=== PATIENT | male | born 1940 | race Caucasian/White ===

== ENCOUNTER 2020-01-05 17:48 | Emergency (ER) | payer MEDICARE, SELFPAY ==
[2020-01-05 17:53] VITALS: BP 146/78; PULSE 78; RESP 18; TEMP 36.5; O2SAT 100
--- NOTE | 2020-01-05 17:59 | ECG_ITS ---
Measurements Intervals [place] Rate: 74 P: 180 NV: 252 QRS: -87 QRSD: 181 T: 104 QT: 465 QTc: 518 Interpretive Statements ELECTRONIC ATRIAL PACEMAKER ELECTRONIC VENTRICULAR PACEMAKER ATRIAL PREMATURE COMPLEX NO FURTHER INTERPRETATION IS POSSIBLE ATYPICAL ECG Electronically Signed On 01-06-2020 7:09:32 CDT by Luiz Hernandez D.O.
--- NOTE | 2020-01-05 18:09 | ED.DIZZY ---
HPI - Dizziness General Chief Complaint: Dizziness Stated Complaint: DIZZINESS Time Seen by Provider: 01/05/20 17:53 History of Present Illness HPI Narrative: Pt c/o lightheadedness and clammy , states the same symptoms when he had a hear attack. Pt states he never had cp or sob from his previous heart attack, my diabetes masked my symptoms like chest pain . Exacerbating factors: nothing Relieving factors: nothing Associated symptoms: diaphoresis Related Data Allergies Allergy/AdvReac Type Severity Reaction Status Date / Time No Known Allergies Allergy Verified 05/01/13 01:44 Review of Systems Review of Systems: All systems reviewed & are unremarkable except as noted in HPI and below Constitutional: Constitutional: Denies body ache(s), Denies chills, Denies excessive sweating, Denies fatigue, Denies fever(s), Denies headache(s), Denies lethargy, Denies malaise, Denies weakness and Denies weight loss Eyes: Eyes: Denies blurry vision, Denies change in vision and Denies loss of vision ENT: Denies dizziness, Denies ear discharge, Denies headache(s), Denies lip swelling, Denies epistaxis, Denies nasal congestion, Denies neck pain, Denies throat swelling and Denies tongue swelling Cardiovascular: Cardiovascular: Denies chest pain, Denies chest pain at rest, Denies chest pain with activity, Denies rapid heart rate, Denies edema, Denies irregular heart rhythm, Denies lightheadedness, Denies palpitations, Denies dyspnea and Denies dyspnea on exertion Respiratory: Respiratory: Denies chest congestion, Denies cough, Denies hemoptysis, Denies dyspnea and Denies dyspnea on exertion Gastrointestinal: Gastrointestinal: Denies abdominal pain, Denies melena, Denies hematochezia, Denies diarrhea, Denies nausea, Denies vomiting and Denies hematemesis Musculoskeletal: Musculoskeletal: Denies abnormal gait, Denies deformity, Denies joint swelling, Denies limited range of motion, Denies neck pain and Denies numbness Neurologic: Denies Abnormal speech present, Denies abnormal gait, Denies confusion, Denies headache(s), Denies focal weakness, Denies loss of vision, Denies numbness, Denies Other visual disturbances, Denies Sensory deficit (Neuro) and Denies weakness Psychiatric: Psychiatric: Denies confusion, Denies depression, Denies auditory hallucinations, Denies homicidal ideation and Denies suicidal ideation Endocrine: Endocrine: Denies cold intolerance, Denies excessive sweating, Denies fatigue, Denies heat intolerance and Denies palpitations Hematologic/Lymphatic: Hematologic/Lymphatic: Denies easy bleeding and Denies easy bruising Allergic/Immunologic: Allergic/Immunologic: Denies lip swelling, Denies throat swelling and Denies tongue swelling [facility] Social History Social History Gender identity (if verbalized by the patient): Male Exam Const: General: cooperative, healthy appearing, comfortable, no acute distress, well developed, alert and awake; No confusion Orientation/consciousness: oriented to person, oriented to place, oriented to time, patient oriented x3 and No confusion Limitations: no limitations HENMT: Head: normal to inspection, normocephalic and atraumatic Ears: hearing grossly normal bilaterally, TM normal on the right and TM normal on the left General nose exam: Normal external nose present, Normal nares present and No nasal discharge present Face and sinus: normal facial exam Mouth: Yes Normal oral and palatal mucosa present, Yes lip normal, Yes tongue normal and Yes oropharynx normal Throat: posterior oropharynx normal, tonsils normal and uvula midline Eyes: General: appearance normal, both eyes and all related structures Pupils: Equal, round and reactive pupils present EOM: EOMs intact bilaterally Neck: Neck: normal visual inspection, full ROM, no lymphadenopathy and no meningeal signs Chest: Chest palpation & inspection: normal inspection of the chest Resp: Effort & Inspection: normal respiratory effort, able
[2020-01-05 18:18] LABS: Basophils Absolute Auto 0.1 K/mm3 (0.0-0.1); Basophils Percent Auto 0.7 % (0.2-1.2); Eosinophils Absolute Auto 0.1 K/mm3 (0-0.3); Eosinophils Percent Auto 1.6 % (0-4.4); Hematocrit 46.9 % (42.0-52.0); Hemoglobin 15.7 g/dL (14.0-18.0); Immature Granulocyte Absolute 0.11 K/mm3 (0.00-0.031); Immature Granulocyte Percent A 1.6 % (0-0.5); Lymphocytes Absolute Auto 1.26 K/mm3 (0.9-3.2); Lymphocytes Percent Auto 18.6 % (18.3-44.2); Mean Corpuscular HGB Conc 33.5 g/dl (32-36); Mean Corpuscular Hemoglobin 29.4 pg (26-34); Mean Corpuscular Volume 87.8 fl (80-100); Mean Platelet Volume 10.5 fl (7.4-10.4); Monocytes Absolute Auto 0.6 K/mm3 (0.1-0.6); Neutrophils Absolute Auto 4.6 K/mm3 (1.3-6.7); Neutrophils Percent Auto 68.5 % (45.5-73.1); Platelet Count Result 142 k/mm3 (150-375); Red Blood Count 5.34 M/mm3 (4.6-6.20); Red Cell Distribution Width 14.7 % (11.5-14.5); White Blood Count 6.8 K/mm3 (4.5-10.0)
[2020-01-05 18:35] LABS: Alanine Aminotransferase 19 U/L (4-50); Albumin Level 4.4 g/dL (3.5-5.1); Alkaline Phosphatase 100 U/L (38-126); Aspartate Amino Transferase 24 U/L (17-59); Bilirubin,Total 0.6 mg/dL (0.2-1.3); Blood Urea Nitrogen 21 mg/dL (9-20); Carbon Dioxide 30 mmol/L (22-30); Chloride 103 mmol/L (98-107); Estimated CRCL calculation 60 ml/min; Estimated Glomerular Filt Rate > 60; Glucose 140 mg/dL (75-110); Potassium 3.5 mmol/L (3.4-5.0); Sodium 141 mmol/L (137-145)
[2020-01-05 18:45] LABS: Troponin I 0.024 ng/mL (0.000-0.034)
[2020-01-05 19:49] VITALS: BP 149/66; PULSE 68; RESP 18; O2SAT 98
[2020-01-05 21:22] LABS: Troponin I 0.026 ng/mL (0.000-0.034)
== END 2020-01-05 21:45 | disposition left against medical advice (07) ==
PROVIDERS: Emergency Provider Emergency Medicine; PCP Internal Medicine
DX: I20.8 Other forms of angina pectoris (principal); I25.2 Old myocardial infarction; E11.9 Type 2 diabetes mellitus without complications; Z95.0 Presence of cardiac pacemaker; I49.1 Atrial premature depolarization
CPT/HCPCS: 36415; 80053; 84484; 85025; 93005; 99284

== ENCOUNTER 2020-10-20 19:20 | Emergency (ER) | payer MEDICARE, SELFPAY ==
[2020-10-20] VITALS (26 sets, daily range): BP systolic 72–121; BP diastolic 48–67; PULSE 50–81; RESP 18–28; TEMP 36.1–36.2; O2SAT 94–100
--- NOTE | ~2020-10-20 | CT_ITS ---
EXAMINATION: CT cervical spine wo con DATE: 10/20/2020 19:45 INDICATION: Fall with head injury TECHNIQUE: Computed tomography (CT) of the cervical spine was performed without intravenous contrast. Automated exposure control and iterative reconstruction technique were employed. The dose-length pro duct was 440.87 mGy-cm. COMPARISON: None FINDINGS: 2 mm retrolisthesis C3 on C4. Solid anterior spinal fusion at C5-C7 with incorporated interbody bone graft and anterior plate and screw fixation. Unfused vertebral body heights are normal. No acute frac ture. Mild disc height loss at C7-T1 and T2-T3 and minimal disc height loss at C4-C5. Hypertrophic ch akash at the fused disc space resulting in mild central canal stenosis at these levels. Multilevel mil d cervical facet osteoarthritis. Severe left-sided facet osteoarthritis at C7-T1. Mild neural foramin al stenosis at multiple levels in the cervical spinal both the left and right. After dirt shoveler calcific a cyst at the bilateral carotid bulbs. Ventricular peritoneal shunt extends along the subcutaneous tis sues in the right side of the neck without evident discontinuity. Visualized apices of the lungs are clear. Short segments of a pair of cardiac pacemaker leads are seen extending along the left subclavi an vein. IMPRESSION: 1. Mild cervical spondylosis with instrumented C5-C7 anterior spinal fusion. No acute osseous abnorma lity. Reviewed, dictated and finalized at location A. EQUIPMENT MECHANIC IMPRESSION: 1. Mild cervical spondylosis with instrumented C5-C7 anterior spinal fusion. No acute osseous abnormality.
--- NOTE | ~2020-10-20 | XR_ITS ---
EXAMINATION: XR chest 1V portable DATE: 10/20/2020 20:17 INDICATION: Fall TECHNIQUE: frontal view of the chest was obtained. COMPARISON: Chest radiograph dated 05/01/2013 FINDINGS: Mildly decreased lung volumes with mild bibasilar atelectasis. No pulmonary edema, pleural effusion o r pneumothorax. The cardiomediastinal silhouette is normal. Median sternotomy wires and mediastinal s urgical clips are seen, likely from prior coronary artery bypass grafting. Dual lead pacemaker seen w ith leads projecting over the expected locations of the right atrium and right ventricle. Ventriculop eritoneal shunt projects over the right neck, chest and upper abdomen. C5-C7 anterior spinal fusion w ith anterior plate and screw fixation. IMPRESSION: 1. Mildly decreased lung volumes with mild bibasilar atelectasis bibasilar atelectasis. Reviewed, dictated and finalized at location A. ING TECHNICIAN IMPRESSION: 1. Mildly decreased lung volumes with mild bibasilar atelectasis bibasilar atel ectasis.
--- NOTE | ~2020-10-20 | CT_ITS ---
EXAMINATION: CT brain wo con DATE: 10/20/2020 19:45 INDICATION: Fall with head injury. Lethargy. TECHNIQUE: Computed tomography (CT) of the head was performed without intravenous contrast. Sagittal and coronal reconstructions were performed. The mA was adjusted according to patient size. Iterative reconstruction technique was employed. The dose-length product was 681.00 mGy-cm. COMPARISON: None FINDINGS: No fracture. Ventriculoperitoneal shunt which extends through a posterior right frontal lucrecia hole int o the anterior horn of the right lateral ventricle with distal tip along and appearing to mildly tent the interventricular septum. There is a tract of low-attenuation gliosis along the shunt. Shunt tubi ng extends caudally from a valve at the scalp through the subcutaneous tissues at the lateral aspect of the right neck. No evident kinks or discontinuities along the visualized course of the catheter. No acute intracranial hemorrhage, acute infarction or abnormal extra axial fluid collection. There is mild scattered white matter hypoattenuation consistent with chronic small vessel ischemic disease. Symmetric and proportional increased prominence of the sulci and ventricles consistent with mild to m oderateage-appropriate diffuse cerebral volume loss. No mass/mass effect. Mild mucosal thickening the bilateral ethmoid and maxillary sinuses. Changes of bilateral intraocular lens replacement. The orbi ts and mastoid air cells are normal. Intracranial calcified cerebral atherosclerosis is noted. IMPRESSION: 1. No fracture or acute intracranial process. 2. Age-related changes including mild to moderate diffuse volume loss and mild scattered white matter hypoattenuation consistent with chronic small vessel ischemic disease. 3. Ventriculoperitoneal shunt with tip along the interventricular septum in the anterior horn of the right lateral ventricle. Reviewed, dictated and finalized at location A. K SUPERVISOR IMPRESSION: 1. No fracture or acute intracranial process. 2. Age-related changes including mild to moderate diffuse volume loss and mild scattered white matter hypoattenuation consistent with chronic small vessel isc hemic disease. 3. Ventriculoperitoneal shunt with tip along the interventricular septum in the anterior horn of the right lateral ventricle.
--- NOTE | 2020-10-20 19:27 | ECG_ITS ---
Measurements Intervals [place] Rate: 49 P: 187 GA: 248 QRS: -80 QRSD: 193 T: 121 QT: 518 QTc: 472 Interpretive Statements ELECTRONIC ATRIAL PACEMAKER ELECTRONIC VENTRICULAR PACEMAKER NO FURTHER INTERPRETATION IS POSSIBLE ATYPICAL ECG Electronically Signed On 10-21-2020 8:09:27 CAR LOADER by Luiz Hernandez D.O.
[2020-10-20 19:40] LABS: Basophils Percent Auto 0.8 % (0.2-1.2); Eosinophils Absolute Auto 0.1 K/mm3 (0-0.3); Eosinophils Percent Auto 2.5 % (0-4.4); Hematocrit 42.5 % (42.0-52.0); Hemoglobin 14.3 g/dL (14.0-18.0); Immature Granulocyte Absolute 0.06 K/mm3 (0.00-0.031); Immature Granulocyte Percent A 1.2 % (0-0.5); Lymphocytes Absolute Auto 1.23 K/mm3 (0.9-3.2); Mean Corpuscular HGB Conc 33.6 g/dl (32-36); Mean Corpuscular Volume 89.3 fl (80-100); Mean Platelet Volume 9.7 fl (7.4-10.4); Monocytes Absolute Auto 0.5 K/mm3 (0.1-0.6); Monocytes Percent Auto 9.4 % (2.6-8.5); Neutrophils Absolute Auto 3.2 K/mm3 (1.3-6.7); Neutrophils Percent Auto 62.1 % (45.5-73.1); Platelet Count Result 192 k/mm3 (150-375); Red Blood Count 4.76 M/mm3 (4.6-6.20); Red Cell Distribution Width 14.3 % (11.5-14.5); White Blood Count 5.1 K/mm3 (4.5-10.0)
[2020-10-20 19:50] LABS: INR 1.1
[2020-10-20] MEDS: SODIUM CHLORIDE 0.9% IV 1,000 ML 999 ML IV CONT (19:55)
[2020-10-20 19:57] LABS: Alanine Aminotransferase 21 U/L (4-50); Alkaline Phosphatase 52 U/L (38-126); Anion Gap 3 mmol/L (8-16); Aspartate Amino Transferase 24 U/L (17-59); Bilirubin,Total 0.6 mg/dL (0.2-1.3); Blood Urea Nitrogen 27 mg/dL (9-20); Calcium 9.7 mg/dL (8.4-10.2); Carbon Dioxide 30 mmol/L (22-30); Chloride 108 mmol/L (98-107); Estimated Glomerular Filt Rate 45; Glucose 155 mg/dL (75-110); Potassium 3.6 mmol/L (3.4-5.0); Sodium 141 mmol/L (137-145)
[2020-10-20] MEDS: LACTATED RINGERS 1,000 ML 999 ML IV CONT (19:57)
[2020-10-20 20:08] LABS: Troponin I 0.034 ng/mL (0.000-0.034)
[2020-10-20 20:08] LABS: Alveolar/Arterial O2 Gradient 32.8 mmHg; Base Excess ABG -0.9 mEq/l (+/-2.0); Fractional Inspired Oxygen 21 %; Oxygen Content ABG 18.3 %vol (16.0-22.0); Oxygen Saturation ABG 93.5 % (95.0-100.0); Oxyhemoglobin 92.5 % THb (90.0-100.0); PCO2 ABG 40.7 mmHg (35.0-45.0); PO2 ABG 68.2 mmHg (80.0-100.0); PO2 FiO2 Ratio Arterial Blood 3.25 %; Total Hemoglobin 14.1 g/dL (12.0-18.0); pH ABG 7.389 (7.350-7.450)
[2020-10-20 20:09] LABS: Device ROOM AIR; Modified Allen's Test Pass; Site Drawn RIGHT RADIAL
[2020-10-20 21:25] LABS: Add Urine Microscopic? YES; Amorphous Sediment Urine Moderate; Appearance Urine Cloudy (Clear); Bacteria Urine 1+ /hpf; Bilirubin Urine Negative (Negative); Blood Urine 1+ (Negative); Color Urine Yellow (Yellow); Glucose Urine UA Negative (Negative); Ketones Urine Negative (Negative); Leukocyte Esterase Ur 2+ LEU/UL (Negative); Mucus Urine Rare /lpf; Nitrate Urine Negative (Negative); Protein Urine 1+ mg/dL (Negative); Specific Grav Ur 1.015 (1.001-1.035); Squamous Epithelial Cell Urine Occasional /hpf (Few); WBC Urine >75 /hpf
--- NOTE | 2020-10-20 21:30 | PC.NURSE ---
EDP notified of assessment findings: Flaccid bilateral upper extremities with numbness and lack of sensation reported and noted during assessment. EDP also notified of weakness bilaterally to his legs as reported by patient and noted with assessment.
[2020-10-20 22:02] LABS: Amphetamine Screen Urine Negative (Negative); Barbiturate Screen Urine Negative (Negative); Benzodiazepines Screen Urine Negative (Negative); Cannabinoid Screen Urine Negative (Negative); Cocaine Screen Urine Negative (Negative); Methadone Screen Urine Negative (Negative); Opiate Screen Urine Negative (Negative); Phencyclidine Screen Urine Negative (Negative)
[2020-10-20 22:14] LABS: Glucose Point of Care 105 (65-105)
--- NOTE | 2020-10-20 22:17 | ED.GENADULT ---
HPI - General Adult General Chief complaint: Altered Mental Status Stated complaint: fall Time Seen by Provider: 10/20/20 19:26 History of Present Illness HPI narrative: Patient is a 79-year-old gentleman who presents the emergency department with chief complaint of head injury. The patient was walking with a glass of water in his hand and was tripped by his dog. The patient fell forward striking his face against the ground patient had positive LOC and presented to the emergency department hypotensive and confused. Patient reports to a small wound to his left hand Related Data Home Medications Medication Instructions Recorded Confirmed allopurinol 10/20/20 apixaban [Eliquis] mg 10/20/20 ezetimibe mg 10/20/20 fenofibrate mg 10/20/20 icosapent ethyl [Vascepa] g PO 10/20/20 indapamide mg 10/20/20 insulin NPH and regular human SUBCUT 10/20/20 [Humulin 70/30 U-100 Insulin] losartan 10/20/20 metoprolol tartrate 10/20/20 Allergies Allergy/AdvReac Type Severity Reaction Status Date / Time No Known Allergies Allergy Verified 05/01/13 01:44 Review of Systems Review of Systems: Narrative: A 10 system review of systems was completed on the patient and is negative except for what is stated in the HPI. Nursing and ancillary documentation was reviewed. [facility] Social History Social History Gender identity (if verbalized by the patient): Male Comments Patient has history of cardiac disease has history of cervical fusion pacemaker RN RESEARCH shunt diverting colostomy patient is on long-term anticoagulant therapy He has had history of atrial fibrillation Social history the patient lives with his denies illicit drug use Exam Narrative: Exam Narrative: GENERAL: Well-appearing, well-nourished, and in no acute distress. HEAD: Normocephalic, atraumatic. EYES: PERRLA and EOMI. ENT: Nares clear, no rhinorrhea there is dried epistaxis. Mucous membranes moist. NECK: Supple. CHEST: Clear to auscultation. No respiratory distress. HEART: Regular rate and rhythm. No murmur heard. Normal peripheral pulses. ABDOMEN: Soft, nontender, nondistended, normal active bowel sounds. EXTREMITIES: No signs of obvious trauma other than the left hand with several small abrasions to the hand. SKIN: Warm, dry, no rash. NEURO: Patient is unable to lift his upper extremities above the stretcher has decreased sensation in his upper extremities is able to move his hands.. Alert and oriented x3. PSYCH: Normal mood and affect. Course Vital Signs Vital signs: Vital Signs Temperature 36.1 C L 10/20/20 19:30 Pulse Rate 59 L 10/20/20 19:30 Respiratory Rate 24 H 10/20/20 19:30 Blood Pressure 72/48 L 10/20/20 19:30 Pulse Oximetry 96 10/20/20 19:30 Temperature 36.2 C L 10/20/20 22:15 Pulse Rate 53 L 10/20/20 22:15 Respiratory Rate 20 10/20/20 22:15 Blood Pressure 121/57 L 10/20/20 22:15 Pulse Oximetry 100 10/20/20 22:00 Transfer Transfered to: [facility] Transfer rationale: Patient accepted at [facility] due to the patient being a trauma patient with spinal cord injury without evidence of radiographic abnormality Accepting physician: Accepted by the ED KEI Medical Decision Making Vital Signs Vital Signs: Vital Signs Temperature 36.1 C L 10/20/20 19:30 Pulse Rate 59 L 10/20/20 19:30 Respiratory Rate 24 H 10/20/20 19:30 Blood Pressure 72/48 L 10/20/20 19:30 Pulse Oximetry 96 10/20/20 19:30 Temperature 36.2 C L 10/20/20 22:15 Pulse Rate 53 L 10/20/20 22:15 Respiratory Rate 20 10/20/20 22:15 Blood Pressure 121/57 L 10/20/20 22:15 Pulse Oximetry 100 10/20/20 22:00 Lab Data Result diagrams: 10/20/20 19:35 10/20/20 19:35 Labs: Lab Results 10/20/20 10/20/20 10/20/20 Range/Units 19:35 19:35 19:35 WBC 5.1 (4.5-10.0) K/mm3 RBC 4.76 (4.6-6.20) M/mm3 Hgb 14.3 (14.0-18
[2020-10-20] MEDS: MORPHINE SULFATE (*CRX) 4 MG/ML INJ 2 MG IV PUSH (22:44)
--- NOTE | 2020-10-20 23:31 | PC.NURSE ---
pt has been accepted at [facility], waiting it professional back for bed
[2020-10-20] MEDS: TETANUS,DIPHTHERIA,AC PERTUSSIS ADULT (0.5 ML) BOOSTRIX IM (23:58)
[2020-10-21] VITALS (12 sets, daily range): BP systolic 92–112; BP diastolic 52–57; PULSE 55–76; RESP 19–23; TEMP 36.4; O2SAT 96–97
[2020-10-21] MEDS: SODIUM CHLORIDE 0.9% IV 1,000 ML 150 ML IV CONT (01:03)
--- NOTE | 2020-10-21 01:16 | PC.NURSE ---
report called to Nikolas at [facility]. pt to go to room 474 bed 14.
--- NOTE | 2020-10-21 01:33 | PC.NURSE ---
transport arranged with [facility]. trip #[id number]. ETA 30mins.
== END 2020-10-21 02:28 | disposition short-term general hospital (02) ==
PROVIDERS: Emergency Medicine; Emergency Provider Emergency Medicine; PCP Internal Medicine
DX: S06.9X9A Unspecified intracranial injury with loss of consciousness of unspecified duration, initial encounter (principal); T14.8XXA Other injury of unspecified body region, initial encounter; I51.9 Heart disease, unspecified; I48.91 Unspecified atrial fibrillation; Z23 Encounter for immunization; Z98.1 Arthrodesis status; Z95.0 Presence of cardiac pacemaker; Z98.2 Presence of cerebrospinal fluid drainage device; Z93.3 Colostomy status; Z79.01 Long term (current) use of anticoagulants; Z79.4 Long term (current) use of insulin; R82.998 Other abnormal findings in urine; W01.0XXA Fall on same level from slipping, tripping and stumbling without subsequent striking against object, initial encounter
CPT/HCPCS: 36415; 36600; 70450; 71045; 72125; 80053; 80307; 81001; 82805; 82948; 84484; 85025; 85610; 85730; 86850; 86900; 86901; 87077; 87086; 87088; 87186; 90471; 90715; 93005; 96361; 96365; 96375; 99285; J0696; J2270; J7030; J7120

== ENCOUNTER 2021-05-16 07:48 | Inpatient (IN) | payer MEDICARE, SELFPAY ==
[2021-05-16] VITALS (38 sets, daily range): BP systolic 105–191; BP diastolic 52–88; PULSE 50–81; RESP 16–30; TEMP 37.2–37.3; O2SAT 93–100
--- NOTE | ~2021-05-16 | XR_ITS ---
EXAMINATION: XR chest 1V portable DATE: 05/20/2021 05:54 INDICATION: Respiratory failure TECHNIQUE: frontal view of the chest was obtained. COMPARISON: Chest radiograph dated 05/19/2021 FINDINGS: Tracheostomy tube remains in expected position at the thoracic inlet with the distal tip 3.8 cm above the madan. Right internal jugular central venous catheter with distal tip at the caudal superior ve na cava. Persistent airspace opacities in the bilateral lower lung zones. No pleural effusion or pneumothorax. The cardiomediastinal silhouette is normal. Median sternotomy wires and mediastinal surgical clips a re seen, likely from prior coronary artery bypass grafting. Dual lead pacemaker seen with leads proje cting over the expected locations of the right atrium and right ventricle. Plain screw fixation for l ower cervical anterior spinal fusion. IMPRESSION: 1. Unchanged opacities in the bilateral lower lung zones which could represent atelectasis or pneumon ia. Reviewed, dictated and finalized at location A. IMPRESSION: 1. Unchanged opacities in the bilateral lower lung zones which could represent atelectasis or pneumonia.
--- NOTE | ~2021-05-16 | XR_ITS ---
EXAMINATION: XR chest 1V portable INDICATION: Shortness of breath TECHNIQUE: Portable AP chest at 0759 hours COMPARISON: 10/20/2020 FINDINGS: There are patchy bilateral airspace opacities. No pleural effusion or pneumothorax is ident ified. A dual-lead cardiac pacemaker of the left chest wall ends with leads in expected locations. Th e cardiac silhouette is normal technique. Median sternotomy wires are consistent with prior cardiac s urgery. A tracheostomy is noted. Ventriculoperitoneal shunt catheter tubing courses over the right he mithorax. IMPRESSION: 1. Patchy bilateral airspace opacities, consistent with atelectasis versus pneumonia. Reviewed, dictated and finalized at location B. IMPRESSION: 1. Patchy bilateral airspace opacities, consistent with atelectasis versus pneu monia.
--- NOTE | ~2021-05-16 | CT_ITS ---
EXAMINATION: CT soft tissue neck chest wo DATE: 05/17/2021 12:59 INDICATION: Pneumonia. Tracheal dilation. TECHNIQUE: Computed tomography (CT) of the neck and chest was performed without intravenous contrast. Automated exposure control and iterative reconstruction technique were employed. The dose-length pro duct was 1065.87 mGy-cm. COMPARISON: Chest single view 05/17/2020 FINDINGS: CT NECK: There are no pathologically enlarged lymph nodes. There is a ventriculoperitoneal shunt in a nterior right chest. A tracheostomy is noted. In the area of the tracheostomy balloon, the trachea me asures 2.9 x 2.2 cm. The trachea is larger than the tracheostomy balloon. There are changes of anteri or fusion procedure from C5 to C7 and posterior fusion procedure from C3 to C5. CT CHEST: There is moderate atelectasis in the lower lobes. There are tree-in-bud opacities and small groundglass opacities in right upper lobe, consistent with pneumonia. There is a trace left pleural effusion. The heart size is normal. There are coronary artery calcifications. There are calcification s of the aortic valve. There are changes of coronary artery bypass grafting. There is a left chest wa ll pacer with leads in the right atrium and right ventricle. Partially visualized is moderate left hy dronephrosis. There are bridging endplate osteophytes at multiple levels in the spine, consistent wit h diffuse idiopathic skeletal hyperostosis (DISH). There is a chronic compression fracture of T12. IMPRESSION: 1. Tracheomegaly. 2. Mild pneumonia in right upper lobe. 3. Partially visualized moderate left hydronephrosis. Reviewed, dictated and finalized at location A.
--- NOTE | ~2021-05-16 | XR_ITS ---
EXAMINATION: XR chest 1V portable EXAM DATE: 05/18/2021 03:22 INDICATION: hypoxia . TECHNIQUE: Portable AP frontal chest x-ray was obtained. Comparison is made to prior examination from 05/17/2021. FINDINGS: Tracheostomy tube. There is a dual lead pacemaker/AICD seen with leads projecting over the expected locations of the right atrial appendage and right ventricle. Sternotomy wires are present w ithout findings to suggest sternal dehiscence. Cervical fusion hardware. Right-sided ventriculoperito ann-marie shunt. No confluent consolidation. There are no sizable pleural effusions. There is no pneumothorax suspe cted. The cardiomediastinal silhouette is prominent but magnified on this AP technique. The bones and soft tissues are unremarkable. IMPRESSION: 1. No acute cardiopulmonary findings. Reviewed, dictated and finalized at location A.
--- NOTE | ~2021-05-16 | XR_ITS ---
EXAMINATION: XR chest 1V portable DATE: 05/17/2021 06:02 INDICATION: Respiratory failure. TECHNIQUE: A single frontal view of the chest was obtained. COMPARISON: Chest single view 05/16/2021, 10/20/2020 FINDINGS: The lung volumes are small. There are mild airspace opacities in right mid and lower lung z ones and all left lung zones. No pleural effusion or pneumothorax. The heart size is normal. Median s ternotomy wires and mediastinal surgical clips are seen, likely from prior coronary artery bypass gra fting. There is a left chest wall pacer with leads in the right atrium and right ventricle. A tracheo stomy tube is noted. There are changes of anterior fusion procedure in cervical spine. A ventriculope ritoneal shunt is noted. IMPRESSION: 1. Small lung volumes with mild diffuse lung disease with improvement on the right, consistent with a telectasis/scarring versus pneumonia. Reviewed, dictated and finalized at location A. IMPRESSION: 1. Small lung volumes with mild diffuse lung disease with improvement on the ri ght, consistent with atelectasis/scarring versus pneumonia.
--- NOTE | ~2021-05-16 | XR_ITS ---
EXAMINATION: XR chest 1V portable DATE: 05/21/2021 06:06 INDICATION: Respiratory failure TECHNIQUE: frontal view of the chest was obtained. COMPARISON: Chest radiograph dated 05/20/2021 FINDINGS: Tracheostomy tube remains in expected position at the thoracic inlet with the distal tip 3.2 cm above the madan. Catheter projecting from the right neck across the right hemithorax to the right upper q uadrant of the abdomen likely representing a ventriculoperitoneal shunt. Persistent airspace opacities in the bilateral lower lung zones. No pneumothorax or definitive pleura l effusion. The cardiomediastinal silhouette is normal. Median sternotomy wires and mediastinal surgi cosmo clips are seen, likely from prior coronary artery bypass grafting. Dual lead pacemaker seen with leads projecting over the expected locations of the right atrium and right ventricle. Plate and screw fixation for lower cervical anterior spinal fusion. Bilateral vertical joel and lateral mass screws f or posterior spinal fusion in the more cephalad cervical spine. IMPRESSION: 1. No significant change in opacities in the bilateral lower lung zones which could represent atelect asis or pneumonia. Reviewed, dictated and finalized at location A. IMPRESSION: 1. No significant change in opacities in the bilateral lower lung zones which c ould represent atelectasis or pneumonia.
--- NOTE | ~2021-05-16 | XR_ITS ---
EXAMINATION: XR chest 1V portable EXAM DATE: 05/19/2021 06:06 INDICATION: Respiratory failure. TECHNIQUE: Portable AP frontal chest x-ray was obtained. Comparison is made to prior examination from 05/18/2021. FINDINGS: Tracheostomy tube. Right-sided IJ venous line. Development of focal right midlung zone subsegmental, left lower lobe segmental atelectasis an/or pne umonia. Development of small pleural effusions. There is no pneumothorax suspected. The cardiomed iastinal silhouette is prominent but magnified on this AP technique. Sternotomy wires are present without findings to suggest sternal dehiscence. There is a dual lead pac emaker/AICD seen with leads projecting over the expected locations of the right atrial appendage and right ventricle. Cervical fusion hardware. Patient has diffuse idiopathic skeletal hyperostosis (DISH ). IMPRESSION: 1. Interval development of bilateral atelectasis an/or pneumonia. 2. Interval development of small pleural effusions. Reviewed, dictated and finalized at location A.
--- NOTE | 2021-05-16 08:46 | PC.NURSE ---
Spoke with Gretel @ [facility] through [place] office. She states she is familiar with pt.& family. Alarm settings continue to go off
[2021-05-16 09:00] LABS: Basophils Absolute Auto 0.1 K/mm3 (0.0-0.1); Basophils Percent Auto 0.6 % (0.2-1.2); Eosinophils Absolute Auto 0.2 K/mm3 (0-0.3); Eosinophils Percent Auto 2.8 % (0-4.4); Hematocrit 33.2 % (42.0-52.0); Hemoglobin 9.9 g/dL (14.0-18.0); Immature Granulocyte Absolute 0.18 K/mm3 (0.00-0.031); Immature Granulocyte Percent A 2.2 % (0-0.5); Lymphocytes Absolute Auto 0.63 K/mm3 (0.9-3.2); Lymphocytes Percent Auto 7.7 % (18.3-44.2); Mean Corpuscular HGB Conc 29.8 g/dl (32-36); Mean Corpuscular Hemoglobin 26.1 pg (26-34); Mean Corpuscular Volume 87.6 fl (80-100); Mean Platelet Volume 11.4 fl (7.4-10.4); Monocytes Absolute Auto 0.6 K/mm3 (0.1-0.6); Monocytes Percent Auto 7.4 % (2.6-8.5); Neutrophils Absolute Auto 6.5 K/mm3 (1.3-6.7); Neutrophils Percent Auto 79.3 % (45.5-73.1); Platelet Count Result 219 k/mm3 (150-375); Red Blood Count 3.79 M/mm3 (4.6-6.20); Red Cell Distribution Width 15.5 % (11.5-14.5); White Blood Count 8.2 K/mm3 (4.5-10.0)
[2021-05-16 09:10] LABS: INR 1.2; Prothrombin Time 14.8 Seconds (11.1-14.7)
[2021-05-16 09:11] LABS: Partial Thromboplastin Time 32.7 SECONDS (22.3-36.8)
[2021-05-16 09:19] LABS: Alanine Aminotransferase 23 U/L (4-50); Albumin Level 3.8 g/dL (3.5-5.1); Alkaline Phosphatase 122 U/L (38-126); Anion Gap 10 mmol/L (8-16); Aspartate Amino Transferase 25 U/L (17-59); Bilirubin,Total 0.4 mg/dL (0.2-1.3); Blood Urea Nitrogen 40 mg/dL (9-20); Calcium 9.9 mg/dL (8.4-10.2); Carbon Dioxide 26 mmol/L (22-30); Chloride 100 mmol/L (98-107); Estimated CRCL calculation 95 ml/min; Estimated Glomerular Filt Rate > 60; Glucose 300 mg/dL (65-110); Potassium 4.2 mmol/L (3.4-5.0); Sodium 136 mmol/L (137-145)
[2021-05-16 09:26] LABS: NT Pro B Type Natriuretic Pept 781 pg/mL (5-100)
--- NOTE | 2021-05-16 09:53 | ED.GENADULT ---
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 Patient recently was released home 3 weeks ago after a prolonged stay in rehabilitation after suffering a cord injury. He is scheduled to follow-up with pulmonology next month however he is having issues with his vent today. His reading that are high pressures. Patient has had some increased secretions around his trach that is atypical for him. No reported fevers. Related Data Home Medications Medication Instructions Recorded Confirmed ezetimibe 10 mg PO DAILY 10/20/20 05/16/21 fenofibrate 48 mg PO DAILY 10/20/20 05/16/21 losartan 100 mg PO DAILY 10/20/20 05/16/21 amlodipine 5 mg PO Q12H 05/16/21 05/16/21 apixaban [Eliquis] 5 mg PO BID 05/16/21 05/16/21 aspirin 81 mg PO DAILY 05/16/21 05/16/21 chlorhexidine gluconate 15 ml BUCCAL BID 05/16/21 05/16/21 diclofenac sodium 4 g TOPICAL Q6H PRN 05/16/21 05/16/21 gabapentin 300 mg PO TID 05/16/21 05/16/21 hydralazine 50 mg PO Q8H 05/16/21 05/16/21 hydrochlorothiazide 25 mg PO DAILY 05/16/21 05/16/21 insulin NPH isoph U-100 human See Rx Instructions .ROUTE .COMPLEX 05/16/21 05/16/21 [Humulin N NPH Insulin KwikPen] insulin lispro [Humalog U-100 See Rx Instructions .ROUTE .COMPLEX 05/16/21 05/16/21 Insulin] ipratropium-albuterol 3 ml INHALATION Q6H PRN 05/16/21 05/16/21 lansoprazole 30 mg PO DAILY 05/16/21 05/16/21 metoprolol tartrate 12.5 mg PO QAM 05/16/21 05/16/21 metoprolol tartrate 25 mg PO QPM 05/16/21 05/16/21 tramadol 100 mg PO Q6H PRN 05/16/21 05/16/21 trazodone 75 mg PO HS 05/16/21 05/16/21 venlafaxine 75 mg PO QPM 05/16/21 05/16/21 venlafaxine 100 mg PO QAM 05/16/21 05/16/21 Allergies Allergy/AdvReac Type Severity Reaction Status Date / Time No Known Allergies Allergy Verified 05/16/21 11:21 Review of Systems Review of Systems: All systems reviewed & are unremarkable except as noted in HPI and below Constitutional: Constitutional: Denies chills and Denies fever(s) ENT: Denies nasal congestion and Denies sore throat Respiratory: Respiratory: Denies cough, Reports excessive phlegm production and Denies dyspnea Gastrointestinal: Gastrointestinal: Denies abdominal pain, Denies nausea and Denies vomiting PMFSH Past Medical History Medical History CAD (coronary artery disease) Chronic GERD Gastrostomy tube dependent Generalized anxiety disorder History of bladder carcinoma History of gout No longer on allopurinol History of pulmonary embolism On Eliquis Hyperlipidemia Hypertension 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 The patient does have a living will and is listed as a full code. The patient has no biological children. The patient has care around the clock at home. The patient is retired from [employer]. The patient is nonsmoker does not use any alcohol marijuana illicit drugs. Smoking status: Never smoker Second hand tobacco smoke exposure: No
[2021-05-16 10:11] LABS: Platelet Estimate Adequate (Adequate)
[2021-05-16 10:12] LABS: Anisocytosis 1+ (NORMAL); Hypochromasia 1+ (NORMAL)
[2021-05-16 10:58] LABS: Alveolar/Arterial O2 Gradient 22.6 mmHg; Base Excess ABG 3.5 mEq/l (+/-2.0); Carboxyhemoglobin 0.6 % THb (0-2.0); Fractional Inspired Oxygen 21 %; HCO3 ABG 26.4 mEq/l (22.0-26.0); Methemoglobin ABG 0.2 %THb (0-1.5); Oxygen Content ABG 15.9 %vol (16.0-22.0); Oxygen Saturation ABG 97.3 % (95.0-100.0); Oxyhemoglobin 95.9 % THb (90.0-100.0); PO2 ABG 86.4 mmHg (80.0-100.0); PO2 FiO2 Ratio Arterial Blood 4.11 %; Reduced Hemoglobin 3.3 %THb (0-5.0); Total Hemoglobin 11.7 g/dL (12.0-18.0)
[2021-05-16 11:01] LABS: pH ABG 7.508 (7.350-7.450)
[2021-05-16 11:02] LABS: Device VENTILATOR; Modified Allen's Test Pass; Site Drawn RIGHT RADIAL
[2021-05-16 11:04] LABS: Arterial Blood Gas PEEP 5 cmH2O; Arterial Blood Gas Tidal Volume 600 ml; Arterial Blood Gas Vent Mode ASSIST CONTROL; Arterial Blood Gas Ventilator rate 16 /MIN
--- NOTE | 2021-05-16 12:47 | PM.IMHP ---
H&P: HPI History of Present Illness Date/Time: 05/16/21 12:47 this is a 80-year-old male patient who has a past medical history of tracheostomy and is vent dependent. He resides with his and has nursing care 30/03. According to the , she stated that his heart rate has been fast and the patient has been coughing. She also stated that the home ventilator has been alarming quite frequently. The tells me that the patient has been fully vaccinated. Patient's respiratory rate was anywhere from 25-27 today. He is afebrile and his heart rate is in the 50s to 60s. Patient's H&H is 9.9 and 33.2. The patient is on Eliquis but does not have any signs and symptoms of bleeding at this time. Patient's white count is normal at 8.2. Patient's ABGs pH 7.508 with CO2 of 34.0. Bicarb 26.4. Pulmonology has been consulted. Systems Administrator has been consulted and pulmonology has been in to the emergency room to see the patient. Chest x-ray was read as patchy bilateral airspace opacities consistent with atelectasis versus pneumonia. The patient was started on azithromycin and Rocephin. I discussed antibiotic therapy with the component assembler supervisor and was decided at vancomycin since the patient is vent dependent. According to the the patient has had 1 of the to COVID vaccine approximately 3 weeks ago and is waiting for his 2nd vaccine. The patient was started on azithromycin and Rocephin in the emergency room and given neb treatments. The patient is being admitted to ICU observation for community-acquired pneumonia on the date of service of 05/28. Chief Complaint: Acute on chronic respiratory failure Review of Systems Review of Systems: The patient is able to speak softly but the is answering questions. The patient is trached and on a ventilator. 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 The patient does have a living will and is listed as a full code. The patient has no biological children. The patient has care around the clock at home. The patient is retired from [employer]. The patient is nonsmoker does not use any alcohol marijuana illicit drugs. Gender identity (if verbalized by the patient): Male Meds Home Medications and Allergies Home Medications Medication Instructions Recorded Confirmed Type ezetimibe 10 mg PO DAILY 10/20/20 05/16/21 History fenofibrate 48 mg PO DAILY 10/20/20 05/16/21 History losartan 100 mg PO DAILY 10/20/20 05/16/21 History amlodipine 5 mg PO Q12H 05/16/21 05/16/21 History apixaban [Eliquis] 5 mg PO BID 05/16/21 05/16/21 History aspirin 81 mg PO DAILY 05/16/21 05/16/21 History chlorhexidine gluconate 15 ml BUCCAL BID 05/16/21 05/16/21 History diclofenac sodium 4 g TOPICAL Q6H PRN 05/16/21 05/16/21 History gabapentin 300 mg PO TID 05/16/21 05/16/21 History hydralazine 50 mg PO Q8H 05/16/21 05/16/21 History hydrochlorothiazide 25 mg PO DAILY 05/16/21
--- NOTE | 2021-05-16 13:55 | WPDCNINT ---
Assessment and Plan Assessment and plan (1) Chronic respiratory failure: Code(s): J96.10 - Chronic respiratory failure, unspecified whether with hypoxia or hypercapnia Status: Acute Assessment and Plan: Patient has chronic respiratory failure and is vent dependent Patient has size 6 tracheostomy tube and is able to speak around the inflated cuff would suggest that his tracheostomy is too narrow. Patient also has high peak pressures on the ventilator.. I have decreased tidal volume to 450 and increased rate He is afebrile and WBCs normal but has increased secretions as per his Chest x-ray shows Patchy bilateral airspace opacities, consistent with atelectasis versus pneumonia. Patient may have pneumonia or tracheitis Check sputum and blood cultures Empiric vancomycin, Rocephin azithromycin Check for COVID-19 Will change trach to size 7 Cautious IV fluids as patient has overall volume overload (2) Tracheostomy status: Code(s): Z93.0 - Tracheostomy status Status: Acute Assessment and Plan: See above (3) Gastrostomy tube dependent: Code(s): Z93.1 - Gastrostomy status Status: Acute (4) On tube feeding diet: Code(s): Z78.9 - Other specified health status Status: Acute Assessment and Plan: Start tube feeds (5) Insulin dependent diabetes mellitus: Status: Acute Assessment and Plan: Sliding scale insulin plus Lantus (6) Chronic GERD: Code(s): K21.9 - Gastro-esophageal reflux disease without esophagitis Status: Acute Assessment and Plan: PPI (7) Community acquired pneumonia: Code(s): J18.9 - Pneumonia, unspecified organism Status: Acute Assessment and Plan: See above (8) Suspected COVID-19 virus infection: Code(s): Z20.822 - Contact with and (suspected) exposure to COVID-19 Status: Acute Assessment and Plan: COVID-19 suspected. SARS-CoV-2 rapid test has been sent and if negative will check PCR Patient is in Airborne, Droplet and Contact Isolation (9) Tracheitis: Code(s): J04.10 - Acute tracheitis without obstruction Status: Acute Assessment and Plan: See above Additional Plan DVT prophylaxis -Eliquis Stress ulcer prophylaxis -lansoprazole Nutrition -resume Tube Feeds Code Status - Full Code Total Critical Care Time - 45 minutes Due to a high probability of clinically significant, life threatening deterioration, the patient required my highest level of preparedness to intervene emergently and I personally spent this critical care time directly and personally managing the patient. This critical care time included obtaining a history; examining the patient; pulse oximetry; ordering and review of studies; arranging urgent treatment with development of a management plan; evaluation of patient's response to treatment; frequent reassessment; and discussions with other providers. It was exclusive of separately billable procedures and treating other patients and teaching time. 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 Patient has size 6 trach. Patient also has history of bladder cancer status post bladder removal and urostomy. He was in [facility] and was discharged home. Currently lives at home with his and has nursing care at home. Patient was brought to ED today by his
[2021-05-16 14:19] LABS: EDCOVIDSCREEN Negative (Negative)
--- NOTE | 2021-05-16 15:09 | PM.EVENT ---
Event Note Event Note Event Note: Patient's tracheostomy tube was changed to size 7 without any major difficulty. Patient had large amount of secretion deposited in his tracheostomy that was removed. Sterile water was injected into the cough. Patient had good volumes and his peak pressures dropped from high 30s to 10s. He seems anxious and was still tachypneic and will give a dose of Ativan. He has good tidal volumes and he is saturating 100% on 21% FiO2
[2021-05-16] MEDS: LORazepam INJ (*CRX) 2 MG/ML VIAL 1 MG IV PUSH (15:14)
[2021-05-16 15:29] LABS: Alveolar/Arterial O2 Gradient 28.4 mmHg; Base Excess ABG 5.6 mEq/l (+/-2.0); Fractional Inspired Oxygen 21 %; HCO3 ABG 28.3 mEq/l (22.0-26.0); Oxygen Content ABG 16.8 %vol (16.0-22.0); Oxygen Saturation ABG 96.9 % (95.0-100.0); Oxyhemoglobin 95.1 % THb (90.0-100.0); PCO2 ABG 34.9 mmHg (35.0-45.0); PO2 ABG 79.5 mmHg (80.0-100.0); PO2 FiO2 Ratio Arterial Blood 3.79 %; Total Hemoglobin 12.5 g/dL (12.0-18.0)
[2021-05-16 15:32] LABS: Modified Allen's Test Pass; Site Drawn LEFT BRACHIAL; pH ABG 7.527 (7.350-7.450)
[2021-05-16 15:33] LABS: Device VENTILATOR
[2021-05-16 15:34] LABS: Arterial Blood Gas PEEP 5 cmH2O; Arterial Blood Gas Tidal Volume 450 ml; Arterial Blood Gas Vent Mode CMV; Arterial Blood Gas Ventilator rate 20 /MIN
--- NOTE | 2021-05-16 16:52 | ADMGEN ---
This patient, Christian Perera, was admitted to Intensive Care Unit-8 on 05-16-21 at 1450 Patient/family oriented to hospital policies and general routines including ID bracelet, bed and alarms, visiting hours, pain management, procedures, bathroom and other care routines, personal items, smoking policy, room service/diet, and visiting hours. Information on how to activate the Rapid Response Team has been discussed. Patient/Family are encouraged to report perceived risks to care and to ask questions if they do not understand what they are told or what they should do.
[2021-05-16] MEDS: SODIUM CHLORIDE 0.9% IV 1,000 ML 125 ML IV CONT (17:44)
[2021-05-16] MEDS: CHLORHEXIDINE GLUCONATE 0.12% ORAL RINSE 473 ML BTL (*BKC) 15 ML SWISH/SPIT (17:45)
[2021-05-16] MEDS: hydrALAZINE HCL 50 MG TABLET FEED TUBE (17:47)
[2021-05-16] MEDS: VENLAFAXINE HCL XR 75 MG CAP.ER.24H PO (17:47)
[2021-05-16] MEDS: GABAPENTIN 300 MG CAPSULE PO ×2 (17:48→22:05)
[2021-05-16] MEDS: INSULIN ASPART (*BKC) 100 UNITS/ML SUB-Q ×2 (17:54→23:31)
[2021-05-16 18:28] LABS: Glucose Point of Care 206 mg/dl (65-105)
--- NOTE | 2021-05-16 20:02 | PM.CNPUL ---
Assessment and Plan Assessment and plan (1) Community acquired pneumonia: Onset Date: ~05/2021 Code(s): J18.9 - Pneumonia, unspecified organism Status: Acute Assessment and Plan: He has new bilateral infiltrates with increased secretions, increased respiratory rate, increased low minute ventilation alarm on his home ventilator, and sound of air leaking at the trach site. He is speaking around his trach as it is too small and it is getting clogged with secretions. Dr Ramirez replaced the 6.0 tracheostomy tube with a 7.0 with lower peak pressures and no air leaking around the site. TV adjusted to 450 ml, rate adjusted. The patient had increased minute ventilation in the ER, > 10 L/min. He is getting empiric treatment for presumed pneumonia with ceftriaxone, azithromycin and vancomycin. His cultures have been sent, and treatment can be adjusted after results obtained. (2) Chronic respiratory failure: Onset Date: ~10/2020 Code(s): J96.10 - Chronic respiratory failure, unspecified whether with hypoxia or hypercapnia Status: Acute Assessment and Plan: He had tracheostomy after a fall with C3-C5 decompression in Oct 2020, had quadriplegia and chronic respiratory failure He is not on supplemental O2, FiO2 0.21. His home ventilator ran out of power after arriving in the ED. He is now on hospital ventilator so we know what he is getting, and ABG shows no CO2 retention. He has no history of tobacco or occupational exposure. (3) Tracheostomy status: Code(s): Z93.0 - Tracheostomy status Status: Acute Assessment and Plan: (4) Ventilator dependent: Code(s): Z99.11 - Dependence on respirator [ventilator] status Status: Chronic Assessment and Plan: History of Present Illness History of Present Illness Consult date: 05/16/21 Reason for consult: pneumonia Chief complaint: pneumonia,vent dependent Narrative: This patient was seen in the ER around 10:[address] Neely called me. This patient has complex problems and has a new patient office appointment on June. NEW: Christian Perera is a 80 year old man with a fall with C3-C5 decompression in Oct 2020, had quadriplegia and chronic respiratory failure with trach and PEG, on the ventilator since then. He went to rehab around [place] and has been at home since Apr 22. He has a home ventilator that was working well until a week ago when the low tidal volume alarm began sounding all night. The home health aides that attend to him were constantly preventing the sound from occurring by pushing the silent button. He also started having increased secretions through the ETT. He had an albuterol aerosol which thinned his secretions and made these easier to remove. He normally does not use albuterol. His says that he had the ETT changed out last night by the respiratory therapist [facility] who came to the house. There was bleeding on the raw edges of his stoma. His blood glucose has been running high, over 200 for more than a week. He has not had fevers, chills, abdominal pains, or diarrhea. He has a G-tube. He has been talking around his tracheostomy with his 6.0 trach. He had his first COVID vaccine 3 weeks ago. PMH: CAD with hx of CABG, brain stimulator, DM, cervical injury secondary to a fall status post C3-C5 decompression in October of 2020 which led to quadriplegia, chronic respiratory failure , status post trach and PEG, ventilator dependent, PE on Eliquis, ppm; bladder cancer status post bladder removal and urostomy. Review of Systems Review of Systems: No recent change in weight. He has not had fevers or chills. PMFSH Past Medical Histor
[2021-05-16] MEDS: amLODIPine BESYLATE 5 MG TABLET PO (20:14)
[2021-05-16] MEDS: traZODone HCL 25 MG TABLET 75 MG PO (20:14)
[2021-05-16] MEDS: APIXABAN 5 MG TABLET PO (20:14)
[2021-05-16] MEDS: METOPROLOL TARTRATE 25 MG TABLET FEED TUBE (20:15)
[2021-05-16] MEDS: MICONAZOLE NITRATE 2% CREAM 30 GM TUBE 1 APPLIC TOPICAL (20:15)
[2021-05-16] MEDS: INSULIN GLARGINE (*BKC) 100 UNITS/ML 40 UNITS SUB-Q (22:06)
[2021-05-16 23:34] LABS: Glucose Point of Care 295 mg/dl (65-105)
[2021-05-17] VITALS (23 sets, daily range): BP systolic 90–175; BP diastolic 43–65; PULSE 59–82; RESP 20–25; TEMP 36.6–37.7; O2SAT 95–99; BMI 32.6
[2021-05-17 05:14] LABS: Base Excess ABG 2.3 mEq/l (+/-2.0); Carboxyhemoglobin 0.3 % THb (0-2.0); Fractional Inspired Oxygen 21 %; HCO3 ABG 25.7 mEq/l (22.0-26.0); Methemoglobin ABG 0.5 %THb (0-1.5); Oxygen Saturation ABG 97.2 % (95.0-100.0); Oxyhemoglobin 95.2 % THb (90.0-100.0); PCO2 ABG 35.4 mmHg (35.0-45.0); PO2 ABG 86.3 mmHg (80.0-100.0); PO2 FiO2 Ratio Arterial Blood 4.11 %; Total Hemoglobin 11.1 g/dL (12.0-18.0); pH ABG 7.479 (7.350-7.450)
[2021-05-17 05:15] LABS: Device VENTILATOR; Modified Allen's Test Pass; Site Drawn RIGHT RADIAL
[2021-05-17 05:17] LABS: Arterial Blood Gas PEEP 5 cmH2O; Arterial Blood Gas Tidal Volume 450 ml; Arterial Blood Gas Vent Mode CMV; Arterial Blood Gas Ventilator rate 20 /MIN
[2021-05-17] MEDS: GABAPENTIN 300 MG CAPSULE PO ×3 (06:05→20:53)
[2021-05-17] MEDS: INSULIN ASPART (*BKC) 100 UNITS/ML SUB-Q ×3 (06:05→17:44)
[2021-05-17] MEDS: LANSOPRAZOLE ORAL SUSP 30 MG/10 ML ORAL.SUSP FEED TUBE (06:09)
[2021-05-17 06:43] LABS: Glucose Point of Care 273 mg/dl (65-105)
[2021-05-17 06:55] LABS: Hematocrit 31.7 % (42.0-52.0); Hemoglobin 9.3 g/dL (14.0-18.0); Mean Corpuscular HGB Conc 29.3 g/dl (32-36); Mean Corpuscular Hemoglobin 26.1 pg (26-34); Mean Platelet Volume 11.3 fl (7.4-10.4); Platelet Count Result 181 k/mm3 (150-375); Red Blood Count 3.56 M/mm3 (4.6-6.20); Red Cell Distribution Width 15.5 % (11.5-14.5); White Blood Count 6.2 K/mm3 (4.5-10.0)
[2021-05-17 07:08] LABS: Alanine Aminotransferase 20 U/L (4-50); Albumin Level 3.5 g/dL (3.5-5.1); Alkaline Phosphatase 107 U/L (38-126); Anion Gap 8 mmol/L (8-16); Aspartate Amino Transferase 25 U/L (17-59); Bilirubin,Total 0.4 mg/dL (0.2-1.3); Blood Urea Nitrogen 32 mg/dL (9-20); Calcium 9.7 mg/dL (8.4-10.2); Carbon Dioxide 26 mmol/L (22-30); Chloride 100 mmol/L (98-107); Estimated CRCL calculation 90 ml/min; Estimated Glomerular Filt Rate > 60; Glucose 273 mg/dL (65-110); Potassium 3.7 mmol/L (3.4-5.0); Sodium 134 mmol/L (137-145)
[2021-05-17 07:16] LABS: Add Urine Microscopic? YES; Appearance Urine Turbid (Clear); Bilirubin Urine Negative (Negative); Blood Urine 1+ (Negative); Budding Yeast Urine Present /hpf; Color Urine Yellow (Yellow); Glucose Urine UA 3+ mg/dL (Negative); Ketones Urine Negative (Negative); Leukocyte Esterase Ur 3+ LEU/UL (Negative); Mucus Urine Rare /lpf; Nitrate Urine Negative (Negative); Protein Urine 2+ mg/dL (Negative); RBC Urine >75 /hpf (0-2); Specific Grav Ur 1.013 (1.001-1.035); Squamous Epithelial Cell Urine Moderate /hpf (Few); Urobilinogen Urine Negative mg/dL (<2.0); WBC Urine >75 /hpf
[2021-05-17] MEDS: amLODIPine BESYLATE 5 MG TABLET PO ×2 (08:10→20:52)
[2021-05-17] MEDS: hydrALAZINE HCL 50 MG TABLET FEED TUBE ×2 (08:10→13:11)
[2021-05-17] MEDS: ASPIRIN 81 MG CHEWABLE TABLET PO (08:11)
[2021-05-17] MEDS: CHLORHEXIDINE GLUCONATE 0.12% ORAL RINSE 473 ML BTL (*BKC) 15 ML SWISH/SPIT ×2 (08:11→17:43)
[2021-05-17] MEDS: APIXABAN 5 MG TABLET PO ×2 (08:11→20:52)
[2021-05-17] MEDS: hydroCHLOROthiazide 25 MG TABLET FEED TUBE (08:12)
[2021-05-17] MEDS: EZETIMIBE 10 MG TABLET FEED TUBE (08:12)
[2021-05-17] MEDS: FENOFIBRATE,MICRONIZED 48 MG TABLET PO (08:12)
[2021-05-17] MEDS: INSULIN GLARGINE (*BKC) 100 UNITS/ML 40 UNITS SUB-Q ×2 (08:13→20:51)
[2021-05-17] MEDS: VENLAFAXINE HCL 25 MG TABLET 100 MG PO (08:14)
[2021-05-17] MEDS: LOSARTAN POTASSIUM 100 MG TABLET FEED TUBE (08:14)
[2021-05-17] MEDS: METOPROLOL TARTRATE 25 MG TABLET FEED TUBE ×2 (08:14→20:52)
[2021-05-17] MEDS: MICONAZOLE NITRATE 2% CREAM 30 GM TUBE 1 APPLIC TOPICAL ×2 (08:14→20:54)
[2021-05-17] MEDS: FUROSEMIDE INJ 40 MG/4 ML VIAL IV PUSH (08:27)
[2021-05-17] MEDS: ALPRAZolam (*CRX) 0.5 MG TABLET 1 MG PO (08:27)
--- NOTE | 2021-05-17 09:19 | WPDINTPN ---
Progress Note: A&P Assessment and Plan (1) Chronic respiratory failure: Onset Date: ~10/2020 Code(s): J96.10 - Chronic respiratory failure, unspecified whether with hypoxia or hypercapnia Status: Acute Assessment and Plan: Patient has chronic respiratory failure and is vent dependent Patient has size 6 tracheostomy tube and is able to speak around the inflated cuff would suggest that his tracheostomy is too narrow. Patient also has high peak pressures on the ventilator. Yesterday I changed his tracheostomy to size 7 [place] but it appears that this is too small to patient since has significant air leak and high pressure. I will consult ENT to assist with management and changing the size of trach I have decreased tidal volume to 450 and increased his rate but he continues to over breathe the ventilator. I will increase PEEP to 8. Tried pressure support but patient has very low tidal volume despite high-pressure. 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 Patient may have pneumonia or tracheitis Pending sputum and blood cultures Continue vancomycin, Rocephin azithromycin COVID-19 rapid test was negative but PCR is pending Lasix IV (2) Tracheostomy status: Code(s): Z93.0 - Tracheostomy status Status: Acute Assessment and Plan: See above (3) Gastrostomy tube dependent: Code(s): Z93.1 - Gastrostomy status Status: Acute Assessment and Plan: Tube feeds have been resumed (4) On tube feeding diet: Code(s): Z78.9 - Other specified health status Status: Acute Assessment and Plan: Continue bolus tube feeds glycerin Will consult dietitian to adjust rate and goal (5) Insulin dependent diabetes mellitus: Status: Acute Assessment and Plan: Patient is on q.12 hours Lantus and sliding scale He takes bolus feeding Will add insulin with each bolus feeding for better control (6) Chronic GERD: Code(s): K21.9 - Gastro-esophageal reflux disease without esophagitis Status: Acute Assessment and Plan: PPI (7) Community acquired pneumonia: Onset Date: ~05/2021 Code(s): J18.9 - Pneumonia, unspecified organism Status: Acute Assessment and Plan: See above (8) Suspected COVID-19 virus infection: Code(s): Z20.822 - Contact with and (suspected) exposure to COVID-19 Status: Acute Assessment and Plan: COVID-19 suspected. SARS-CoV-2 rapid test was negative and PCR is pending Patient is in Airborne, Droplet and Contact Isolation (9) Tracheitis: Code(s): J04.10 - Acute tracheitis without obstruction Status: Acute Assessment and Plan: See above Additional Plan DVT prophylaxis -Eliquis Stress ulcer prophylaxis -lansoprazole Nutrition -r continue Tube Feeds Code Status - Full Code Total Critical Care Time - 30 minutes Due to a high probability of clinically significant, life threatening deterioration, the patient required my highest level of preparedness to intervene emergently and I personally spent this critical care time directly and personally managing the patient. This critical care time included obtaining a history; examining the patient; pulse oximetry; ordering and review of studies; arranging urgent treatment with development of a management plan; evaluation of patient's response to treatment; frequent reassessment; and discussions with other providers. It was exclusive of separately billable procedures and treating other patients and teaching time. Please see Assessment and Plan section and the rest of the note for further information on patient assessment and treatment Subjective Date/time seen: 05/17/21 09:19 Overnight events reviewed. Afebrile Latoya
--- NOTE | 2021-05-17 11:35 | PC.NURSE ---
Updated spouse on plan of care and patient condition.
--- NOTE | 2021-05-17 12:58 | PM.EVENT ---
Event Note Event Note Event Note: Case discussed with ENT. He recommended soft tissue neck CT. Will evaluate patient later today. I have requested distal XLT trach tubes from [facility] as per ENT request.
[2021-05-17] MEDS: INSULIN ASPART (*BKC) 100 UNITS/ML 10 UNITS SUB-Q ×2 (13:13→17:44)
[2021-05-17 13:21] LABS: Glucose Point of Care 254 mg/dl (65-105)
--- NOTE | 2021-05-17 16:22 | WPDCN ---
Assessment and Plan Assessment and plan (1) Chronic respiratory failure: Onset Date: ~10/2020 Code(s): J96.10 - Chronic respiratory failure, unspecified whether with hypoxia or hypercapnia Status: Acute Assessment and Plan: Patient has tracheomegally, ok to inflate cuff more than expected. 3ccs added, cuff leak ceased. Can also consider a longer trach given the diameter is slightly smaller more distally. (2) Tracheomegaly: Code(s): J39.8 - Other specified diseases of upper respiratory tract Status: Acute HPI Data of Consult Date/Time: 05/17/21 16:22 Requesting Physician: Amy Fernández MD Primary Care Provider: Tracy Timmons, TECHN[employer]ORATORY ASST-[facility] Consult Narrative Narrative: Christian Perera is a 80 year old male who is trach dependent. ENT consulted for trach evaluation given his persistent leak. size 6 bivona at home. Changed to a 7 in house. Still leaking. CT demonstrates tracheomegaly. Large caliber throughout it's entire length, not just at the balloon site. 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 The patient does have a living will and is listed as a full code. The patient has no biological children. The patient has care around the clock at home. The patient is retired from [employer] for [employer]. The patient is nonsmoker does not use any alcohol marijuana illicit drugs. Smoking status: Never smoker Second hand tobacco smoke exposure: No Alcohol intake: never Substance use: never Gender identity (if verbalized by the patient): Male Spiritual care concerns: No Meds Home Medications and Allergies Home Medications Medication Instructions Recorded Confirmed Type ezetimibe 10 mg PO DAILY 10/20/20 05/16/21 History fenofibrate 48 mg PO DAILY 10/20/20 05/16/21 History losartan 100 mg PO DAILY 10/20/20 05/16/21 History amlodipine 5 mg PO Q12H 05/16/21 05/16/21 History apixaban [Eliquis] 5 mg PO BID 05/16/21 05/16/21 History aspirin 81 mg PO DAILY 05/16/21 05/16/21 History chlorhexidine gluconate 15 ml BUCCAL BID 05/16/21 05/16/21 History diclofenac sodium 4 g TOPICAL Q6H PRN 05/16/21 05/16/21 History gabapentin 300 mg PO TID 05/16/21 05/16/21 History hydralazine 50 mg PO Q8H 05/16/21 05/16/21 History hydrochlorothiazide 25 mg PO DAILY 05/16/21 05/16/21 History insulin NPH isoph U-100 human See Rx Instructions .ROUTE .COMPLEX 05/16/21 05/16/21 History [Humulin N NPH Insulin KwikPen] insulin lispro [Humalog U-100 See Rx Instructions .ROUTE .COMPLEX 05/16/21 05/16/21 History Insulin] ipratropium-albuterol 3 ml INHALATION Q6H PRN 05/16/21 05/16/21 History lansoprazole 30 mg PO DAILY 05/16/21 05/16/21 History metoprolol tartrate 12.5 mg PO QAM 05/16/21 05/16/21 History metoprolol tartrate 25 mg PO QPM 05/16/21 05/16/21 History
[2021-05-17] MEDS: VENLAFAXINE HCL XR 75 MG CAP.ER.24H PO (17:46)
[2021-05-17 17:54] LABS: Glucose Point of Care 211 mg/dl (65-105)
[2021-05-17 18:57] LABS: SARS-CoV-2 RNA PCR Negative
[2021-05-17] MEDS: traZODone HCL 25 MG TABLET 75 MG PO (20:52)
[2021-05-17 23:55] LABS: Glucose Point of Care 234 mg/dl (65-105)
[2021-05-18] VITALS (20 sets, daily range): BP systolic 85–150; BP diastolic 44–70; PULSE 50–74; RESP 20–28; TEMP 36.2–37.3; O2SAT 94–100
[2021-05-18] MEDS: INSULIN ASPART (*BKC) 100 UNITS/ML 10 UNITS SUB-Q
[2021-05-18 01:53] LABS: Vancomycin Trough 20.7 ug/mL (10.0-20.0)
[2021-05-18] MEDS: ALPRAZolam (*CRX) 0.5 MG TABLET 1 MG PO (02:33)
[2021-05-18 03:58] LABS: Glucose Point of Care 297 mg/dl (65-105)
[2021-05-18 05:01] LABS: Hematocrit 39.8 % (42.0-52.0); Mean Corpuscular HGB Conc 27.6 g/dl (32-36); Mean Corpuscular Hemoglobin 26.5 pg (26-34); Mean Corpuscular Volume 95.9 fl (80-100); Platelet Count Result 310 k/mm3 (150-375); Red Blood Count 4.15 M/mm3 (4.6-6.20); Red Cell Distribution Width 15.6 % (11.5-14.5); White Blood Count 21.2 K/mm3 (4.5-10.0)
[2021-05-18 05:24] LABS: Alveolar/Arterial O2 Gradient 39.9 mmHg; Base Excess ABG 2.3 mEq/l (+/-2.0); Carboxyhemoglobin 0.7 % THb (0-2.0); Fractional Inspired Oxygen 50 %; HCO3 ABG 37.6 mEq/l (22.0-26.0); Methemoglobin ABG 0.4 %THb (0-1.5); Oxygen Content ABG 15.8 %vol (16.0-22.0); Oxygen Saturation ABG 96.4 % (95.0-100.0); Oxyhemoglobin 95.6 % THb (90.0-100.0); PO2 ABG 134.6 mmHg (80.0-100.0); PO2 FiO2 Ratio Arterial Blood 2.69 %; Reduced Hemoglobin 3.3 %THb (0-5.0); Total Hemoglobin 11.6 g/dL (12.0-18.0)
[2021-05-18 05:30] LABS: Alanine Aminotransferase 29 U/L (4-50); Albumin Level 3.9 g/dL (3.5-5.1); Alkaline Phosphatase 150 U/L (38-126); Anion Gap 10 mmol/L (8-16); Aspartate Amino Transferase 36 U/L (17-59); Bilirubin,Total 0.2 mg/dL (0.2-1.3); Blood Urea Nitrogen 36 mg/dL (9-20); Calcium 9.7 mg/dL (8.4-10.2); Carbon Dioxide 33 mmol/L (22-30); Chloride 97 mmol/L (98-107); Estimated CRCL calculation 71 ml/min; Estimated Glomerular Filt Rate > 60; Glucose 335 mg/dL (65-110); Potassium 4.5 mmol/L (3.4-5.0); Sodium 140 mmol/L (137-145)
[2021-05-18 05:53] LABS: pH ABG 6.984 (7.350-7.450)
[2021-05-18 05:54] LABS: PCO2 ABG 161.8 mmHg (35.0-45.0)
[2021-05-18 05:55] LABS: Arterial Blood Gas PEEP 8 cmH2O; Arterial Blood Gas Tidal Volume 400 ml; Arterial Blood Gas Vent Mode CMV; Arterial Blood Gas Ventilator rate 20 /MIN; Device VENTILATOR; Modified Allen's Test Pass; Site Drawn RIGHT RADIAL
--- NOTE | 2021-05-18 05:56 | PCRCNOTE ---
Trach changed to 7 XL BIVONA per MD verbal order. Ventilator setting changed 26RR, 450VT.
--- NOTE | 2021-05-18 05:57 | PM.EVENT ---
Event Note Event Note Event Note: 05/18/2021 0330 Nursing staff notify me that the patient but not pulling tidal volumes and had increased oxygen demands with increase in FiO2 up to 50%. The patient was also unresponsive with Guppy respirations and at the time of my evaluation was profusely diaphoretic. A stat Accu-Chek demonstrate glucoses of 297. I reviewed the patient's chest x-ray which demonstrated known pneumonia. I asked for the morning ABG but there was an air with the laboratory equipment. Subsequently repeat ABG was obtained at around 5:00 a.m.. PH returned as below. 05/18/21 04:55 Puncture Site Right radial ABG pH 6.984 L* ABG pCO2 161.8 H* ABG pO2 134.6 H ABG PO2/FiO2 Ratio 2.69 ABG HCO3 37.6 H ABG O2 Saturation 96.4 ABG O2 Content 15.8 L ABG Base Excess 2.3 A-a Gradient 39.9 Oxyhemoglobin 95.6 Carboxyhemoglobin 0.7 Reduced Hemoglobin 3.3 Total Hemoglobin 11.6 L O2 Delivery Device Ventilator O2 Liters/Min Not Reportable Vent Rate 20 FiO2 50 Respiratory therapist and myself were at bedside and exchange the patient's ET tube for a 7.0 Bivona XL. I contacted the ER physician to who also came up to assist. The patient had equal breath sounds with bagging with Ambu bag. However, when the patient was connected to the ventilator he was still not pulling tidal volumes. Initially was thought that there could be a problem with the ventilator however ventilator was functioning appropriately with testing. After troubleshooting and discussion the decision was made to try inflating the balloon with additional saline. An additional 3 mL of saline was placed in the patient's cuff. After this adjustment the patient's tidal volumes came up to 500. Patient equal breath sounds bilaterally. He was still unresponsive. Given his severe respiratory acidosis patient's ventilator rate was increased to 26 in his tidal volume was increased to 450 for the short-term. Repeat ABG in 30 minutes. The patient's change in condition was also discussed with the vice president [employer]. 40 minutes was spent in critical care activities. Due to a high probability of clinically significant, life threatening deterioration, the patient required my highest level of preparedness to intervene emergently and I personally spent this critical care time directly and personally managing the patient. This critical care time included obtaining a history; examining the patient; pulse oximetry; ordering and review of studies; arranging urgent treatment with development of a management plan; evaluation of patient's response to treatment; frequent reassessment; and discussions with other providers. It was exclusive of separately billable procedures and treating other patients and teaching time. Please see Assessment and Plan section and the rest of the note for further information on patient assessment and treatment.
[2021-05-18 06:25] LABS: Alveolar/Arterial O2 Gradient 197.8 mmHg; Base Excess ABG -0.4 mEq/l (+/-2.0); Carboxyhemoglobin 0.7 % THb (0-2.0); Fractional Inspired Oxygen 50 %; HCO3 ABG 25.3 mEq/l (22.0-26.0); Methemoglobin ABG 0.3 %THb (0-1.5); Oxygen Content ABG 15.3 %vol (16.0-22.0); Oxygen Saturation ABG 97.7 % (95.0-100.0); Oxyhemoglobin 96.7 % THb (90.0-100.0); PCO2 ABG 45.7 mmHg (35.0-45.0); PO2 ABG 107.3 mmHg (80.0-100.0); PO2 FiO2 Ratio Arterial Blood 2.15 %; Reduced Hemoglobin 2.3 %THb (0-5.0); Total Hemoglobin 11.1 g/dL (12.0-18.0); pH ABG 7.361 (7.350-7.450)
[2021-05-18 06:28] LABS: Arterial Blood Gas PEEP 8 cmH2O; Arterial Blood Gas Vent Mode CMV; Arterial Blood Gas Ventilator rate 26 /MIN; Device VENTILATOR; Modified Allen's Test Pass; Site Drawn RIGHT RADIAL
[2021-05-18 06:29] LABS: Arterial Blood Gas Tidal Volume 450 ml
[2021-05-18] MEDS: INSULIN ASPART (*BKC) 100 UNITS/ML SUB-Q ×4 (06:29→18:04)
[2021-05-18] MEDS: LANSOPRAZOLE ORAL SUSP 30 MG/10 ML ORAL.SUSP FEED TUBE (06:30)
[2021-05-18] MEDS: amLODIPine BESYLATE 5 MG TABLET PO (08:49)
[2021-05-18] MEDS: hydrALAZINE HCL 50 MG TABLET FEED TUBE (08:50)
[2021-05-18] MEDS: LOSARTAN POTASSIUM 100 MG TABLET FEED TUBE (08:50)
[2021-05-18] MEDS: hydroCHLOROthiazide 25 MG TABLET FEED TUBE (08:50)
[2021-05-18] MEDS: METOPROLOL TARTRATE 25 MG TABLET FEED TUBE (08:50)
[2021-05-18] MEDS: VENLAFAXINE HCL 25 MG TABLET 100 MG PO (08:51)
[2021-05-18] MEDS: MICONAZOLE NITRATE 2% CREAM 30 GM TUBE 1 APPLIC TOPICAL ×2 (08:51→21:35)
[2021-05-18] MEDS: APIXABAN 5 MG TABLET PO ×2 (08:52→21:35)
[2021-05-18] MEDS: EZETIMIBE 10 MG TABLET FEED TUBE (08:52)
[2021-05-18] MEDS: ASPIRIN 81 MG CHEWABLE TABLET PO (08:52)
[2021-05-18] MEDS: FENOFIBRATE,MICRONIZED 48 MG TABLET PO (08:53)
[2021-05-18] MEDS: CHLORHEXIDINE GLUCONATE 0.12% ORAL RINSE 473 ML BTL (*BKC) 15 ML SWISH/SPIT ×2 (08:53→18:03)
[2021-05-18] MEDS: INSULIN GLARGINE (*BKC) 100 UNITS/ML 40 UNITS SUB-Q (08:53)
--- NOTE | 2021-05-18 10:12 | WPDINTPN ---
Progress Note: A&P Assessment and Plan (1) Chronic respiratory failure: Onset Date: ~10/2020 Code(s): J96.10 - Chronic respiratory failure, unspecified whether with hypoxia or hypercapnia Status: Acute Assessment and Plan: Patient has chronic respiratory failure and is vent dependent Patient had size 6 tracheostomy tube on presentation and was able to speak around the inflated cuff and had high peak pressures along with low tidal volumes. Patient had a cuff leak. At the day of admission I changed his tracheostomy to size 7 Bivona but it appears that this is too small to patient since has significant air leak and high pressure. 05/17 ENT was consulted and a CT soft tissue neck was done which showed tracheomegaly. I discussed case with ENT yesterday and they requested distal XLT tube. Patient was evaluated by ENT and additional fluid was injected into the cuff 05/18 overnight patient had recurrence of symptoms with high peak pressures and low tidal volumes. ABG showed the patient was not ventilating adequately and was hypercarbic and acidotic. Trach was changed to size 7 distal XLT trach by bedside physician and RT improvement in ventilation. I am not sure if there were any secretions or deposits in the trach tube but the cuff was intact. Repeat ABG showed improvement On my exam this morning patient has adequate tidal volumes although he does gets tachypneic with increase in peak pressures Will recheck ABG this afternoon and adjust ventilation accordingly Chest x-ray done this morning is unremarkable CT did showed patient has a small area of infiltrate suggestive of pneumonia and he is on vancomycin Rocephin azithromycin. 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 for anxiety cultures are negative now Continue vancomycin, Rocephin azithromycin COVID-19 PCR was negative (2) Tracheostomy status: Code(s): Z93.0 - Tracheostomy status Status: Acute Assessment and Plan: See above (3) Gastrostomy tube dependent: Code(s): Z93.1 - Gastrostomy status Status: Acute Assessment and Plan: Tube feeds have been resumed (4) On tube feeding diet: Code(s): Z78.9 - Other specified health status Status: Acute Assessment and Plan: Continue bolus tube feeds glycerin Will consult dietitian to adjust rate and goal (5) Insulin dependent diabetes mellitus: Status: Acute Assessment and Plan: Patient is on q.12 hours Lantus and sliding scale He takes bolus feeding Will add insulin with each bolus feeding for better control Will increase both Lantus and with tube feed insulin (6) Chronic GERD: Code(s): K21.9 - Gastro-esophageal reflux disease without esophagitis Status: Acute Assessment and Plan: PPI (7) Community acquired pneumonia: Onset Date: ~05/2021 Code(s): J18.9 - Pneumonia, unspecified organism Status: Acute Assessment and Plan: See above (8) Suspected COVID-19 virus infection: Code(s): Z20.822 - Contact with and (suspected) exposure to COVID-19 Status: Acute Assessment and Plan: COVID-19 PCR was negative (9) Tracheitis: Code(s): J04.10 - Acute tracheitis without obstruction Status: Acute Assessment and Plan: See above (10) Hypertension: Code(s): I10 - Essential (primary) hypertension Status: Chronic Assessment and Plan: Patient has history of hypertension and his p.o. home meds were resumed but his blood pressure has been soft throughout his stay in the hospital I will decrease the dose of metoprolol and hold hydralazine and Norvasc at this time and will increase dose as needed Additional Plan DVT prophylaxis -Eliquis Stress ulcer prophylaxis -lansoprazole
[2021-05-18 11:54] LABS: Glucose Point of Care 288 mg/dl (65-105)
[2021-05-18] MEDS: INSULIN ASPART (*BKC) 100 UNITS/ML 15 UNITS SUB-Q ×2 (12:01→18:04)
[2021-05-18] MEDS: INSULIN GLARGINE (*BKC) 100 UNITS/ML 10 UNITS SUB-Q (12:04)
[2021-05-18 12:25] LABS: Alveolar/Arterial O2 Gradient 31.9 mmHg; Base Excess ABG 4.3 mEq/l (+/-2.0); Fractional Inspired Oxygen 21 %; HCO3 ABG 27.7 mEq/l (22.0-26.0); Oxygen Content ABG 15.3 %vol (16.0-22.0); Oxygen Saturation ABG 95.9 % (95.0-100.0); Oxyhemoglobin 94.2 % THb (90.0-100.0); PO2 ABG 73.5 mmHg (80.0-100.0); Total Hemoglobin 11.5 g/dL (12.0-18.0); pH ABG 7.492 (7.350-7.450)
[2021-05-18 12:26] LABS: Arterial Blood Gas Ventilator rate 26 /MIN; Device VENTILATOR; Site Drawn LEFT BRACHIAL
[2021-05-18 12:27] LABS: Arterial Blood Gas PEEP 8 cmH2O; Arterial Blood Gas Tidal Volume 400 ml; Arterial Blood Gas Vent Mode CMV
[2021-05-18] MEDS: GABAPENTIN 300 MG CAPSULE PO ×2 (14:19→21:35)
[2021-05-18 17:47] LABS: Glucose Point of Care 283 mg/dl (65-105)
[2021-05-18] MEDS: VENLAFAXINE HCL XR 75 MG CAP.ER.24H PO (18:04)
--- NOTE | 2021-05-18 18:35 | PM.IMPN ---
Progress Note: A&P Assessment and Plan (1) Community acquired pneumonia: Onset Date: ~05/2021 Code(s): J18.9 - Pneumonia, unspecified organism Status: Acute (2) Suspected COVID-19 virus infection: Code(s): Z20.822 - Contact with and (suspected) exposure to COVID-19 Status: Acute (3) Chronic respiratory failure: Onset Date: ~10/2020 Code(s): J96.10 - Chronic respiratory failure, unspecified whether with hypoxia or hypercapnia Status: Acute (4) Insulin dependent diabetes mellitus: Status: Acute (5) Generalized anxiety disorder: Code(s): F41.1 - Generalized anxiety disorder Status: Chronic (6) Chronic GERD: Code(s): K21.9 - Gastro-esophageal reflux disease without esophagitis Status: Acute (7) Hypertension: Code(s): I10 - Essential (primary) hypertension Status: Chronic (8) Hyperlipidemia: Code(s): E78.5 - Hyperlipidemia, unspecified Status: Acute (9) CAD (coronary artery disease): Code(s): I25.10 - Atherosclerotic heart disease of [place] coronary artery without angina pectoris Status: Chronic (10) Ventilator dependent: Code(s): Z99.11 - Dependence on respirator [ventilator] status Status: Chronic (11) On tube feeding diet: Code(s): Z78.9 - Other specified health status Status: Acute Additional Plan Blood cultures are pending and will get sputum cultures. Continue with Rocephin, azithromycin, and vancomycin. Continue with nebulizer treatments. The terrazzo roller has been consulted. The patient is ventilator dependent with a trach. Patient is also being checked for COVID-19. The patient is not fully vaccinated. Patient has not had his 2nd dose of COVID-19 vaccine. Droplet and contact isolation discontinued. Treat according to results. The patient is chronically on a ventilator at home. Please see terrazzo roller note concerning the exchange of the trach. Will continue with his routine insulin of Lantus and do sliding scale insulin. Check A1c. Continue with his home medication of venlafaxine and trazodone. Continue with PPI Continue with Norvasc, hydralazine, losartan, hydrochlorothiazide, and metoprolol Continue with fenofibrate Continue with his home medication. Vent settings according to terrazzo roller according the ABGs. I did consult dietitian for tube feedings. For now I continued when he was taking at home. 05/17/21 pt under care of terrazzo roller 05/18/21 overnight patient had high peak pressures and low tidal volumes. ABG showed the patient was not ventilating adequately and was hypercarbic and acidotic. Trach was changed to size 7 distal XLT trach by bedside physician and RT improvement in ventilation. Repeat ABG showed improvement Land Economist managing airway and vent on Vanc Rocephin azithromycin x presumed PNA PEG tolerating feeds cont current care Subjective Date/time seen: 05/18/21 18:35 pt w trach nonverbal but does communicate appropriately with head nods mouthing words, and good eye contact says he's feeling ok Exam Narrative: GEN: NAD, cooperative HEENT: NCAT, MMM, EOMI Neck: no JVD tracheostomy to vent Heart: S1S2 RRR Lungs: symmetric rise NAD no use of accessory muscles Abd: soft, NT, ND, bowel sounds normoactive Ext: moves all, no cyanosis, no clubbing, no edema Neuro: unable to evaluate Objective Data Vital Signs Vital Signs: Vital Signs - 24 hr 05/17/21 20:00 05/17/21 20:04 05/17/21 20:52 Temperature 98 F Pulse Rate 60 61 61 Respiratory Rate 24 H Blood Pressure 166/64 H Pulse Oximetry 96 98 05/17/21 21:59 05/17/21 23:00 05/18/21 00:00 Temperature 98.5 F Pulse Rate 60 63 60 Respiratory Rate 24 H 24 H Blood Pressure 166/64 H 150/68 H Pulse Oximetry 96 96 100 05/18/21 01:49 05/18/21 03:00 05/18/21 04:00 Temperature 98.3 F Pulse Rate 60 61 60 Respiratory Rate 24 H 24 H Blood Pressure 109/49 L 142/70
--- NOTE | 2021-05-18 20:02 | PM.PNPUL ---
Progress Note: A&P Assessment and Plan (1) Community acquired pneumonia: Onset Date: ~05/2021 Code(s): J18.9 - Pneumonia, unspecified organism Status: Acute Assessment and Plan: He has new bilateral infiltrates with increased secretions, increased respiratory rate, increased low minute ventilation alarm on his home ventilator, and sound of air leaking at the trach site. He is speaking around his trach as it is too small and it is getting clogged with secretions. Dr Ramirez replaced the 6.0 tracheostomy tube with a 7.0 with lower peak pressures and no air leaking around the site. TV adjusted to 450 ml, rate adjusted. The patient had increased minute ventilation in the ER, > 10 L/min. He is getting empiric treatment for presumed pneumonia with ceftriaxone, azithromycin and vancomycin. His cultures have been sent, and treatment can be adjusted after results obtained. (2) Chronic respiratory failure: Onset Date: ~10/2020 Code(s): J96.10 - Chronic respiratory failure, unspecified whether with hypoxia or hypercapnia Status: Acute Assessment and Plan: He had tracheostomy after a fall with C3-C5 decompression in Oct 2020, had quadriplegia and chronic respiratory failure At home, he is not on supplemental O2, FiO2 0.21. His home ventilator ran out of power after arriving in the ED. He is now on hospital ventilator, had acute respiratory acidosis this morning with ABG showing pH 6.98, pCO2 161, PO2 134 on vent settings 8, tidal volume 400, FiO2 50%. He had increased minute ventilation with rate 26, TV 450 with improved ABG, tracheostomy switched out to Bivona #7 extra long. No more air leak. . He has no history of tobacco or occupational exposure. (3) Tracheostomy status: Code(s): Z93.0 - Tracheostomy status Status: Acute Assessment and Plan: (4) Ventilator dependent: Code(s): Z99.11 - Dependence on respirator [ventilator] status Status: Chronic Assessment and Plan: He has been dependent on home vent since Oct due to cervical injury, has respiratory therapists at his home; has office appointment scheduled, however decompensated prior to being able to keep office appointment. Appreciate Channel Process Supervisor and ENT management of his airway and changing trach. Subjective Date/time seen: 05/18/21 20:02 follow up : This 80 year old man is seen in follow up for acute on chronic respiratory failure, trach dependent since Oct 2020 with a cervical fracture and quadriplegia with a trach using a home ventilator. He has been started on antibiotics - Vanco, azithromycin and ceftriaxone- for pneumonia, and had his tracheostomy changed out to a #7 Bivona with additional water in the cuff after a soft tissue CT of the neck showed enlarged trachea. He is not in distress. earlier this morning he had acute respiratory acidosis with carbon dioxide retention. Arterial blood gas on a rate of 8 tidal volume 400 FiO2 50% showed a pH of 6.98 pCO2 161 PO2 134. Rate nad tidal volume were increased, f=26, TV 450 with normalization in ABG, Review of Systems Review of Systems: All systems reviewed & are unremarkable except as noted in HPI and below (HPI) Exam Narrative: GEN: Alert, oriented, not able to speak around the tracheostomy; HEENT: pupils are equal, EOMI, symmetrical face; oral membranes moist, NECK: Tracheostomy is midline, #7 trach; no air leak CHEST: Equal air entry, symmetric excursion, decreased breath sounds CV: Regular S1S2 no m/g/r ABD : (+) bowel sounds Extremities : no clubbing or cyanosis; trace edema PSYCH: normal thought, not speaking around the tracheostomy; does not move extremities effectively Objectiv
[2021-05-18] MEDS: METOPROLOL TARTRATE 12.5 MG TABLET FEED TUBE (21:35)
[2021-05-18] MEDS: traZODone HCL 25 MG TABLET 75 MG PO (21:35)
[2021-05-18] MEDS: INSULIN GLARGINE (*BKC) 100 UNITS/ML 50 UNITS SUB-Q (21:47)
[2021-05-18 21:51] LABS: Glucose Point of Care 183 mg/dl (65-105)
[2021-05-19] VITALS (24 sets, daily range): BP systolic 119–184; BP diastolic 57–66; PULSE 50–75; RESP 22–32; TEMP 36.3–37; O2SAT 97–100
[2021-05-19] MEDS: INSULIN ASPART (*BKC) 100 UNITS/ML 15 UNITS SUB-Q ×2 (01:12→06:23)
[2021-05-19 04:24] LABS: Alveolar/Arterial O2 Gradient 29.1 mmHg; Base Excess ABG 6.3 mEq/l (+/-2.0); Carboxyhemoglobin 0.3 % THb (0-2.0); Fractional Inspired Oxygen 21 %; HCO3 ABG 29.2 mEq/l (22.0-26.0); Methemoglobin ABG 0.4 %THb (0-1.5); Oxygen Content ABG 13.8 %vol (16.0-22.0); Oxygen Saturation ABG 96.7 % (95.0-100.0); Oxyhemoglobin 94.8 % THb (90.0-100.0); PCO2 ABG 35.7 mmHg (35.0-45.0); PO2 ABG 77.9 mmHg (80.0-100.0); PO2 FiO2 Ratio Arterial Blood 3.71 %; Reduced Hemoglobin 4.5 %THb (0-5.0); Total Hemoglobin 10.3 g/dL (12.0-18.0)
[2021-05-19 04:25] LABS: Arterial Blood Gas Vent Mode CMV; Arterial Blood Gas Ventilator rate 26 /MIN; Device VENTILATOR; Modified Allen's Test Pass; Site Drawn RIGHT RADIAL; pH ABG 7.531 (7.350-7.450)
[2021-05-19 04:26] LABS: Arterial Blood Gas PEEP 8 cmH2O; Arterial Blood Gas Tidal Volume 400 ml
[2021-05-19] MEDS: LANSOPRAZOLE ORAL SUSP 30 MG/10 ML ORAL.SUSP FEED TUBE (06:08)
[2021-05-19] MEDS: GABAPENTIN 300 MG CAPSULE PO ×3 (06:08→21:57)
[2021-05-19 06:20] LABS: Hemoglobin 9.9 g/dL (14.0-18.0); Mean Corpuscular Hemoglobin 26.3 pg (26-34); Mean Corpuscular Volume 87.5 fl (80-100); Mean Platelet Volume 11.2 fl (7.4-10.4); Platelet Count Result 199 k/mm3 (150-375); Red Blood Count 3.77 M/mm3 (4.6-6.20); Red Cell Distribution Width 15.6 % (11.5-14.5); White Blood Count 8.8 K/mm3 (4.5-10.0)
[2021-05-19 07:21] LABS: Glucose Point of Care 118 mg/dl (65-105)
[2021-05-19 07:21] LABS: Glucose Point of Care 152 mg/dl (65-105)
[2021-05-19 08:21] LABS: Alanine Aminotransferase 23 U/L (4-50); Albumin Level 3.6 g/dL (3.5-5.1); Alkaline Phosphatase 137 U/L (38-126); Anion Gap 10 mmol/L (8-16); Aspartate Amino Transferase 18 U/L (17-59); Bilirubin,Total < 0.1 mg/dL (0.2-1.3); Blood Urea Nitrogen 44 mg/dL (9-20); Calcium 10.5 mg/dL (8.4-10.2); Carbon Dioxide 30 mmol/L (22-30); Chloride 99 mmol/L (98-107); Estimated CRCL calculation 71 ml/min; Estimated Glomerular Filt Rate > 60; Glucose 162 mg/dL (65-110); Magnesium 2.5 mg/dL (1.6-2.3); Potassium 4.1 mmol/L (3.4-5.0); Sodium 139 mmol/L (137-145)
[2021-05-19] MEDS: EZETIMIBE 10 MG TABLET FEED TUBE (08:24)
[2021-05-19] MEDS: ASPIRIN 81 MG CHEWABLE TABLET PO (08:25)
[2021-05-19] MEDS: FENOFIBRATE,MICRONIZED 48 MG TABLET PO (08:25)
[2021-05-19] MEDS: APIXABAN 5 MG TABLET PO ×2 (08:25→21:55)
[2021-05-19] MEDS: hydroCHLOROthiazide 25 MG TABLET FEED TUBE (08:26)
[2021-05-19] MEDS: METOPROLOL TARTRATE 12.5 MG TABLET FEED TUBE ×2 (08:26→21:56)
[2021-05-19] MEDS: LOSARTAN POTASSIUM 100 MG TABLET FEED TUBE (08:26)
[2021-05-19] MEDS: MICONAZOLE NITRATE 2% CREAM 30 GM TUBE 1 APPLIC TOPICAL ×2 (08:27→21:56)
[2021-05-19] MEDS: VENLAFAXINE HCL 25 MG TABLET 100 MG PO (08:27)
[2021-05-19] MEDS: CHLORHEXIDINE GLUCONATE 0.12% ORAL RINSE 473 ML BTL (*BKC) 15 ML SWISH/SPIT ×2 (08:31→17:39)
[2021-05-19 08:38] LABS: Glucose Point of Care 137 mg/dl (65-105)
[2021-05-19] MEDS: INSULIN GLARGINE (*BKC) 100 UNITS/ML 50 UNITS SUB-Q ×2 (08:41→21:54)
--- NOTE | 2021-05-19 09:00 | WPDINTPN ---
Progress Note: A&P Assessment and Plan (1) Chronic respiratory failure: Onset Date: ~10/2020 Code(s): J96.10 - Chronic respiratory failure, unspecified whether with hypoxia or hypercapnia Status: Acute Assessment and Plan: Patient has chronic respiratory failure and is vent dependent Patient had size 6 tracheostomy tube on presentation and was able to speak around the inflated cuff and had high peak pressures along with low tidal volumes. Patient had a cuff leak. At the day of admission I changed his tracheostomy to size 7 Bivona but it appears that this is too small to patient since has significant air leak and high pressure. 05/17 ENT was consulted and a CT soft tissue neck was done which showed tracheomegaly. I discussed case with ENT yesterday and they requested distal XLT tube. Patient was evaluated by ENT and additional fluid was injected into the cuff 05/18 overnight patient had recurrence of symptoms with high peak pressures and low tidal volumes. ABG showed the patient was not ventilating adequately and was hypercarbic and acidotic. Trach was changed to size 7 distal XLT trach by bedside physician and RT improvement in ventilation. I am not sure if there were any secretions or deposits in the trach tube but the cuff was intact. Repeat ABG showed improvement Air leak seems to have improved and peak pressure and control. ABG reviewed. Will decrease rate to 20 Chest x-ray reviewed CT did showed patient has a small area of infiltrate suggestive of pneumonia and he is on vancomycin Rocephin azithromycin. 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 for anxiety cultures are negative now Continue Rocephin azithromycin COVID-19 PCR was negative (2) Tracheostomy status: Code(s): Z93.0 - Tracheostomy status Status: Acute Assessment and Plan: See above (3) Gastrostomy tube dependent: Code(s): Z93.1 - Gastrostomy status Status: Acute Assessment and Plan: Tube feeds have been resumed (4) On tube feeding diet: Code(s): Z78.9 - Other specified health status Status: Acute Assessment and Plan: Continue bolus tube feeds glycerin Will consult dietitian to adjust rate and goal (5) Insulin dependent diabetes mellitus: Status: Acute Assessment and Plan: Patient is on q.12 hours Lantus and sliding scale He takes bolus feeding Will add insulin with each bolus feeding for better control Control improved with increased dose of both Lantus and with tube feed insulin (6) Chronic GERD: Code(s): K21.9 - Gastro-esophageal reflux disease without esophagitis Status: Acute Assessment and Plan: PPI (7) Community acquired pneumonia: Onset Date: ~05/2021 Code(s): J18.9 - Pneumonia, unspecified organism Status: Acute Assessment and Plan: See above (8) Suspected COVID-19 virus infection: Code(s): Z20.822 - Contact with and (suspected) exposure to COVID-19 Status: Acute Assessment and Plan: COVID-19 PCR was negative (9) Tracheitis: Code(s): J04.10 - Acute tracheitis without obstruction Status: Acute Assessment and Plan: See above (10) Hypertension: Code(s): I10 - Essential (primary) hypertension Status: Chronic Assessment and Plan: Continue metoprolol, losartan and hydrochlorothiazide Hydralazine and Norvasc are on hold as of now Additional Plan DVT prophylaxis -Eliquis Stress ulcer prophylaxis -lansoprazole Nutrition -r continue Tube Feeds Code Status - Full Code Total Critical Care Time - 30 minutes Due to a high probability of clinically significant, life threatening deterioration, the patient required my highest level of preparedness to intervene ean
[2021-05-19 11:55] LABS: Glucose Point of Care 167 mg/dl (65-105)
--- NOTE | 2021-05-19 15:01 | PM.IMPN ---
Progress Note: A&P Assessment and Plan (1) Community acquired pneumonia: Onset Date: ~05/2021 Code(s): J18.9 - Pneumonia, unspecified organism Status: Acute (2) Suspected COVID-19 virus infection: Code(s): Z20.822 - Contact with and (suspected) exposure to COVID-19 Status: Acute (3) Chronic respiratory failure: Onset Date: ~10/2020 Code(s): J96.10 - Chronic respiratory failure, unspecified whether with hypoxia or hypercapnia Status: Acute (4) Insulin dependent diabetes mellitus: Status: Acute (5) Generalized anxiety disorder: Code(s): F41.1 - Generalized anxiety disorder Status: Chronic (6) Chronic GERD: Code(s): K21.9 - Gastro-esophageal reflux disease without esophagitis Status: Acute (7) Hypertension: Code(s): I10 - Essential (primary) hypertension Status: Chronic (8) Hyperlipidemia: Code(s): E78.5 - Hyperlipidemia, unspecified Status: Acute (9) CAD (coronary artery disease): Code(s): I25.10 - Atherosclerotic heart disease of [place] coronary artery without angina pectoris Status: Chronic (10) Ventilator dependent: Code(s): Z99.11 - Dependence on respirator [ventilator] status Status: Chronic (11) On tube feeding diet: Code(s): Z78.9 - Other specified health status Status: Acute Additional Plan Blood cultures are pending and will get sputum cultures. Continue with Rocephin, azithromycin, and vancomycin. Continue with nebulizer treatments. The patient services representative has been consulted. The patient is ventilator dependent with a trach. Patient is also being checked for COVID-19. The patient is not fully vaccinated. Patient has not had his 2nd dose of COVID-19 vaccine. Droplet and contact isolation discontinued. Treat according to results. The patient is chronically on a ventilator at home. Please see patient services representative note concerning the exchange of the trach. Will continue with his routine insulin of Lantus and do sliding scale insulin. Check A1c. Continue with his home medication of venlafaxine and trazodone. Continue with PPI Continue with Norvasc, hydralazine, losartan, hydrochlorothiazide, and metoprolol Continue with fenofibrate Continue with his home medication. Vent settings according to patient services representative according the ABGs. I did consult dietitian for tube feedings. For now I continued when he was taking at home. 05/17/21 pt under care of patient services representative 05/18/21 overnight patient had high peak pressures and low tidal volumes. ABG showed the patient was not ventilating adequately and was hypercarbic and acidotic. Trach was changed to size 7 distal XLT trach by bedside physician and RT improvement in ventilation. Repeat ABG showed improvement Manganese Wheeler managing airway and vent on Vanc Rocephin azithromycin x presumed PNA PEG tolerating feeds cont current care 05/19/21 trach tube exchanged PEG w bolus feedings lantus ISS PNA on Rocephin azithromycin vent management per patient services representative Subjective Date/time seen: 05/19/21 17:01 pt doing ok mouthing words at me I cannot understand but without distress Exam Narrative: GEN: NAD, cooperative HEENT: NCAT, MMM, EOMI Neck: no JVD tracheostomy to vent Lungs: symmetric rise NAD no use of accessory muscles Abd: soft, NT, ND, bowel sounds normoactive Ext: moves all, no cyanosis, no clubbing, no edema Neuro: unable to evaluate Objective Data Vital Signs Vital Signs: Vital Signs - 24 hr 05/18/21 21:05 05/18/21 21:30 05/18/21 21:35 Temperature 97.2 F L Pulse Rate 60 50 L 50 L Respiratory Rate 27 H Blood Pressure 107/46 L Pulse Oximetry 97 97 05/18/21 22:00 05/18/21 23:10 05/19/21 00:00 Temperature 97.3 F L Pulse Rate 60 61 60 Respiratory Rate 27 H 26 H Blood Pressure 94/44 L 119/60 Pulse Oximetry 96 96 100 05/19/21 01:00 05/19/21 02:00 05/19/21 02:07 Temperature Pulse Rate 60 60 50 L Re
[2021-05-19 17:36] LABS: Glucose Point of Care 237 mg/dl (65-105)
[2021-05-19] MEDS: VENLAFAXINE HCL XR 75 MG CAP.ER.24H PO (17:39)
[2021-05-19] MEDS: INSULIN ASPART (*BKC) 100 UNITS/ML SUB-Q (17:41)
[2021-05-19] MEDS: hydrALAZINE HCL 20 MG/ML VIAL 10 MG IV PUSH (18:43)
[2021-05-19 21:55] LABS: Glucose Point of Care 276 mg/dl (65-105)
[2021-05-19] MEDS: traZODone HCL 25 MG TABLET 75 MG PO (21:57)
[2021-05-20] VITALS (23 sets, daily range): BP systolic 98–156; BP diastolic 41–63; PULSE 50–89; RESP 20–30; TEMP 36.4–37.5; O2SAT 96–99
[2021-05-20 00:54] LABS: Glucose Point of Care 202 mg/dl (65-105)
[2021-05-20] MEDS: INSULIN ASPART (*BKC) 100 UNITS/ML SUB-Q ×2 (00:55→06:13)
[2021-05-20 04:51] LABS: Hematocrit 31.7 % (42.0-52.0); Hemoglobin 9.5 g/dL (14.0-18.0); Mean Corpuscular Hemoglobin 25.9 pg (26-34); Mean Corpuscular Volume 86.4 fl (80-100); Mean Platelet Volume 10.9 fl (7.4-10.4); Platelet Count Result 230 k/mm3 (150-375); Red Blood Count 3.67 M/mm3 (4.6-6.20); Red Cell Distribution Width 15.9 % (11.5-14.5); White Blood Count 8.3 K/mm3 (4.5-10.0)
[2021-05-20 05:09] LABS: Alveolar/Arterial O2 Gradient 35.2 mmHg; Base Excess ABG 5.7 mEq/l (+/-2.0); Carboxyhemoglobin 0.3 % THb (0-2.0); Fractional Inspired Oxygen 21 %; Methemoglobin ABG 0.4 %THb (0-1.5); Oxygen Saturation ABG 96.7 % (95.0-100.0); Oxyhemoglobin 94.6 % THb (90.0-100.0); PCO2 ABG 32.6 mmHg (35.0-45.0); PO2 ABG 75.5 mmHg (80.0-100.0); Reduced Hemoglobin 4.7 %THb (0-5.0); Total Hemoglobin 11.2 g/dL (12.0-18.0)
[2021-05-20 05:11] LABS: pH ABG 7.552 (7.350-7.450)
[2021-05-20 05:12] LABS: Arterial Blood Gas Vent Mode CMV; Arterial Blood Gas Ventilator rate 20 /MIN; Device VENTILATOR; Modified Allen's Test Pass; Site Drawn RIGHT RADIAL
[2021-05-20 05:13] LABS: Arterial Blood Gas PEEP 8 cmH2O; Arterial Blood Gas Tidal Volume 400 ml
[2021-05-20 05:19] LABS: Alanine Aminotransferase 22 U/L (4-50); Albumin Level 3.8 g/dL (3.5-5.1); Alkaline Phosphatase 138 U/L (38-126); Anion Gap 12 mmol/L (8-16); Aspartate Amino Transferase 20 U/L (17-59); Bilirubin,Total 0.3 mg/dL (0.2-1.3); Blood Urea Nitrogen 41 mg/dL (9-20); Carbon Dioxide 29 mmol/L (22-30); Chloride 99 mmol/L (98-107); Estimated CRCL calculation 71 ml/min; Estimated Glomerular Filt Rate > 60; Glucose 241 mg/dL (65-110); Magnesium 2.2 mg/dL (1.6-2.3); Sodium 140 mmol/L (137-145)
[2021-05-20] MEDS: LANSOPRAZOLE ORAL SUSP 30 MG/10 ML ORAL.SUSP FEED TUBE (05:42)
[2021-05-20] MEDS: GABAPENTIN 300 MG CAPSULE PO ×3 (05:42→22:37)
[2021-05-20 05:48] LABS: Glucose Point of Care 214 mg/dl (65-105)
[2021-05-20] MEDS: INSULIN ASPART (*BKC) 100 UNITS/ML 15 UNITS SUB-Q ×3 (07:53→17:46)
[2021-05-20] MEDS: ASPIRIN 81 MG CHEWABLE TABLET PO (08:53)
[2021-05-20] MEDS: CHLORHEXIDINE GLUCONATE 0.12% ORAL RINSE 473 ML BTL (*BKC) 15 ML SWISH/SPIT ×2 (08:53→17:43)
[2021-05-20] MEDS: LOSARTAN POTASSIUM 100 MG TABLET FEED TUBE (08:53)
[2021-05-20] MEDS: APIXABAN 5 MG TABLET PO ×2 (08:54→20:31)
[2021-05-20] MEDS: MICONAZOLE NITRATE 2% CREAM 30 GM TUBE 1 APPLIC TOPICAL ×2 (08:54→20:29)
[2021-05-20] MEDS: FENOFIBRATE,MICRONIZED 48 MG TABLET PO (08:54)
[2021-05-20] MEDS: VENLAFAXINE HCL 25 MG TABLET 100 MG PO (08:55)
[2021-05-20] MEDS: EZETIMIBE 10 MG TABLET FEED TUBE (08:55)
[2021-05-20] MEDS: hydroCHLOROthiazide 25 MG TABLET FEED TUBE (08:56)
[2021-05-20] MEDS: METOPROLOL TARTRATE 12.5 MG TABLET FEED TUBE ×2 (08:56→20:28)
[2021-05-20] MEDS: INSULIN GLARGINE (*BKC) 100 UNITS/ML 50 UNITS SUB-Q (09:40)
--- NOTE | 2021-05-20 11:09 | PC.NURSE ---
Updated spouse on plan of care.
--- NOTE | 2021-05-20 12:00 | PCDIET ---
ICU Rounding Note: Patient tolerating Glucerna 1.2 boluses of 500mL every 6 hours with 30mL water flush every 4 hours. No issues reported. Last recorded weight is 101.9kg which is down from last review. Bowel Motility: Last documented BM on 05/19/21 x 1. Labs Reviewed: RBC (3.67), Hgb (9.5), Hct (31.7), Glu (241), BUN (41) Meds Noted: Zithromax, Rocephin, Zetia, Tricor, Apresoline, Hydrochlorothiazide, Novolog, Lantus, Prevacid, Cozaar, Lopressor, Vancomycin Additional Notes: Documented maceration to bilateral buttocks, bilateral groin and scrotum. Following daily in ICU rounds. Assessing/reassessing every Thursday/Thursday.
[2021-05-20 12:20] LABS: Glucose Point of Care 160 mg/dl (65-105)
--- NOTE | 2021-05-20 13:58 | WPDINTPN ---
Progress Note: A&P Assessment and Plan (1) Chronic respiratory failure: Onset Date: ~10/2020 Code(s): J96.10 - Chronic respiratory failure, unspecified whether with hypoxia or hypercapnia Status: Acute Assessment and Plan: Patient has chronic respiratory failure and is vent dependent Patient had size 6 tracheostomy tube on presentation and was able to speak around the inflated cuff and had high peak pressures along with low tidal volumes. Patient had a cuff leak. At the day of admission I changed his tracheostomy to size 7 Bivona but it appears that this is too small to patient since has significant air leak and high pressure. 05/17 ENT was consulted and a CT soft tissue neck was done which showed tracheomegaly. I discussed case with ENT yesterday and they requested distal XLT tube. Patient was evaluated by ENT and additional fluid was injected into the cuff 05/18 overnight patient had recurrence of symptoms with high peak pressures and low tidal volumes. ABG showed the patient was not ventilating adequately and was hypercarbic and acidotic. Trach was changed to size 7 distal XLT trach by bedside physician and RT improvement in ventilation. I am not sure if there were any secretions or deposits in the trach tube but the cuff was intact. Repeat ABG showed improvement, currently on peep of 8 in 21% FiO2 05/20/2021: Air leak seems to have improved and peak pressure are under control -ABGs and checks x-ray -CT neck and chest showed trachea megaly, mild pneumonia right upper lobe, partially visualized moderate left hydronephrosis - patient currently on azithromycin, ceftriaxone and vancomycin. 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 for anxiety COVID-19 PCR was negative (2) Tracheostomy status: Code(s): Z93.0 - Tracheostomy status Status: Acute Assessment and Plan: See above (3) Gastrostomy tube dependent: Code(s): Z93.1 - Gastrostomy status Status: Acute Assessment and Plan: Tube feeds have been resumed (4) On tube feeding diet: Code(s): Z78.9 - Other specified health status Status: Acute Assessment and Plan: Continue bolus tube feeds Will consult dietitian to adjust rate and goal (5) Insulin dependent diabetes mellitus: Status: Acute Assessment and Plan: Patient is on q.12 hours Lantus and sliding scale He takes bolus feeding Added insulin with each bolus feeding for better control Control improved with increased dose of both Lantus and with tube feed insulin -increase Lantus (6) Chronic GERD: Code(s): K21.9 - Gastro-esophageal reflux disease without esophagitis Status: Acute Assessment and Plan: PPI (7) Community acquired pneumonia: Onset Date: ~05/2021 Code(s): J18.9 - Pneumonia, unspecified organism Status: Acute Assessment and Plan: Normal white count, FiO2 of 21% with adequate O2 sats, continue ceftriaxone and azithromycin (8) Suspected COVID-19 virus infection: Code(s): Z20.822 - Contact with and (suspected) exposure to COVID-19 Status: Acute Assessment and Plan: COVID-19 PCR was negative (9) Tracheitis: Code(s): J04.10 - Acute tracheitis without obstruction Status: Acute Assessment and Plan: See above (10) Hypertension: Code(s): I10 - Essential (primary) hypertension Status: Chronic Assessment and Plan: Continue metoprolol, losartan and hydrochlorothiazide Hydralazine and Norvasc are on hold as of now Additional Plan DVT prophylaxis -Eliquis Stress ulcer prophylaxis -lansoprazole Nutrition -r continue Tube Feeds Code Status - Full Code Total Critical Care Time - 33 minutes Due to a high probability of clinically si
[2021-05-20] MEDS: VENLAFAXINE HCL XR 75 MG CAP.ER.24H PO (17:46)
--- NOTE | 2021-05-20 18:22 | PM.IMPN ---
Progress Note: A&P Assessment and Plan (1) Community acquired pneumonia: Onset Date: ~05/2021 Code(s): J18.9 - Pneumonia, unspecified organism Status: Acute Assessment and Plan: Blood cultures are pending and will get sputum cultures. Continue with Rocephin, azithromycin, and vancomycin. Continue with nebulizer treatments. The instrument technologist has been consulted. The patient is ventilator dependent with a trach. Patient is also being checked for COVID-19. The patient is not fully vaccinated. (2) Suspected COVID-19 virus infection: Code(s): Z20.822 - Contact with and (suspected) exposure to COVID-19 Status: Acute Assessment and Plan: Patient has not had his 2nd dose of COVID-19 vaccine. Droplet and contact isolation discontinued. Treat according to results. (3) Chronic respiratory failure: Onset Date: ~10/2020 Code(s): J96.10 - Chronic respiratory failure, unspecified whether with hypoxia or hypercapnia Status: Acute Assessment and Plan: The patient is chronically on a ventilator at home. Please see instrument technologist note concerning the exchange of the trach. (4) Insulin dependent diabetes mellitus: Status: Acute Assessment and Plan: Will continue with his routine insulin of Lantus and do sliding scale insulin. (5) Generalized anxiety disorder: Code(s): F41.1 - Generalized anxiety disorder Status: Chronic Assessment and Plan: Continue with his home medication of venlafaxine and trazodone. (6) Chronic GERD: Code(s): K21.9 - Gastro-esophageal reflux disease without esophagitis Status: Acute Assessment and Plan: Continue with PPI (7) Hypertension: Code(s): I10 - Essential (primary) hypertension Status: Chronic Assessment and Plan: Continue with Norvasc, hydralazine, losartan, hydrochlorothiazide, and metoprolol (8) Hyperlipidemia: Code(s): E78.5 - Hyperlipidemia, unspecified Status: Acute Assessment and Plan: Continue with fenofibrate (9) CAD (coronary artery disease): Code(s): I25.10 - Atherosclerotic heart disease of [place] coronary artery without angina pectoris Status: Chronic Assessment and Plan: Continue with his home medication. (10) Ventilator dependent: Code(s): Z99.11 - Dependence on respirator [ventilator] status Status: Chronic Assessment and Plan: Vent settings according to instrument technologist according the ABGs. (11) On tube feeding diet: Code(s): Z78.9 - Other specified health status Status: Acute Assessment and Plan: I did consult dietitian for tube feedings. For now I continued when he was taking at home. Additional Plan Was planning to D/c home today, per instrument technologist recommendation. However, spoke with care coordination, and both pt family and home health aides will not be able to accomodate patient today. As such, will aim for safe discharge tomorrow. Discussed above with ICU team. Time Spent With Patient Time with patient: less than 15 minutes Subjective Date/time seen: 05/20/21 18:22 no meaningful interview possble Review of Systems Review of Systems: no meaningful interview possible Exam Neck: Neck: no JVD Resp: Auscultation: clear to auscultation bilaterally Other: mencahnical ventilation, settings as below Cardio: Rate: regular rate Rhythm: regular rhythm GI: GI Palp: Yes Soft to palpation and No Tenderness to palpation present (GI) Objective Data Vital Signs Vital Signs: Vital Signs - 24 hr 05/19/21 20:00 05/19/21 21:41 05/19/21 21:56 Temperature 98.5 F Pulse Rate 65 74 65 Respiratory Rate 26 H Blood Pressure 156/59 H Pulse Oximetry 98 97 05/19/21 22:00 05/19/21 23:39 05/20/21 00:00 Temperature 98.7 F Pulse Rate 60 50 L 60 Respiratory Rate 28 H 26 H Blood Pressure 145/63 H 156/63 H Pulse Oximetry 97 99 98 05/20/21 02:00 05/20/21 02:44
[2021-05-20 18:31] LABS: Glucose Point of Care 106 mg/dl (65-105)
[2021-05-20 20:21] LABS: Glucose Point of Care 123 mg/dl (65-105)
[2021-05-20] MEDS: traZODone HCL 25 MG TABLET 75 MG PO (20:28)
[2021-05-20] MEDS: INSULIN GLARGINE (*BKC) 100 UNITS/ML 56 UNITS SUB-Q (20:30)
[2021-05-21] VITALS (18 sets, daily range): BP systolic 97–153; BP diastolic 46–67; PULSE 50–63; RESP 16–19; TEMP 36.1–37.2; O2SAT 94–100
[2021-05-21 01:35] LABS: Glucose Point of Care 84 mg/dl (65-105)
[2021-05-21 01:48] LABS: Glucose Point of Care 76 mg/dl (65-105)
[2021-05-21 04:43] LABS: Basophils Percent Auto 0.7 % (0.2-1.2); Eosinophils Absolute Auto 0.2 K/mm3 (0-0.3); Eosinophils Percent Auto 2.7 % (0-4.4); Hematocrit 34.2 % (42.0-52.0); Hemoglobin 10.2 g/dL (14.0-18.0); Immature Granulocyte Percent A 1.7 % (0-0.5); Lymphocytes Absolute Auto 1.28 K/mm3 (0.9-3.2); Lymphocytes Percent Auto 21.5 % (18.3-44.2); Mean Corpuscular HGB Conc 29.8 g/dl (32-36); Mean Corpuscular Hemoglobin 26.3 pg (26-34); Mean Corpuscular Volume 88.1 fl (80-100); Mean Platelet Volume 10.7 fl (7.4-10.4); Monocytes Absolute Auto 0.8 K/mm3 (0.1-0.6); Monocytes Percent Auto 13.3 % (2.6-8.5); Neutrophils Absolute Auto 3.6 K/mm3 (1.3-6.7); Neutrophils Percent Auto 60.1 % (45.5-73.1); Platelet Count Result 205 k/mm3 (150-375); Red Blood Count 3.88 M/mm3 (4.6-6.20); Red Cell Distribution Width 15.9 % (11.5-14.5); White Blood Count 5.9 K/mm3 (4.5-10.0)
[2021-05-21 05:01] LABS: Alanine Aminotransferase 19 U/L (4-50); Albumin Level 3.8 g/dL (3.5-5.1); Alkaline Phosphatase 112 U/L (38-126); Anion Gap 11 mmol/L (8-16); Aspartate Amino Transferase 21 U/L (17-59); Bilirubin,Total 0.3 mg/dL (0.2-1.3); Blood Urea Nitrogen 37 mg/dL (9-20); Calcium 10.3 mg/dL (8.4-10.2); Carbon Dioxide 31 mmol/L (22-30); Chloride 101 mmol/L (98-107); Estimated CRCL calculation 71 ml/min; Estimated Glomerular Filt Rate > 60; Glucose 63 mg/dL (65-110); Magnesium 2.2 mg/dL (1.6-2.3); Phosphorus 3.4 mg/dL (2.5-4.5); Potassium 3.4 mmol/L (3.4-5.0); Sodium 143 mmol/L (137-145)
[2021-05-21 05:23] LABS: Alveolar/Arterial O2 Gradient 35.5 mmHg; Base Excess ABG 7.2 mEq/l (+/-2.0); Carboxyhemoglobin 0.2 % THb (0-2.0); Fractional Inspired Oxygen 21 %; HCO3 ABG 29.1 mEq/l (22.0-26.0); Methemoglobin ABG 0.4 %THb (0-1.5); Oxygen Content ABG 14.4 %vol (16.0-22.0); Oxyhemoglobin 94.5 % THb (90.0-100.0); PCO2 ABG 31.8 mmHg (35.0-45.0); PO2 ABG 76.2 mmHg (80.0-100.0); PO2 FiO2 Ratio Arterial Blood 3.63 %; Reduced Hemoglobin 4.9 %THb (0-5.0); Total Hemoglobin 10.8 g/dL (12.0-18.0)
[2021-05-21 05:24] LABS: Arterial Blood Gas Ventilator rate 16 /MIN; Device VENTILATOR; Modified Allen's Test Pass; Site Drawn RIGHT RADIAL
[2021-05-21 05:25] LABS: Arterial Blood Gas PEEP 5 cmH2O; Arterial Blood Gas Tidal Volume 600 ml; Arterial Blood Gas Vent Mode CMV
[2021-05-21 05:35] LABS: Glucose Point of Care 60 mg/dl (65-105)
[2021-05-21] MEDS: DEXTROSE 50% 25 GM/50 ML SYRINGE IV PUSH (05:36)
[2021-05-21] MEDS: LANSOPRAZOLE ORAL SUSP 30 MG/10 ML ORAL.SUSP FEED TUBE (05:38)
[2021-05-21] MEDS: GABAPENTIN 300 MG CAPSULE PO ×2 (05:45→15:05)
[2021-05-21 06:05] LABS: Glucose Point of Care 137 mg/dl (65-105)
[2021-05-21] MEDS: POTASSIUM CHLORIDE 20 MEQ PACKET (FOR LIQUID) 40 MEQ FEED TUBE (07:55)
[2021-05-21] MEDS: CHLORHEXIDINE GLUCONATE 0.12% ORAL RINSE 473 ML BTL (*BKC) 15 ML SWISH/SPIT ×2 (08:06→17:16)
[2021-05-21] MEDS: APIXABAN 5 MG TABLET PO (08:06)
[2021-05-21] MEDS: FENOFIBRATE,MICRONIZED 48 MG TABLET PO (08:06)
[2021-05-21] MEDS: ASPIRIN 81 MG CHEWABLE TABLET PO (08:06)
[2021-05-21] MEDS: LOSARTAN POTASSIUM 100 MG TABLET FEED TUBE (08:07)
[2021-05-21] MEDS: EZETIMIBE 10 MG TABLET FEED TUBE (08:07)
[2021-05-21] MEDS: hydroCHLOROthiazide 25 MG TABLET FEED TUBE (08:07)
[2021-05-21] MEDS: MICONAZOLE NITRATE 2% CREAM 30 GM TUBE 1 APPLIC TOPICAL (08:08)
[2021-05-21] MEDS: VENLAFAXINE HCL 25 MG TABLET 100 MG PO (08:08)
[2021-05-21] MEDS: METOPROLOL TARTRATE 12.5 MG TABLET FEED TUBE (08:08)
[2021-05-21 08:22] LABS: Glucose Point of Care 115 mg/dl (65-105)
[2021-05-21] MEDS: INSULIN GLARGINE (*BKC) 100 UNITS/ML 40 UNITS SUB-Q (09:34)
--- NOTE | 2021-05-21 09:41 | PCRCNOTE ---
Ventilator setting change order and new trach size faxed to patient's DME, [facility].
--- NOTE | 2021-05-21 11:27 | WPDINTPN ---
Progress Note: A&P Assessment and Plan (1) Chronic respiratory failure: Onset Date: ~10/2020 Code(s): J96.10 - Chronic respiratory failure, unspecified whether with hypoxia or hypercapnia Status: Acute Assessment and Plan: Patient has chronic respiratory failure and is vent dependent Patient had size 6 tracheostomy tube on presentation and was able to speak around the inflated cuff and had high peak pressures along with low tidal volumes. Patient had a cuff leak. At the day of admission I changed his tracheostomy to size 7 Bivona but it appears that this is too small to patient since has significant air leak and high pressure. 05/17 ENT was consulted and a CT soft tissue neck was done which showed tracheomegaly. I discussed case with ENT yesterday and they requested distal XLT tube. Patient was evaluated by ENT and additional fluid was injected into the cuff 05/18 overnight patient had recurrence of symptoms with high peak pressures and low tidal volumes. ABG showed the patient was not ventilating adequately and was hypercarbic and acidotic. Trach was changed to size 7 distal XLT trach by bedside physician and RT improvement in ventilation. I am not sure if there were any secretions or deposits in the trach tube but the cuff was intact. 05/20/2021: Air leak seems to have improved and peak pressure are under control -05/20/2021: Patient has been placed on his home ventilator, seems to be doing well, ABG showed respiratory alkalosis, related to high tidal volume of 600 mL. Will decrease tidal volume to 500. Patient remains on 21% FiO2 -ABGs and checks x-ray reviewed -CT neck and chest showed tracheomegaly, mild pneumonia right upper lobe, partially visualized moderate left hydronephrosis -currently on azithromycin and ceftriaxone. 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 for anxiety COVID-19 PCR was negative (2) Tracheostomy status: Code(s): Z93.0 - Tracheostomy status Status: Acute Assessment and Plan: See above (3) Gastrostomy tube dependent: Code(s): Z93.1 - Gastrostomy status Status: Acute Assessment and Plan: Tube feeds have been resumed, tolerating (4) On tube feeding diet: Code(s): Z78.9 - Other specified health status Status: Acute Assessment and Plan: Continue bolus tube feeds Dietitian following the patient (5) Insulin dependent diabetes mellitus: Status: Acute Assessment and Plan: Patient is on q.12 hours Lantus and sliding scale He takes bolus feeding Added insulin with each bolus feeding for better control Control improved with increased dose of both Lantus and with tube feed insulin -Lantus was decreased (6) Chronic GERD: Code(s): K21.9 - Gastro-esophageal reflux disease without esophagitis Status: Acute Assessment and Plan: PPI (7) Community acquired pneumonia: Onset Date: ~05/2021 Code(s): J18.9 - Pneumonia, unspecified organism Status: Acute Assessment and Plan: Normal white count, FiO2 of 21% with adequate O2 sats, continue ceftriaxone and azithromycin (8) Suspected COVID-19 virus infection: Code(s): Z20.822 - Contact with and (suspected) exposure to COVID-19 Status: Acute Assessment and Plan: COVID-19 PCR was negative (9) Tracheitis: Code(s): J04.10 - Acute tracheitis without obstruction Status: Acute Assessment and Plan: See above (10) Hypertension: Code(s): I10 - Essential (primary) hypertension Status: Chronic Assessment and Plan: Continue metoprolol, losartan and hydrochlorothiazide Hydralazine and Norvasc are on hold as of now Additional Plan DVT prophylaxis -Eliquis Stress ul
--- NOTE | 2021-05-21 11:39 | PCDIET ---
Nutrition Follow-Up Complete: Nutrition Diagnosis: Altered nutrition related labs related to diabetes and acute illness as evidenced by serum glucose of 273mg/dL. Nutrition Goal: Patient to meet estimated nutritional needs. Goal met. Patient tolerating 500mL Glucerna 1.2 boluses QID with 30mL water flush every 4 hours. Glucose levels much improved; thus, current tube feedings appropriate. If weight gain occurs in the future, would defer to initial recommendation of 450mL Glucerna 1.2 QID. Last recorded weight is 103.7 kg which is increased from last review. +I/O. Bowel Motility: Last documented BM on 05/20/21 x 1. Labs Reviewed: RBC (3.88), Hgb (10.4), Hct (34.2), Glu (115), BUN (N37), Ca (10.3) Meds Noted: Zithromax, Rocephin, Zetia, Tricor, Neurontin, Hydrochlorothiazide, Lantus, Prevacid, Cozaar, Lopressor, KCl Additional Notes: Lantus decreased due to lower blood sugars. Novolog not needed this morning. Maceration to buttocks, bilateral groin and scrotum documented. No pressure sores. Will continue to monitor with same goal. Nutrition Monitoring and Evaluation: Follow up every Thursday/Thursday.
[2021-05-21 12:32] LABS: Glucose Point of Care 128 mg/dl (65-105)
--- NOTE | 2021-05-21 18:12 | PC.NURSE ---
Ambulance service arrived at 1600. Received phone call from Care coordination that refused to accept patient because no [facility] staff would be available at this time. [facility] available to transport patient between 6:30 and 7pm. Care coordination and family aware of new transportation plan. Received call from [facility] that they would be arriving at 6:30pm. RN contacted [facility] to update on patient arrival at home. [facility] staff member stated no one would be available at that time. Member stated staff would be there at 8pm. RN called patient's spouse to discuss changes in transportation. Spouse upset and stated she would call [facility]. Updated [facility] on situation. Spouse returned call stating staff will be available at 7pm. [facility] to be at [facility] at 6:35pm.
[2021-05-21 18:28] LABS: Glucose Point of Care 167 mg/dl (65-105)
--- NOTE | 2021-06-02 18:12 | PM.DS ---
DS: Admitting Diagnosis Discharge Date 05/21/21 Admitting Diagnosis Acute on chronic respiratory failure DS: Discharge Diagnosis Discharge Diagnosis (1) Tracheostomy status: Code(s): Z93.0 - Tracheostomy status Status: Acute (2) Chronic respiratory failure: Onset Date: ~10/2020 Code(s): J96.10 - Chronic respiratory failure, unspecified whether with hypoxia or hypercapnia Status: Acute (3) Tracheitis: Code(s): J04.10 - Acute tracheitis without obstruction Status: Acute DS: Summary Hospital Course Hospital Course: Patient is a 80-year-old male with history of coronary artery disease status post CABG, diabetes, cervical injuries secondary to a fall, quadriplegia, status post tracheostomy and PEG placement, ventilator dependent, history of pulmonary embolism on Eliquis. he had a size 6 trach on admission. Brought to emergency room at [facility] by his noting that ventilator was alarming frequently. Nurse also recommended patient come to hospital. Noted to have thick secretions on admission, which thin with albuterol nebulizer. In the ICU, tracheostomy changed to size 7, ENT consulted and CT soft tissue neck obtain, showing trachea megaly. At ENT suggestion, additional fluid injected into cuff, trach change to size 7 distal XLT trach, and improvement in ventilation. Patient was treated with broad-spectrum antibiotics For Pneumonia in ventilated patient., blood cultures negative. On day of discharge, patient able to convey that he is not in acute distress and that his breathing feels better than when he came in. Discussed with care coordination and , that he had the resources at home to be safely taken care of their. Per recommendation of ICU team, also safe to be discharged from hospital. gastrostomy tube in management of feet were not changed. Diabetic management with insulin, Lantus was decreased, can be titrated as an outpatient. Status at Discharge Functional status at discharge: bed bound Time Spent with Patient Time attestation: Total time spent providing and/or coordinating discharge services: Time spent: Less than 30 minutes Exam Const: General: no acute distress Neck: Neck: no JVD Resp: Other: Breathing on ventilator, settings as documented. Cardio: Rate: regular rate Rhythm: regular rhythm GI: GI Palp: Yes Soft to palpation and No Tenderness to palpation present (GI) Discharge Plan Discharge Attending physician on discharge: Saba Santos Consulting providers: Megan Camargo ; Austin Ramirez ; Deshawn Mckee ; Jolie Morrison ; Rinku Raines ; Gildardo Tinoco ; Jean Claude Tejada ; Leann Latif ; Sundeep Moore ; Samson Marie V. Discharging Clinician: Saba Santos Anticipated Discharge Date/Time: 05/21/21 11:29 Patient Disposition: Home Health Service Activity: no shower, no driving and as tolerated Diet: heart healthy, diabetic, low cholesterol and low fat Discharge Instructions: Per Care Coordination. Patient to resume [facility] for RN/PT/OT/ST eval and treat [phone]. RN please fax discharge instructions to [phone]. Patient Instructions: Antibiotic Form Stand Alone Forms: General Discharge Information Follow-up/Referrals: Megan Camargo MD [Physician] - [place],WEN [place]- [Primary Care Provider] - Discharge Medications: New Lantus U-100 Insulin 100 unit/mL Solution 40 unit subcut Q12HR 30 Days Qty: 24 RF: 0 hydralazine 50 mg Tablet 50 mg feeding tube TIDWM 30 Days Qty: 90 RF: 0 hydrochlorothiazide 25 mg Tablet 25 mg feeding tube QAM 30 Days Qty: 30 RF: 0 miconazole nitrate 2 % Cream 1 applic topical Q12HR 30 Days RF: 0 albuterol sulfate 2.5 mg/0.5 mL Solution For Nebulization 2.5 mg inhalation Q6H PRN (Reason: Shortness Of Breath) 30 Days RF: 0 lansoprazole 30 mg Capsule,Delayed Release(Dr/Ec) 30 mg feeding tube DAILY@0630 30
== END 2021-05-21 19:15 | disposition home health service (06) | DRG 207 ==
LOC: ANHED 08:51 → ANHICU 13:57
PROVIDERS: Internal Medicine; Nurse Practitioner; Admitting Provider Hospitalist; Emergency Provider Emergency Medicine; PCP Nurse Practitioner Family; Visit Provider Internal Medicine
DX: J04.10 Acute tracheitis without obstruction (principal); J18.9 Pneumonia, unspecified organism; G82.50 Quadriplegia, unspecified; J96.10 Chronic respiratory failure, unspecified whether with hypoxia or hypercapnia; Z99.11 Dependence on respirator [ventilator] status; G91.2 (Idiopathic) normal pressure hydrocephalus; J39.8 Other specified diseases of upper respiratory tract; Z93.0 Tracheostomy status; Z20.822 Contact with and (suspected) exposure to COVID-19; E11.9 Type 2 diabetes mellitus without complications; F41.1 Generalized anxiety disorder; K21.9 Gastro-esophageal reflux disease without esophagitis; I10 Essential (primary) hypertension; E78.5 Hyperlipidemia, unspecified; I25.10 Atherosclerotic heart disease of native coronary artery without angina pectoris; Z96.653 Presence of artificial knee joint, bilateral; Z78.9 Other specified health status; Z79.01 Long term (current) use of anticoagulants; Z79.4 Long term (current) use of insulin; Z79.899 Other long term (current) drug therapy; Z85.51 Personal history of malignant neoplasm of bladder; Z86.711 Personal history of pulmonary embolism; Z91.81 History of falling; Z93.1 Gastrostomy status; Z93.6 Other artificial openings of urinary tract status; Z95.0 Presence of cardiac pacemaker; Z95.1 Presence of aortocoronary bypass graft; Z95.5 Presence of coronary angioplasty implant and graft; Z98.1 Arthrodesis status; Z98.2 Presence of cerebrospinal fluid drainage device
CPT/HCPCS: 36415; 36600; 70490; 71045; 71250; 80053; 80202; 81001; 82375; 82805; 82948; 83036; 83050; 83735; 83880; 84100; 85025; 85027; 85610; 85730; 87040; 87070; 87077; 87086; 87088; 87186; 87205; 87426; 94003; 96361; 96365; 96366; 96367; 96375; 99285; A4248; A9270; C9803; G0378; J0360; J0456; J0696; J1815; J1940; J2060; J3370; J7030; U0003; U0005

== ENCOUNTER 2021-06-14 22:47 | Emergency (ER) | payer MEDICARE, SELFPAY ==
--- NOTE | ~2021-06-14 | XR_ITS ---
XR chest 1V portable DATE: 06/15/2021 00:24 INDICATION: Weakness. Respiratory failure. TECHNIQUE: Portable AP chest on 06/25/2021 at 0013 hours COMPARISON: 05/21/2021 portable AP views FINDINGS: Tracheostomy tube in satisfactory position. Left-sided transvenous pacemaker device with leads overlying right atrium and right ventricle. Status post sternotomy. Status post lower anterior cervical spine surgical fusion. Posterior cervical spine fusion hardware i s excluded from this radiograph, noted on the prior chest radiograph. There is elevation right diaphragm. There are bibasilar infiltrates//or atelectasis. Cardiac megaly. Aortic calcification. IMPRESSION: Persistent bilateral lower lung infiltrates and/atelectasis Reviewed, dictated and finalized at location A.
[2021-06-14 22:48] VITALS: BP 86/48; PULSE 60; RESP 18; TEMP 36; O2SAT 98
[2021-06-14 23:22] VITALS: PULSE 60; O2SAT 95
[2021-06-14] MEDS: SODIUM CHLORIDE 0.9% IV 1,000 ML 999 ML IV CONT ×2 (23:22)
[2021-06-14 23:24] VITALS: BP 98/55; PULSE 50; RESP 16; O2SAT 100
--- NOTE | 2021-06-14 23:26 | PC.NURSE ---
Pts BS 138 at this time.
[2021-06-14 23:29] LABS: Basophils Percent Auto 0.5 % (0.2-1.2); Eosinophils Absolute Auto 0.1 K/mm3 (0-0.3); Eosinophils Percent Auto 1.6 % (0-4.4); Hematocrit 30.3 % (42.0-52.0); Hemoglobin 9.2 g/dL (14.0-18.0); Immature Granulocyte Absolute 0.18 K/mm3 (0.00-0.031); Immature Granulocyte Percent A 2.1 % (0-0.5); Lymphocytes Absolute Auto 0.99 K/mm3 (0.9-3.2); Lymphocytes Percent Auto 11.4 % (18.3-44.2); Mean Corpuscular HGB Conc 30.4 g/dl (32-36); Mean Corpuscular Hemoglobin 25.9 pg (26-34); Mean Corpuscular Volume 85.4 fl (80-100); Mean Platelet Volume 10.5 fl (7.4-10.4); Monocytes Absolute Auto 0.8 K/mm3 (0.1-0.6); Monocytes Percent Auto 8.7 % (2.6-8.5); Neutrophils Absolute Auto 6.6 K/mm3 (1.3-6.7); Neutrophils Percent Auto 75.7 % (45.5-73.1); Platelet Count Result 227 k/mm3 (150-375); Red Blood Count 3.55 M/mm3 (4.6-6.20); Red Cell Distribution Width 16.4 % (11.5-14.5); White Blood Count 8.7 K/mm3 (4.5-10.0)
[2021-06-14 23:31] LABS: Glucose Point of Care 138 mg/dl (65-105)
[2021-06-14 23:42] LABS: INR 1.4; Prothrombin Time 17.1 Seconds (11.1-14.7)
[2021-06-14 23:43] LABS: Partial Thromboplastin Time 38.1 SECONDS (22.3-36.8)
--- NOTE | 2021-06-14 23:44 | ED.GENADULT ---
HPI - General Adult General Chief complaint: Altered Mental Status Stated complaint: DIFFICULT TO ROUSE Time Seen by Provider: 06/14/21 23:04 History of Present Illness HPI narrative: Patient 80-year-old gentleman who presents the emergency department with chief complaint of altered mental status. 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 The patient was recently started on hydralazine for moderately elevated blood pressures and this evening his blood pressure was running in the low 100s and his nurse gave him a dose of hydralazine about 45 minutes later the noticed he became less responsive noted he became diaphoretic and his blood pressure was decreased into the 80s. After arriving in the emergency department the patient has improved somewhat and is more responsive. The patient currently has no complaints other than he feels tired. The family reports there is been no fevers the believes that the patient symptoms are related to receiving a dose of hydralazine Related Data Home Medications Medication Instructions Recorded Confirmed ezetimibe 10 mg PO DAILY 10/20/20 05/16/21 fenofibrate 48 mg PO DAILY 10/20/20 05/16/21 Eliquis 5 mg PO BID 05/16/21 05/16/21 amlodipine 5 mg PO Q12H 05/16/21 05/16/21 aspirin 81 mg PO DAILY 05/16/21 05/16/21 chlorhexidine gluconate 15 ml BUCCAL BID 05/16/21 05/16/21 diclofenac sodium 4 g TOPICAL Q6H PRN 05/16/21 05/16/21 gabapentin 300 mg PO TID 05/16/21 05/16/21 ipratropium-albuterol 3 ml INHALATION Q6H PRN 05/16/21 05/16/21 tramadol 100 mg PO Q6H PRN 05/16/21 05/16/21 trazodone 75 mg PO HS 05/16/21 05/16/21 venlafaxine 75 mg PO QPM 05/16/21 05/16/21 venlafaxine 100 mg PO QAM 05/16/21 05/16/21 Allergies Allergy/AdvReac Type Severity Reaction Status Date / Time No Known Allergies Allergy Verified 05/16/21 11:21 [facility] Past Medical History Medical History CAD (coronary artery disease) Chronic GERD Gastrostomy tube dependent Generalized anxiety disorder History of bladder carcinoma History of gout No longer on allopurinol History of pulmonary embolism On Eliquis Hyperlipidemia Hypertension 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 The patient does have a living will and is listed as a full code. The patient has no biological children. The patient has care around the clock at home. The patient is retired from [employer]. The patient is nonsmoker does not use any alcohol marijuana illicit drugs. Smoking status: Never smoker Second hand tobacco smoke exposure: No Alcohol intake: never Substance use: never Gender identity (if verbalized by the patient): Male Spiritual care concerns: No Course Course Emergency Course: Patient is feeling much better at this time is resting comfortably with a improved blood pressure. Vital Signs Vital signs: Vital Signs Temperature 36.0 C L 06/14/21 22:48 Pulse Rate 60 06/14/21 22:48 Respiratory Rate 18 06/14/21 22:48 Blood Pressure 86/48 L 06/14/21 22:48 Pulse Oximetry 98 06/14/21 22:48 Temperature 36.0 C L 06/14/21 22:48 Pulse Rate 60
[2021-06-14 23:45] LABS: Alanine Aminotransferase 20 U/L (4-50); Albumin Level 4.2 g/dL (3.5-5.1); Alkaline Phosphatase 77 U/L (38-126); Anion Gap 12 mmol/L (8-16); Aspartate Amino Transferase 22 U/L (17-59); Bilirubin,Total 0.3 mg/dL (0.2-1.3); Blood Urea Nitrogen 30 mg/dL (9-20); Calcium 9.7 mg/dL (8.4-10.2); Carbon Dioxide 25 mmol/L (22-30); Chloride 103 mmol/L (98-107); Estimated CRCL calculation 62 ml/min; Estimated Glomerular Filt Rate > 60; Glucose 144 mg/dL (65-110); Magnesium 2.2 mg/dL (1.6-2.3); Potassium 3.9 mmol/L (3.4-5.0); Sodium 140 mmol/L (137-145)
[2021-06-14 23:46] LABS: Lactic Acid Reflex 1.7 mmol/L (0.7-2.1)
[2021-06-14 23:50] LABS: Add Urine Microscopic? YES; Appearance Urine Cloudy (Clear); Bacteria Urine Trace /hpf; Bilirubin Urine Negative (Negative); Blood Urine Negative (Negative); Color Urine Yellow (Yellow); Glucose Urine UA Negative (Negative); Ketones Urine Negative (Negative); Leukocyte Esterase Ur 3+ LEU/UL (Negative); Mucus Urine Rare /lpf; Nitrate Urine Positive (Negative); Protein Urine Negative (Negative); Specific Grav Ur 1.009 (1.001-1.035); Squamous Epithelial Cell Urine Rare /hpf (Few); Urobilinogen Urine Negative mg/dL (<2.0); WBC Urine >75 /hpf
[2021-06-14 23:52] LABS: Alveolar/Arterial O2 Gradient 33.5 mmHg; Base Excess ABG -1.1 mEq/l (+/-2.0); Fractional Inspired Oxygen 25 %; HCO3 ABG 21.4 mEq/l (22.0-26.0); Oxygen Content ABG 12.9 %vol (16.0-22.0); Oxygen Saturation ABG 98.5 % (95.0-100.0); Oxyhemoglobin 96.8 % THb (90.0-100.0); PCO2 ABG 28.1 mmHg (35.0-45.0); PO2 ABG 111.4 mmHg (80.0-100.0); PO2 FiO2 Ratio Arterial Blood 4.46 %; Total Hemoglobin 9.3 g/dL (12.0-18.0)
[2021-06-14 23:54] LABS: Modified Allen's Test Pass; Site Drawn RIGHT RADIAL
[2021-06-14 23:55] LABS: Arterial Blood Gas PEEP 5 cmH2O; Arterial Blood Gas Tidal Volume 500 ml; Arterial Blood Gas Vent Mode CMV; Arterial Blood Gas Ventilator rate 16 /MIN; Device VENTILATOR
[2021-06-14 23:57] LABS: Troponin I 0.022 ng/mL (0.000-0.034)
[2021-06-15] VITALS (9 sets, daily range): BP systolic 116–148; BP diastolic 58–69; PULSE 50–66; RESP 16; O2SAT 96–100
--- NOTE | 2021-06-15 01:08 | PC.NURSE ---
called [facility] to request transport. ETA [id number]
--- NOTE | 2021-06-15 01:40 | PC.NURSE ---
called [facility] to schedule pickup for 0600 when the home health nurse is available to be at the residence to see supervisor his vent.
--- NOTE | 2021-06-15 06:30 | PC.NURSE ---
[facility] called and updated ETA to 10 Minutes.
--- NOTE | 2021-06-15 06:39 | PC.NURSE ---
[facility] called and updated ETA to 45 - 60 minutes.
--- NOTE | 2021-06-15 06:46 | PCDIET ---
[facility] called and the truck that was enroute to pickup this patient was pulled for a cardiac arrest. ETA after truck clears from the cardiac arrest.
== END 2021-06-15 09:42 | disposition home or self-care (01) ==
PROVIDERS: Emergency Provider Emergency Medicine; PCP Nurse Practitioner Family
DX: R53.1 Weakness (principal); I25.10 Atherosclerotic heart disease of native coronary artery without angina pectoris; J96.90 Respiratory failure, unspecified, unspecified whether with hypoxia or hypercapnia; E11.9 Type 2 diabetes mellitus without complications; I10 Essential (primary) hypertension; E78.5 Hyperlipidemia, unspecified; K21.9 Gastro-esophageal reflux disease without esophagitis; F41.1 Generalized anxiety disorder; Z85.51 Personal history of malignant neoplasm of bladder; Z86.711 Personal history of pulmonary embolism; Z95.0 Presence of cardiac pacemaker; Z95.5 Presence of coronary angioplasty implant and graft; Z96.653 Presence of artificial knee joint, bilateral; Z95.1 Presence of aortocoronary bypass graft; Z98.2 Presence of cerebrospinal fluid drainage device; Z93.1 Gastrostomy status; Z93.0 Tracheostomy status; Z99.11 Dependence on respirator [ventilator] status; Z93.6 Other artificial openings of urinary tract status; Z98.1 Arthrodesis status; Z79.01 Long term (current) use of anticoagulants; Z79.82 Long term (current) use of aspirin; Z79.4 Long term (current) use of insulin; R91.8 Other nonspecific abnormal finding of lung field
CPT/HCPCS: 36415; 36600; 71045; 80053; 81001; 82805; 82948; 83605; 83735; 84484; 85025; 85610; 85730; 87077; 87086; 87088; 87186; 96360; 99284; J7030

== ENCOUNTER 2021-06-17 04:16 | Observation (INO) | payer MEDICARE, SELFPAY ==
[2021-06-17] VITALS (19 sets, daily range): BP systolic 100–146; BP diastolic 46–72; PULSE 50–74; RESP 16–22; TEMP 36.8–37.6; O2SAT 95–100; BMI 26.9; BMI 32.0
--- NOTE | ~2021-06-17 | XR_ITS ---
EXAMINATION: XR chest 1V portable EXAM DATE: 06/17/2021 06:04 INDICATION: Fever, weakness. TECHNIQUE: Portable AP frontal chest x-ray was obtained. Comparison is made to prior examination from 06/15/2021. FINDINGS: Small bibasilar opacities appear unchanged, could be atelectasis or possibly infection. Rel atively low lung volume. Probable small pleural effusions. No pneumothorax. There is aortic arteriosc lerosis. The cardiomediastinal silhouette is prominent but magnified on this AP technique. Multiple foreign bodies including pacemaker, sternotomy wires, tracheostomy, cervical fusion hardware. IMPRESSION: 1. Scattered basilar atelectasis or possibly infection unchanged. 2. Probable small pleural effusions. Reviewed, dictated and finalized at location A.
--- NOTE | 2021-06-17 05:14 | ECG_ITS ---
Measurements Intervals [place] Rate: 73 P: [place]: 0 QRS: -78 QRSD: 170 T: 104 QT: 449 QTc: 498 Interpretive Statements ELECTRONIC VENTRICULAR PACEMAKER BASELINE ARTIFACT- I, II, III, AVR, AVL, AVF, V1-V6 NO FURTHER INTERPRETATION IS POSSIBLE ATYPICAL ECG Electronically Signed On 06-17-2021 8:14:48 CDT by Luiz Hernandez D.O.
[2021-06-17 05:36] LABS: Basophils Percent Auto 0.4 % (0.2-1.2); Eosinophils Absolute Auto 0.1 K/mm3 (0-0.3); Eosinophils Percent Auto 1.1 % (0-4.4); Hemoglobin 8.2 g/dL (14.0-18.0); Immature Granulocyte Absolute 0.12 K/mm3 (0.00-0.031); Immature Granulocyte Percent A 1.5 % (0-0.5); Lymphocytes Absolute Auto 0.62 K/mm3 (0.9-3.2); Lymphocytes Percent Auto 7.5 % (18.3-44.2); Mean Corpuscular HGB Conc 30.4 g/dl (32-36); Mean Corpuscular Hemoglobin 26.2 pg (26-34); Mean Corpuscular Volume 86.3 fl (80-100); Mean Platelet Volume 10.4 fl (7.4-10.4); Monocytes Absolute Auto 0.9 K/mm3 (0.1-0.6); Monocytes Percent Auto 11.3 % (2.6-8.5); Neutrophils Absolute Auto 6.5 K/mm3 (1.3-6.7); Neutrophils Percent Auto 78.2 % (45.5-73.1); Platelet Count Result 182 k/mm3 (150-375); Red Blood Count 3.13 M/mm3 (4.6-6.20); Red Cell Distribution Width 17.1 % (11.5-14.5); White Blood Count 8.3 K/mm3 (4.5-10.0)
--- NOTE | 2021-06-17 05:36 | ED.GENADULT ---
HPI - General Adult General Chief complaint: Altered Mental Status Stated complaint: lethargy Time Seen by Provider: 06/17/21 04:25 History of Present Illness HPI narrative: Patient is a 80-year-old gentleman who presents to the emergency department with chief complaint of fever patient was seen in the ER several days ago after he had had a period of lethargy after he received a dose of hydralazine. Patient had a urinalysis sent at that time. The culture came back as having Pseudomonas and today started spiking temperatures the family has noticed he is also been a little bit more lethargic as well Related Data Home Medications Medication Instructions Recorded Confirmed ezetimibe 10 mg PO DAILY 10/20/20 05/16/21 fenofibrate 48 mg PO DAILY 10/20/20 05/16/21 Eliquis 5 mg PO BID 05/16/21 05/16/21 amlodipine 5 mg PO Q12H 05/16/21 05/16/21 aspirin 81 mg PO DAILY 05/16/21 05/16/21 chlorhexidine gluconate 15 ml BUCCAL BID 05/16/21 05/16/21 diclofenac sodium 4 g TOPICAL Q6H PRN 05/16/21 05/16/21 gabapentin 300 mg PO TID 05/16/21 05/16/21 ipratropium-albuterol 3 ml INHALATION Q6H PRN 05/16/21 05/16/21 tramadol 100 mg PO Q6H PRN 05/16/21 05/16/21 trazodone 75 mg PO HS 05/16/21 05/16/21 venlafaxine 75 mg PO QPM 05/16/21 05/16/21 venlafaxine 100 mg PO QAM 05/16/21 05/16/21 Allergies Allergy/AdvReac Type Severity Reaction Status Date / Time No Known Allergies Allergy Verified 05/16/21 11:21 Review of Systems Review of Systems: A 10 system review of systems was completed on the patient and is negative except for what is stated in the HPI. Nursing and ancillary documentation was reviewed. 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 The patient does have a living will and is listed as a full code. The patient has no biological children. The patient has care around the clock at home. The patient is retired from [employer]. The patient is nonsmoker does not use any alcohol marijuana illicit drugs. Smoking status: Never smoker Second hand tobacco smoke exposure: No Alcohol intake: never Substance use: never Gender identity (if verbalized by the patient): Male Spiritual care concerns: No Exam Narrative: GENERAL: Well-appearing, well-nourished, and in no acute distress. HEAD: Normocephalic, atraumatic. EYES: PERRLA and EOMI. ENT: Nares clear, no rhinorrhea or epistaxis. Mucous membranes moist. NECK: Supple. CHEST: Clear to auscultation. No respiratory distress. HEART: Regular rate and rhythm. No murmur heard. Normal peripheral pulses. ABDOMEN: Soft, nontender, nondistended, normal active bowel sounds. EXTREMITIES: Baseline quadriplegic. No edema. SKIN: Warm, dry, no rash. NEURO: No focal deficits. Alert and oriented x3. PSYCH: Normal mood and affect. Course Vital Signs Vital signs: Vital Signs Temperature
[2021-06-17] MEDS: SODIUM CHLORIDE 0.9% IV 2,700 ML/1,000 ML BAG 999 ML IV CONT ×3 (05:39→08:47)
[2021-06-17 05:46] LABS: INR 1.4; Prothrombin Time 16.7 Seconds (11.1-14.7)
[2021-06-17 05:47] LABS: Magnesium 2.1 mg/dL (1.6-2.3); Partial Thromboplastin Time 44.1 SECONDS (22.3-36.8)
[2021-06-17 05:48] LABS: Lactic Acid Reflex 1.3 mmol/L (0.7-2.1)
[2021-06-17 05:51] LABS: Alanine Aminotransferase 19 U/L (4-50); Albumin Level 3.9 g/dL (3.5-5.1); Alkaline Phosphatase 73 U/L (38-126); Anion Gap 10 mmol/L (8-16); Aspartate Amino Transferase 23 U/L (17-59); Bilirubin,Total 0.5 mg/dL (0.2-1.3); Blood Urea Nitrogen 30 mg/dL (9-20); CRP 3.5 mg/dL (<1.0); Calcium 9.4 mg/dL (8.4-10.2); Carbon Dioxide 24 mmol/L (22-30); Chloride 100 mmol/L (98-107); Estimated CRCL calculation 59 ml/min; Estimated Glomerular Filt Rate > 60; Glucose 126 mg/dL (65-110); Lipase 319 U/L (23-300); Potassium 3.7 mmol/L (3.4-5.0); Sodium 134 mmol/L (137-145)
[2021-06-17 05:54] LABS: Add Urine Microscopic? YES; Appearance Urine Cloudy (Clear); Bacteria Urine Trace /hpf; Bilirubin Urine Negative (Negative); Color Urine Amber (Yellow); Glucose Urine UA Negative (Negative); Ketones Urine Negative (Negative); Leukocyte Esterase Ur 3+ LEU/UL (Negative); Mucus Urine Rare /lpf; Nitrate Urine Negative (Negative); Protein Urine 1+ mg/dL (Negative); Specific Grav Ur 1.013 (1.001-1.035); Urobilinogen Urine Negative mg/dL (<2.0); WBC Clumps Urine Present /HPF; WBC Urine >75 /hpf
[2021-06-17 05:59] LABS: Blood Urine Negative (Negative)
--- NOTE | 2021-06-17 07:36 | PC.NURSE ---
called for report x3 and nurse unavailable for report multiple times. director of physiotherapy services aware.
--- NOTE | 2021-06-17 08:05 | ADMGEN ---
This patient, Christian Perera, was admitted to Intensive Care Unit-8. Patient arrived with urostomy and 7.0XL [place] tracheostomy. Patient/family oriented to hospital policies and general routines including ID bracelet, bed and alarms, visiting hours, pain management, procedures, bathroom and other care routines, personal items, smoking policy, room service/diet, and visiting hours. Information on how to activate the Rapid Response Team has been discussed. Patient/Family are encouraged to report perceived risks to care and to ask questions if they do not understand what they are told or what they should do.
[2021-06-17] MEDS: SODIUM CHLORIDE 0.9% IV 1,000 ML 125 ML IV CONT (08:41)
--- NOTE | 2021-06-17 09:07 | WPDCNINT ---
Assessment and Plan Assessment and plan (1) Acute UTI: Code(s): N39.0 - Urinary tract infection, site not specified Status: Acute Assessment and Plan: His UA suggests UTI and He had urine culture done as an outpatient which she is growing Pseudomonas. 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 Ventilator settings reviewed Chest x-ray reviewed Check ABG (3) Gastrostomy tube dependent: Code(s): Z93.1 - Gastrostomy status Status: Acute Assessment and Plan: Resume tube feeds (4) Insulin dependent diabetes mellitus: Status: Acute Assessment and Plan: Sliding scale insulin Resume Lantus once tube feeds are resumed (5) Chronic GERD: Code(s): K21.9 - Gastro-esophageal reflux disease without esophagitis Status: Acute Assessment and Plan: Continue PPI (6) CAD (coronary artery disease): Code(s): I25.10 - Atherosclerotic heart disease of [place] coronary artery without angina pectoris Status: Chronic Assessment and Plan: Continue Eliquis and aspirin. Hold beta-daina at this time as patient is fairly bradycardic with rate in 50s Resume losartan as allowed by blood pressure Additional Plan DVT prophylaxis -Eliquis Stress ulcer prophylaxis -PPI Nutrition -resume Tube Feeds Code Status - Full Code Total Critical Care Time - 30 minutes Due to a high probability of clinically significant, life threatening deterioration, the patient required my highest level of preparedness to intervene emergently and I personally spent this critical care time directly and personally managing the patient. This critical care time included obtaining a history; examining the patient; pulse oximetry; ordering and review of studies; arranging urgent treatment with development of a management plan; evaluation of patient's response to treatment; frequent reassessment; and discussions with other providers. It was exclusive of separately billable procedures and treating other patients and teaching time. Please see Assessment and Plan section and the rest of the note for further information on patient assessment and treatment [employer] Consult Note Consult date: 06/17/21 Time Seen: 08:00 HPI: Christian Perera is a 80 year old male with past medical history of coronary artery disease status post CABG, brain stimulator, diabetes., cervical injury secondary to a fall status post C3-C5 decompression in October of 2020 which led to Quadriplegia, chronic respiratory failure , status post trach and PEG, ventilator dependent, PE on Eliquis, ppm. 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 Patient also has history of bladder cancer status post bladder removal and urostomy. He was in [facility] and was discharged home. Currently lives at home with his and has nursing care at home. He was admitted last month with issue with his tracheostomy which was replaced and he was found to be having tracheomegaly. Today he returned ER with chief complaint of fevers. He was evaluated for fever as an outpatient and urine culture came back positive for Pseudomonas hence he was brought to ER. Although he is hemodynamically stable he was admitted to ICU because of his chronic respiratory failure and need for mechanical ventilation. At this time when I saw the patient he is able to provide some history by noding his head since he has tracheostomy. He admits to having fever, couple of episodes of loose bow
[2021-06-17 10:28] LABS: Alveolar/Arterial O2 Gradient 14.9 mmHg; Base Excess ABG -1.8 mEq/l (+/-2.0); Fractional Inspired Oxygen 21 %; HCO3 ABG 20.4 mEq/l (22.0-26.0); Oxygen Content ABG 12.3 %vol (16.0-22.0); Oxygen Saturation ABG 98.3 % (95.0-100.0); Oxyhemoglobin 96.5 % THb (90.0-100.0); PCO2 ABG 25.8 mmHg (35.0-45.0); PO2 ABG 103.9 mmHg (80.0-100.0); PO2 FiO2 Ratio Arterial Blood 4.95 %; Total Hemoglobin 8.9 g/dL (12.0-18.0)
[2021-06-17 10:29] LABS: Device VENTILATOR; Modified Allen's Test Unable to perform; Site Drawn RIGHT RADIAL; pH ABG 7.515 (7.350-7.450)
[2021-06-17 10:30] LABS: Arterial Blood Gas PEEP 5 cmH2O; Arterial Blood Gas Tidal Volume 500 ml; Arterial Blood Gas Vent Mode CMV; Arterial Blood Gas Ventilator rate 16 /MIN
--- NOTE | 2021-06-17 10:53 | PM.IMHP ---
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 The patient does have a living will and is listed as a full code. The patient has no biological children. The patient has care around the clock at home. The patient is retired from [email or web address]. The patient is nonsmoker does not use any alcohol marijuana illicit drugs. Smoking status: Never smoker Second hand tobacco smoke exposure: No Alcohol intake: never Substance use: never Gender identity (if verbalized by the patient): Male Spiritual care concerns: No Meds Home Medications and Allergies Home Medications Medication Instructions Recorded Confirmed Type ezetimibe 10 mg PO DAILY 10/20/20 05/16/21 History fenofibrate 48 mg PO DAILY 10/20/20 05/16/21 History Eliquis 5 mg PO BID 05/16/21 05/16/21 History amlodipine 5 mg PO Q12H 05/16/21 05/16/21 History aspirin 81 mg PO DAILY 05/16/21 05/16/21 History chlorhexidine gluconate 15 ml BUCCAL BID 05/16/21 05/16/21 History diclofenac sodium 4 g TOPICAL Q6H PRN 05/16/21 05/16/21 History gabapentin 300 mg PO TID 05/16/21 05/16/21 History ipratropium-albuterol 3 ml INHALATION Q6H PRN 05/16/21 05/16/21 History tramadol 100 mg PO Q6H PRN 05/16/21 05/16/21 History trazodone 75 mg PO HS 05/16/21 05/16/21 History venlafaxine 75 mg PO QPM 05/16/21 05/16/21 History venlafaxine 100 mg PO QAM 05/16/21 05/16/21 History albuterol sulfate 2.5 mg INHALATION Q6H PRN 30 Days 05/21/21 Rx ea amoxicillin-pot clavulanate 1 tablet FEEDING TUBE Q12H 10 Days 05/21/21 Rx [Augmentin] #20 tablet azithromycin 500 mg FEEDING TUBE DAILY 10 Days 05/21/21 Rx #10 tablet ezetimibe [Zetia] 10 mg FEEDING TUBE QAM 30 Days #30 05/21/21 Rx tablet hydralazine 50 mg FEEDING TUBE TIDWM 30 Days 05/21/21 Rx #90 tablet hydrochlorothiazide 25 mg FEEDING TUBE QAM 30 Days #30 05/21/21 Rx tablet insulin aspart U-100 [Novolog 10 unit SUBCUT Q6H 30 Days #12 ml 05/21/21 Rx U-100 Insulin aspart] insulin glargine [Lantus U-100 40 unit SUBCUT Q12HR 30 Days #24 ml 05/21/21 Rx Insulin] lansoprazole 30 mg FEEDING TUBE DAILY@0630 30 05/21/21 Rx Days #30 cap losartan 100 mg FEEDING TUBE DAILY 30 Days 05/21/21 Rx #30 tablet metoprolol tartrate 12.5 mg PO BID #0 tablet 05/21/21 05/16/21 Rx metronidazole [Flagyl] 500 mg FEEDING TUBE Q8H 10 Days 05/21/21 Rx #30 tablet miconazole nitrate 1 applic TOPICAL Q12HR 30 Days g 05/21/21 Rx Allergies Allergy/AdvReac Type Severity Reaction Status Date / Time No Known Allergies Allergy Verified 05/16/21 11:21 Vital Signs Vital Signs - 24 hr 06/17/21 04:17 06/17/21 04:35 06/17/21 06:44 Temperature 99.7 F H Pulse Rate 60 60 70 Respiratory Rate 16 16 Blood Pressure 100/46 L 125/55 L Pulse Oximetry 95 96 99 06/17/21 08:14 06/17/21
[2021-06-17 11:20] LABS: Glucose Point of Care 115 mg/dl (65-105)
[2021-06-17 11:42] LABS: Iron 19 ug/dL (49-181)
[2021-06-17 11:51] LABS: Percent Iron Saturation 6 % (20-50)
[2021-06-17] MEDS: GABAPENTIN 300 MG CAPSULE PO (18:07)
[2021-06-17] MEDS: INSULIN HUMAN NPH (*BKC) 100 UNITS/ML 15 UNITS SUB-Q (18:13)
[2021-06-17] MEDS: METOPROLOL TARTRATE 25 MG TABLET PO (18:21)
[2021-06-17 18:27] LABS: Glucose Point of Care 118 mg/dl (65-105)
[2021-06-17 22:24] LABS: Glucose Point of Care 211 mg/dl (65-105)
[2021-06-17] MEDS: APIXABAN 5 MG TABLET PO (22:26)
[2021-06-17] MEDS: ACETAMINOPHEN ELIXIR 325 MG/10.15 ML UDC 650 MG PO (22:27)
[2021-06-17] MEDS: traZODone HCL 25 MG TABLET 75 MG PO (22:27)
[2021-06-17] MEDS: SODIUM CHLORIDE 0.9% IV 1,000 ML 75 ML IV CONT (22:53)
[2021-06-17] MEDS: INSULIN ASPART (*BKC) 100 UNITS/ML SUB-Q (22:53)
[2021-06-18] VITALS (13 sets, daily range): BP systolic 111–172; BP diastolic 52–86; PULSE 50–73; RESP 16–28; TEMP 36.4–37.1; O2SAT 94–100
[2021-06-18] MEDS: INSULIN HUMAN NPH (*BKC) 100 UNITS/ML 15 UNITS SUB-Q ×2 (02:00→13:06)
[2021-06-18 04:49] LABS: Basophils Percent Auto 0.6 % (0.2-1.2); Eosinophils Absolute Auto 0.1 K/mm3 (0-0.3); Eosinophils Percent Auto 1.5 % (0-4.4); Hematocrit 28.2 % (42.0-52.0); Hemoglobin 8.3 g/dL (14.0-18.0); Immature Granulocyte Absolute 0.05 K/mm3 (0.00-0.031); Lymphocytes Percent Auto 14.5 % (18.3-44.2); Mean Corpuscular HGB Conc 29.4 g/dl (32-36); Mean Corpuscular Hemoglobin 26.1 pg (26-34); Mean Corpuscular Volume 88.7 fl (80-100); Mean Platelet Volume 10.8 fl (7.4-10.4); Monocytes Absolute Auto 0.8 K/mm3 (0.1-0.6); Neutrophils Absolute Auto 3.2 K/mm3 (1.3-6.7); Neutrophils Percent Auto 66.4 % (45.5-73.1); Platelet Count Result 160 k/mm3 (150-375); Red Blood Count 3.18 M/mm3 (4.6-6.20); Red Cell Distribution Width 16.5 % (11.5-14.5); White Blood Count 4.8 K/mm3 (4.5-10.0)
[2021-06-18 04:57] LABS: Fractional Inspired Oxygen 21 %; Oxygen Content ABG 12.3 %vol (16.0-22.0); Oxygen Saturation ABG 98.6 % (95.0-100.0); Oxyhemoglobin 97.3 % THb (90.0-100.0); PCO2 ABG 30.1 mmHg (35.0-45.0); PO2 ABG 116.9 mmHg (80.0-100.0); PO2 FiO2 Ratio Arterial Blood 5.57 %; Total Hemoglobin 8.8 g/dL (12.0-18.0); pH ABG 7.481 (7.350-7.450)
[2021-06-18 04:58] LABS: Arterial Blood Gas PEEP 5 cmH2O; Arterial Blood Gas Tidal Volume 400 ml; Arterial Blood Gas Vent Mode CMV; Arterial Blood Gas Ventilator rate 12 /MIN; Device VENTILATOR; Modified Allen's Test Pass; Site Drawn RIGHT RADIAL
[2021-06-18 05:11] LABS: Anion Gap 8 mmol/L (8-16); Blood Urea Nitrogen 22 mg/dL (9-20); Calcium 9.6 mg/dL (8.4-10.2); Carbon Dioxide 25 mmol/L (22-30); Chloride 110 mmol/L (98-107); Estimated CRCL calculation 84 ml/min; Estimated Glomerular Filt Rate > 60; Glucose 164 mg/dL (65-110); Lipase 58 U/L (23-300); Magnesium 2.2 mg/dL (1.6-2.3); Sodium 143 mmol/L (137-145)
[2021-06-18 05:40] LABS: INR 1.4
[2021-06-18 08:44] LABS: Glucose Point of Care 178 mg/dl (65-105)
[2021-06-18] MEDS: ASPIRIN 81 MG CHEWABLE TABLET PO (09:03)
[2021-06-18] MEDS: GABAPENTIN 300 MG CAPSULE PO ×2 (09:03→13:06)
[2021-06-18] MEDS: METOPROLOL TARTRATE 25 MG TABLET PO (09:03)
[2021-06-18] MEDS: EZETIMIBE 10 MG TABLET PO (09:03)
[2021-06-18] MEDS: APIXABAN 5 MG TABLET PO (09:04)
[2021-06-18] MEDS: LANSOPRAZOLE ORAL SUSP 30 MG/10 ML ORAL.SUSP FEED TUBE (09:04)
--- NOTE | 2021-06-18 11:00 | PCDIET ---
Nutrition Follow-Up Complete: Nutrition Diagnosis: Inadequate infusion of enteral nutrition related to diet order as evidenced by NPO. Nutrition Goal: Patient to meet estimated nutritional needs. Goal in progress. Patient receiving 500mL Glucerna 1.2 every 6 hours with 30mL water flush every 4 hours. Recommend changing water flushes to every 6 hours with feeds and tapering IV fluids as medically appropriate. Last recorded weight is 107.2 kg which is stable after patient was reweighed on 06/17/21. Bowel Motility: Last documented BM on 06/17/21. Labs Reviewed: RBC (3.18), Hgb (8.3), Hct (28.2), Glu (164), BUN (22) Meds Noted: Maxipime, Zetia, Tricor, Hydrochlorothiazide, Insulin NPH, Prevacid, Lopressor, Desyrel, Effexor Xr, NS at 75mL/hr Additional Notes: Documented maceration to buttocks. Will continue to monitor with same goal. Nutrition Monitoring and Evaluation: Follow up every Thursday/Thursday. Follow daily in ICU rounds.
--- NOTE | 2021-06-18 12:07 | WPDINTPN ---
Progress Note: A&P Assessment and Plan (1) Acute UTI: Code(s): N39.0 - Urinary tract infection, site not specified Status: Acute Assessment and Plan: His UA suggests UTI -06/14: Urine cultures growing Citrobacter and MDR Pseudomonas, -06/17: Urine cultures growing Citrobacter -06/17, blood cultures Gram-positive cocci in clusters 1/2 bottles Continue IV cefepime, will add vancomycin -MDR Pseudomonas in urine culture could be contamination. 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 Ventilator settings reviewed, currently on 21% FiO2 and peep of 5 Chest x-ray reviewed ABGs within normal limits (3) Gastrostomy tube dependent: Code(s): Z93.1 - Gastrostomy status Status: Acute Assessment and Plan: Continue bolus tube feeds (4) Insulin dependent diabetes mellitus: Status: Acute Assessment and Plan: Sliding scale insulin Continue NPH (5) Chronic GERD: Code(s): K21.9 - Gastro-esophageal reflux disease without esophagitis Status: Acute Assessment and Plan: Continue PPI (6) CAD (coronary artery disease): Code(s): I25.10 - Atherosclerotic heart disease of [place] coronary artery without angina pectoris Status: Chronic Assessment and Plan: Continue Eliquis and aspirin. Hold beta-daina at this time as patient is fairly bradycardic with rate in 50s to 60s Resume losartan as allowed by blood pressure Additional Plan DVT prophylaxis -Eliquis Stress ulcer prophylaxis -PPI Nutrition -continue Tube Feeds Code Status - Full Code Critical care time spent: 32 minutes Due to a high probability of clinically significant, life threatening deterioration, the patient required my highest level of preparedness to intervene emergently and I personally spent this critical care time directly and personally managing the patient. This critical care time included obtaining a history; examining the patient; pulse oximetry; ordering and review of studies; arranging urgent treatment with development of a management plan; evaluation of patient's response to treatment; frequent reassessment; and discussions with other providers. It was exclusive of separately billable procedures and treating other patients and teaching time. Please see Assessment and Plan section and the rest of the note for further information on patient assessment and treatment Subjective Date/time seen: 06/18/21 12:07 Interval history: Reason for consult: UTI, fevers, respiratory failure, vent dependent at home 06/18/2021: Patient seen and examined the ICU, remains on the ventilator via tracheostomy, peep of 5, 21% FiO2. Hemodynamically stable, afebrile. Patient awake, alert and nods to questions. Patient seems to be comfortable, has a urostomy bag in place draining adequate amount of urine Review of Systems Review of Systems: ROS unobtainable: Yes unobtainable due to endotracheal tube Exam Narrative: General: Pt is trached and on mechanical ventilation Lungs/Chest: Trachea central Coarse BS B/L, No crackles or wheezing. Cardiac: RRR. Normal S1 S2. No murmurs Circulation: Pedal pulses are intact and symmetrical. Abdomen: Normal bowel sounds. Obese. Soft. NT. ND. Urostomy bag in place Extremities: No clubbing, cyanosis or edema. Warm : Bhagat in place Neurologic: Awake, alert, he has paraparesis, he is has some movement in both feet and right hand, only flicker movement in left hand, PERRL Objective Data Vital Signs Vital Signs: Vital Signs - 24 hr 06/17/21 13:45 06/17/21 14:00 06/17/21 16:00 Temperature 98.6 F Pulse Rate
[2021-06-18] MEDS: FENOFIBRATE,MICRONIZED 48 MG TABLET PO (13:05)
[2021-06-18] MEDS: VENLAFAXINE HCL XR 75 MG CAP.ER.24H PO (13:06)
[2021-06-18] MEDS: hydroCHLOROthiazide 25 MG TABLET FEED TUBE (13:06)
[2021-06-18] MEDS: SODIUM CHLORIDE 0.9% IV 1,000 ML 75 ML IV CONT (13:07)
--- NOTE | 2021-06-18 14:05 | PM.DS ---
DS: Admitting Diagnosis Discharge Date 06/18/2021 Admitting Diagnosis FEVER DS: Discharge Diagnosis Discharge Diagnosis (1) Acute UTI: Code(s): N39.0 - Urinary tract infection, site not specified Status: Acute Assessment and Plan: His UA suggests UTI -06/14: Urine cultures growing Citrobacter and MDR Pseudomonas, -06/17: Urine cultures growing Citrobacter -06/17, blood cultures Gram-positive cocci in clusters 1/2 bottles Continue IV cefepime, will add vancomycin -MDR Pseudomonas in urine culture could be contamination. Consulted Infectious Disease who feels it is more contamination ok to DC IV abx and discharge patient. without ABX. 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 Ventilator settings reviewed, currently on 21% FiO2 and peep of 5 (3) Gastrostomy tube dependent: Code(s): Z93.1 - Gastrostomy status Status: Acute Assessment and Plan: Continue bolus tube feeds (4) Insulin dependent diabetes mellitus: Status: Acute Assessment and Plan: Sliding scale insulin Continue NPH 15 units with meals (5) Chronic GERD: Code(s): K21.9 - Gastro-esophageal reflux disease without esophagitis Status: Acute Assessment and Plan: Continue PPI (6) CAD (coronary artery disease): Code(s): I25.10 - Atherosclerotic heart disease of [place] coronary artery without angina pectoris Status: Chronic Assessment and Plan: Continue Eliquis and aspirin. DS: Summary Hospital Course Hospital Course: From admission notes: 72-year-old male who presented to the emergency department because if he the fever and lethargy. Per meter the emergency department notes patient presented to the emergency department few days prior to this presentation with similar symptoms. He at that time he was found to have urinary tract infection for which he was discharged with antibiotics. At the present time the patient endorses no complaints. He is nonverbal due to history of chronic respiratory failure with tracheostomy placement. Time Spent with Patient Time attestation: Total time spent providing and/or coordinating discharge services:45 minutes on day of discharge Exam Narrative: General: Pt is trached and on mechanical ventilation Lungs/Chest: Trachea central Lungs clear Cardiac: RRR. Normal S1 S2. No murmurs Circulation: Pedal pulses are intact and symmetrical. Abdomen: Normal bowel sounds. Obese. Soft. NT. ND. Urostomy bag in place Extremities: No clubbing, cyanosis or edema. Warm : Bhagat in place Neurologic: Awake, alert, he has paraparesis, he is has some movement in both feet and right hand, only flicker movement in left hand, PERRL DS: Data Data Completed and Pending Labs on day of discharge: Labs from last 24 hours 06/18/21 06/18/21 06/18/21 08:42 04:41 04:32 WBC RBC Hgb Hct MCV MCH MCHC RDW Plt Count MPV Immature Gran % (Auto) Neut % (Auto) Lymph % (Auto) [place] % (Auto) Eos % (Auto) Baso % (Auto) Lymph # (Auto) [place] # (Auto) Eos # (Auto) Baso # (Auto) Abs Immat Gran (auto) Absolute Neuts (auto) Absolute Nucleated RBC Nucleated RBC % PT 17.0 H INR 1.4 Puncture Site Right radial ABG pH 7.481 H ABG pCO2 30.1 L ABG pO2 116.9 H ABG PO2/FiO2 Ratio 5.57 ABG HCO3 22.0 ABG O2 Saturation 98.6 ABG O2 Content 12.3 L ABG Base Excess -1.0 A-a Gradient Not Reportable Oxyhemoglobin 97.3 Total Hemoglobin 8.8 L O2 Delivery Device Ventilator O2 Liters/Min Not Reportable Minute Volume Not Reportable Vent Rate 12 Vent Mode Cmv FiO2 21 Tidal Volume 400 PEEP
[2021-06-18 16:07] LABS: Glucose Point of Care 264 mg/dl (65-105)
--- NOTE | 2021-06-21 11:48 | PC.NURSE ---
Attempted to call . No answer.
== END 2021-06-18 17:22 | disposition home health service (06) ==
LOC: ANHED 06:37 → ANHICU 15:27
PROVIDERS: Internal Medicine; Admitting Provider Internal Medicine; Emergency Provider Emergency Medicine; PCP Nurse Practitioner Family; Visit Provider Family Medicine
DX: N39.0 Urinary tract infection, site not specified (principal); J96.10 Chronic respiratory failure, unspecified whether with hypoxia or hypercapnia; G82.20 Paraplegia, unspecified; E11.9 Type 2 diabetes mellitus without complications; I25.10 Atherosclerotic heart disease of native coronary artery without angina pectoris; K21.9 Gastro-esophageal reflux disease without esophagitis; Z79.4 Long term (current) use of insulin; Z86.711 Personal history of pulmonary embolism; Z95.0 Presence of cardiac pacemaker; Z93.1 Gastrostomy status; Z79.01 Long term (current) use of anticoagulants; Z79.82 Long term (current) use of aspirin
CPT/HCPCS: 36415; 36600; 71045; 80048; 80053; 81001; 82728; 82805; 82948; 83540; 83550; 83605; 83690; 83735; 85025; 85610; 85730; 86140; 87040; 87077; 87086; 87186; 93005; 94002; 94003; 96361; 96365; 96366; 96367; 96375; 99285; A9270; G0378; J0692; J1815; J2543; J3370; J7030

== ENCOUNTER 2021-07-15 00:09 | Observation (INO) | payer MEDICARE, SELFPAY ==
[2021-07-15] VITALS (88 sets, daily range): BP systolic 90–184; BP diastolic 48–143; PULSE 59–107; RESP 14–32; TEMP 36.7–37.3; O2SAT 94–100; BMI 30.3
--- NOTE | ~2021-07-15 | XR_ITS ---
EXAMINATION: XR chest 1V portable DATE: 07/15/2021 00:38 INDICATION: Cough. TECHNIQUE: A single frontal view of the chest was obtained. COMPARISON: Chest single view 06/17/2021 FINDINGS: Lung volumes are small. There are mild airspace opacities at the lung bases. No pleural eff usion or pneumothorax. The heart size is normal. There is a tracheostomy tube in expected position. T here are changes of anterior fusion procedure in cervical spine. Median sternotomy wires and mediasti nal surgical clips are seen, likely from prior coronary artery bypass grafting. There is a left chest wall pacer with leads in the right atrium and right ventricle. A right-sided ventriculoperitoneal sh unt is noted. IMPRESSION: 1. Stable small lung volumes with mild airspace opacities at the lung bases, likely atelectasis. Reviewed, dictated and finalized at location [facility] IMPRESSION: 1. Stable small lung volumes with mild airspace opacities at the lung bases, li mazin atelectasis.
--- NOTE | 2021-07-15 00:30 | ED.GENADULT ---
HPI - General Adult General Chief complaint: Unspecified Stated complaint: tidal volume drops while sleeping Time Seen by Provider: 07/15/21 00:23 Source: RN notes reviewed History of Present Illness HPI narrative: Patient presents to emergency department from home for ventilator malfunctioning. Patient is on chronic vent at home. This evening per the and he is falling asleep his tidal volumes are getting low and that he was having high pressure warnings. The patient had a similar issue several weeks ago and at that time it a thought that it been a malfunction of the ventilator. The states otherwise the patient has not had any recent respiratory difficulties has had no fevers no cough he has recently been on antibiotics for an infection around his trachea he is followed by Dr. Camargo for pulmonary Related Data Home Medications Medication Instructions Recorded Confirmed fenofibrate 48 mg PO DAILY 10/20/20 06/17/21 Eliquis 5 mg PO BID 05/16/21 06/17/21 aspirin 81 mg PO DAILY 05/16/21 06/17/21 chlorhexidine gluconate 15 ml BUCCAL BID 05/16/21 06/17/21 diclofenac sodium 4 g TOPICAL Q6H PRN 05/16/21 06/17/21 ipratropium-albuterol 3 ml INHALATION Q6H PRN 05/16/21 06/17/21 tramadol 200 mg PO Q6H PRN 05/16/21 06/17/21 trazodone 75 mg PO HS 05/16/21 06/17/21 insulin NPH isoph U-100 human 17 unit SUBCUT WMHS 06/17/21 06/17/21 metoprolol tartrate 25 mg tablet 25 mg PO BID 07/02/21 venlafaxine 75 mg tablet,extended 150 mg PO DAILY tablet 07/02/21 release 24 hr Allergies Allergy/AdvReac Type Severity Reaction Status Date / Time No Known Allergies Allergy Verified 07/15/21 00:58 Review of Systems Review of Systems: Gen.: Denies fevers or chills ENT: Denies congestion Respiratory: See HPI CV: Denies chest pain or palpitations GI: Denies abdominal pain nausea, emesis or diarrhea Musculoskeletal: Denies back pain or muscle pain Neuro: Denies numbness, tingling, weakness or focal weakness Skin: Denies rash Except as documented, all other systems reviewed and negative PMFSH Past Medical History Medical History Bladder cancer CAD (coronary artery disease) Chronic GERD Gastrostomy tube dependent Generalized anxiety disorder History of bladder carcinoma History of gout No longer on allopurinol History of pulmonary embolism On Eliquis Hyperlipidemia Hypertension 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 Pacemaker Ventilator dependent Surgical History Surgical History (Updated 07/02/21 @ 14:32 by Megan Camargo MD) H/O heart artery stent 5-7 History of bilateral knee arthroplasty History of urostomy Hx of cholecystectomy S/P CABG x 5 S/P percutaneous endoscopic gastrostomy (PEG) tube placement S/P HAND STEMMER shunt Status post cardiac pacemaker procedure Status post cervical spinal fusion C3 through C5 Family History Family History Mother Breast cancer Acute myocardial infarction Father Carcinoma of colon Sibling Breast cancer Diabetes mellitus Social History Social History Social History: Patient lives with his spouse Mikki who is the durable power employment attorney for healthcare. The patient does have a living will and is listed as a full code. The patient has no biological children. The patient has care around the clock at home. The patient is retired from [employer]. The patient is nonsmoker does not use any alcohol marijuana illicit drugs. Smoking status: Never smoker Second hand tobacco smoke exposure: No Alcohol intake: never Substance use: never Substance use type: does not use Gender identity (if verbalized by the patient): Male Spiritual care concerns: No Exam Narrative: APPEARANCE: No acute distress, nontoxic, resting in bed EYES: EOMI HEENT: Normocephalic, atraumatic,
[2021-07-15 01:32] LABS: Basophils Absolute Auto 0.1 K/mm3 (0.0-0.1); Eosinophils Absolute Auto 0.4 K/mm3 (0-0.3); Eosinophils Percent Auto 5.6 % (0-4.4); Hematocrit 30.6 % (42.0-52.0); Hemoglobin 9.5 g/dL (14.0-18.0); Immature Granulocyte Absolute 0.37 K/mm3 (0.00-0.031); Immature Granulocyte Percent A 5.1 % (0-0.5); Lymphocytes Absolute Auto 0.85 K/mm3 (0.9-3.2); Lymphocytes Percent Auto 11.6 % (18.3-44.2); Mean Corpuscular Hemoglobin 25.3 pg (26-34); Mean Corpuscular Volume 81.4 fl (80-100); Mean Platelet Volume 10.3 fl (7.4-10.4); Monocytes Absolute Auto 0.7 K/mm3 (0.1-0.6); Neutrophils Absolute Auto 4.9 K/mm3 (1.3-6.7); Neutrophils Percent Auto 66.7 % (45.5-73.1); Platelet Count Result 266 k/mm3 (150-375); Red Blood Count 3.76 M/mm3 (4.6-6.20); Red Cell Distribution Width 16.8 % (11.5-14.5); White Blood Count 7.3 K/mm3 (4.5-10.0)
[2021-07-15 02:09] LABS: Alanine Aminotransferase 22 U/L (4-50); Albumin Level 4.2 g/dL (3.5-5.1); Alkaline Phosphatase 109 U/L (38-126); Anion Gap 12 mmol/L (8-16); Aspartate Amino Transferase 22 U/L (17-59); Bilirubin,Total 0.2 mg/dL (0.2-1.3); Blood Urea Nitrogen 32 mg/dL (9-20); Calcium 10.2 mg/dL (8.4-10.2); Carbon Dioxide 23 mmol/L (22-30); Chloride 100 mmol/L (98-107); Estimated CRCL calculation 61 ml/min; Estimated Glomerular Filt Rate > 60; Glucose 179 mg/dL (65-110); Potassium 3.6 mmol/L (3.4-5.0); Sodium 135 mmol/L (137-145)
--- NOTE | 2021-07-15 02:32 | PC.NURSE ---
RN to room to inform pt and that pain medications have been ordered and that warehouse order filler was searching for wedges to reposition patient in bed. Per , pt c/o pain to buttock. also reporting pt has been coughing and needs to be suctioned out. This RN asked if pt wanted suctioned out and he mouthed no and then something unintelligible. This RN asked if she was able to make out what he was saying. rolled her eyes and stated, sometimes I can, but sometimes I can't . This RN continuing to ask assessment questions regarding pain and patient very clearly mouthed, I want to kill myself . Patient asked if he had any thoughts of how he might harm himself. interrupted and said Are you kidding me? to this RN while once again rolling eyes with aggressive body language. This RN informed that I was mandated to ask follow up questions when such statements are made. kept saying Danyel you don't mean that and not allowing patient to answer. then asked patient herself if he wanted to harm himself and he said no . I informed patient that if he did not mean those things, that he shouldn't say them because it does things such as upset his and cause me to have to ask uncomfortable questions. stating that he probably said that because of his buttock pain and demanded that I get him pain medications immediately. informed that pain medications were ordered and that they would be given as soon as possible as I was in room assessing patient. began telling this RN that she was tired and she had been up all night. This RN told it was okay if she wanted to go home. yelled, are you crazy?! . This RN informed that she could not speak to staff like that and if she continued to be inappropriate she would be asked to leave. silent. This RN out of room. cook house supervisor and EDP made aware of what transpired.
--- NOTE | 2021-07-15 03:03 | PC.NURSE ---
Per dry charge process attendant, pt verbalized that he wanted to kill himself.
--- NOTE | 2021-07-15 04:06 | PC.NURSE ---
Due to concern regarding prior statements, this RN accompanied ED MD Last to speak with pt and assess for Suicidal ideations. Pt's asked to leave room for pt privacy. While exiting room, stated plainly Well, this gets better and better. Once alone with pt, ED MD asked pt if he was thinking about hurting himself or anyone else. Pt clearly mouthed the word No . Pt asked if he felt safe at home, and he clearly mouthed the word Yes . Pt then attempted to verbalize a longer sentence, but this RN and ED MD unable to ascertain what he was trying to tell us. We both thanked pt for taking time to answer our questions, and door opened for to reenter room. Awaiting ICU bed assignment. Will continue to monitor.
[2021-07-15] MEDS: MORPHINE SULFATE (*CRX) 2 MG/ML INJ IV PUSH (05:20)
--- NOTE | 2021-07-15 06:28 | PC.NURSE ---
[facility] faxed up to ICU. Pt to go to ICU 3.
--- NOTE | 2021-07-15 06:35 | PC.NURSE ---
[facility] faxed to ICU. Pt to go to ICU 3. TOOL AND DIE MAKER to call this RN back.
--- NOTE | 2021-07-15 06:39 | PC.NURSE ---
Pt with [facility] to ED, who report called to home for ventilator alarming and pt's Tidal Volume decreasing while asleep and dropping to 200's. per EMS, pt sats remained 98% on RA. Pt is ventilator-dependent, strict NPO with gastric feeding tube, urostomy, and paralysis s/p fall earlier this year with resultant spinal cord injury. pt is unable to make noise, but mouths words. also unable to write or use sign language. When this RN asked pt's how she communicated with him at home, she responded I can't . pt c/o extreme pain to buttocks, and reports pt has sore area there. when assessed with multiple techs and ED MD, pt does have redness to sacrum and small open area approx 3cm in center.
--- NOTE | 2021-07-15 07:50 | PC.NURSE ---
This patient, Christian Perera, was admitted to Intensive Care Unit-3. Patient/family oriented to hospital policies and general routines including ID bracelet, bed and alarms, visiting hours, pain management, procedures, bathroom and other care routines, personal items, smoking policy, room service/diet, and visiting hours. Information on how to activate the Rapid Response Team has been discussed. Patient/Family are encouraged to report perceived risks to care and to ask questions if they do not understand what they are told or what they should do.
--- NOTE | 2021-07-15 08:58 | PM.IMHP ---
H&P: HPI History of Present Illness Date/Time: PATIENT HAS BEEN PLACED IN OBSERVATION STATUS 07/15/21 08:58 Chief Complaint: Ventilator Malfunction Narrative: 80yo male with hx of C3-C5 cervical injury secondary to a fall status post C3-C5 decompression in October of 2020 which led to quadriplegia, chronic respiratory failure and ventilator dependent status post trach and PEG, PE on Eliquis, 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 Morro is alert but unable to provide detailed history. He can mouth words and states he feels 'okay' and denies chest pain or abdominal pain. He also denies feeling SOB. He can use his hands to write due to his quadriplegia. Per the ED notes: Patient presents to emergency department from home for ventilator malfunctioning. Patient is on chronic vent at home. This evening per the and he is falling asleep his tidal volumes are getting low and that he was having high pressure warnings. The patient had a similar issue several weeks ago and at that time it a thought that it been a malfunction of the ventilator. The states otherwise the patient has not had any recent respiratory difficulties has had no fevers no cough he has recently been on antibiotics for an infection around his trachea he is followed by Dr. Camargo for pulmonary. The TV kept dropping when he was sleeping began last night. This is the 2nd time it has happened. The first time, they changed out the trach on 07/10 with benefits. Lethargic all day yesterday. No fevers. Has been snoring which shouldn't be happening. Oxygen level was 'fine' at home but very sleepy. noted patient was agitated in the ED. He has been spitting up quite a bit of mucous from his mouth since installing extra long trach tube. Recently had a positive trach culture treated with Levaquin (currently day 03/16). He does have a scaral stage I decubitus. No other symptoms. In the ED, patient was hemodynamically stable. CXR showing small lung volumes with mild airspace opacities at the bases. CBC normal except normocytic anemia. CMP essential normal. Morphine IV and Acetaminiophen IV once given for pain from sacral wound. He was admitted for further care. 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 Surgical History Surgical History H/O heart artery stent 5-7 History of bilateral knee arthroplasty History of urostomy Hx of cholecystectomy S/P CABG x 5 S/P percutaneous endoscopic gastrostomy (PEG) tube placement S/P MILL LABOR SUPERVISOR shunt Status post cardiac pacemaker procedure Status post cervical spinal fusion C3 through C5 Family History Family History Mother Breast cancer Acute myocardial infarction Father Carcinoma of colon Sibling Breast cancer Diabetes mellitus Social History Social History Social History: Patient lives with his spouse Mikki who is the durable power ip attorney for healthcare. The patient does have a living will and is listed as a full code. The patient has no biological children. The patient has care around the clock at home. The
[2021-07-15 11:10] LABS: Alveolar/Arterial O2 Gradient 17.7 mmHg; Base Excess ABG 1.8 mEq/l (+/-2.0); Fractional Inspired Oxygen 21 %; HCO3 ABG 24.2 mEq/l (22.0-26.0); Oxygen Content ABG 14.1 %vol (16.0-22.0); Oxyhemoglobin 96.6 % THb (90.0-100.0); PO2 ABG 96.1 mmHg (80.0-100.0); PO2 FiO2 Ratio Arterial Blood 4.58 %; Total Hemoglobin 10.3 g/dL (12.0-18.0)
[2021-07-15 11:13] LABS: Arterial Blood Gas Ventilator rate 16 /MIN; Device VENTILATOR; Modified Allen's Test Pass; Site Drawn RIGHT RADIAL; pH ABG 7.524 (7.350-7.450)
[2021-07-15 11:14] LABS: Arterial Blood Gas PEEP 5 cmH2O; Arterial Blood Gas Tidal Volume 500 ml; Arterial Blood Gas Vent Mode CMV
--- NOTE | 2021-07-15 11:27 | WPDCNINT ---
Assessment and Plan Assessment and plan (1) Ventilatory failure: Code(s): R06.89 - Other abnormalities of breathing Status: Acute Assessment and Plan: Patient presented the ED after the noticed that he was having decrease tidal volumes and high pressures while sleeping, so she a call they EMS Moses sent to the ER. -currently on CMV mode of ventilation on the hospital ventilator. The vent is not alarming for high peak pressures for low tidal volumes -discussed with pulmonology, will have the ventilator brought in and will place patient on that and evaluate the issue, will also have the [employer] make changes if necessary -ABGs and chest x-ray reviewed -continue bronchodilators p.r.n. (2) Ventilator dependent: Code(s): Z99.11 - Dependence on respirator [ventilator] status Status: Chronic Assessment and Plan: Patient has a history of quadriplegia and diaphragmatic paralysis, on chronic ventilator support (3) Quadriplegia following spinal cord injury: Status: Acute Assessment and Plan: Chronic (4) Hypertension: Code(s): I10 - Essential (primary) hypertension Status: Chronic Assessment and Plan: Continue metoprolol (5) DVT prophylaxis: Code(s): Z29.9 - Encounter for prophylactic measures, unspecified Status: Acute Assessment and Plan: Continue Eliquis Additional Plan Patient currently on Levaquin, will complete course per hospitalist Nutrition: Restart tube feeds Code status: Full code Critical care time spent: 42 minutes This dictation may have been done utilizing a voice recognition system. Attempts have been made to correct errors. However, there may be uncorrected grammatical, spelling, and recognition errors present. Due to a high probability of clinically significant, life threatening deterioration, the patient required my highest level of preparedness to intervene emergently and I personally spent this critical care time directly and personally managing the patient. This critical care time included obtaining a history; examining the patient; pulse oximetry; ordering and review of studies; arranging urgent treatment with development of a management plan; evaluation of patient's response to treatment; frequent reassessment; and discussions with other providers. It was exclusive of separately billable procedures and treating other patients and teaching time. Please see Assessment and Plan section and the rest of the note for further information on patient assessment and treatment Straddle Truck Operator Consult Note Consult date: 07/15/21 Time Seen: 08:33 Reason for consult: Home ventilator malfunction HPI: Christian Perera is a 80 year old male with significant past medical history of C3-C5 cervical injury secondary to fall status post C3-C5 decompression in October 2020 which led to quadriplegia, chronic respiratory failure and vent dependence status, status post tracheostomy and PEG tube placement, history of PE on Eliquis, NPH with SALES AND SERVICE ADVISOR shunt, coronary artery status post CABG, diabetes mellitus, diaphragmatic paralysis, bladder cancer status post cystectomy and urostomy presented to the ED from home for possible ventilator malfunction. According the records patient presented the ED from home after his noticed that the ventilator was malfunction. He is on chronic home ventilator. According the records stated that the noted that as patient fell asleep his tidal volumes were getting low and was having high-pressure warnings. The patient has had similar issue several weeks ago and at that time also it was thought it was a malfunction of the ventilator. According the records the stated patient has had not had any respiratory difficulties, no fevers, no cough. He does follow Dr. Camargo with pulmonology at [facility]. Patient was brought to the ED via EMS and transferred to the ICU as he is vent dependent. Patient seen and exam
[2021-07-15] MEDS: APIXABAN 5 MG TABLET FEED TUBE ×2 (11:53→20:06)
[2021-07-15] MEDS: METOPROLOL TARTRATE 25 MG TABLET PO ×2 (11:55→20:06)
[2021-07-15] MEDS: ASPIRIN 81 MG CHEWABLE TABLET FEED TUBE (11:55)
[2021-07-15] MEDS: EZETIMIBE 10 MG TABLET FEED TUBE (11:55)
[2021-07-15] MEDS: LANSOPRAZOLE ORAL SUSP 30 MG/10 ML ORAL.SUSP FEED TUBE (11:55)
[2021-07-15] MEDS: FENOFIBRATE,MICRONIZED 48 MG TABLET FEED TUBE (11:56)
[2021-07-15] MEDS: VENLAFAXINE HCL XR 75 MG CAP.ER.24H XX (11:56)
[2021-07-15] MEDS: MICONAZOLE NITRATE 2% CREAM 30 GM TUBE 1 APPLIC TOPICAL ×2 (11:56→20:09)
[2021-07-15] MEDS: levoFLOXacin 500 MG TABLET FEED TUBE (11:56)
[2021-07-15] MEDS: IRON SUCROSE COMPLEX 100 MG in SODIUM CHLORIDE 0.9% IV 50 ML 220 MG IVPB (11:57)
[2021-07-15] MEDS: GABAPENTIN 300 MG CAPSULE XX ×2 (11:57→16:47)
[2021-07-15 12:17] LABS: Glucose Point of Care 132 mg/dl (65-105)
--- NOTE | 2021-07-15 12:47 | PM.CNPUL ---
Assessment and Plan Assessment and plan (1) Ventilatory failure: Code(s): R06.89 - Other abnormalities of breathing Status: Acute Assessment and Plan: patient is ventilatory dependent after his neck injury and is currently living at home with a 24-7 nursing staff, his and other ancillary services p.r.n.. Currently patient was brought in for low tidal volume and high pressure alarms. Patient has no evidence of any respiratory abnormalities at this time. His blood gas shows a respiratory alkalosis on the hospital ventilator at this time with a rate of 16 in tidal volume of 500. He is on 5 of peep and 21% FiO2. If there abnormalities we will contact his [employer]. patient is to finish 3 more days of levofloxacin course for tracheobronchitis, there is no evidence of pneumonia at this time. Discussed with hospitalist Dr. Canada and early childhood teacher Dr. Moore. History of Present Illness History of Present Illness Consult date: 07/15/21 Requesting physician: Royer Canada MD Chief complaint: Ventilator Malfunction Narrative: 80 YO male s/p cervical injury secondary to a fall status post C3-C5 decompression in October of 2020 which led to Quadriplegia, NPH s.p POLYTECHNIC TEACHER shunt, chronic respiratory failure , status post trach and PEG, ventilator dependent, PE on Eliquis, CAD s/p CABG X 5 and PPM. [place], and he was later at [facility] before coming home where he lives with his , Leta, and a team of health care specialists including 24/7 nursing care. I have spoken to the respiratory care team in the hospital and he has had previous episodes where his home ventilator was not functioning properly and the tidal volume and minute ventilation alarms required adjusting. He is followed in our Pulmonary Clinic. Mrs. ePrera called 07/08 about a few issues. 1. His pilot supervisor balloon on his Bivona trach needed another ml of saline, now at 12 ml. This happened a couple times in the last week. 2. He has heard snoring lightly around his trach, and can speak a word or two from his mouth. 3. He is coughing secretions from his mouth, light in color, without fever. 4. Next trach change is due Jul 19, and there is a problem getting a spare Bivona 7XL through Medicare. This device is an uncommon item and size. PLAN: Bivona trach requires sterile water, not saline. The saline may be breaking down the material, and this could cause the pilot supervisor balloon to have a slow leak. This would explain having snoring, being able to talk and so forth. The secretions are a separate issue. He has a spare used Bivona that has been boiled and is ready to use. This was from his June change in trach. I told Mrs Ibarra to have the RT change to the old trach, only use sterile water not saline, and see how the water functions. If this corrects the problem, great. If not, he will need a back up Bivona XL7 trach sooner than waiting until Jul 19 as he has to breathe, and cannot use a non-functioning trach. If he continues to have problems, he will need to see ENT for possible replacement and upsizing to a Bivona 8XL. I will send order to [employer] fax [phone]/ phone is [phone] for sterile water only in pilot supervisor balloon and switch out trach, as well as back up Bivona 7XL. Apparently the trach was changed 07/10/21 On 07/14/2021 patient had low tidal volume alarms and high pressure alarms per the family and he was brought to the emergency room. Patient had no change in his respiratory status. He was afebrile, white blood cell count was 7.3, chest x-ray showed his chronic tracheostomy, median sternotomy, permanent pacemaker, POLYTECHNIC TEACHER shunt and no focal infiltrates. Of note patient has been on Levaquin for tracheobronchitis. His white blood cell count was 7.3 and his creatinine was 1.10. He was placed on a hospital ventilator on room air with peep of 5, tidal volume 500 and his saturations were 100%. 07/15 Patient was admitted to the ICU so that he cou
[2021-07-15 13:37] LABS: Folic Acid > 20.0 ng/mL (2.76->20)
--- NOTE | 2021-07-15 14:57 | PM.DS ---
DS: Admitting Diagnosis Discharge Date 07/15/21 Admitting Diagnosis Ventilator malfunction? DS: Discharge Diagnosis Discharge Diagnosis (1) Ventilatory failure: Code(s): R06.89 - Other abnormalities of breathing Status: Acute (2) Ventilator dependent: Code(s): Z99.11 - Dependence on respirator [ventilator] status Status: Chronic (3) Quadriplegia following spinal cord injury: Status: Acute (4) Gastrostomy tube dependent: Code(s): Z93.1 - Gastrostomy status Status: Acute (5) Iron deficiency anemia: Code(s): D50.9 - Iron deficiency anemia, unspecified Status: Acute (6) Insulin dependent diabetes mellitus: Status: Acute (7) Hypertension: Code(s): I10 - Essential (primary) hypertension Status: Chronic DS: Summary Hospital Course Reason for hospitalization: 80yo male with hx of C3-C5 cervical injury secondary to a fall status post C3-C5 decompression in October of 2020 which led to quadriplegia, chronic respiratory failure and ventilator dependent status post trach and PEG, PE on Eliquis, 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 Please see H&P for details. Hospital Course: Patient was admitted to the ICU. Pig Lead Melter Helper and Pulmonary were consulted. Initially suspected ventilator malfunction contributing to his poor tidal volumes when he sleeps. We resumed tube feedings and insulin regiment. Hemoglobin A1c pending. Placed on sliding scale protocol. Given his somnolence, we checked an ABG showing 7.52/30/96. TSH, B12, folate normal. Previous workup last month shows iron deficiency anemia. Suspect micro blood loss related to his tubes and the fact he is on Eliquis. He was treated with iron. We resumed his Eliquis. We resumed his metoprolol but held his hydrochlorothiazide and losartan at this time given his transient drop in blood pressure. No evidence of cellulitis at trach site; we continued his Levaquin to complete course. Family brought in ventilator and it appears to be working well. Pulmonary states that there was no evidence of any respiratory abnormalities at this time. It seems this family is more overly worried about the patient and is having difficulty with trouble shooting. Patient has the necessary DME at home. Family also has private duty nurses caring for the patient well. Patient overall did well is either be discharged home on 07/15/2021. Status at Discharge Cognitive/behavioral status at discharge: stable Time Spent with Patient Time attestation: Total time spent providing and/or coordinating discharge services: 65 minutes Time spent: Greater than 30 minutes Exam Narrative: AF 98.0 144/70 92 15 97% MV PEEP 5, FiO2 21% Gen - well-nourished, well-developed male in no acute respiratory distress who is nontoxic-appearing lying semi recumbent in bed HEENT - Normocephalic. Atraumatic. Pupils equal round and reactive. Extraocular motions intact. Sclera clear and anicteric. Nares patent. Oropharynx was not visualized. No oral lesions. Moist mucous membranes. Tongue was midline. Palate rossi symmetrically. No facial asymmetry. Neck - neck was supple. No dominant adenopathy, thyromegaly or masses. Trach at the midline. Chest - lungs are coarse anteriorly, nml RR CV - heart was regular rate and rhythm. S1-S2. Tele showing no significant dysrhythmias Abd - abdomen was soft. Nontender. Nondistended. Positive bowel sounds. GTube site clean and dry. Urostomy noted in the RLQ draining clear yellow urine Ext - no clubbing, cyanosis or edema. 2+ DP pulses bilaterally. Neuro - patient is alert. Strength is 1/5 in both upper and lower extremities. Psych - Patient is cooperative and follows commands Skin - warm and dry. No rashes noted. Sacral area not visualized. No erythema a
[2021-07-15] MEDS: INSULIN HUMAN NPH (*BKC) 100 UNITS/ML 17 UNITS SUB-Q ×2 (16:46→20:06)
[2021-07-15 17:03] LABS: Glucose Point of Care 203 mg/dl (65-105)
[2021-07-15 20:06] LABS: Glucose Point of Care 241 mg/dl (65-105)
[2021-07-16] VITALS (10 sets, daily range): BP systolic 124–139; BP diastolic 61–83; PULSE 62–92; RESP 15–16; TEMP 36.6–36.9; O2SAT 98–100
[2021-07-16] MEDS: traZODone HCL 25 MG TABLET FEED TUBE (00:54)
[2021-07-16] MEDS: traZODone HCL 50 MG TABLET FEED TUBE (00:54)
[2021-07-16 06:24] LABS: Glucose Point of Care 172 mg/dl (65-105)
--- NOTE | 2021-07-16 08:17 | PM.PNPUL ---
Progress Note: A&P Assessment and Plan (1) Ventilatory failure: Code(s): R06.89 - Other abnormalities of breathing Status: Acute Assessment and Plan: 07/15 patient is ventilatory dependent after his neck injury and is currently living at home with a 24-7 nursing staff, his and other ancillary services p.r.n.. Currently patient was brought in for low tidal volume and high pressure alarms. Patient has no evidence of any respiratory abnormalities at this time. His blood gas shows a respiratory alkalosis on the hospital ventilator at this time with a rate of 16 in tidal volume of 500. He is on 5 of peep and 21% FiO2. If there abnormalities we will contact his [employer]. patient is to finish 3 more days of levofloxacin course for tracheobronchitis, there is no evidence of pneumonia at this time. Later in the day the stated she could not bring in his home ventilators to the hospital and the [employer] company went to the patient's house and cleared both of his ventilators for use and he was scheduled to go home but apparently there were issues with transport. 07/16 [employer] has cleared his home ventilators for use on 07 15 and patient is suitable for discharge from pulmonary perspective. Patient follow-up with pulmonary clinic by phone in the future as transfer to the clinic is very difficult. Will sign off. Call with any questions. Subjective Date/time seen: 07/16/21 08:17 Interval history: 07/15/21 Requesting physician: Royer Canada MD Chief complaint: Ventilator Malfunction Narrative: 80 YO male s/p cervical injury secondary to a fall status post C3-C5 decompression in October of 2020 which led to Quadriplegia, NPH s.p THIN FILM TECHNICIAN shunt, chronic respiratory failure , status post trach and PEG, ventilator dependent, PE on Eliquis, CAD s/p CABG X 5 and PPM. [place], and he was later at [facility] before coming home where he lives with his , Leta, and a team of health care specialists including 24/7 nursing care. I have spoken to the respiratory care team in the hospital and he has had previous episodes where his home ventilator was not functioning properly and the tidal volume and minute ventilation alarms required adjusting. He is followed in our Pulmonary Clinic. Mrs. Perera called 07/08 about a few issues. 1. His airplane pilot balloon on his Bivona trach needed another ml of saline, now at 12 ml. This happened a couple times in the last week. 2. He has heard snoring lightly around his trach, and can speak a word or two from his mouth. 3. He is coughing secretions from his mouth, light in color, without fever. 4. Next trach change is due Jul 19, and there is a problem getting a spare Bivona 7XL through Medicare. This device is an uncommon item and size. PLAN: Bivona trach requires sterile water, not saline. The saline may be breaking down the material, and this could cause the airplane pilot balloon to have a slow leak. This would explain having snoring, being able to talk and so forth. The secretions are a separate issue. He has a spare used Bivona that has been boiled and is ready to use. This was from his June change in trach. I told Mrs Ibarra to have the RT change to the old trach, only use sterile water not saline, and see how the water functions. If this corrects the problem, great. If not, he will need a back up Bivona XL7 trach sooner than waiting until Jul 19 as he has to breathe, and cannot use a non-functioning trach. If he continues to have problems, he will need to see ENT for possible replacement and upsizing to a Bivona 8XL. I will send order to [employer] fax [phone]/ phone is [phone] for sterile water only in airplane pilot balloon and switch out trach, as well as back up Bivona 7XL. Apparently the trach was changed 07/10/21 On 07/14/2021 patient had low tidal volume alarms and high pressure alarms per the family and he was brought to the emergency room. Patient had no change in his respiratory status.
[2021-07-16] MEDS: MICONAZOLE NITRATE 2% CREAM 30 GM TUBE 1 APPLIC TOPICAL (09:04)
[2021-07-16] MEDS: VENLAFAXINE HCL XR 75 MG CAP.ER.24H XX (09:05)
[2021-07-16] MEDS: EZETIMIBE 10 MG TABLET FEED TUBE (09:05)
[2021-07-16] MEDS: GABAPENTIN 300 MG CAPSULE XX (09:05)
[2021-07-16] MEDS: APIXABAN 5 MG TABLET FEED TUBE (09:05)
[2021-07-16] MEDS: FENOFIBRATE,MICRONIZED 48 MG TABLET FEED TUBE (09:05)
[2021-07-16] MEDS: METOPROLOL TARTRATE 25 MG TABLET PO (09:05)
[2021-07-16] MEDS: levoFLOXacin 500 MG TABLET FEED TUBE (09:05)
[2021-07-16] MEDS: IRON SUCROSE COMPLEX 100 MG in SODIUM CHLORIDE 0.9% IV 50 ML 220 MG IVPB (09:06)
[2021-07-16] MEDS: CHLORHEXIDINE GLUCONATE 0.12% ORAL RINSE 473 ML BTL (*BKC) 15 ML SWISH/SPIT (09:07)
[2021-07-16] MEDS: LANSOPRAZOLE ORAL SUSP 30 MG/10 ML ORAL.SUSP FEED TUBE (09:07)
--- NOTE | 2021-07-16 09:32 | WPDINTPN ---
Progress Note: A&P Assessment and Plan (1) Ventilatory failure: Code(s): R06.89 - Other abnormalities of breathing Status: Acute Assessment and Plan: Patient presented the ED after the noticed that he was having decrease tidal volumes and high pressures while sleeping, so she a call they EMS [facility] sent to the ER. -currently on CMV mode of ventilation on the hospital ventilator. The vent is not alarming for high peak pressures for low tidal volumes -discussed with pulmonology, will have the ventilator brought in and will place patient on that and evaluate the issue, will also have the [employer] company make changes if necessary -ABGs and chest x-ray reviewed -continue bronchodilators p.r.n. (2) Ventilator dependent: Code(s): Z99.11 - Dependence on respirator [ventilator] status Status: Chronic Assessment and Plan: Patient has a history of quadriplegia and diaphragmatic paralysis, on chronic ventilator support (3) Quadriplegia following spinal cord injury: Status: Acute Assessment and Plan: Chronic (4) Hypertension: Code(s): I10 - Essential (primary) hypertension Status: Chronic Assessment and Plan: Continue metoprolol (5) DVT prophylaxis: Code(s): Z29.9 - Encounter for prophylactic measures, unspecified Status: Acute Assessment and Plan: Continue Eliquis Additional Plan Patient currently on Levaquin, will complete course per hospitalist Nutrition: Tube feeds currently on hold as patient will be discharged Code status: Full code Critical care time spent: 31 minutes This dictation may have been done utilizing a voice recognition system. Attempts have been made to correct errors. However, there may be uncorrected grammatical, spelling, and recognition errors present. Due to a high probability of clinically significant, life threatening deterioration, the patient required my highest level of preparedness to intervene emergently and I personally spent this critical care time directly and personally managing the patient. This critical care time included obtaining a history; examining the patient; pulse oximetry; ordering and review of studies; arranging urgent treatment with development of a management plan; evaluation of patient's response to treatment; frequent reassessment; and discussions with other providers. It was exclusive of separately billable procedures and treating other patients and teaching time. Please see Assessment and Plan section and the rest of the note for further information on patient assessment and treatment Subjective Date/time seen: 07/16/21 09:32 Interval history: Reason for consult: Home ventilator malfunction 07/16/2021: Patient seen and examined this morning. Remains on CMV mode of ventilation via a chronic tracheostomy. Patient mouths words patient states he is doing okay he patient is hemodynamically stable, on 40% FiO2, peep of 5 with adequate O2 sats. Urine output has been adequate, patient is afebrile Review of Systems Review of Systems: ROS unobtainable: Yes unobtainable due to medical condition and other (Unable to obtain due to tracheostomy) Exam Narrative: General: Pt has a chronic tracheostomy, currently on mechanical ventilation, not on any sedation. Looks comfortable and not in any distress HEENT: Neck is supple, tracheostomy in place Lungs/Chest: Good air entry, clear to auscultation, diminished at bases, no wheezing or rales. Cardiac: RRR. Normal S1 S2. Abdomen: Soft nontender, obese, peg tube in place, normoactive bowel sounds, nontender. Extremities: No clubbing, cyanosis or edema. Warm, palpable pedal pulses : Urostomy in place, with clear urine Neurologic: Patient is awake, alert, slightly able to move upper and lower extremities, nods to questions Skin: Skin is warm and dry, Objective Data Vital Signs Vital Signs: Vital Signs - 24 hr 07/15/21 10:00 07/15/21 10:47
[2021-07-16] MEDS: ASPIRIN 81 MG CHEWABLE TABLET FEED TUBE (09:38)
[2021-07-16] MEDS: INSULIN HUMAN NPH (*BKC) 100 UNITS/ML 17 UNITS SUB-Q (09:38)
--- NOTE | 2021-07-16 09:49 | PM.DS ---
DS: Admitting Diagnosis Discharge Date 07/16/21 Admitting Diagnosis Ventilator malfunction? DS: Discharge Diagnosis Discharge Diagnosis (1) Ventilatory failure: Code(s): R06.89 - Other abnormalities of breathing Status: Acute (2) Ventilator dependent: Code(s): Z99.11 - Dependence on respirator [ventilator] status Status: Chronic (3) Quadriplegia following spinal cord injury: Status: Acute (4) Gastrostomy tube dependent: Code(s): Z93.1 - Gastrostomy status Status: Acute (5) Iron deficiency anemia: Code(s): D50.9 - Iron deficiency anemia, unspecified Status: Acute (6) Insulin dependent diabetes mellitus: Status: Acute (7) Hypertension: Code(s): I10 - Essential (primary) hypertension Status: Chronic DS: Summary Hospital Course Reason for hospitalization: 80yo male with hx of C3-C5 cervical injury secondary to a fall status post C3-C5 decompression in October of 2020 which led to quadriplegia, chronic respiratory failure and ventilator dependent status post trach and PEG, PE on Eliquis, 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 Please see H&P for details. Hospital Course: Patient was admitted to the ICU. X Ray Technologist and Pulmonary were consulted. Initially suspected ventilator malfunction contributing to his poor tidal volumes when he sleeps. We resumed tube feedings and insulin regiment. Hemoglobin A1c pending. Placed on sliding scale protocol. Given his somnolence, we checked an ABG showing 7.52/30/96. TSH, B12, folate normal. Previous workup last month shows iron deficiency anemia. Suspect micro blood loss related to his tubes and the fact he is on Eliquis. He was treated with iron. We resumed his Eliquis. We resumed his metoprolol but held his hydrochlorothiazide and losartan at this time given his transient drop in blood pressure. No evidence of cellulitis at trach site; we continued his Levaquin to complete course. Family brought in ventilator and it appears to be working well. Pulmonary states that there was no evidence of any respiratory abnormalities at this time. It seems this family is more overly worried about the patient and is having difficulty with trouble shooting the ventilator. Patient has the necessary DME at home. Family also has private duty nurses caring for the patient well. Patient overall did well and was discharged home on 07/15/2021 but there was transportation issues so patient was held overnight. Patient did well overnight with no major issues. He was able to be discharged home on 07/16/21. Status at Discharge Cognitive/behavioral status at discharge: stable Time Spent with Patient Time attestation: Total time spent providing and/or coordinating discharge services: 35 minutes Time spent: Greater than 30 minutes Exam Narrative: AF 98.2 124/66 72 16 100% MV Gen - NARD lying semi-recumbent in bed HEENT - VPS right scalp Neck - Trach midline Chest - lungs are coarse anteriorly, nml RR CV - heart was regular rate and rhythm. S1-S2. Tele showing no significant dysrhythmias Abd - abdomen was soft. Nontender. Nondistended. Positive bowel sounds. GTube site clean and dry. Urostomy noted in the RLQ draining clear yellow urine Ext - no pedal edema . Neuro - patient is alert. Strength is 1/5 in both upper and lower extremities. Psych - Patient is cooperative and follows commands Skin - warm and dry. DS: Data Data Completed and Pending Labs on day of discharge: Labs from last 24 hours 07/16/21 07/15/21 07/15/21 06:05 20:04 16:42 Puncture Site ABG pH ABG pCO2 ABG pO2 ABG PO2/FiO2 Ratio ABG HCO3 ABG O2 Saturation ABG O2 Content ABG Base Excess A-a Gradient Oxyhemoglobin Total Hemoglobin O2 Delivery Device
--- NOTE | 2021-07-16 11:59 | PC.NURSE ---
Patient left floor with ambulance staff. No complaints at discharge, vital signs stable. Family and [facility] notified. Discharge instructions provided with ambulance staff.
[2021-07-16 12:13] LABS: Hemoglobin A1C 6.2 % (<5.7)
== END 2021-07-16 11:30 | disposition home health service (06) ==
LOC: ANHED 03:26 → ANHICU 05:33
PROVIDERS: Admitting Provider Internal Medicine; Emergency Provider Emergency Medicine; PCP Nurse Practitioner Family; Visit Provider Internal Medicine
DX: R06.89 Other abnormalities of breathing (principal); Z99.11 Dependence on respirator [ventilator] status; G82.50 Quadriplegia, unspecified; Z93.1 Gastrostomy status; D50.9 Iron deficiency anemia, unspecified; E11.9 Type 2 diabetes mellitus without complications; I10 Essential (primary) hypertension; Z93.0 Tracheostomy status; Z79.4 Long term (current) use of insulin; Z86.711 Personal history of pulmonary embolism; Z79.01 Long term (current) use of anticoagulants; Z95.1 Presence of aortocoronary bypass graft; Z85.51 Personal history of malignant neoplasm of bladder
CPT/HCPCS: 36415; 36600; 71045; 80053; 82607; 82746; 82805; 82948; 83036; 84443; 85025; 96365; 96366; 96367; 96375; 99285; A4248; A9270; G0378; J0131; J1756; J1815; J2270

== ENCOUNTER 2021-08-17 16:28 | Inpatient (IN) | payer MEDICARE, SELFPAY ==
[2021-08-17] VITALS (13 sets, daily range): BP systolic 141–201; BP diastolic 70–86; PULSE 60–74; RESP 19–26; TEMP 37.8; O2SAT 98–100; BMI 34.7
--- NOTE | ~2021-08-17 | XR_ITS ---
EXAMINATION: XR chest 1V portable DATE: 08/20/2021 06:50 INDICATION: Bibasilar pulmonary infiltrates. TECHNIQUE: frontal view of the chest was obtained. COMPARISON: Chest radiograph dated 08/19/2021 FINDINGS: Tracheostomy tube remains in expected position at the thoracic inlet. Catheter tubing likely represen ting a ventricular peritoneal shunt projects over the right hemithorax. Thin linear discoid atelectasis in the right lower lung zone. Left lung is clear. No other airspace o pacities, pulmonary edema, pleural effusion or pneumothorax. The cardiomediastinal silhouette is norm al. Median sternotomy wires, ostial markers and mediastinal surgical clips consistent with prior nicholas nary artery bypass grafting. There is also been coronary artery stenting. Dual lead pacemaker seen wi th leads projecting over the expected locations of the right atrium and right ventricle. IMPRESSION: 1. Mild discoid atelectasis in the right lower lung zone. No other acute cardiopulmonary disease. Reviewed, dictated and finalized at location A. X RAY ELECTRONICS WIREMAN IMPRESSION: 1. Mild discoid atelectasis in the right lower lung zone. No other acute cardio pulmonary disease.
--- NOTE | ~2021-08-17 | XR_ITS ---
EXAMINATION: XR chest 1V portable EXAM DATE: 08/17/2021 17:21 INDICATION: Tracheostomy with mucus, coughing. Respiratory failure. TECHNIQUE: Portable AP frontal chest x-ray was obtained. Comparison is made to prior examination from 07/15/2021. FINDINGS: Tracheostomy tube in position. Some scattered basilar linear opacities most consistent with atelectasis. Can't exclude developing pneumonia. No sizable pleural effusion. The cardiomediastinal silhouette is prominent but magnified on this AP technique. Sternotomy wires are present without find ings to suggest sternal dehiscence. There is a dual lead pacemaker/AICD seen with leads projecting ov er the expected locations of the right atrial appendage and right ventricle. Cervical fusion hardware . IMPRESSION: 1. Bibasilar opacities appearance most consistent with subsegmental atelectasis but please clinicall y correlate. Reviewed, dictated and finalized at location A. RAL MEDIATOR IMPRESSION: 1. Bibasilar opacities appearance most consistent with subsegmental atelectasi s but please clinically correlate.
--- NOTE | ~2021-08-17 | XR_ITS ---
EXAMINATION: XR chest 1V portable DATE: 08/19/2021 06:35 INDICATION: Bibasilar pulmonary infiltrates. TECHNIQUE: frontal view of the chest was obtained. COMPARISON: Chest radiograph dated 08/17/2021 FINDINGS: Tracheostomy tube remains in expected position at the thoracic inlet. Again seen is a catheter likely representing a right-sided ventriculoperitoneal shunt extending across the right chest. No significant change in subtle airspace opacities in the bilateral lower lung zones with appearance favoring atelectasis over pneumonia. No pulmonary edema, pleural effusion or pneumothorax. Heart size is normal. Median sternotomy wires and mediastinal surgical clips are seen, likely from prior hensley ry artery bypass grafting. Dual lead pacemaker seen with leads projecting over the expected locations of the right atrium and right ventricle. IMPRESSION: 1. Unchanged opacities at the bilateral lower lung zones with appearance favoring atelectasis over pn eumonia. Reviewed, dictated and finalized at location A. TABOUT HEAD IMPRESSION: 1. Unchanged opacities at the bilateral lower lung zones with appearance favori ng atelectasis over pneumonia.
[2021-08-17 17:14] LABS: Basophils Absolute Auto 0.1 K/mm3 (0.0-0.1); Basophils Percent Auto 1.1 % (0.2-1.2); Eosinophils Absolute Auto 0.3 K/mm3 (0-0.3); Eosinophils Percent Auto 3.3 % (0-4.4); Hematocrit 37.9 % (42.0-52.0); Hemoglobin 11.5 g/dL (14.0-18.0); Immature Granulocyte Absolute 0.18 K/mm3 (0.00-0.031); Immature Granulocyte Percent A 1.9 % (0-0.5); Lymphocytes Absolute Auto 0.82 K/mm3 (0.9-3.2); Lymphocytes Percent Auto 8.8 % (18.3-44.2); Mean Corpuscular HGB Conc 30.3 g/dl (32-36); Mean Corpuscular Hemoglobin 26.3 pg (26-34); Mean Corpuscular Volume 86.5 fl (80-100); Mean Platelet Volume 10.5 fl (7.4-10.4); Monocytes Absolute Auto 0.7 K/mm3 (0.1-0.6); Monocytes Percent Auto 7.2 % (2.6-8.5); Neutrophils Absolute Auto 7.3 K/mm3 (1.3-6.7); Neutrophils Percent Auto 77.7 % (45.5-73.1); Platelet Count Result 221 k/mm3 (150-375); Red Blood Count 4.38 M/mm3 (4.6-6.20); Red Cell Distribution Width 18.9 % (11.5-14.5); White Blood Count 9.4 K/mm3 (4.5-10.0)
[2021-08-17 17:24] LABS: Lactic Acid Reflex 1.7 mmol/L (0.7-2.1)
[2021-08-17 17:26] LABS: Anion Gap 10 mmol/L (8-16); Blood Urea Nitrogen 18 mg/dL (9-20); Calcium 9.7 mg/dL (8.4-10.2); Carbon Dioxide 24 mmol/L (22-30); Chloride 104 mmol/L (98-107); Estimated Glomerular Filt Rate > 60; Glucose 251 mg/dL (65-110); Potassium 4.7 mmol/L (3.4-5.0); Sodium 138 mmol/L (137-145)
[2021-08-17 17:33] LABS: NT Pro B Type Natriuretic Pept 1940 pg/mL (5-100)
--- NOTE | 2021-08-17 18:24 | ED.GENADULT ---
HPI - General Adult General Chief complaint: Shortness of Breath/Dyspnea Stated complaint: trach issues Time Seen by Provider: 08/17/21 16:38 History of Present Illness HPI narrative: Patient is a 80-year-old male with history of quadriplegia who presents ER with trach issues. Patient had a plug in his trach earlier today where he was satting between 50 and 60% when EMS arrived. They dislodged it and patient began breathing easier. EMS then went back out when the wanted them to change the patient's trach. They declined and waited for home health come out and make the exchange. Afterwards EMS was called for third time to bring him in due to concerns of potential pneumonia. reports patient has had increased frothy sputum over the last day. Denies any new fevers or chills or sweats. Reports she is now having some frequent coughing related to the frothy white that is coming out of the tracheostomy. Patient does see pulmonology here. Related Data Home Medications Medication Instructions Recorded Confirmed Eliquis 5 mg FEEDING TUBE Q12H 05/16/21 08/17/21 aspirin 81 mg FEEDING TUBE DAILY 05/16/21 08/17/21 chlorhexidine gluconate 15 ml BUCCAL BID 05/16/21 08/17/21 ipratropium-albuterol 3 ml INHALATION Q6H PRN 05/16/21 08/17/21 tramadol 100 mg FEEDING TUBE Q6H PRN 05/16/21 08/17/21 trazodone 75 mg FEEDING TUBE HS 05/16/21 08/17/21 insulin NPH isoph U-100 human 17 unit SUBCUT WMHS 06/17/21 08/17/21 metoprolol tartrate 25 mg tablet 25 mg FEEDING TUBE DAILY 07/02/21 08/17/21 venlafaxine 75 mg tablet,extended 150 mg PO DAILY tablet 07/02/21 08/17/21 release 24 hr acetaminophen 650 mg FEEDING TUBE Q4H PRN 07/15/21 08/17/21 bisacodyl 10 mg RECTAL DAILY PRN 07/15/21 08/17/21 ezetimibe [Zetia] 10 mg FEEDING TUBE HS 07/15/21 08/17/21 famotidine 40 mg FEEDING TUBE DAILY 07/15/21 08/17/21 gabapentin [Neurontin] 300 mg FEEDING TUBE TID 07/15/21 08/17/21 metoprolol tartrate 12.5 mg FEEDING TUBE DAILY 07/15/21 08/17/21 polyethylene glycol 3350 [Miralax] 17 g PO DAILY PRN 07/15/21 08/17/21 Allergies Allergy/AdvReac Type Severity Reaction Status Date / Time No Known Allergies Allergy Verified 07/15/21 00:58 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 Ventilator dependent Surgical History Surgical History H/O heart artery stent 5-7 History of bilateral knee arthroplasty History of urostomy Hx of cholecystectomy S/P CABG x 5 S/P percutaneous endoscopic gastrostomy (PEG) tube placement S/P WEB EDITOR shunt Status post cardiac pacemaker procedure Status post cervical spinal fusion C3 through C5 Family History Family History Mother Breast cancer Acute myocardial infarction Father Carcinoma of colon Sibling Breast cancer Diabetes mellitus Social History Social History Social History: Patient lives with his spouse Mikki who is the durable power personal injury attorney for healthcare. The patient does have a living will and is listed as a full code. The patient has no biological children. The patient has care around the clock at home. The patient is retired from [employer]. The patient is nonsmoker does not use any alcohol marijuana illicit drugs. Smoking status: Never smoker Second hand tob
[2021-08-17 18:45] LABS: Alveolar/Arterial O2 Gradient 34.6 mmHg; Base Excess ABG -1.6 mEq/l (+/-2.0); Carboxyhemoglobin 0.5 % THb (0-2.0); Fractional Inspired Oxygen 30 %; HCO3 ABG 23.4 mEq/l (22.0-26.0); Methemoglobin ABG 0.2 %THb (0-1.5); Oxygen Content ABG 17.6 %vol (16.0-22.0); Oxygen Saturation ABG 98.6 % (95.0-100.0); Oxyhemoglobin 97.4 % THb (90.0-100.0); PCO2 ABG 40.6 mmHg (35.0-45.0); PO2 ABG 131.6 mmHg (80.0-100.0); PO2 FiO2 Ratio Arterial Blood 4.39 %; Reduced Hemoglobin 1.9 %THb (0-5.0); Total Hemoglobin 12.7 g/dL (12.0-18.0); pH ABG 7.378 (7.350-7.450)
[2021-08-17 18:47] LABS: Site Drawn RIGHT RADIAL
[2021-08-17 18:48] LABS: Device VENTILATOR; Modified Allen's Test Pass
[2021-08-17 18:49] LABS: Arterial Blood Gas PEEP 5 cmH2O; Arterial Blood Gas Vent Mode CMV; Arterial Blood Gas Ventilator rate 16 /MIN
[2021-08-17 18:50] LABS: Arterial Blood Gas Pressure Support 0 cmH2O; Arterial Blood Gas Tidal Volume 500 ml
--- NOTE | 2021-08-17 19:12 | PC.NURSE ---
Addendum entered by Kirsty Nguyen RN 08/17/21 19:56: reports cuff is normally filled with 12cc sterile water. Original Note: MD Neely removed 3cc of fluid from pt's cuff due to pt being very uncomfortable and coughing/gagging very frequently.
--- NOTE | 2021-08-17 19:16 | ECG_ITS ---
Measurements Intervals Lloyd Rate: 62 P: IA: 0 QRS: 55 QRSD: 90 T: 196 QT: 425 QTc: 434 Interpretive Statements JUNCTIONAL RHYTHM T WAVE ABNORMALITY IN ANTEROLATERAL LEADS- CONSIDER ISCHEMIA BASELINE ARTIFACT- I, II, III, AVL, AVF, V1-V2 ABNORMAL ECG Electronically Signed On 08-18-2021 7:52:58 PERIOPERATIVE NURSE by Luiz Hernandez D.O.
--- NOTE | 2021-08-17 19:31 | PM.IMHP ---
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 Patient was admitted early in July due to malfunctioning ventilator at that time his trach was also exchanged. Was brought today by EMS after patient had an episode of violent cough with pink foamy sputum production and shortness of breath. Most of the history has been obtained upon talking to who is at bedside and review all of existing medical records. According to patient has been his usual state of health has been tolerating his feeding well no fevers no sputum production however patient had an episode of low pulse ox and she had to BVM him at home once EMS arrived patient had recuperate and her oxygen level was back to the 90s however she insisted in bring him to the hospital after the episode violent cough copious pink foamy production. Preliminary workup in the emergency was significant for elevated brain natriuretic peptide, this x-ray with bilateral bibasal infiltrates, troponins elevated as well. At the time of my visit patient seemed to be comfortable Patient has been admitted for further evaluation management and treatment. 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 Ventilator dependent Surgical History Surgical History H/O heart artery stent 5-7 History of bilateral knee arthroplasty History of urostomy Hx of cholecystectomy S/P CABG x 5 S/P percutaneous endoscopic gastrostomy (PEG) tube placement 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 The patient does have a living will and is listed as a full code. The patient has no biological children. The patient has care around the clock at home. The patient is retired from [employer]. The patient is nonsmoker does not use any alcohol marijuana illicit drugs. Smoking status: Never smoker Second hand tobacco smoke exposure: No Alcohol intake: never Substance use: never Substance use type: does not use Gender identity (if verbalized by the patient): Male Spiritual care concerns: No Meds Home Medications and Allergies Home Medications Medication Instructions Recorded Confirmed Type Eliquis 5 mg FEEDING TUBE Q12H 05/16/21 08/17/21 History aspirin 81 mg FEEDING TUBE DAILY 05/16/21 08/17/21 History chlorhexidine gluconate 15 ml BUCCAL BID 05/16/21 08/17/21 History ipratropium-albuterol 3 ml INHALATION Q6H PRN 05/16/21 08/17/21 History tramadol 100 mg FEEDING TUBE Q6H PRN 05/16/21 08/17/21
[2021-08-17 20:11] LABS: Troponin I 0.052 ng/mL (0.000-0.034)
[2021-08-17 21:57] LABS: Troponin I 0.073 ng/mL (0.000-0.034)
[2021-08-17] MEDS: NITROGLYCERIN OINTMENT 1 INCH DOSE TRANSDERM (22:35)
[2021-08-17] MEDS: FUROSEMIDE INJ 40 MG/4 ML VIAL IV PUSH (22:38)
[2021-08-17 23:24] LABS: Glucose Point of Care 219 mg/dl (65-105)
[2021-08-18] VITALS (22 sets, daily range): BP systolic 117–175; BP diastolic 54–85; PULSE 50–77; RESP 16–28; TEMP 36.1–38; O2SAT 97–100
[2021-08-18 00:52] LABS: Troponin I 0.085 ng/mL (0.000-0.034)
--- NOTE | 2021-08-18 02:53 | PC.NURSE ---
Spoke with pt's spouse, Mikki. Pt is on Glucerna 1.0. Mikki states that pt's tube feeding schedule is as follows: 0600: 2 cartons of 237ml each 1000: 1.5 cartons of 237ml each 1400: 2 cartons of 237ml each 1800: 1.5 cartons of 237ml each 2200: 1.5 cartons of 237ml each
[2021-08-18 05:57] LABS: Glucose Point of Care 200 mg/dl (65-105)
--- NOTE | 2021-08-18 08:35 | PM.CNCAR ---
Assessment and Plan Additional Plan This is a very unfortunate 80-year-old man who has a C-spine injury resulting in quadriplegia and ventilator dependency. Apparently there was some mucus plugging of his airway which resulted in low oxygen saturation last evening and bringing him into the hospital here for further evaluation and treatment. I am asked to see him because of the question regarding congestive heart failure. He otherwise does not have any history of this. He certainly could have had some global myocardial stunning in the setting of significant hypoxemia with an occluded airway for a short period of time yesterday. For now since there is no other history obtainable I am going to obtain an echo echocardiogram to ensure that he does not need any advancement in medication for LV systolic dysfunction. His ECG when he was in intrinsic rhythm does show some anterolateral T-wave inversions which has been seen on previous ECGs most of his electrocardiograms demonstrate paced rhythm. Will leave further recommendations after his echocardiogram has been performed which of course will be tomorrow. Aristeo Tyler MD [facility] History of Present Illness History of Present Illness Consult date/time: 08/18/21 08:35 Reason For Visit: esrd with volume overload Narrative: This is a 80-year-old man I was requested to see this morning by the hospitalist presumably because of concern regarding possible congestive heart failure and elevated troponin level. The patient has a history of coronary artery disease and a previously implanted pacemaker. He receives his cardiac care elsewhere and I have no records regarding any of this at the time of this dictation. Apparently he underwent coronary bypass grafting in the remote past and has a pacemaker device. The patient from what I can see in the records became a quadriplegic in October of 2020 after falling and sustaining a cervical spine spine fracture and surgery to stabilize this was performed but unfortunately he remains quadriplegic. According to the record he remains at home with his family he requires 24 hour a day nursing care and chronic ventilator support. He has come to this hospital a number of occasions when there has been concern regarding his airway with some ventilator function issues. This time he came to the hospital emergency room because there was apparently a mucus plug in his tracheostomy. His oxygen saturations were low 911 was called and he was brought to the emergency department. Following this event he was admitted to the ICU for further management. The family commented that there was some pink frothy sputum coming from the ET tube. The patient's electrocardiogram on 1 occasion showed an intrinsic sinus rhythm with anterolateral T-wave inversions. Subsequent EKGs demonstrate at paced rhythm. Troponin levels were drawn and they were minimally elevated but flat. He is comfortable in the ICU room 3. Now. I do not have any history nor can I obtain any history regarding his previous cardiac care. His medical regimen consists of aspirin, systemic anticoagulation with apixaban, Zetia, metoprolol. There is no comment in previous hospital charts regarding a history of congestive heart failure. The patient is alert and responsive and when asked if he was having any chest pain prior to this event he nods his head to the negative. 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
--- NOTE | 2021-08-18 09:50 | WPDCNINT ---
Assessment and Plan Assessment and plan (1) Acute dyspnea: Code(s): R06.00 - Dyspnea, unspecified Status: Acute Assessment and Plan: Acute shortness of breath, hypoxia, likely secondary mucus plug and increased secretions. Could be related to bronchitis, pneumonia -T-max of 100.4?, hemodynamically stable, no leukocytosis -patient has been started on azithromycin and cefepime -will obtain sputum cultures, (2) Chronic respiratory failure: Onset Date: ~10/2020 Code(s): J96.10 - Chronic respiratory failure, unspecified whether with hypoxia or hypercapnia Status: Acute Assessment and Plan: Patient currently on mechanical ventilation with his home settings. 21% FiO2 -patient has had some issues with tracheostomy size recently, there is still some air leak, will have ENT evaluate the patient (3) Quadriplegia following spinal cord injury: Status: Acute Assessment and Plan: Chronic (4) Acute exacerbation of CHF (congestive heart failure): Code(s): I50.9 - Heart failure, unspecified Status: Acute Assessment and Plan: Elevated BNP, noted patient has had frothy sputum, -cardiology has evaluated the patient -echocardiogram has been ordered -continue gentle diuresis (5) Insulin dependent diabetes mellitus: Status: Acute Assessment and Plan: Continue Accu-Cheks and sliding scale insulin (6) Acute UTI: Code(s): N39.0 - Urinary tract infection, site not specified Status: Acute Assessment and Plan: UA reflective of UTI, obtain urine culture. -continue cefepime -patient has had recent history of Pseudomonas and Citrobacter UTI (7) DVT prophylaxis: Code(s): Z29.9 - Encounter for prophylactic measures, unspecified Status: Acute Assessment and Plan: Apixaban Additional Plan Discussed with at bedside and updated her with patient's condition and plan of care. I answered all questions. She is aware that the patient will be getting an echocardiogram to evaluate his cardiac status at cardiology has already evaluated the patient. Code status: Full code Critical care time spent: 41 minutes This dictation may have been done utilizing a voice recognition system. Attempts have been made to correct errors. However, there may be uncorrected grammatical, spelling, and recognition errors present. Due to a high probability of clinically significant, life threatening deterioration, the patient required my highest level of preparedness to intervene emergently and I personally spent this critical care time directly and personally managing the patient. This critical care time included obtaining a history; examining the patient; pulse oximetry; ordering and review of studies; arranging urgent treatment with development of a management plan; evaluation of patient's response to treatment; frequent reassessment; and discussions with other providers. It was exclusive of separately billable procedures and treating other patients and teaching time. Please see Assessment and Plan section and the rest of the note for further information on patient assessment and treatment Service Order Taker Consult Note Consult date: 08/18/21 Time Seen: 07:01 Reason for consult: Mucus plug, ventilator dependent, chest pain HPI: Christian Perera is a 80 year old male with past medical history of coronary artery disease status post CABG, we patient, brain stimulator, diabetes., cervical injury secondary to a fall status post C3-C5 decompression in October of 2020 which led to Quadriplegia, chronic respiratory failure , status post trach and PEG, ventilator dependent, PE on Eliquis, ppm presented the ED on 08/17/2021 from a home for mucus plugging low oxygen saturations. Family commented there was some pink frothy sputum coming from the tracheostomy tube. EKG shows paced rhythm, troponins are plateaued. BNP was slightly elevated, x-ray showed bilateral opacities cons
[2021-08-18] MEDS: VENLAFAXINE HCL XR 75 MG CAP.ER.24H 150 MG XX (10:11)
[2021-08-18] MEDS: FUROSEMIDE INJ 40 MG/4 ML VIAL IV PUSH (10:12)
[2021-08-18] MEDS: METOPROLOL TARTRATE 12.5 MG TABLET FEED TUBE (10:12)
[2021-08-18] MEDS: GABAPENTIN 300 MG CAPSULE XX ×3 (10:12→17:23)
[2021-08-18] MEDS: METOPROLOL TARTRATE 25 MG TABLET FEED TUBE (10:13)
[2021-08-18] MEDS: APIXABAN 5 MG TABLET FEED TUBE ×2 (10:13→21:47)
[2021-08-18] MEDS: ASPIRIN 81 MG CHEWABLE TABLET FEED TUBE (10:13)
[2021-08-18 12:45] LABS: Glucose Point of Care 225 mg/dl (65-105)
[2021-08-18] MEDS: INSULIN HUMAN NPH (*BKC) 100 UNITS/ML 17 UNITS SUB-Q ×3 (13:08→21:14)
[2021-08-18] MEDS: CHLORHEXIDINE GLUCONATE 0.12% ORAL RINSE 473 ML BTL (*BKC) 15 ML SWISH/SPIT (17:20)
[2021-08-18 17:24] LABS: Glucose Point of Care 234 mg/dl (65-105)
[2021-08-18 21:11] LABS: Glucose Point of Care 241 mg/dl (65-105)
[2021-08-18] MEDS: traZODone HCL 25 MG TABLET 75 MG FEED TUBE (21:47)
[2021-08-18] MEDS: INSULIN ASPART (*BKC) 100 UNITS/ML SUB-Q (22:03)
[2021-08-18 23:13] LABS: Glucose Point of Care 232 mg/dl (65-105)
[2021-08-19] VITALS (23 sets, daily range): BP systolic 102–184; BP diastolic 50–74; PULSE 49–74; RESP 16–27; TEMP 37.2–38; O2SAT 98–99; BMI 34.0
--- NOTE | 2021-08-19 | ECHO_ITS ---
Patient Info Name: Christian Perera Age: 80 years : 1940 Gender: Male Ht: 69 in Wt: 229 lbs BSA: 2.28 m2 HR: 73 bpm BP: 159 / 73 mmHg Heart Rhythm: Paced Technical Quality: Poor Exam Date: 08/19/2021 8:15 AM Exam Location: [facility] Patient Status: Inpatient Admit Date: 08/18/2021 Staff Ordering Physician: Aristeo Tyler MD Tracer Bullet Charging Machine Operator: Helena Griffiths RDCS Attending Provider: Lincoln Rodrigues MD Referring Physician: Jayson GIFFORD; Exam Type: CA echo dop color flow w con Study Info Indications - CAD Complete two-dimensional, color flow and Doppler transthoracic echocardiogram is performed with contrast to opacify the left ventricle and to improve the deliniation of the left ventricle endocardial borders. Contrast/Agitated Saline Contrast/Ag. Saline: Definity Amount: 2.00 ml Existing IV Access: Yes IV Access Condition: patent with no signs of infiltration Reason for Poor Study: poor echocardiographic windows Summary 1. Left ventricular chamber dimension is normal. 2. Left ventricular systolic function is normal, estimated at 55-60%. 3. Left ventricular septal wall motion is abnormal with septal motion related to pacing. 4. Definity contrast injected to improve visualization. 5. Left atrial chamber dimension is normal. 6. There is no aortic valve stenosis. 7. The mitral valve has normal leaflets. Left Ventricle Left ventricular chamber dimension is normal. Left ventricular systolic function is normal, estimated at 55-60%. There is moderate concentric increased left ventricular wall thickness. Left ventricular septal wall motion is abnormal with septal motion related to pacing. The left ventricular diastolic function is grade I diastolic dysfunction. Definity contrast injected to improve visualization. Right Ventricle Right ventricular chamber dimension is normal. Left Atria Left atrial chamber dimension is normal. Right Atria Right atrial chamber dimension is normal. Aortic Valve The aortic valve is not well visualized. There is no aortic valve stenosis. Pulmonic Valve The pulmonic valve is normal. Mitral Valve The mitral valve has normal leaflets. Tricuspid Valve The tricuspid valve leaflets are normal. Pericardium/Pleural The pericardium appears normal. Aorta The aortic root size at the sinus of Valsalva is normal. Report Signatures
[2021-08-19 04:53] LABS: Glucose Point of Care 208 mg/dl (65-105)
[2021-08-19] MEDS: INSULIN HUMAN NPH (*BKC) 100 UNITS/ML 17 UNITS SUB-Q ×5 (05:01→21:22)
[2021-08-19] MEDS: INSULIN ASPART (*BKC) 100 UNITS/ML SUB-Q ×4 (05:02→22:00)
[2021-08-19 05:43] LABS: Basophils Absolute Auto 0.1 K/mm3 (0.0-0.1); Basophils Percent Auto 0.8 % (0.2-1.2); Eosinophils Absolute Auto 0.2 K/mm3 (0-0.3); Eosinophils Percent Auto 3.2 % (0-4.4); Hematocrit 34.5 % (42.0-52.0); Hemoglobin 10.3 g/dL (14.0-18.0); Immature Granulocyte Absolute 0.07 K/mm3 (0.00-0.031); Lymphocytes Absolute Auto 1.03 K/mm3 (0.9-3.2); Lymphocytes Percent Auto 14.2 % (18.3-44.2); Mean Corpuscular HGB Conc 29.9 g/dl (32-36); Mean Corpuscular Hemoglobin 25.9 pg (26-34); Mean Corpuscular Volume 86.9 fl (80-100); Mean Platelet Volume 10.5 fl (7.4-10.4); Monocytes Absolute Auto 0.9 K/mm3 (0.1-0.6); Neutrophils Absolute Auto 4.9 K/mm3 (1.3-6.7); Neutrophils Percent Auto 67.8 % (45.5-73.1); Platelet Count Result 222 k/mm3 (150-375); Red Blood Count 3.97 M/mm3 (4.6-6.20); White Blood Count 7.2 K/mm3 (4.5-10.0)
[2021-08-19 06:04] LABS: Alanine Aminotransferase 20 U/L (4-50); Albumin Level 4.2 g/dL (3.5-5.1); Alkaline Phosphatase 113 U/L (38-126); Anion Gap 12 mmol/L (8-16); Aspartate Amino Transferase 25 U/L (17-59); Bilirubin,Total 0.5 mg/dL (0.2-1.3); Blood Urea Nitrogen 27 mg/dL (9-20); Carbon Dioxide 27 mmol/L (22-30); Chloride 103 mmol/L (98-107); Estimated CRCL calculation 71 ml/min; Estimated Glomerular Filt Rate > 60; Glucose 220 mg/dL (65-110); Magnesium 2.2 mg/dL (1.6-2.3); Phosphorus 3.6 mg/dL (2.5-4.5); Sodium 142 mmol/L (137-145)
[2021-08-19 07:44] LABS: Anisocytosis 1+ (NORMAL); Hypochromasia 1+ (NORMAL); Platelet Estimate Adequate (Adequate)
[2021-08-19] MEDS: PERFLUTREN LIPID MICROSPHERES 1.5 ML VIAL DILUTED TO 10 ML TOTAL VOLUME IV PUSH (08:50)
[2021-08-19] MEDS: METOPROLOL TARTRATE 12.5 MG TABLET FEED TUBE (09:23)
[2021-08-19] MEDS: APIXABAN 5 MG TABLET FEED TUBE ×2 (09:23→21:15)
[2021-08-19] MEDS: METOPROLOL TARTRATE 25 MG TABLET FEED TUBE (09:23)
[2021-08-19] MEDS: VENLAFAXINE HCL XR 75 MG CAP.ER.24H 150 MG XX (09:23)
[2021-08-19] MEDS: GABAPENTIN 300 MG CAPSULE XX ×3 (09:23→18:06)
[2021-08-19] MEDS: ASPIRIN 81 MG CHEWABLE TABLET FEED TUBE (09:23)
[2021-08-19] MEDS: FUROSEMIDE INJ 40 MG/4 ML VIAL IV PUSH (09:27)
[2021-08-19] MEDS: CHLORHEXIDINE GLUCONATE 0.12% ORAL RINSE 473 ML BTL (*BKC) 15 ML SWISH/SPIT ×2 (09:40→18:06)
--- NOTE | 2021-08-19 09:43 | WPDINTPN ---
Progress Note: A&P Assessment and Plan (1) Acute dyspnea: Code(s): R06.00 - Dyspnea, unspecified Status: Acute Assessment and Plan: Acute shortness of breath, hypoxia, likely secondary mucus plug and increased secretions. Could be related to bronchitis, pneumonia, CHF -patient was febrile upon admission, hemodynamically stable, no leukocytosis -continue azithromycin and cefepime -08/17/2021: Blood cultures negative x2 so far -08/17/2021: Urine sputum cultures pending (2) Chronic respiratory failure: Onset Date: ~10/2020 Code(s): J96.10 - Chronic respiratory failure, unspecified whether with hypoxia or hypercapnia Status: Acute Assessment and Plan: Patient currently on mechanical ventilation with his home settings. 21% FiO2 -patient has had some issues with tracheostomy size recently, there is still some air leak, have consulted ENT to evaluate the patient (3) Quadriplegia following spinal cord injury: Status: Acute Assessment and Plan: Chronic (4) Acute exacerbation of CHF (congestive heart failure): Code(s): I50.9 - Heart failure, unspecified Status: Acute Assessment and Plan: Elevated BNP, noted patient has had frothy sputum, -cardiology has evaluated the patient -echocardiogram has been done and pending report -continue gentle diuresis (5) Insulin dependent diabetes mellitus: Status: Acute Assessment and Plan: Continue Accu-Cheks and sliding scale insulin (6) Acute UTI: Code(s): N39.0 - Urinary tract infection, site not specified Status: Acute Assessment and Plan: UA reflective of UTI, urine cultures pending -continue cefepime -patient has had recent history of Pseudomonas and Citrobacter UTI (7) DVT prophylaxis: Code(s): Z29.9 - Encounter for prophylactic measures, unspecified Status: Acute Assessment and Plan: Apixaban Additional Plan Discussed with at bedside and updated her with patient's condition and plan of care. I answered all questions. Awaiting echocardiogram report Code status: Full code Critical care time spent: 33 minutes This dictation may have been done utilizing a voice recognition system. Attempts have been made to correct errors. However, there may be uncorrected grammatical, spelling, and recognition errors present. Due to a high probability of clinically significant, life threatening deterioration, the patient required my highest level of preparedness to intervene emergently and I personally spent this critical care time directly and personally managing the patient. This critical care time included obtaining a history; examining the patient; pulse oximetry; ordering and review of studies; arranging urgent treatment with development of a management plan; evaluation of patient's response to treatment; frequent reassessment; and discussions with other providers. It was exclusive of separately billable procedures and treating other patients and teaching time. Please see Assessment and Plan section and the rest of the note for further information on patient assessment and treatment Subjective Date/time seen: 08/19/21 09:43 Interval history: Reason for consult: Mucus plug, ventilator dependent, chest pain 08/19/2021: Patient seen and examined, remains on mechanical ventilation via tracheostomy. Secretions have decreased, not on any sedation. Urine output has been adequate patient is afebrile hemodynamically stable. Tolerating tube feeds. Echocardiogram was being done this morning as I was evaluating the patient. Patient denies any difficulty breathing or pain. He is able to nod to questions Review of Systems Review of Systems: All systems reviewed & are unremarkable except as noted in HPI and below Exam Narrative: General: Patient is on mechanical ventilation, in no distress HEENT: Pupils equal and reactive, sclerae clear Neck: Supple Respiratory: Good
[2021-08-19 09:53] LABS: Glucose Point of Care 187 mg/dl (65-105)
--- NOTE | 2021-08-19 10:00 | PM.IMPN ---
Progress Note: A&P Assessment and Plan (1) Acute dyspnea: Code(s): R06.00 - Dyspnea, unspecified Status: Acute Assessment and Plan: Acute shortness of breath, hypoxia, likely secondary mucus plug and increased secretions. Could be related to bronchitis, pneumonia, CHF -patient was febrile upon admission, hemodynamically stable, no leukocytosis -continue azithromycin and cefepime -08/17/2021: Blood cultures negative x2 so far -08/17/2021: Urine and sputum cultures sputum cultures with MDR Pseudomonas: started on ceftazidime avibactam as an outpatient: 2.5 g every 8 hours X 10 days. (2) Chronic respiratory failure: Onset Date: ~10/2020 Code(s): J96.10 - Chronic respiratory failure, unspecified whether with hypoxia or hypercapnia Status: Acute Assessment and Plan: Patient currently on mechanical ventilation with his home settings. 21% FiO2 -patient has had some issues with tracheostomy size recently, there is still some air leak, have consulted ENT to evaluate the patient (3) Quadriplegia following spinal cord injury: Status: Acute Assessment and Plan: Chronic (4) Acute exacerbation of CHF (congestive heart failure): Code(s): I50.9 - Heart failure, unspecified Status: Acute Assessment and Plan: Elevated BNP, noted patient has had frothy sputum, -cardiology has evaluated the patient -echocardiogram has been done and pending report -continue gentle diuresis (5) Insulin dependent diabetes mellitus: Status: Acute Assessment and Plan: Continue Accu-Cheks and sliding scale insulin (6) Acute UTI: Code(s): N39.0 - Urinary tract infection, site not specified Status: Acute Assessment and Plan: UA reflective of UTI, urine cultures pending -continue cefepime -patient has had recent history of Pseudomonas and Citrobacter UTI (7) DVT prophylaxis: Code(s): Z29.9 - Encounter for prophylactic measures, unspecified Status: Acute Assessment and Plan: Apixaban Additional Plan Patient will be discharged today. Code status: Full code Subjective Date/time seen: 08/19/2021 s: Patient intubated through tracheostomy on mechanical ventilation. Currently is being treated for pneumonia. Exam Narrative: General: Patient is on mechanical ventilation, in no distress HEENT: Pupils equal and reactive, sclerae clear Neck: Supple Respiratory: Good air entry bilaterally, decreased at bases Cardiac: paced rhythm, Abdominal: Soft nontender, nondistended. Patient has a suprapubic catheter, peg tube in place Extremities: Bilateral lower extremity edema pitting in nature, pedal pulses are palpable Neuro: Paraplegic, awake, nods to questions and mouth words Skin: Intact and warm Psych: Unable to assess at this time Const: General: cooperative, comfortable, no acute distress, well developed, alert, awake, Physically active, ill appearing chronically and other (Patient is on ventilator support he has a trach) Nutritional Appearance: average body habitus Orientation/consciousness: patient oriented x3 HENMT: Head: normal to inspection, normocephalic and atraumatic Ears: hearing grossly normal bilaterally General nose exam: Normal external nose present Face and sinus: normal facial exam Mouth: Yes Normal oral and palatal mucosa present Eyes: General: appearance normal, both eyes and all related structures Alignment and Position: alignment normal Sclera: sclerae normal Pupils: Equal, round and reactive pupils present EOM: EOMs intact bilaterally Neck: Neck: full ROM, no lymphadenopathy, supple, no JVD and other (Trach in place) Thyroid: thyroid normal Lymphatic: no lymphadenopathy noted Resp: Effort & Inspection: normal respiratory effort, able to speak in complete sentences and Actively coughing Auscultation: clear to auscultation bilaterally, crackles, rales, no rhonchi and no wheezes Cardio: Jugular ve
--- NOTE | 2021-08-19 13:24 | PCFNICU ---
ICU Rounding Note: Pt current nutrition is Glucerna 1.2 bolus feedings. Last recorded weight is 104.7 kg Bowel Motility:+BM reported 08/19 Labs Reviewed:glu 220, BUN 27 Meds Noted:Lasix, Peridex, Zithromax, Eliquis. Skin:WNL Additional Notes: Patient has Trach. Home tube feeding of Glucerna 1.2 bolus feedings 355 ml-1000, 1800, 2200. 474 ml bolus-0600, 1400. 30 ml water flush q 4 hours. Echo planned for today-cardiology consulted. Following daily in ICU rounds.
--- NOTE | 2021-08-19 13:24 | PM.PNCARD ---
Progress Note: A&P Additional Plan 72-year-old man with coronary artery disease previous surgical revascularization and pacemaker implant. All of this care provided elsewhere. Unfortunately the patient is ventilator dependent due to a high C-spine fracture and is a quadriplegic for this reason. He came into the hospital with occluded airway with mucus plug. He does not have any evidence of a acute/new cardiac problem. Echocardiogram today demonstrates relatively good LV systolic function some abnormal septal motion due to being ventricularly paced. Plan is to discharge the patient for ongoing ventilator care at home what has been arranged for ongoing time. No cardiac reason for ongoing hospitalization Aristeo Tyler MD [facility] Subjective Date/time seen: Date of service: 08/19/21 13:24 Interval history: Follow-up visit in this 80-year-old man with: Elevated troponin level following respiratory/cardiac arrest due to occluded airway. Patient has history of coronary disease with surgical revascularization and previous pacemaker implantation. Patient is a quadriplegic due to C-spine fracture. Exam Const: General: comfortable and no acute distress Other: Awake alert white male intubated with tracheostomy, no distress HENMT: Mouth: Yes moist mucous membranes Eyes: Sclera: sclerae normal Pupils: Equal, round and reactive pupils present Neck: Neck: supple and no JVD Resp: Auscultation: clear to auscultation bilaterally Other: Few scattered rhonchi Cardio: Rate: regular rate Rhythm: regular rhythm Other: PMI not palpable GI: GI Palp: Yes Soft to palpation Auscultation: normal bowel sounds Skin: General skin exam: normal color Neuro: Cognition (Neuro): normal cognition Objective Data Vital Signs Vital Signs: Vital Signs - 24 hr 08/18/21 13:55 08/18/21 14:00 08/18/21 16:00 Temperature 36.1 C L Pulse Rate 61 60 60 Respiratory Rate 20 20 Blood Pressure 117/63 137/61 Pulse Oximetry 97 99 98 08/18/21 16:58 08/18/21 18:00 08/18/21 19:19 Temperature Pulse Rate 60 61 66 Respiratory Rate 28 H Blood Pressure 162/66 H Pulse Oximetry 97 97 99 08/18/21 20:00 08/18/21 22:00 08/18/21 22:59 Temperature 37.1 C Pulse Rate 60 60 72 Respiratory Rate 22 H 18 Blood Pressure 175/83 H 137/85 Pulse Oximetry 98 98 99 08/19/21 00:00 08/19/21 01:46 08/19/21 02:00 Temperature 37.7 C H Pulse Rate 50 L 68 49 L Respiratory Rate 20 20 Blood Pressure 131/61 138/61 Pulse Oximetry 99 99 98 08/19/21 04:00 08/19/21 06:00 08/19/21 08:00 Temperature 37.5 C 37.4 C Pulse Rate 50 L 64 50 L Respiratory Rate 22 H 17 18 Blood Pressure 144/58 H 159/73 H 168/63 H Pulse Oximetry 99 99 98 08/19/21 09:23 08/19/21 09:35 08/19/21 10:00 Temperature Pulse Rate 60 73 50 L Respiratory Rate 22 H Blood Pressure 153/59 H Pulse Oximetry 99 99 08/19/21 11:40 08/19/21 12:00 Temperature 37.2 C Pulse Rate 60 60 Respiratory Rate 26 H Blood Pressure 150/74 H Pulse Oximetry 98 98 Intake/Output Intake/Output: Intake & Output 08/16/21 08/17/21 08/18/21 08/19/21 23:59 23:59 23:59 23:59 Intake Total 1341 1209 Output Total 3400 550 Balance -9 659 Meds/Results Medications: Active Medications Generic Name Dose Route Start Last Admin Trade Name Freq PRN Reason Stop Dose Admin Acetaminophen 650 mg 08/18/21 01:29 Acetaminophen 325 Mg Tablet FEED TUBE Q4H PRN Pain Rated 1-3 Albuterol 2.5 mg 08/18/21 01:53 Albuterol Sulfate Neb 2.5 Mg/0.5 Ml Inh INHALATION Q6H PRN Shortness Of Breath Apixaban 5 mg 08/18/21 09:00 08/19/21 09:23 Apixaban 5 Mg Tablet FEED TUBE 5 mg Q12HR ARLIN Administration Aspirin 81 mg 08/18/21 09:00 08/19/21 09:23 Aspirin 81 Mg Chewable Tablet FEED TUBE 81 mg DAILY ARLIN Administration Bisacodyl 10 mg 08/18/21 01:29 Bisacodyl 10 Mg Suppository RECTAL DAILY PRN Constipation Chlorhexidin
--- NOTE | 2021-08-19 13:27 | PC.NURSE ---
changed urostomy appliance
[2021-08-19 13:52] LABS: Glucose Point of Care 286 mg/dl (65-105)
--- NOTE | 2021-08-19 17:15 | PC.NURSE ---
stated she cannot take patient home tonight due to not being able to get her caregivers at home tonight. Dr. Moore and care coordination notified.
[2021-08-19] MEDS: ACETAMINOPHEN 325 MG TABLET 650 MG FEED TUBE (18:04)
[2021-08-19 18:13] LABS: Glucose Point of Care 255 mg/dl (65-105)
--- NOTE | 2021-08-19 19:46 | WPDCN ---
Assessment and Plan Assessment and plan (1) Chronic respiratory failure: Onset Date: ~10/2020 Code(s): J96.10 - Chronic respiratory failure, unspecified whether with hypoxia or hypercapnia Status: Acute Assessment and Plan: Please keep the trach ties tight, two fingers are the most that should fit in. Recommend cuff pressure check by respiratory with any question. The tracheomegally will allow a significant amount of air into the cuff. (2) Tracheomegaly: Code(s): J39.8 - Other specified diseases of upper respiratory tract Status: Acute HPI Data of Consult Date/Time: 08/19/21 19:46 Requesting Physician: Lincoln Rodrigues MD Primary Care Provider: Tracy Timmons, ANALYSIS DIRECTOR-BC Consult Narrative Narrative: Christian Perera is a 80 year old male with tracheomegally and subsequent cuff leaks frequently. 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 Ventilator dependent Surgical History Surgical History H/O heart artery stent 5-7 History of bilateral knee arthroplasty History of urostomy Hx of cholecystectomy S/P CABG x 5 S/P percutaneous endoscopic gastrostomy (PEG) tube placement 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 The patient does have a living will and is listed as a full code. The patient has no biological children. The patient has care around the clock at home. The patient is retired from [employer]. The patient is nonsmoker does not use any alcohol marijuana illicit drugs. Smoking status: Never smoker Second hand tobacco smoke exposure: No Alcohol intake: never Substance use: never Substance use type: does not use Gender identity (if verbalized by the patient): Male Spiritual care concerns: No Meds Home Medications and Allergies Home Medications Medication Instructions Recorded Confirmed Type Eliquis 5 mg FEEDING TUBE Q12H 05/16/21 08/17/21 History aspirin 81 mg FEEDING TUBE DAILY 05/16/21 08/17/21 History chlorhexidine gluconate 15 ml BUCCAL BID 05/16/21 08/17/21 History ipratropium-albuterol 3 ml INHALATION Q6H PRN 05/16/21 08/17/21 History tramadol 100 mg FEEDING TUBE Q6H PRN 05/16/21 08/17/21 History trazodone 75 mg FEEDING TUBE HS 05/16/21 08/17/21 History insulin NPH isoph U-100 human 17 unit SUBCUT WMHS 06/17/21 08/17/21 History metoprolol tartrate 25 mg tablet 25 mg FEEDING TUBE DAILY 07/02/21 08/17/21 History venlafaxine 75 mg tablet,extended 150 mg PO DAILY tablet 07/02/21 08/17/21 History release 24 hr acetaminophen 650 mg FEEDING TUBE Q4H PRN 07/15/21 08/17/21 History bisacodyl 10 mg RECTAL DAILY PRN 07/15/21 08/17/21 History ezetimibe [Zetia] 10 mg FEEDING TUBE HS 07/15/21 08/17/21 History famotidine 40 mg FEEDING TUBE DAILY 07/15/21 08/17/21 History gabapentin [Neurontin] 300 mg FEEDING TUBE TID 07/15/21 08/17/21 History metoprolol tartrate 12.5 mg FEEDING TUBE DAILY 07/15/21 08/17/21 History polyethylene glycol 3350 [Miralax] 17 g PO DAILY
[2021-08-19] MEDS: EZETIMIBE 10 MG TABLET FEED TUBE (21:15)
[2021-08-19 21:16] LABS: Glucose Point of Care 271 mg/dl (65-105)
[2021-08-19] MEDS: traZODone HCL 25 MG TABLET 75 MG FEED TUBE (21:16)
[2021-08-20] VITALS (10 sets, daily range): BP systolic 117–130; BP diastolic 56–66; PULSE 60–75; RESP 16; TEMP 36.5–36.9; O2SAT 98–99
[2021-08-20 04:50] LABS: Basophils Absolute Auto 0.1 K/mm3 (0.0-0.1); Basophils Percent Auto 1.2 % (0.2-1.2); Eosinophils Absolute Auto 0.4 K/mm3 (0-0.3); Eosinophils Percent Auto 5.5 % (0-4.4); Hematocrit 40.3 % (42.0-52.0); Hemoglobin 11.8 g/dL (14.0-18.0); Immature Granulocyte Percent A 1.4 % (0-0.5); Lymphocytes Absolute Auto 1.42 K/mm3 (0.9-3.2); Lymphocytes Percent Auto 20.6 % (18.3-44.2); Mean Corpuscular HGB Conc 29.3 g/dl (32-36); Mean Corpuscular Hemoglobin 26.5 pg (26-34); Mean Corpuscular Volume 90.4 fl (80-100); Mean Platelet Volume 10.4 fl (7.4-10.4); Monocytes Absolute Auto 0.8 K/mm3 (0.1-0.6); Monocytes Percent Auto 12.2 % (2.6-8.5); Neutrophils Absolute Auto 4.1 K/mm3 (1.3-6.7); Neutrophils Percent Auto 59.1 % (45.5-73.1); Platelet Count Result 218 k/mm3 (150-375); Red Blood Count 4.46 M/mm3 (4.6-6.20); White Blood Count 6.9 K/mm3 (4.5-10.0)
[2021-08-20 05:02] LABS: Hypochromasia 1+ (NORMAL); Platelet Estimate Adequate (Adequate)
[2021-08-20 05:08] LABS: Alanine Aminotransferase 20 U/L (4-50); Albumin Level 4.3 g/dL (3.5-5.1); Alkaline Phosphatase 128 U/L (38-126); Anion Gap 14 mmol/L (8-16); Aspartate Amino Transferase 21 U/L (17-59); Bilirubin,Total 0.5 mg/dL (0.2-1.3); Blood Urea Nitrogen 31 mg/dL (9-20); Calcium 10.7 mg/dL (8.4-10.2); Carbon Dioxide 30 mmol/L (22-30); Chloride 105 mmol/L (98-107); Estimated CRCL calculation 71 ml/min; Estimated Glomerular Filt Rate > 60; Glucose 166 mg/dL (65-110); Magnesium 2.4 mg/dL (1.6-2.3); Phosphorus 3.6 mg/dL (2.5-4.5); Potassium 3.9 mmol/L (3.4-5.0); Sodium 149 mmol/L (137-145)
[2021-08-20] MEDS: APIXABAN 5 MG TABLET FEED TUBE (08:48)
[2021-08-20] MEDS: ASPIRIN 81 MG CHEWABLE TABLET FEED TUBE (08:48)
[2021-08-20] MEDS: CHLORHEXIDINE GLUCONATE 0.12% ORAL RINSE 473 ML BTL (*BKC) 15 ML SWISH/SPIT (08:48)
[2021-08-20] MEDS: METOPROLOL TARTRATE 12.5 MG TABLET FEED TUBE (08:49)
[2021-08-20] MEDS: GABAPENTIN 300 MG CAPSULE XX (08:49)
[2021-08-20] MEDS: VENLAFAXINE HCL XR 75 MG CAP.ER.24H 150 MG XX (08:49)
[2021-08-20] MEDS: METOPROLOL TARTRATE 25 MG TABLET FEED TUBE (08:52)
[2021-08-20] MEDS: INSULIN HUMAN NPH (*BKC) 100 UNITS/ML 17 UNITS SUB-Q (08:54)
--- NOTE | 2021-08-20 10:58 | WPDINTPN ---
Progress Note: A&P Assessment and Plan (1) Acute dyspnea: Code(s): R06.00 - Dyspnea, unspecified Status: Acute Assessment and Plan: Acute shortness of breath, hypoxia, likely secondary mucus plug and increased secretions. Could be related to bronchitis, pneumonia, CHF -patient was febrile upon admission, hemodynamically stable, no leukocytosis -patient is on IV azithromycin and cefepime and will be switched to p.o. antibiotics per Internal Medicine physician -08/17/2021: Blood cultures negative x2 so far -08/17/2021: Urine sputum cultures negative till now (2) Chronic respiratory failure: Onset Date: ~10/2020 Code(s): J96.10 - Chronic respiratory failure, unspecified whether with hypoxia or hypercapnia Status: Acute Assessment and Plan: Patient currently on mechanical ventilation with his home settings. 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, there is still some air leak, (3) Quadriplegia following spinal cord injury: Status: Acute Assessment and Plan: Chronic (4) Acute exacerbation of CHF (congestive heart failure): Code(s): I50.9 - Heart failure, unspecified Status: Acute Assessment and Plan: Elevated BNP, noted patient has had frothy sputum, -cardiology has evaluated the patient -echocardiogram has been done and pending report -patient was diuresed chest x-ray is clear -hold further diuretics as sodium has increased (5) Insulin dependent diabetes mellitus: Status: Acute Assessment and Plan: Continue Accu-Cheks and sliding scale insulin (6) Acute UTI: Code(s): N39.0 - Urinary tract infection, site not specified Status: Acute Assessment and Plan: UA reflective of UTI, urine cultures pending Urine is growing Gram-negative rods but identification and susceptibilities are pending -patient has had recent history of Pseudomonas and Citrobacter UTI (7) DVT prophylaxis: Code(s): Z29.9 - Encounter for prophylactic measures, unspecified Status: Acute Assessment and Plan: He is on Apixaban Additional Plan Patient will be discharged today. Code status: Full code Critical care time spent: 30 minutes This dictation may have been done utilizing a voice recognition system. Attempts have been made to correct errors. However, there may be uncorrected grammatical, spelling, and recognition errors present. Due to a high probability of clinically significant, life threatening deterioration, the patient required my highest level of preparedness to intervene emergently and I personally spent this critical care time directly and personally managing the patient. This critical care time included obtaining a history; examining the patient; pulse oximetry; ordering and review of studies; arranging urgent treatment with development of a management plan; evaluation of patient's response to treatment; frequent reassessment; and discussions with other providers. It was exclusive of separately billable procedures and treating other patients and teaching time. Please see Assessment and Plan section and the rest of the note for further information on patient assessment and treatment Subjective Date/time seen: 08/20/21 10:58 Patient was supposed to be discharged yesterday but was not due to some logistical issue. I saw him this morning and patient had no major events overnight. Continues to be on mechanical ventilation and is afebrile overnight. He is awake alert and nodes his head appropriately. He denies any pain or shortness of breath. Tries to talk over his trach but is unable to Review of Systems Review of Systems: ROS unobtainable: Yes unobtainable due to endotracheal tube Exam Narrative: General: Patient is on mechanical ventilation, in no distress HEENT: Pupils equal and reactive, sclerae clear Neck: Supple Respiratory: Good
--- NOTE | 2021-08-20 14:08 | PM.DS ---
DS: Admitting Diagnosis Discharge Date 08/21/2021 Admitting Diagnosis (1) Acute dyspnea: (2) Chronic respiratory failure: (3) Quadriplegia following spinal cord injury: (4) Acute exacerbation of CHF (congestive heart failure): (5) Insulin dependent diabetes mellitus: (6) Acute UTI: DS: Discharge Diagnosis Discharge Diagnosis (1) Acute dyspnea: Code(s): R06.00 - Dyspnea, unspecified Status: Acute Assessment and Plan: Acute shortness of breath, hypoxia, likely secondary mucus plug and increased secretions. Could be related to bronchitis, pneumonia, CHF -patient was febrile upon admission, hemodynamically stable, no leukocytosis -continue azithromycin and cefepime -08/17/2021: Blood cultures negative x2 so far -08/17/2021: Urine and sputum cultures sputum cultures with MDR Pseudomonas: started on ceftazidime avibactam as an outpatient: 2.5 g every 8 hours X 10 days. (2) Chronic respiratory failure: Onset Date: ~10/2020 Code(s): J96.10 - Chronic respiratory failure, unspecified whether with hypoxia or hypercapnia Status: Acute Assessment and Plan: Patient currently on mechanical ventilation with his home settings. 21% FiO2 -patient has had some issues with tracheostomy size recently, there is still some air leak, have consulted ENT to evaluate the patient (3) Quadriplegia following spinal cord injury: Status: Acute Assessment and Plan: Chronic (4) Acute exacerbation of CHF (congestive heart failure): Code(s): I50.9 - Heart failure, unspecified Status: Acute Assessment and Plan: Elevated BNP, noted patient has had frothy sputum, -cardiology has evaluated the patient -echocardiogram has been done and pending report -continue gentle diuresis (5) Insulin dependent diabetes mellitus: Status: Acute Assessment and Plan: Continue Accu-Cheks and sliding scale insulin (6) Acute UTI: Code(s): N39.0 - Urinary tract infection, site not specified Status: Acute Assessment and Plan: UA reflective of UTI, urine cultures pending -continue cefepime -patient has had recent history of Pseudomonas and Citrobacter UTI (7) DVT prophylaxis: Code(s): Z29.9 - Encounter for prophylactic measures, unspecified Status: Acute Assessment and Plan: Apixaban DS: Summary Hospital Course Reason for hospitalization: Cough Hospital Course: Please refer to admission H&P. 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 Patient was admitted early in July due to malfunctioning ventilator at that time his trach was also exchanged. Was brought today by EMS after patient had an episode of violent cough with pink foamy sputum production and shortness of breath. Most of the history has been obtained upon talking to who is at bedside and review all of existing medical records. According to patient has been his usual state of health has been tolerating his feeding well no fevers no sputum production however patient had an episode of low pulse ox and she had to BVM him at home once EMS arrived patient had recuperate and her oxygen level was back to the 90s however she insisted in bring him to the hospital after the episode violent cough copious pink foamy production. Preliminary workup in the emergency was significant for elevated brain natriuretic peptide, this x-ray with bilateral bibasal infiltrates, troponins elevated as well. At the time of my visit patient seemed to be comfortable Patient has been admitted for further evaluation management and treatment. Acute dyspnea/Chronic respiratory failure. the gabo
--- NOTE | 2021-09-16 22:25 | PM.DS ---
DS: Admitting Diagnosis Discharge Date 08/20/21 Admitting Diagnosis (1) Acute exacerbation of CHF (congestive heart failure): (2) Ventilator dependent: (3) Infiltrate of lung present on chest x-ray: (4) Chronic respiratory failure: (5) Tracheostomy status: (6) Gastrostomy tube dependent: (7) Chronic GERD: (8) Pacemaker: (9) CAD (coronary artery disease): (10) Quadriplegia following spinal cord injury: (11) Normal pressure hydrocephalus: DS: Discharge Diagnosis Discharge Diagnosis (1) Acute dyspnea: Code(s): R06.00 - Dyspnea, unspecified Status: Acute Assessment and Plan: Acute shortness of breath, hypoxia, likely secondary mucus plug and increased secretions. Could be related to bronchitis, pneumonia, CHF -patient was febrile upon admission, hemodynamically stable, no leukocytosis -continue azithromycin and cefepime -08/17/2021: Blood cultures negative x2 so far -08/17/2021: Urine and sputum cultures sputum cultures with MDR Pseudomonas: started on ceftazidime avibactam as an outpatient: 2.5 g every 8 hours X 10 days. (2) Chronic respiratory failure: Onset Date: ~10/2020 Code(s): J96.10 - Chronic respiratory failure, unspecified whether with hypoxia or hypercapnia Status: Acute Assessment and Plan: Patient currently on mechanical ventilation with his home settings. 21% FiO2 -patient has had some issues with tracheostomy size recently, there is still some air leak, have consulted ENT to evaluate the patient (3) Quadriplegia following spinal cord injury: Status: Acute Assessment and Plan: Chronic (4) Acute exacerbation of CHF (congestive heart failure): Code(s): I50.9 - Heart failure, unspecified Status: Acute Assessment and Plan: Elevated BNP, noted patient has had frothy sputum, -cardiology has evaluated the patient -echocardiogram has been done and pending report -continue gentle diuresis (5) Insulin dependent diabetes mellitus: Status: Acute Assessment and Plan: Continue Accu-Cheks and sliding scale insulin (6) Acute UTI: Code(s): N39.0 - Urinary tract infection, site not specified Status: Acute Assessment and Plan: UA reflective of UTI, urine cultures pending -continue cefepime -patient has had recent history of Pseudomonas and Citrobacter UTI (7) DVT prophylaxis: Code(s): Z29.9 - Encounter for prophylactic measures, unspecified Status: Acute Assessment and Plan: Apixaban DS: Summary Hospital Course Reason for hospitalization: Productive cough. Hospital Course: Please refer to admission H&P. Briefly, this is a 80-year-old male with past medical history significant for trauma 2 cervical spine status post decompression, quadriplegia, UNIT SECY shunt, ventilator dependent, pacemaker placement, peg and trach, coronary artery disease status post coronary artery bypass graft 5 vessel disease, bladder cancer, ureterostomy, patient lives at home with and he has 30/03 care. Patient was admitted early in July due to malfunctioning ventilator at that time his trach was also exchanged. Was brought today by EMS after patient had an episode of violent cough with pink foamy sputum production and shortness of breath. Most of the history has been obtained upon talking to who is at bedside and review all of existing medical records. According to patient has been his usual state of health has been tolerating his feeding well no fevers no sputum production however patient had an episode of low pulse ox and she had to BVM him at home once EMS arrived patient had recuperate and her oxygen level was back to the 90s however she insisted in bring him to the hospital after the episode violent cough copious pink foamy production. Preliminary workup in the emergency was significant for elevated brain natriuretic peptide, this x-ray with bilateral bibasal infiltrates, troponins elevated as well. At
== END 2021-08-20 09:20 | disposition home health service (06) | DRG 291 ==
LOC: ANHED 17:32 → ANHICU 20:40
PROVIDERS: Internal Medicine; Admitting Provider Internal Medicine; Emergency Provider Emergency Medicine; PCP Nurse Practitioner Family; Visit Provider Internal Medicine
DX: I11.0 Hypertensive heart disease with heart failure (principal); G82.50 Quadriplegia, unspecified; G91.2 (Idiopathic) normal pressure hydrocephalus; Z99.11 Dependence on respirator [ventilator] status; J96.10 Chronic respiratory failure, unspecified whether with hypoxia or hypercapnia; N39.0 Urinary tract infection, site not specified; I50.9 Heart failure, unspecified; J39.8 Other specified diseases of upper respiratory tract; I25.10 Atherosclerotic heart disease of native coronary artery without angina pectoris; R77.8 Other specified abnormalities of plasma proteins; E11.9 Type 2 diabetes mellitus without complications; R91.8 Other nonspecific abnormal finding of lung field; K21.9 Gastro-esophageal reflux disease without esophagitis; F41.1 Generalized anxiety disorder; Z28.21 Immunization not carried out because of patient refusal; S14.109S Unspecified injury at unspecified level of cervical spinal cord, sequela; Z79.01 Long term (current) use of anticoagulants; Z79.82 Long term (current) use of aspirin; Z85.51 Personal history of malignant neoplasm of bladder; Z86.711 Personal history of pulmonary embolism; Z93.0 Tracheostomy status; Z93.1 Gastrostomy status; Z95.0 Presence of cardiac pacemaker; Z95.1 Presence of aortocoronary bypass graft; Z98.2 Presence of cerebrospinal fluid drainage device
CPT/HCPCS: 36415; 36600; 71045; 80048; 80053; 82375; 82805; 82948; 83050; 83605; 83735; 83880; 84100; 84484; 85025; 87040; 87070; 87077; 87086; 87088; 87186; 87205; 93005; 93306; 94003; 96365; 96367; 96375; 96376; 99285; A4248; A9270; C8929; G0378; J0456; J0692; J1815; J1940; Q9957

== ENCOUNTER 2021-11-18 16:56 | Emergency (ER) | payer MEDICARE, SELFPAY ==
--- NOTE | ~2021-11-18 | XR_ITS ---
XR G tube replacement w image DATE: 11/18/2021 18:11 INDICATION: Replacement of gastrostomy tube; check position. TECHNIQUE: 2 portable AP views on 11/19/2019 10/25/2002 and 1805 hours COMPARISON: 05/23/2018 KUB FINDINGS: A gastrostomy tube overlies the lower body of the stomach in the medial mid left abdomen. R etained contrast material is noted in the gastric and duodenal lumen.. No evidence of bowel obstruction. Bilateral pelvic sidewall surgical clips. Status post lumbar laminectomy. Status post sternotomy. IMPRESSION: Gastrostomy tube in body of stomach Reviewed, dictated and finalized at [facility]. Reviewed, dictated and finalized at [facility].
[2021-11-18 17:00] VITALS: BP 185/77; PULSE 60; RESP 18; TEMP 37; O2SAT 98
[2021-11-18 17:02] LABS: Glucose Point of Care 233 mg/dl (65-105)
[2021-11-18 17:15] VITALS: PULSE 74
[2021-11-18 17:27] VITALS: PULSE 80; O2SAT 99
--- NOTE | 2021-11-18 17:28 | ED.GENADULT ---
HPI - General Adult General Chief complaint: Unspecified Stated complaint: g tube malfunction Time Seen by Provider: 11/18/21 17:17 Source: patient and family Mode of arrival: EMS Limitations: physical limitation (quadriplegia) History of Present Illness HPI narrative: Patient 80-year-old quadriplegic male who presents to the ED, via EMS with report of G-tube malfunction. Patient's at bedside assisted in providing information. She reports the patient's health care CASH CONTROL SPECIALIST was cleaning the patient around 4:30 PM tonight and had rolled him to his side when they heard a pop. initially thought this may have been his trach tube unplugging, but then noticed his G-tube had fallen out. Patient is a quadriplegic status post fall with C3-5 fracture and spinal cord involvement in 2020. He has a tracheostomy and requires mechanical ventilation. Patient denies any pain or nausea currently in the ED bed. Related Data Home Medications Medication Instructions Recorded Confirmed Eliquis 5 mg FEEDING TUBE Q12H 05/16/21 10/07/21 aspirin 81 mg FEEDING TUBE DAILY 05/16/21 10/07/21 chlorhexidine gluconate 15 ml BUCCAL BID 05/16/21 10/07/21 ipratropium-albuterol 3 ml INHALATION Q6H PRN 05/16/21 10/07/21 tramadol 100 mg FEEDING TUBE Q6H PRN 05/16/21 10/07/21 insulin NPH isoph U-100 human 17 unit SUBCUT WMHS 06/17/21 10/07/21 metoprolol tartrate 25 mg tablet 25 mg FEEDING TUBE DAILY 07/02/21 10/07/21 venlafaxine 75 mg tablet,extended 150 mg PO DAILY tablet 07/02/21 10/07/21 release 24 hr acetaminophen 650 mg FEEDING TUBE Q4H PRN 07/15/21 10/07/21 bisacodyl 10 mg RECTAL DAILY PRN 07/15/21 10/07/21 ezetimibe [Zetia] 10 mg FEEDING TUBE HS 07/15/21 10/07/21 famotidine 40 mg FEEDING TUBE DAILY 07/15/21 10/07/21 gabapentin [Neurontin] 300 mg FEEDING TUBE TID 07/15/21 10/07/21 polyethylene glycol 3350 [Miralax] 17 g PO DAILY PRN 07/15/21 10/07/21 insulin lispro [Humalog U-100 See Rx Instructions .ROUTE .COMPLEX 08/18/21 10/07/21 Insulin] metoprolol tartrate 25 mg tablet 12.5 mg FEEDING TUBE .AM tablet 10/07/21 10/07/21 Allergies Allergy/AdvReac Type Severity Reaction Status Date / Time No Known Allergies Allergy Verified 07/15/21 00:58 Review of Systems Review of Systems: CONSTITUTIONAL: Denies fever. GASTROINTESTINAL: Reports G-tube dislodgment. Denies abdominal pain, nausea, vomiting. 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 Surgical History Surgical History H/O heart artery stent 5-7 History of bilateral knee arthroplasty History of urostomy Hx of cholecystectomy S/P CABG x 5 S/P percutaneous endoscopic gastrostomy (PEG) tube placement S/P SUPERVISOR ROLLING ROOM shunt Status post cardiac pacemaker procedure Status post cervical spinal fusion C3 through C5 Family History Family History Mother Breast cancer Acute myocardial infarction Father Carcinoma of colon Sibling Breast cancer Diabetes mellitus Social History Social History Social History: Patient lives with his spouse Mikki who is the durable power defense attorney for healthcare. The patient does have a living will and is listed as a full code. The patient has no biological children. The patient has care around the clock at home. The patient is
[2021-11-18 19:00] VITALS: BP 178/81; PULSE 60; RESP 16; O2SAT 98
[2021-11-18 19:20] VITALS: PULSE 60; O2SAT 98
[2021-11-18 19:21] VITALS: BP 176/80; PULSE 62; RESP 16; O2SAT 98
[2021-11-18 19:32] LABS: Glucose Point of Care 191 mg/dl (65-105)
== END 2021-11-18 20:57 | disposition home or self-care (01) ==
LOC: ANHED 19:03
PROVIDERS: Emergency Provider Emergency Medicine
DX: G82.50 Quadriplegia, unspecified (principal); S14.159S Other incomplete lesion at unspecified level of cervical spinal cord, sequela; S12.200S Unspecified displaced fracture of third cervical vertebra, sequela; S12.300S Unspecified displaced fracture of fourth cervical vertebra, sequela; S12.400S Unspecified displaced fracture of fifth cervical vertebra, sequela; Z93.0 Tracheostomy status; I25.10 Atherosclerotic heart disease of native coronary artery without angina pectoris; J96.10 Chronic respiratory failure, unspecified whether with hypoxia or hypercapnia; E78.5 Hyperlipidemia, unspecified; I10 Essential (primary) hypertension; E11.9 Type 2 diabetes mellitus without complications; K21.9 Gastro-esophageal reflux disease without esophagitis; M10.9 Gout, unspecified; Z85.51 Personal history of malignant neoplasm of bladder; Z95.0 Presence of cardiac pacemaker; G91.2 (Idiopathic) normal pressure hydrocephalus; Z79.01 Long term (current) use of anticoagulants; Z79.4 Long term (current) use of insulin; Z99.11 Dependence on respirator [ventilator] status; Z95.5 Presence of coronary angioplasty implant and graft; Z96.653 Presence of artificial knee joint, bilateral; Z95.1 Presence of aortocoronary bypass graft; Z98.2 Presence of cerebrospinal fluid drainage device; Z98.1 Arthrodesis status; W19.XXXS Unspecified fall, sequela
CPT/HCPCS: 49450; 82948; 99284

== ENCOUNTER 2021-11-20 12:33 | Emergency (ER) | payer MEDICARE, SELFPAY ==
--- NOTE | ~2021-11-20 | XR_ITS ---
EXAMINATION: XR G tube evaluation w imaging DATE: 11/20/2021 15:55 INDICATION: Gastrostomy tube placement. TECHNIQUE: A supine view of the abdomen was obtained. COMPARISON: Abdomen single view 11/18/2021 FINDINGS: There are no dilated loops of bowel. The gastrostomy tube balloon is in the distal stomach. There is contrast in the tube and in the distal stomach and proximal duodenum. No extraluminal contr ast. There are surgical clips in the pelvis. There are pacer wires in right atrium and right ventricl e. Median sternotomy wires are noted. IMPRESSION: 1. Gastrostomy tube in expected position. Reviewed, dictated and finalized at [facility].
[2021-11-20 12:43] VITALS: BP 155/70; PULSE 60; RESP 24; O2SAT 99
[2021-11-20 13:14] VITALS: PULSE 60; O2SAT 99
[2021-11-20 13:31] VITALS: BP 165/76; PULSE 60; RESP 22; O2SAT 98
[2021-11-20 15:06] VITALS: PULSE 68; O2SAT 100
--- NOTE | 2021-11-20 16:18 | ED.GENADULT ---
HPI - General Adult General Chief complaint: Unspecified Stated complaint: g tube removal Time Seen by Provider: 11/20/21 12:48 Source: family Mode of arrival: EMS Limitations: physical limitation History of Present Illness HPI narrative: 80-year-old with a history of quadriplegia on the vent and G-tube was brought in from home with a dislodged G-tube this morning. Patient was seen 8 days ago for the same. Presently has no other complaints. Related Data Home Medications Medication Instructions Recorded Confirmed Eliquis 5 mg FEEDING TUBE Q12H 05/16/21 10/07/21 aspirin 81 mg FEEDING TUBE DAILY 05/16/21 10/07/21 chlorhexidine gluconate 15 ml BUCCAL BID 05/16/21 10/07/21 ipratropium-albuterol 3 ml INHALATION Q6H PRN 05/16/21 10/07/21 tramadol 100 mg FEEDING TUBE Q6H PRN 05/16/21 10/07/21 insulin NPH isoph U-100 human 17 unit SUBCUT WMHS 06/17/21 10/07/21 metoprolol tartrate 25 mg tablet 25 mg FEEDING TUBE DAILY 07/02/21 10/07/21 venlafaxine 75 mg tablet,extended 150 mg PO DAILY tablet 07/02/21 10/07/21 release 24 hr acetaminophen 650 mg FEEDING TUBE Q4H PRN 07/15/21 10/07/21 bisacodyl 10 mg RECTAL DAILY PRN 07/15/21 10/07/21 ezetimibe [Zetia] 10 mg FEEDING TUBE HS 07/15/21 10/07/21 famotidine 40 mg FEEDING TUBE DAILY 07/15/21 10/07/21 gabapentin [Neurontin] 300 mg FEEDING TUBE TID 07/15/21 10/07/21 polyethylene glycol 3350 [Miralax] 17 g PO DAILY PRN 07/15/21 10/07/21 insulin lispro [Humalog U-100 See Rx Instructions .ROUTE .COMPLEX 08/18/21 10/07/21 Insulin] metoprolol tartrate 25 mg tablet 12.5 mg FEEDING TUBE .AM tablet 10/07/21 10/07/21 Allergies Allergy/AdvReac Type Severity Reaction Status Date / Time No Known Allergies Allergy Verified 07/15/21 00:58 Review of Systems Review of Systems: All systems reviewed & are unremarkable except as noted in HPI and below Constitutional: Constitutional: Reports no additional constitutional complaints ENT: Reports system reviewed and no additional complaints, except as documented Cardiovascular: Cardiovascular: Reports no additional cardiovascular complaints Respiratory: Respiratory: Reports no additional respiratory complaints Gastrointestinal: Gastrointestinal: Reports as per HPI [facility] Past Medical History Medical History Bladder cancer CAD (coronary artery disease) Chronic GERD Chronic respiratory failure (~10/2020) Gastrostomy tube dependent Generalized anxiety disorder History of bladder carcinoma History of gout No longer on allopurinol History of pulmonary embolism On Eliquis Hyperlipidemia Hypertension 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 Ventilator dependent Surgical History Surgical History H/O heart artery stent 5-7 History of bilateral knee arthroplasty History of urostomy Hx of cholecystectomy S/P CABG x 5 S/P percutaneous endoscopic gastrostomy (PEG) tube placement S/P RESEARCH TEST ENGINE EVALUATOR shunt Status post cardiac pacemaker procedure Status post cervical spinal fusion C3 through C5 Family History Family History Mother Breast cancer Acute myocardial infarction Father Carcinoma of colon Sibling Breast cancer Diabetes mellitus Social History Social History Social History: Patient lives with his spouse Mikki who is the durable power track supervisor for healthcare. The patient does have a living will and is listed as a full code. The patient has no biological children. The patient has care around the clock at home. The patient is retired from [employer]. The patient is nonsmoker does not use any alcohol marijuana illicit drugs. Smoking status: Never smoker Second hand tobacco smoke exposure: No Alcohol intake: never Substance use: ne
[2021-11-20 16:53] LABS: Glucose Point of Care 149 mg/dl (65-105)
[2021-11-20 18:00] VITALS: BP 185/92; PULSE 74; RESP 27; TEMP 36.7; O2SAT 100
== END 2021-11-20 18:00 | disposition home or self-care (01) ==
PROVIDERS: Emergency Provider Family Medicine
DX: T85.528A Displacement of other gastrointestinal prosthetic devices, implants and grafts, initial encounter (principal); Z85.51 Personal history of malignant neoplasm of bladder; I25.10 Atherosclerotic heart disease of native coronary artery without angina pectoris; K21.9 Gastro-esophageal reflux disease without esophagitis; J96.10 Chronic respiratory failure, unspecified whether with hypoxia or hypercapnia; F41.9 Anxiety disorder, unspecified; Z86.711 Personal history of pulmonary embolism; Z79.01 Long term (current) use of anticoagulants; Z95.0 Presence of cardiac pacemaker; Z99.11 Dependence on respirator [ventilator] status
CPT/HCPCS: 49465; 82948; 99284; Q9967

== ENCOUNTER 2021-12-27 11:12 | Outpatient (NON) | payer MEDICARE, SELFPAY | END 2021-12-27 11:13 | disposition home or self-care (01) | PROVIDERS: Visit Provider Internal Medicine Critical Care Medicine | DX: R91.8 Other nonspecific abnormal finding of lung field (principal) | CPT/HCPCS: 87070; 87077; 87186; 87205 ==

== ENCOUNTER 2022-02-17 17:05 | Outpatient (NON) | payer MEDICARE, SELFPAY ==
[2022-02-17 18:24] LABS: Add Urine Microscopic? YES; Appearance Urine Clear (Clear); Bilirubin Urine Negative (Negative); Blood Urine 3+ (Negative); Color Urine Light Yellow (Yellow); Glucose Urine UA Negative (Negative); Ketones Urine Negative (Negative); Leukocyte Esterase Ur 1+ LEU/UL (Negative); Nitrate Urine Negative (Negative); Protein Urine Negative (Negative); Specific Grav Ur <= 1.005 (1.010-1.020); Urobilinogen Urine 0.2 mg/dL (0.2-1.0); pH Urine 7.5 (5.0-8.0)
[2022-02-17 18:35] LABS: Bacteria Urine 1+ /hpf; Squamous Epithelial Cell Urine None seen /hpf (Few)
== END 2022-02-17 17:06 | disposition home or self-care (01) ==
LOC: CHSLAB 17:15
DX: N39.0 Urinary tract infection, site not specified (principal)
CPT/HCPCS: 81001; 87077; 87086; 87088; 87186

== ENCOUNTER 2022-02-20 17:19 | Observation (INO) | payer MEDICARE, SELFPAY ==
[2022-02-20] VITALS (25 sets, daily range): BP systolic 198–211; BP diastolic 90–99; PULSE 54–68; RESP 16–24; TEMP 36.6; O2SAT 96–100
--- NOTE | ~2022-02-20 | XR_ITS ---
XR chest 1V portable 02/21/2022 09:19 Indication: Chronic respiratory failure. Patient on ventilator. Procedure: AP portable chest Comparison: Comparison to multiple prior studies sequentially, with oldest reviewed study dated 04/2021. Findings: Status post median sternotomy for CABG. Pacemaker leads are stable. There is a tracheostomy tube. There are bilateral perihilar and basilar infiltrates. Small pleural effusions. Elevated right diaphragm. Impression: 1: Perihilar and bibasilar airspace disease which may represent edema or pneumonia. 2: Chronic elevation of the right diaphragm, suspicious for diaphragmatic paralysis. Reviewed, dictated and finalized at [facility]. Impression: 1: Perihilar and bibasilar airspace disease which may represent edema or pneumo fab. 2: Chronic elevation of the right diaphragm, suspicious for diaphragmatic paral ysis.
--- NOTE | 2022-02-20 17:29 | ED.MALEGU ---
HPI - Male Genitourinary General Chief complaint: Urogenital-Male <Chey Combs PA-C - Last Filed: 02/24/22 23:10> Stated complaint: abnormal labs <Chey Combs PA-C - Last Filed: 02/24/22 23:10> Time Seen by Provider: 02/20/22 17:23 <Chey Combs PA-C - Last Filed: 02/24/22 23:10> History of Present Illness HPI Narrative: Patient is 73-year-old male with a history of spinal cord injury resulting in ventilator dependent paraplegia, bladder cancer with ureterostomy bag, here from home for evaluation of suspected UTI. History obtained from patient's . She states that his urostomy bag was draining dark-colored urine 5 days ago, so a sample was taken from his urostomy bag. This culture grew Pseudomonas, and patient was told to come to the ED for IV antibiotics. states that patient has been otherwise doing well, his urine has cleared up in color and he has not developed a fever. Per chart review, patient's urine has grown pseudomonas in the past and was treated with ceftazidime- avibactam. also tells me that he has seen an infectious disease doctor in the past. HPI limited due to patient being on ventilator, but when asked if he is having any symptoms, he shakes his head no. I asked him if he is feeling at his baseline, and he shook his head yes. <Chey Combs PA-C - Last Filed: 02/24/22 23:10> Related Data Home medications: Home Medications Medication Instructions Recorded Confirmed apixaban 5 mg tablet (Eliquis) 5 mg feeding tube Q12H 05/16/21 02/21/22 chlorhexidine gluconate 0.12 % 15 ml buccal BID 05/16/21 02/21/22 mouthwash ipratropium 0.5 mg-albuterol 3 mg 3 ml inhalation Q6H PRN Shortness 05/16/21 02/21/22 (2.5 mg base)/3 mL nebulization Of Breath soln tramadol 100 mg tablet 100 mg feeding tube Q6H PRN Pain 05/16/21 02/21/22 insulin NPH isoph U-100 human 100 17 unit subcut WMHS 06/17/21 02/21/22 unit/mL subcutaneous cartridge venlafaxine 75 mg tablet,extended 150 mg PO DAILY 07/02/21 02/21/22 release 24 hr acetaminophen 325 mg tablet 650 mg feeding tube Q4H PRN Pain 07/15/21 02/21/22 bisacodyl 10 mg rectal suppository 10 mg RECTAL DAILY PRN Constipation 07/15/21 02/21/22 ezetimibe 10 mg tablet (Zetia) 10 mg feeding tube HS 07/15/21 02/21/22 famotidine 40 mg tablet 40 mg feeding tube DAILY 07/15/21 02/21/22 gabapentin 300 mg capsule 300 mg feeding tube TID 07/15/21 02/21/22 (Neurontin) polyethylene glycol 3350 17 gram 17 g PO DAILY PRN Constipation 07/15/21 02/21/22 oral powder packet (Miralax) insulin lispro 100 unit/mL See Rx Instructions .Route .COMPLEX 08/18/21 02/21/22 subcutaneous solution (Humalog U-100 Insulin) metoprolol tartrate 25 mg tablet 12.5 mg feeding tube .AM 10/07/21 02/21/22 <Chey Combs PA-C - Last Filed: 02/24/22 23:10> Allergies/Adverse reactions: Allergies Allergy/AdvReac Type Severity Reaction Status Date / Time [id number] Reductase Allergy Muscle Pain Verified 02/20/22 17:40 Inhibitor <Chey Combs PA-C - Last Filed: 02/24/22 23:10> Review of Systems Review of Systems: ROS unobtainable: Yes unobtainable due to medical condition <Chey Combs PA-C - Last Filed: 02/24/22 23:10> [facility] Past Medical History Medical History: Medical History Bladder cancer CAD (coronary artery disease) Chronic GERD Chronic respiratory failure (~10/2020) Gastrostomy tube dependent Generalized anxiety disorder History of bladder carcinoma History of gout No longer on allopurinol History of pulmonary embolism On Eliquis Hyperlipidemia Hypertension 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
--- NOTE | 2022-02-20 17:38 | PC.NURSE ---
EDP at bedside to assess pt. at bedside to explain reasoning for admission.
--- NOTE | 2022-02-20 17:45 | PC.NURSE ---
RT at bedside to transition patient from home vent to hospital vent.
--- NOTE | 2022-02-20 18:00 | PC.NURSE ---
SU Guerrier aware of patient's blood pressure. No orders at this time. Patient does not appear to be in any distress.
[2022-02-20 18:51] LABS: Basophils Absolute Auto 0.1 K/mm3 (0.0-0.1); Eosinophils Absolute Auto 0.2 K/mm3 (0-0.3); Eosinophils Percent Auto 2.2 % (0-4.4); Hematocrit 45.5 % (42.0-52.0); Hemoglobin 14.6 g/dL (14.0-18.0); Immature Granulocyte Absolute 0.18 K/mm3 (0.00-0.031); Immature Granulocyte Percent A 2.5 % (0-0.5); Lymphocytes Absolute Auto 0.71 K/mm3 (0.9-3.2); Mean Corpuscular HGB Conc 32.1 g/dl (32-36); Mean Corpuscular Hemoglobin 28.3 pg (26-34); Mean Corpuscular Volume 88.2 fl (80-100); Mean Platelet Volume 10.4 fl (7.4-10.4); Monocytes Absolute Auto 0.6 K/mm3 (0.1-0.6); Monocytes Percent Auto 8.7 % (2.6-8.5); Neutrophils Absolute Auto 5.4 K/mm3 (1.3-6.7); Neutrophils Percent Auto 75.6 % (45.5-73.1); Platelet Count Result 199 k/mm3 (150-375); Red Blood Count 5.16 M/mm3 (4.6-6.20); Red Cell Distribution Width 15.9 % (11.5-14.5); White Blood Count 7.1 K/mm3 (4.5-10.0)
[2022-02-20 18:53] LABS: Appearance Urine Cloudy (Clear); Bilirubin Urine Negative (Negative); Blood Urine Trace-lysed (Negative); Color Urine Yellow (Yellow); Glucose Urine UA Negative (Negative); Ketones Urine Negative (Negative); Leukocyte Esterase Ur 1+ LEU/UL (Negative); Nitrate Urine Positive (Negative); Protein Urine 2+ mg/dL (Negative); Specific Grav Ur 1.015 (1.001-1.035); Urobilinogen Urine 0.2 mg/dL (<2.0); pH Urine >=9.0 (5.0-9.0)
[2022-02-20 19:02] LABS: Alanine Aminotransferase 21 U/L (6-50); Albumin Level 4.3 g/dL (3.5-5.1); Alkaline Phosphatase 145 U/L (38-126); Anion Gap 9 mmol/L (8-16); Aspartate Amino Transferase 24 U/L (17-59); Bilirubin,Total 0.5 mg/dL (0.2-1.3); Blood Urea Nitrogen 16 mg/dL (9-20); Calcium 9.3 mg/dL (8.4-10.2); Carbon Dioxide 26 mmol/L (22-30); Chloride 106 mmol/L (98-107); Estimated Glomerular Filt Rate > 60; Glucose 162 mg/dL (65-110); Sodium 141 mmol/L (137-145)
[2022-02-20 19:09] LABS: Bacteria Urine Trace /hpf; Mucus Urine Rare /lpf; RBC Urine 21-50 /hpf (0-2); Squamous Epithelial Cell Urine Rare /hpf (Few); WBC Urine 21-30 /hpf
--- NOTE | 2022-02-20 19:15 | PC.NURSE ---
Patient report given to FERNANDO Farooq. All questions answered and care of patient transferred.
[2022-02-20 19:17] LABS: Add Urine Microscopic? YES
--- NOTE | 2022-02-20 21:07 | PM.IMHP ---
H&P: HPI History of Present Illness Date/Time: 02/20/22 21:07 Chief Complaint: Abnormal urine. Narrative: This is a 81-year-old male who is quadriplegic, ventilator dependent, chronic trach, chronic indwelling Bhagat catheter, type diabetes mellitus, coronary artery disease, chronic GERD, generalized anxiety disorder, normal pressure hydrocephalus, pacemaker insitu. Patient was brought to the emergency room after he had routine lab work done that showed abnormal urine and was brought for further evaluation. Patient has been in his usual state of health. History has been obtained from as patient is on ventilator and unable to give any history. Preliminary workup was significant for urinalysis positive for Pseudomonas aeruginosa. 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 Ventilator dependent Surgical History Surgical History H/O heart artery stent 5-7 History of bilateral knee arthroplasty History of urostomy Hx of cholecystectomy S/P CABG x 5 S/P percutaneous endoscopic gastrostomy (PEG) tube placement S/P AIR CONTROL/ANTI AIR WARFARE OFFICER shunt Status post cardiac pacemaker procedure Status post cervical spinal fusion C3 through C5 Family History Family History Mother Breast cancer Acute myocardial infarction Father Carcinoma of colon Sibling Breast cancer Diabetes mellitus Social History Social History Social History: Patient lives with his spouse Mikki who is the durable power insurance attorney for healthcare. The patient does have a living will and is listed as a full code. The patient has no biological children. The patient has care around the clock at home. The patient is retired from [employer]. The patient is nonsmoker does not use any alcohol marijuana illicit drugs. Smoking status: Never smoker Second hand tobacco smoke exposure: No Alcohol intake: never Substance use: never Substance use type: does not use Gender identity (if verbalized by the patient): Male Spiritual care concerns: No Meds Home Medications and Allergies Home Medications Medication Instructions Recorded Confirmed Type apixaban 5 mg tablet (Eliquis) 5 mg feeding tube Q12H 05/16/21 02/21/22 History chlorhexidine gluconate 0.12 % 15 ml buccal BID 05/16/21 02/21/22 History mouthwash ipratropium 0.5 mg-albuterol 3 mg 3 ml inhalation Q6H PRN Shortness 05/16/21 02/21/22 History (2.5 mg base)/3 mL nebulization Of Breath soln tramadol 100 mg tablet 100 mg feeding tube Q6H PRN Pain 05/16/21 02/21/22 History insulin NPH isoph U-100 human 100 17 unit subcut WMHS 06/17/21 02/21/22 History unit/mL subcutaneous cartridge venlafaxine 75 mg tablet,extended 150 mg PO DAILY 07/02/21 02/21/22 History release 24 hr acetaminophen 325 mg tablet 650 mg feeding tube Q4H PRN Pain 07/15/21 02/21/22 History bisacodyl 10 mg rectal suppository 10 mg RECTAL DAILY PRN Constipation 07/15/21 02/21/22 History ezetimibe 10 mg tablet (Zetia) 10 mg feeding tube HS 07/15/21 02/21/22 History famotidine 40 mg tablet 40 mg feeding tube DAILY 07/15/21 02/21/22 History gabapentin 300 mg capsule 300 mg feeding tube TID 07/15/21 02/21/22 History (Neurontin) polyethylene glycol 3350 17 gram 17 g PO DAILY PRN Constipa
[2022-02-20] MEDS: METOPROLOL TARTRATE 50 MG TAB 25 MG PO (22:42)
[2022-02-21] VITALS (10 sets, daily range): BP systolic 132–158; BP diastolic 60–93; PULSE 50–74; RESP 12–20; TEMP 36.1–37; O2SAT 97–98; BMI 35.3
--- NOTE | 2022-02-21 00:35 | ADMGEN ---
This patient, Christian Perera, was admitted to Intensive Care Unit-4. Patient/family oriented to hospital policies and general routines including ID bracelet, bed and alarms, visiting hours, pain management, procedures, bathroom and other care routines, personal items, smoking policy, room service/diet, and visiting hours. Information on how to activate the Rapid Response Team has been discussed. Patient/Family are encouraged to report perceived risks to care and to ask questions if they do not understand what they are told or what they should do.
--- NOTE | 2022-02-21 07:27 | PC.NURSE ---
02/21 2008- EMS called to schedule transport for discharge home. 2099- very upset about the ETA for EMS arrival @2330. stated well I can't take him home this time of night. I don't have anyone that can winding department supervisor his vent and I don't know how to do it. RN then spoke with Chey BLUE about the issue of transport home, Chey to speak with hospitalist about admit overnight until transport and home care can be arranged. 2113- EMS canceled at 2113 due to admit orders being placed in the system. RN notified that admit orders were in place and would work on getting pt to ICU. then became very frustrated, stating that she did not want to leave pt here overnight and just wanted him home. RN informed Dr. Paiz that was very upset and now changing her mind again about admit or discharge. 2127- EMS called again for discharge home transport, ETA now midnight. RN notified Dr. Paiz and of new ETA for EMS arrival. RN and Dr. Paiz at bedside, spoke at length with the about admit vs discharge, agreed to admit to ICU for the night and discharge home in the AM with transport in place. 2331-EMS canceled per RN request. home vent left at the bedside per request. 2349- Pt taken to the ICU by RN and RT with home vent taken also. ICU staff notified that linen under pt was from home and was requesting it back.
[2022-02-21] MEDS: CHLORHEXIDINE GLUCONATE 0.12% ORAL RINSE 473 ML BTL (*BKC) 15 ML SWISH/SPIT (08:22)
[2022-02-21] MEDS: APIXABAN 5 MG TABLET FEED TUBE (08:22)
[2022-02-21] MEDS: FAMOTIDINE 20 MG TABLET 40 MG FEED TUBE (08:22)
[2022-02-21] MEDS: TOLNAFTATE 1% POWDER 45 GM BTL 1 APPLIC TOPICAL (08:23)
[2022-02-21] MEDS: GABAPENTIN 300 MG CAPSULE FEED TUBE (08:23)
--- NOTE | 2022-02-21 08:35 | WPDCNINT ---
Assessment and Plan Assessment and plan (1) Chronic respiratory failure: Onset Date: ~10/2020 Code(s): J96.10 - Chronic respiratory failure, unspecified whether with hypoxia or hypercapnia Status: Acute Assessment and Plan: Patient presented the ER for possible UTI, vitals have been stable in the ER. The ER provider discussed the case with PCP and was agreeable to manage as outpatient. Unfortunately patient's home health nurse was sent home on the day of admission as the was under the impression that the patient will be admitted. The does not have the knowledge to manage the patient on the ventilator as she does not know the settings and did not feel comfortable without the help of the home health nurse. -patient has been on peep of 5 and FiO2 of 21% with good O2 sats -denies any shortness of breath, unlabored breathing - (2) Pseudomonas aeruginosa colonization: Code(s): Z22.39 - Carrier of other specified bacterial diseases Status: Acute Assessment and Plan: History of Pseudomonas UTI with colonization -currently vital is stable, ER provided discussed with PCP and was agreeable to manage as outpatient (3) Iron deficiency anemia: Code(s): D50.9 - Iron deficiency anemia, unspecified Status: Acute (4) Quadriplegia following spinal cord injury: Status: Acute Assessment and Plan: Secondary to spinal cord injury -continue our pend (5) Insulin dependent diabetes mellitus: Status: Acute Assessment and Plan: Continue Accu-Cheks and sliding scale insulin (6) Hyperlipidemia: Code(s): E78.5 - Hyperlipidemia, unspecified Status: Acute Assessment and Plan: Continue ezetimibe (7) Chronic GERD: Code(s): K21.9 - Gastro-esophageal reflux disease without esophagitis Status: Acute Assessment and Plan: Continue famotidine Plan Patient most likely with discharged home by hospitalist Additional Plan Code status: Full code Critical care time spent: 42 minute This dictation may have been done utilizing a voice recognition system. Attempts have been made to correct errors. However, there may be uncorrected grammatical, spelling, and recognition errors present. Due to a high probability of clinically significant, life threatening deterioration, the patient required my highest level of preparedness to intervene emergently and I personally spent this critical care time directly and personally managing the patient. This critical care time included obtaining a history; examining the patient; pulse oximetry; ordering and review of studies; arranging urgent treatment with development of a management plan; evaluation of patient's response to treatment; frequent reassessment; and discussions with other providers. It was exclusive of separately billable procedures and treating other patients and teaching time. Please see Assessment and Plan section and the rest of the note for further information on patient assessment and treatment Tumbling Instructor Consult Note Consult date: 02/21/22 Reason for consult: Chronic ventilator dependent, possible UTI HPI: Christian Perera is a 81 year old male with past medical history of spinal cord injury resulting in ventilator dependency due to paraplegia, bladder cancer with urostomy, status post PEG tube, normal-pressure hydrocephalus status post RN BURN shunt, status post pacemaker, history of chronic respiratory failure, coronary artery disease, gastroesophageal reflux disorder, general anxiety disorder, history of pulmonary embolism on Eliquis, history of essential hypertension, insulin-dependent diabetes presented the ED from home for abnormal labs and possible UTI as his urostomy bag was draining dark-colored urine for the last 5 days, urine culture grew Pseudomonas, home health RN advised the to send the patient to the ER for antibiotics. Upon arrival to the ER patient's urine had cleared up, no
[2022-02-21 10:00] LABS: Glucose Point of Care 157 mg/dl (65-105)
--- NOTE | 2022-02-21 10:36 | PM.DS ---
DS: Admitting Diagnosis Discharge Date February 21, 2022 Admitting Diagnosis Possible UTI DS: Discharge Diagnosis Discharge Diagnosis (1) Chronic respiratory failure: Onset Date: ~10/2020 Code(s): J96.10 - Chronic respiratory failure, unspecified whether with hypoxia or hypercapnia Status: Acute Assessment and Plan: Chronic. No exacerbation. - (2) Pseudomonas aeruginosa colonization: Code(s): Z22.39 - Carrier of other specified bacterial diseases Status: Acute Assessment and Plan: Asymptomatic. Colonization Likely. No antibiotics needed. (3) Iron deficiency anemia: Code(s): D50.9 - Iron deficiency anemia, unspecified Status: Acute (4) Quadriplegia following spinal cord injury: Status: Acute Assessment and Plan: Secondary to spinal cord injury -continue our pend (5) Insulin dependent diabetes mellitus: Status: Acute Assessment and Plan: Continue Accu-Cheks and sliding scale insulin (6) Hyperlipidemia: Code(s): E78.5 - Hyperlipidemia, unspecified Status: Acute Assessment and Plan: Continue ezetimibe (7) Chronic GERD: Code(s): K21.9 - Gastro-esophageal reflux disease without esophagitis Status: Acute Assessment and Plan: Continue famotidine (8) CAD (coronary artery disease): Code(s): I25.10 - Atherosclerotic heart disease of [place] coronary artery without angina pectoris Status: Chronic (9) Ventilator dependent: Code(s): Z99.11 - Dependence on respirator [ventilator] status Status: Chronic (10) Gastrostomy tube dependent: Code(s): Z93.1 - Gastrostomy status Status: Acute Plan Patient most likely with discharged home by hospitalist DS: Summary Hospital Course Hospital Course: Patient was admitted with positive urine culture. Completely asymptomatic. No need to treat colonization. Time Spent with Patient Time attestation: Total time spent providing and/or coordinating discharge services: Exam Narrative: General: Well-built gentleman, with tracheostomy, paraplegic, in no acute distress HEENT: pupils equal and reactive, sclera is clear Neck: Supple, tracheostomy in place Respiratory: Coarse breath sounds, decreased at bases, Cardiac: S1-S2 normal, bradycardia Abdomen: Soft, nontender, nondistended, urostomy in place, peg tube in place, normoactive bowel sounds Extremities: Trace edema bilateral lower extremities, right lower extremity is cool from knee downwards, palpable pedal pulses as well as dopplerable pulses Neuro: Patient has a history of paraplegia, he is awake, alert, nods to questions appropriately Skin: No lesions noted Psych: Depressed mood and affect DS: Data Data Completed and Pending Labs on day of discharge: Labs from last 24 hours 02/21/22 02/20/22 02/20/22 09:55 18:45 18:45 WBC 7.1 RBC 5.16 Hgb 14.6 Hct 45.5 MCV 88.2 MCH 28.3 MCHC 32.1 RDW 15.9 H Plt Count 199 MPV 10.4 Immature Gran % (Auto) 2.5 H Neut % (Auto) 75.6 H Lymph % (Auto) 10.0 L [place] % (Auto) 8.7 H Eos % (Auto) 2.2 Baso % (Auto) 1.0 Lymph # (Auto) 0.71 L [place] # (Auto) 0.6 Eos # (Auto) 0.2 Baso # (Auto) 0.1 Abs Immat Gran (auto) 0.18 H Absolute Neuts (auto) 5.4 Absolute Nucleated RBC 0.0 Nucleated RBC % 0.0 Sodium 141 Potassium 4.0 Chloride 106 Carbon Dioxide 26 Anion Gap 9 BUN 16 D Creatinine 0.70 Estim Creat Clear Calc Not Reportable Estimated GFR > 60 Glucose 162 H POC Capillary Glucose 157 H Calcium 9.3 Total Bilirubin 0.5 AST 24 ALT 21 Alkaline Phosphatase 145 H Total Protein 8.0 Albumin 4.3 Urine Color Urine Appearance Urine pH Ur Specific [place] Urine Protein Urine Glucose (UA) Urine Ketones Ur Blood (Man) Urine Nitrate Urine Bilirubin Urine Urobilinogen L
[2022-02-21] MEDS: INSULIN HUMAN NPH (*BKC) 100 UNITS/ML 40 UNITS SUB-Q (10:55)
[2022-02-21] MEDS: METOPROLOL TARTRATE 12.5 MG TABLET FEED TUBE (12:36)
== END 2022-02-21 12:39 | disposition home health service (06) ==
LOC: ANHED 19:58 → ANHICU 22:01
PROVIDERS: Physician Assistant; Admitting Provider Internal Medicine; Emergency Provider Emergency Medicine; Visit Provider Chiropractor
DX: R79.9 Abnormal finding of blood chemistry, unspecified (principal); J96.10 Chronic respiratory failure, unspecified whether with hypoxia or hypercapnia; Z22.39 Carrier of other specified bacterial diseases; D50.9 Iron deficiency anemia, unspecified; Z85.51 Personal history of malignant neoplasm of bladder; I25.10 Atherosclerotic heart disease of native coronary artery without angina pectoris; K21.9 Gastro-esophageal reflux disease without esophagitis; Z86.711 Personal history of pulmonary embolism; Z79.01 Long term (current) use of anticoagulants; E78.5 Hyperlipidemia, unspecified; I10 Essential (primary) hypertension; E11.9 Type 2 diabetes mellitus without complications; Z79.4 Long term (current) use of insulin; Z95.0 Presence of cardiac pacemaker; G82.50 Quadriplegia, unspecified; Z99.11 Dependence on respirator [ventilator] status; Z93.1 Gastrostomy status; Z96.653 Presence of artificial knee joint, bilateral; Z95.1 Presence of aortocoronary bypass graft
CPT/HCPCS: 36415; 71045; 80053; 81001; 82948; 85025; 87086; 87088; 99285; A4248; A9270; G0378; J1815

== ENCOUNTER 2022-03-04 11:11 | Outpatient (NON) | payer MEDICARE, SELFPAY | END 2022-03-04 11:12 | disposition home or self-care (01) | LOC: HOME HLTH 11:15 | PROVIDERS: Visit Provider Nurse Practitioner Family | DX: Z93.1 Gastrostomy status (principal) | CPT/HCPCS: 87070; 87205 ==

== ENCOUNTER 2022-03-07 12:12 | Outpatient (NON) | payer MEDICARE, SELFPAY | END 2022-03-07 12:13 | disposition home or self-care (01) | LOC: ANHLAB 12:21 → HOME HLTH 12:50 → ANHLAB 14:31 | DX: Z85.51 Personal history of malignant neoplasm of bladder (principal) | CPT/HCPCS: 87070; 87077; 87147; 87181; 87186; 87205 ==

== ENCOUNTER 2022-03-19 21:00 | Emergency (ER) | payer MEDICARE, SELFPAY ==
[2022-03-19] VITALS (11 sets, daily range): BP systolic 154–194; BP diastolic 79–99; PULSE 50–60; RESP 21–26; O2SAT 96–100
--- NOTE | ~2022-03-19 | XR_ITS ---
XR chest 1V portable 03/19/2022 22:18 Indication: Shortness of breath. History of PE. Procedure: AP portable chest Comparison: Comparison to multiple prior studies sequentially, with oldest reviewed study dated 08/07. Findings: There is a right ventriculoperitoneal shunt. Tracheostomy tube present. Status post median sternotomy for CABG. Stable position of pacemaker leads. Bibasilar airspace disease is persistent whi ch may represent atelectasis or pneumonia. No significant effusion or pneumothorax. Impression: 1: Bibasilar airspace disease may represent atelectasis or pneumonia. Reviewed, dictated and finalized at location A. Impression: 1: Bibasilar airspace disease may represent atelectasis or pneumonia.
--- NOTE | 2022-03-19 21:14 | ECG_ITS ---
Measurements Intervals [place] Rate: 49 P: MI: 0 QRS: -80 QRSD: 171 T: 133 QT: 520 QTc: 474 Interpretive Statements ELECTRONIC VENTRICULAR PACEMAKER BASELINE ARTIFACT- I, II, III, AVR, AVL, AVF, V1 NO FURTHER INTERPRETATION IS POSSIBLE ATYPICAL ECG Electronically Signed On 03-20-2022 6:35:32 CDT by Luiz Hernandez D.O.
[2022-03-19 21:24] LABS: Glucose Point of Care 226 mg/dl (65-105)
[2022-03-19 21:42] LABS: Basophils Absolute Auto 0.1 K/mm3 (0.0-0.1); Basophils Percent Auto 0.8 % (0.2-1.2); Eosinophils Absolute Auto 0.1 K/mm3 (0-0.3); Eosinophils Percent Auto 1.1 % (0-4.4); Hematocrit 50.1 % (42.0-52.0); Hemoglobin 15.5 g/dL (14.0-18.0); Immature Granulocyte Absolute 0.17 K/mm3 (0.00-0.031); Immature Granulocyte Percent A 1.9 % (0-0.5); Lymphocytes Absolute Auto 0.53 K/mm3 (0.9-3.2); Lymphocytes Percent Auto 5.8 % (18.3-44.2); Mean Corpuscular HGB Conc 30.9 g/dl (32-36); Mean Corpuscular Hemoglobin 27.6 pg (26-34); Mean Corpuscular Volume 89.3 fl (80-100); Mean Platelet Volume 10.6 fl (7.4-10.4); Monocytes Absolute Auto 0.5 K/mm3 (0.1-0.6); Monocytes Percent Auto 5.8 % (2.6-8.5); Neutrophils Absolute Auto 7.7 K/mm3 (1.3-6.7); Neutrophils Percent Auto 84.6 % (45.5-73.1); Platelet Count Result 172 k/mm3 (150-375); Red Blood Count 5.61 M/mm3 (4.6-6.20); Red Cell Distribution Width 15.5 % (11.5-14.5); White Blood Count 9.1 K/mm3 (4.5-10.0)
[2022-03-19 21:53] LABS: Lactic Acid Reflex 1.8 mmol/L (0.7-2.0)
[2022-03-19 22:03] LABS: Alveolar/Arterial O2 Gradient 43.4 mmHg; Base Excess ABG 2.4 mEq/l (+/-2.0); Carboxyhemoglobin 0.8 % THb (0-2.0); Fractional Inspired Oxygen 21 %; HCO3 ABG 23.7 mEq/l (22.0-26.0); Methemoglobin ABG 0.2 %THb (0-1.5); Oxygen Content ABG 20.4 %vol (16.0-22.0); Oxygen Saturation ABG 96.3 % (95.0-100.0); Oxyhemoglobin 94.3 % THb (90.0-100.0); PCO2 ABG 28.3 mmHg (35.0-45.0); PO2 ABG 72.4 mmHg (80.0-100.0); PO2 FiO2 Ratio Arterial Blood 3.45 %; Reduced Hemoglobin 4.7 %THb (0-5.0); Total Hemoglobin 15.4 g/dL (12.0-18.0)
[2022-03-19 22:04] LABS: Device VENTILATOR; Modified Allen's Test Pass; Site Drawn RIGHT RADIAL
[2022-03-19 22:05] LABS: Arterial Blood Gas PEEP 5 cmH2O; Arterial Blood Gas Tidal Volume 450 ml; Arterial Blood Gas Vent Mode CMV; Arterial Blood Gas Ventilator rate 26 /MIN
[2022-03-19 22:55] LABS: Anion Gap 9 mmol/L (8-16); Blood Urea Nitrogen 19 mg/dL (9-20); Calcium 9.6 mg/dL (8.4-10.2); Carbon Dioxide 24 mmol/L (22-30); Chloride 107 mmol/L (98-107); Estimated CRCL calculation 85 ml/min; Estimated Glomerular Filt Rate > 60; Glucose 226 mg/dL (65-110); Potassium 4.4 mmol/L (3.4-5.0); Sodium 140 mmol/L (137-145)
--- NOTE | 2022-03-19 23:38 | PC.NURSE ---
Assuming care of pt.
--- NOTE | 2022-03-20 00:13 | ED.SOB ---
HPI - SOB/Dyspnea General Chief Complaint: Shortness of Breath/Dyspnea Stated Complaint: Shortness of Breath Time Seen by Provider: 03/19/22 21:06 History of Present Illness HPI Narrative: Patient is a 81-year-old male with history of quadriplegia after spinal cord injury who presents to the ER for evaluation of his respiratory status. Patient was at home and his reports his high pressure alarm went off. His home health nurse had not yet arrived and so she called EMS. EMS transported patient without incident. reports patient has not been having any fevers or chills at home. There is been no evidence of difficulty breathing and he has had not had any increased secretions over the last few days. No known sick exposures. Related Data Home Medications Medication Instructions Recorded Confirmed apixaban 5 mg tablet (Eliquis) 5 mg feeding tube Q12H 05/16/21 02/21/22 chlorhexidine gluconate 0.12 % 15 ml buccal BID 05/16/21 02/21/22 mouthwash ipratropium 0.5 mg-albuterol 3 mg 3 ml inhalation Q6H PRN Shortness 05/16/21 02/21/22 (2.5 mg base)/3 mL nebulization Of Breath soln tramadol 100 mg tablet 100 mg feeding tube Q6H PRN Pain 05/16/21 02/21/22 insulin NPH isoph U-100 human 100 17 unit subcut [facility]HS 06/17/21 02/21/22 unit/mL subcutaneous cartridge venlafaxine 75 mg tablet,extended 150 mg PO DAILY 07/02/21 02/21/22 release 24 hr acetaminophen 325 mg tablet 650 mg feeding tube Q4H PRN Pain 07/15/21 02/21/22 bisacodyl 10 mg rectal suppository 10 mg RECTAL DAILY PRN Constipation 07/15/21 02/21/22 ezetimibe 10 mg tablet (Zetia) 10 mg feeding tube HS 07/15/21 02/21/22 famotidine 40 mg tablet 40 mg feeding tube DAILY 07/15/21 02/21/22 gabapentin 300 mg capsule 300 mg feeding tube TID 07/15/21 02/21/22 (Neurontin) polyethylene glycol 3350 17 gram 17 g PO DAILY PRN Constipation 07/15/21 02/21/22 oral powder packet (Miralax) insulin lispro 100 unit/mL See Rx Instructions .Route .COMPLEX 08/18/21 02/21/22 subcutaneous solution (Humalog U-100 Insulin) metoprolol tartrate 25 mg tablet 12.5 mg feeding tube .AM 10/07/21 02/21/22 Allergies Allergy/AdvReac Type Severity Reaction Status Date / Time Cqyhryp-OUB-MnO Reductase Allergy Muscle Pain Verified 02/20/22 17:40 Inhibitor Review of Systems Review of Systems: ROS unobtainable: Yes unobtainable due to medical condition [facility] Past Medical History Medical History Bladder cancer CAD (coronary artery disease) Chronic GERD Chronic respiratory failure (~10/2020) Gastrostomy tube dependent Generalized anxiety disorder History of bladder carcinoma History of gout No longer on allopurinol History of pulmonary embolism On Eliquis Hyperlipidemia Hypertension 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 Ventilator dependent Surgical History Surgical History H/O heart artery stent 5-7 History of bilateral knee arthroplasty History of urostomy Hx of cholecystectomy S/P CABG x 5 S/P percutaneous endoscopic gastrostomy (PEG) tube placement S/P FASHION SHOW DIRECTOR shunt Status post cardiac pacemaker procedure Status post cervical spinal fusion C3 through C5 Family History Family History Mother Breast cancer Acute myocardial infarction Father Carcinoma of colon Sibling Breast cancer Diabetes mellitus Social History Social History Social History: Patient lives with his spouse Mikki who is the durable power electronic repair troubleshooter for healthcare. The patient does have a living will and is listed as a full code. The patient has no biological children. The patient has care around the clock at home. The patient is retired from [employer]. The patient is nonsmok
[2022-03-20 01:01] VITALS: BP 202/142; PULSE 52; RESP 28; O2SAT 97
[2022-03-20 01:15] VITALS: PULSE 54; O2SAT 98
[2022-03-20 01:25] VITALS: BP 179/87; PULSE 60; RESP 22; O2SAT 97
[2022-03-20] MEDS: LORazepam INJ (*CRX) 2 MG/ML VIAL 0.5 MG IV PUSH (01:26)
[2022-03-20 02:54] VITALS: BP 180/92; PULSE 75; RESP 20; O2SAT 97
== END 2022-03-20 03:03 | disposition home or self-care (01) ==
PROVIDERS: Emergency Provider Emergency Medicine
DX: I10 Essential (primary) hypertension (principal); I25.10 Atherosclerotic heart disease of native coronary artery without angina pectoris; E78.5 Hyperlipidemia, unspecified; E11.9 Type 2 diabetes mellitus without complications; Z79.01 Long term (current) use of anticoagulants; Z86.711 Personal history of pulmonary embolism
CPT/HCPCS: 36415; 36600; 71045; 80048; 82375; 82805; 82948; 83050; 83605; 85025; 93005; 96374; 99284; J2060

== ENCOUNTER 2022-04-25 12:34 | Outpatient (NON) | payer MEDICARE, SELFPAY | END 2022-04-25 12:35 | disposition home or self-care (01) | LOC: ANHLAB 12:39 | PROVIDERS: PCP Nurse Practitioner Family; Visit Provider Nurse Practitioner Family | DX: S31.109D Unspecified open wound of abdominal wall, unspecified quadrant without penetration into peritoneal cavity, subsequent encounter (principal) | CPT/HCPCS: 87070; 87147; 87181; 87186; 87205 ==

== ENCOUNTER 2022-04-28 11:38 | Observation (INO) | payer MEDICARE, SELFPAY ==
[2022-04-28] VITALS (20 sets, daily range): BP systolic 144–208; BP diastolic 67–101; PULSE 59–77; RESP 16–20; TEMP 36.3–37.1; O2SAT 92–100; BMI 35.7
--- NOTE | ~2022-04-28 | XR_ITS ---
EXAM: XR G tube replacement w image DATE: 04/28/2022 17:36 HISTORY: placement . COMPARISON: 11/20/2021. FINDINGS: Left basilar atelectasis/consolidation. Incompletely visualized pacer wires. Intact sterno mina wires. NG tube terminates over the stomach with contrast filling into the stomach. No extravasat ion. Normal bowel gas pattern. IMPRESSION: G-tube, in good position. Reviewed, dictated and finalized at location K. IMPRESSION: G-tube, in good position.
--- NOTE | ~2022-04-28 | XR_ITS ---
EXAMINATION: XR chest 1V portable DATE: 04/28/2022 12:51 INDICATION: Shortness of breath. TECHNIQUE: A single frontal view of the chest was obtained on 2 radiographs. COMPARISON: Chest single view 03/19/2022, chest CT 05/17/2021 FINDINGS: There is a small left pleural effusion. There are airspace opacities at left lung base. The re is mild atelectasis in right lower lung zone. No pneumothorax. The heart size is normal. Mediastin al wires are noted. There is a left chest wall pacer with leads in the right atrium and right ventric le. There is a tracheostomy tube in expected position. There are changes of anterior fusion procedure in cervical spine. A right-sided ventriculoperitoneal shunt is noted. IMPRESSION: 1. Stable airspace opacities at left lung base, consistent with atelectasis versus pneumonia. 2. Stable small left pleural effusion. Reviewed, dictated and finalized at location A. IMPRESSION: 1. Stable airspace opacities at left lung base, consistent with atelectasis bhupinder shreyas pneumonia. 2. Stable small left pleural effusion.
--- NOTE | 2022-04-28 14:22 | WPDANESEPPF ---
Anes - Initial Pre Proc Eval Procedure: Operation Date: 04/28/22 15:45 Proposed Procedures p Flexible Bronchoscopy - Megan Camargo MD Date/Time: 04/28/22 14:22 Pre Op Diagnosis: SOB Patient Data Age: 81 Gender: M Height: 1.78 m Weight: 111.8 kg Last Vital Signs Pulse 67 04/28/22 14:18 Resp 20 04/28/22 14:18 BP 189/84 H 04/28/22 14:18 Pulse Ox 97 04/28/22 14:18 O2 Del Method Room Air 04/28/22 12:15 FiO2 21 04/28/22 11:56 Allergies Allergy/AdvReac Type Severity Reaction Status Date / Time Qciwusa-QUH-WtO Reductase Allergy Muscle Pain Verified 04/28/22 12:17 Inhibitor Home Medications Medication Instructions Recorded Confirmed Type apixaban 5 mg tablet (Eliquis) 5 mg feeding tube Q12H 05/16/21 02/21/22 History chlorhexidine gluconate 0.12 % 15 ml buccal BID 05/16/21 02/21/22 History mouthwash ipratropium 0.5 mg-albuterol 3 mg 3 ml inhalation Q6H PRN Shortness 05/16/21 02/21/22 History (2.5 mg base)/3 mL nebulization Of Breath soln tramadol 100 mg tablet 100 mg feeding tube Q6H PRN Pain 05/16/21 02/21/22 History insulin NPH isoph U-100 human 100 17 unit subcut WMHS 06/17/21 02/21/22 History unit/mL subcutaneous cartridge venlafaxine 75 mg tablet,extended 150 mg PO DAILY 07/02/21 02/21/22 History release 24 hr acetaminophen 325 mg tablet 650 mg feeding tube Q4H PRN Pain 07/15/21 02/21/22 History bisacodyl 10 mg rectal suppository 10 mg RECTAL DAILY PRN Constipation 07/15/21 02/21/22 History ezetimibe 10 mg tablet (Zetia) 10 mg feeding tube HS 07/15/21 02/21/22 History famotidine 40 mg tablet 40 mg feeding tube DAILY 07/15/21 02/21/22 History gabapentin 300 mg capsule 300 mg feeding tube TID 07/15/21 02/21/22 History (Neurontin) polyethylene glycol 3350 17 gram 17 g PO DAILY PRN Constipation 07/15/21 02/21/22 History oral powder packet (Miralax) insulin lispro 100 unit/mL See Rx Instructions .Route .COMPLEX 08/18/21 02/21/22 History subcutaneous solution (Humalog U-100 Insulin) metoprolol tartrate 25 mg tablet 12.5 mg feeding tube .AM 10/07/21 02/21/22 History nystatin 100,000 unit/gram topical 1 applic topical BID 1 month #30 10/07/21 02/21/22 Rx cream grams Patient hx anesthesia problems: none Family hx anesthesia problems: none Results Review: All pre-operative results and documents have been reviewed as part of the pre-operative evaluation. 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 Ventilator dependent Surgical History Surgical History H/O heart artery stent 5-7 History of bilateral knee arthroplasty History of urostomy Hx of cholecystectomy S/P CABG x 5 S/P percutaneous endoscopic gastrostomy (PEG) tube placement S/P GUEST ADVISOR shunt Status post cardiac pacemaker procedure Status post cervical spinal fusion C3 through C5 Family History Family History Mother Breast cancer Acute myocardial infarction Father Carcinoma of colon Sibling Breast cancer Diabetes mellitus Social History Social History Social History: Patient lives with his spouse Mikki who is the durable power personal injury attorney for healthcare. The patient does have a living will and is listed as a full code. The patient has no biological children. The patient has care around the clock at home. The patient is retired fro
--- NOTE | 2022-04-28 14:26 | ED.GENADULT ---
HPI - General Adult General Chief complaint: Shortness of Breath/Dyspnea Stated complaint: SOB Time Seen by Provider: 04/28/22 11:58 History of Present Illness HPI narrative: Patient is a 81-year-old male who presents ER with 2 separate issues. First issue is patient was having mucous plugging last night that could be evacuated causing him some respiratory distress. Today he had a similar episode where he is having high pressures and the nurse could not clear it. EMS arrived and transported patient. He did clear mucous plug while they were transporting him. Patient is no longer in distress. He has no oxygen requirement. There have been no new infectious symptoms. Patient's does note that patient's G-tube became clogged this morning and they cannot pass food or medication. He has had no medications today. She would like this attended to. Related Data Home Medications Medication Instructions Recorded Confirmed apixaban 5 mg tablet (Eliquis) 5 mg feeding tube Q12H 05/16/21 02/21/22 chlorhexidine gluconate 0.12 % 15 ml buccal BID 05/16/21 02/21/22 mouthwash ipratropium 0.5 mg-albuterol 3 mg 3 ml inhalation Q6H PRN Shortness 05/16/21 02/21/22 (2.5 mg base)/3 mL nebulization Of Breath soln tramadol 100 mg tablet 100 mg feeding tube Q6H PRN Pain 05/16/21 02/21/22 insulin NPH isoph U-100 human 100 17 unit subcut [facility]HS 06/17/21 02/21/22 unit/mL subcutaneous cartridge venlafaxine 75 mg tablet,extended 150 mg PO DAILY 07/02/21 02/21/22 release 24 hr acetaminophen 325 mg tablet 650 mg feeding tube Q4H PRN Pain 07/15/21 02/21/22 bisacodyl 10 mg rectal suppository 10 mg RECTAL DAILY PRN Constipation 07/15/21 02/21/22 ezetimibe 10 mg tablet (Zetia) 10 mg feeding tube HS 07/15/21 02/21/22 famotidine 40 mg tablet 40 mg feeding tube DAILY 07/15/21 02/21/22 gabapentin 300 mg capsule 300 mg feeding tube TID 07/15/21 02/21/22 (Neurontin) polyethylene glycol 3350 17 gram 17 g PO DAILY PRN Constipation 07/15/21 02/21/22 oral powder packet (Miralax) insulin lispro 100 unit/mL See Rx Instructions .Route .COMPLEX 08/18/21 02/21/22 subcutaneous solution (Humalog U-100 Insulin) metoprolol tartrate 25 mg tablet 12.5 mg feeding tube .AM 10/07/21 02/21/22 Allergies Allergy/AdvReac Type Severity Reaction Status Date / Time [id number]-TSG-OmE Reductase Allergy Muscle Pain Verified 04/28/22 14:32 Inhibitor Review of Systems Review of Systems: All systems reviewed & are unremarkable except as noted in HPI and below ROS unobtainable: Yes unobtainable due to medical condition Gastrointestinal: Comments: G-tube dysfunction PMFSH Past Medical History Medical History Bladder cancer CAD (coronary artery disease) Chronic GERD Chronic respiratory failure (~10/2020) Gastrostomy tube dependent Generalized anxiety disorder History of bladder carcinoma History of gout No longer on allopurinol History of pulmonary embolism On Eliquis Hyperlipidemia Hypertension 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 Ventilator dependent Surgical History Surgical History H/O heart artery stent 5-7 History of bilateral knee arthroplasty History of urostomy Hx of cholecystectomy S/P CABG x 5 S/P percutaneous endoscopic gastrostomy (PEG) tube placement S/P GAS BLENDER shunt Status post cardiac pacemaker procedure Status post cervical spinal fusion C3 through C5 Family History Family History Mother Breast cancer Acute myocardial infarction Father Carcinoma of colon Sibling Breast cancer Diabetes mellitus Social History Social History Social History: Patient lives with his spouse Mikki who is the durable power attor
[2022-04-28 14:41] LABS: Glucose Point of Care 158 mg/dl (65-105)
[2022-04-28] MEDS: LACTATED RINGERS 1,000 ML 150 ML IV CONT (14:45)
--- NOTE | 2022-04-28 14:49 | WPDHPUPDATE1 ---
History and Physical Update Update Date/Time: 04/28/22 14:49 History and Physical has been reviewed, including an updated exam of the patient. There are NO changes in the patient's condition. Risks, benefits, and alternatives have been discussed and questions answered. Patient agrees to proceed with procedure.
[2022-04-28 15:13] LABS: EDCOVIDSCREEN Negative (Negative)
[2022-04-28] MEDS: LIDOCAINE HCL 2% LOCAL INJ 20 ML VIAL 8 ML INFILTRATE (15:17)
--- NOTE | 2022-04-28 15:20 | SUR.OPER ---
55ml NS(lot #[id number] exp: ) given during bronchoscopy and 8 ml lidocaine. Pt had 35ml out in bronchial washings.
--- NOTE | 2022-04-28 15:45 | PM.PNPUL ---
Progress Note: A&P Assessment and Plan (1) Mucus plugging of bronchi: Code(s): T17.500A - Unspecified foreign body in bronchus causing asphyxiation, initial encounter Status: Acute Assessment and Plan: Thick clear secretions removed during bronchoscopy, and this may help him aerate more easily with less plugging. (2) Chronic respiratory failure: Code(s): J96.10 - Chronic respiratory failure, unspecified whether with hypoxia or hypercapnia Status: Acute Assessment and Plan: Subjective Date/time seen: 04/28/22 15:45 Interval history: Christian Perera is a 81 yo man is seen after his bronchoscopy. He is stable. Cultures pending. Review of Systems Review of Systems: All systems reviewed & are unremarkable except as noted in HPI and below Exam Narrative: GENERAL:no acute distress. NECK: Supple. Tracheostomy with normal-appearing skin surrounding it. CHEST: Clear to auscultation. No respiratory distress. HEART: Regular rate and rhythm. ABDOMEN: Soft, nontender, nondistended. Normal-appearing ostomy and G-tube sites. EXTREMITIES: Quadriplegia. NEURO: Awake and alert. Quadriplegic. Objective Data Vital Signs Vital Signs: Vital Signs - 24 hr 04/28/22 11:36 04/28/22 11:42 04/28/22 11:56 Temperature Pulse Rate 60 71 Respiratory Rate 18 Blood Pressure 187/97 H Pulse Oximetry 94 94 92 Oxygen Delivery Mechanical Ventilation Mechanical Ventilation Mechanical Ventilation Oxygen Flow Rate Fraction of Inspired Oxygen 04/28/22 12:13 04/28/22 12:15 04/28/22 12:16 Temperature Pulse Rate 60 60 Respiratory Rate 18 Blood Pressure 164/68 H Pulse Oximetry 94 94 Oxygen Delivery Room Air Oxygen Flow Rate Fraction of Inspired Oxygen 04/28/22 14:17 04/28/22 14:18 04/28/22 14:36 Temperature Pulse Rate 74 67 66 Respiratory Rate 18 20 16 Blood Pressure 159/84 H 189/84 H 201/91 H Pulse Oximetry 97 97 99 Oxygen Delivery Room Air Oxygen Flow Rate Fraction of Inspired Oxygen 04/28/22 15:18 04/28/22 15:28 04/28/22 15:38 Temperature 36.3 C L Pulse Rate 60 60 59 L Respiratory Rate 16 16 16 Blood Pressure 145/67 H 144/68 H 208/93 H Pulse Oximetry 99 99 99 Oxygen Delivery Mechanical Ventilation Mechanical Ventilation Mechanical Ventilation Oxygen Flow Rate 2 2 2 Fraction of Inspired Oxygen Intake/Output Intake/Output: Intake & Output 04/25/22 04/26/22 04/27/22 04/28/22 23:59 23:59 23:59 23:59 Intake Total 250 Balance 250 Meds/Results Medications: Active Medications Generic Name Dose Route Start Last Admin Trade Name Freq PRN Reason Stop Dose Admin Lactated Ringer's 1,000 mls @ 150 mls/hr 04/28/22 14:35 04/28/22 15:42 Lr - Lactated Ringers Iv IV CONT Infused .Q6H40M ARLIN Infusion Radiology Results: ITS Impressions Chest X-Ray 04/28/22 12:52 IMPRESSION: 1. Stable airspace opacities at left lung base, consistent with atelectasis versus pneumonia. 2. Stable small left pleural effusion. Labs Labs: Laboratory Results - last 24 hr 04/28/22 04/28/22 14:36 14:51 POC Capillary Glucose 158 H SARS-CoV-2 IgG/IgM Ag?Rapid Negative
--- NOTE | 2022-04-28 16:00 | ADMGEN ---
This patient, Christian Perera, was admitted to Intensive Care Unit-11. Patient/family oriented to hospital policies and general routines including ID bracelet, bed and alarms, visiting hours, pain management, procedures, bathroom and other care routines, personal items, smoking policy, room service/diet, and visiting hours. Information on how to activate the Rapid Response Team has been discussed. Patient/Family are encouraged to report perceived risks to care and to ask questions if they do not understand what they are told or what they should do.
--- NOTE | 2022-04-28 16:39 | PM.CNPUL ---
Assessment and Plan Assessment and plan (1) Mucus plugging of bronchi: Code(s): T17.500A - Unspecified foreign body in bronchus causing asphyxiation, initial encounter Status: Acute Assessment and Plan: He acutely plugged his airway several times over the last day, will need bronchoscopy. (2) Chronic respiratory failure: Code(s): J96.10 - Chronic respiratory failure, unspecified whether with hypoxia or hypercapnia Status: Acute Assessment and Plan: Since cervical spine injury Oct 2020. He has acute on chronic deterioration. History of Present Illness History of Present Illness Consult date: 06/16/22 Chief complaint: Mucous plugging Narrative: NEW CONSULT: Christian Perera is a 81 year old man with a chronic tracheostomy after a fall Oct 2020, incomplete quadriplegia, on a home vent with occasional breathing over the vent rate. He had increased difficulty this am with desaturation and thick secretions that could not be cleared at home, so his called an ambulance. He has thick clear secretions suctioned during the ambulance ride, with normal vital signs in the ER. He has had problems with secretions recently, and he G-tube is clogged so he has not had medications today. 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 Ventilator dependent Surgical History Surgical History H/O heart artery stent 5-7 History of bilateral knee arthroplasty History of urostomy Hx of cholecystectomy S/P CABG x 5 S/P percutaneous endoscopic gastrostomy (PEG) tube placement S/P LEARNING AND DEVELOPMENT DIRECTOR shunt Status post cardiac pacemaker procedure Status post cervical spinal fusion C3 through C5 Family History Family History Mother Breast cancer Acute myocardial infarction Father Carcinoma of colon Sibling Breast cancer Diabetes mellitus Social History Social History Social History: Patient lives with his spouse Mikki who is the durable power divorce attorney for healthcare. The patient does have a living will and is listed as a full code. The patient has no biological children. The patient has care around the clock at home. The patient is retired from [employer]. The patient is nonsmoker does not use any alcohol marijuana illicit drugs. The patient has nursing care 30/03 home. Code status full code Smoking status: Never smoker Second hand tobacco smoke exposure: No Alcohol intake: unknown Substance use: unknown Substance use type: does not use Gender identity (if verbalized by the patient): Male Spiritual care concerns: No Meds Home Medications and Allergies Home Medications Medication Instructions Recorded Confirmed Type apixaban 5 mg tablet (Eliquis) 5 mg feeding tube Q12H 05/16/21 04/28/22 History chlorhexidine gluconate 0.12 % 15 ml buccal BID 05/16/21 04/28/22 History mouthwash tramadol 100 mg tablet 100 mg feeding tube Q6H PRN Pain 05/16/21 04/28/22 History insulin NPH isoph U-100 human 100 37 unit subcut TID 06/17/21 04/28/22 History unit/mL subcutaneous cartridge
--- NOTE | 2022-04-28 17:08 | PM.IMHP ---
H&P: HPI History of Present Illness Date/Time: 04/28/22 17:08 Chief Complaint: Shortness of breath Narrative: This is a 81-year-old quadriplegic patient who is chronically on a home ventilator. The patient has been seen by Dr. Camargo. He has been having mucous plugging since last night that has been causing him some respiratory distress. The patient has had similar episodes in the past causing him to have high pressures and the nurse could not clear it. Patient arrived via EMS to our ER today. He did clear mucus plug while they were transporting him. The patient was no longer in distress and does not require any oxygen. Also the patient's G-tube had become plugged this morning and could not pass food or medicine. He has not had any medications today. He had his last Eliquis last night. The patient has a chronic tracheostomy and had a few rare rhonchi. His chest x-ray was read as stable airspace opacities at left lung bases consistent with atelectasis versus pneumonia. Stable small left pleural effusion. Patient was taken for bronchoscopy today per Dr. Camargo and the secretions were removed. The patient is being admitted to ICU for observation tonight. The grip boss had been notified per Dr. Camargo and he agreed that the patient could be admitted to ICU overnight. Patient is being admitted for observation status on the date of service of 04/28/2022. Review of Systems Review of Systems: See HPI All systems reviewed & are unremarkable except as noted in HPI and below Constitutional: Constitutional: Reports as per HPI and Reports no additional constitutional complaints Eyes: Eyes: Reports as per HPI and Reports no additional eye complaints ENT: Reports system reviewed and no additional complaints, except as documented and Reports Normal hearing present Cardiovascular: Cardiovascular: Reports no additional cardiovascular complaints Respiratory: Respiratory: Reports no additional respiratory complaints and Reports no additional respiratory complaints Gastrointestinal: Gastrointestinal: Reports as per HPI and Reports no additional gastrointestinal complaints Musculoskeletal: Musculoskeletal: Reports no additional musculoskeletal complaints Integumentary/Breasts: Skin/Breast: Reports system reviewed and no additional complaints, except as docu and Reports as per HPI Neurologic: Reports system reviewed and no additional complaints, except as documented, Reports as per HPI and Reports Normal hearing present Psychiatric: Psychiatric: Reports no additional psychiatric complaints and Reports as per HPI Endocrine: Endocrine: Reports no additional endocrine complaints Hematologic/Lymphatic: Hematologic/Lymphatic: Reports no additional hematologic/lymphatic complaints Allergic/Immunologic: Allergic/Immunologic: Reports no additional allergic/immunologic complaints [facility] Past Medical History Medical History (Updated 04/28/22 @ 17:40 by Jolie Morrison NP) Bladder cancer CAD (coronary artery disease) Chronic GERD Chronic respiratory failure (~10/2020) Gastrostomy tube dependent Generalized anxiety disorder History of bladder carcinoma History of DVT (deep vein thrombosis) History of gout No longer on allopurinol History of pulmonary embolism On Eliquis Hyperlipidemia Hypertension 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
[2022-04-28 17:34] LABS: Appearance Urine Slightly Cloudy (Clear); Bilirubin Urine Negative (Negative); Color Urine Yellow (Yellow); Glucose Urine UA Negative (Negative); Ketones Urine Negative (Negative); Leukocyte Esterase Ur Negative LEU/UL (Negative); Nitrate Urine Negative (Negative); Protein Urine 2+ mg/dL (Negative); Urobilinogen Urine 0.2 mg/dL (<2.0); pH Urine >=9.0 (5.0-9.0)
[2022-04-28 17:59] LABS: WBC Urine 0-3 /hpf
[2022-04-28 18:02] LABS: Add Urine Microscopic? YES; Blood Urine Trace-Intact (Negative)
[2022-04-28] MEDS: LOSARTAN POTASSIUM 100 MG TABLET PO (18:06)
[2022-04-28 18:10] LABS: Glucose Point of Care 180 mg/dl (65-105)
[2022-04-28] MEDS: METOPROLOL TARTRATE 25 MG TABLET PO (20:30)
[2022-04-28] MEDS: EZETIMIBE 10 MG TABLET FEED TUBE (20:30)
[2022-04-28] MEDS: APIXABAN 5 MG TABLET FEED TUBE (20:31)
[2022-04-28 20:34] LABS: Glucose Point of Care 227 mg/dl (65-105)
[2022-04-28] MEDS: INSULIN HUMAN NPH (*BKC) 100 UNITS/ML 37 UNITS SUB-Q (20:43)
[2022-04-28] MEDS: hydrALAZINE HCL 20 MG/ML VIAL 10 MG IV PUSH (22:07)
[2022-04-29] VITALS (18 sets, daily range): BP systolic 129–168; BP diastolic 58–108; PULSE 50–79; RESP 16–22; TEMP 36.9–37.1; O2SAT 97–100; BMI 34.9
[2022-04-29 00:51] LABS: Glucose Point of Care 285 mg/dl (65-105)
[2022-04-29 03:48] LABS: Glucose Point of Care 257 mg/dl (65-105)
[2022-04-29] MEDS: INSULIN ASPART (*BKC) 100 UNITS/ML SUB-Q ×3 (03:51→12:11)
[2022-04-29] MEDS: INSULIN HUMAN NPH (*BKC) 100 UNITS/ML 37 UNITS SUB-Q ×2 (03:52→12:16)
[2022-04-29 05:10] LABS: Basophils Percent Auto 0.6 % (0.2-1.2); Hematocrit 42.5 % (42.0-52.0); Hemoglobin 13.3 g/dL (14.0-18.0); Immature Granulocyte Absolute 0.14 K/mm3 (0.00-0.031); Immature Granulocyte Percent A 2.1 % (0-0.5); Lymphocytes Absolute Auto 0.59 K/mm3 (0.9-3.2); Mean Corpuscular HGB Conc 31.3 g/dl (32-36); Mean Corpuscular Hemoglobin 28.9 pg (26-34); Mean Corpuscular Volume 92.4 fl (80-100); Mean Platelet Volume 11.3 fl (7.4-10.4); Monocytes Absolute Auto 0.5 K/mm3 (0.1-0.6); Monocytes Percent Auto 7.5 % (2.6-8.5); Neutrophils Absolute Auto 5.3 K/mm3 (1.3-6.7); Neutrophils Percent Auto 80.8 % (45.5-73.1); Platelet Count Result 165 k/mm3 (150-375); Red Cell Distribution Width 16.8 % (11.5-14.5); White Blood Count 6.5 K/mm3 (4.5-10.0)
[2022-04-29 05:23] LABS: Alanine Aminotransferase 21 U/L (6-50); Alkaline Phosphatase 128 U/L (38-126); Anion Gap 13 mmol/L (8-16); Aspartate Amino Transferase 22 U/L (17-59); Bilirubin,Total 0.7 mg/dL (0.2-1.3); Blood Urea Nitrogen 26 mg/dL (9-20); Calcium 9.9 mg/dL (8.4-10.2); Carbon Dioxide 24 mmol/L (22-30); Chloride 102 mmol/L (98-107); Estimated CRCL calculation 81 ml/min; Estimated Glomerular Filt Rate > 60; Glucose 273 mg/dL (65-110); Potassium 4.1 mmol/L (3.4-5.0); Sodium 139 mmol/L (137-145)
[2022-04-29 05:25] LABS: Hemoglobin A1C 6.8 % (<5.7)
[2022-04-29 08:05] LABS: Reflex Lactic Acid Yes or No Add Lactic
[2022-04-29 08:13] LABS: Glucose Point of Care 246 mg/dl (65-105)
[2022-04-29] MEDS: CHLORHEXIDINE GLUCONATE 0.12% ORAL RINSE 473 ML BTL (*BKC) 15 ML SWISH/SPIT (08:14)
[2022-04-29] MEDS: APIXABAN 5 MG TABLET FEED TUBE (08:14)
[2022-04-29] MEDS: LOSARTAN POTASSIUM 100 MG TABLET PO (08:15)
[2022-04-29] MEDS: VENLAFAXINE HCL XR 75 MG CAP.ER.24H 150 MG PO (08:15)
[2022-04-29] MEDS: FAMOTIDINE 20 MG TABLET 40 MG FEED TUBE (08:15)
[2022-04-29] MEDS: GABAPENTIN 300 MG CAPSULE FEED TUBE ×2 (08:16→12:07)
[2022-04-29] MEDS: METOPROLOL TARTRATE 12.5 MG TABLET FEED TUBE (08:16)
--- NOTE | 2022-04-29 09:20 | PM.PNPUL ---
Progress Note: A&P Assessment and Plan (1) Mucus plugging of bronchi: Code(s): T17.500A - Unspecified foreign body in bronchus causing asphyxiation, initial encounter Status: Acute Assessment and Plan: Patient developed respiratory distress at home and on his way to the hospital EMS was able to aspirate a mucus plug and his respiratory status improved. Patient underwent a bronchoscopy yesterday that is demonstrated secretions of the right middle lobe that were easily aspirated. Bacterial, AFB and fungal cultures are pending. COVID RT PCR test is negative. Patient has no fever, normal white blood cell count and chest x-ray that is unchanged compared to 03/19/2022. I do not feel he has a pneumonia or tracheobronchitis at this time. From a pulmonary perspective patient is ready for discharge on his same home pulmonary regimen. Continue his home vent: LTV 1150, respiratory rate 16, tidal volume 500, peep of 5, FiO2 21%. Cough assist device. Have the call the Pulmonary Clinic in 1 week to provide a clinical update. Discussed with Dr. Gilbert. Subjective Date/time seen: 04/29/22 09:20 Interval history: 04/28/22 New consult with Chief complaint: Mucous plugging NEW CONSULT: Christian Perera is a 81 year old man with a chronic tracheostomy after a fall Oct 2020, incomplete quadriplegia, on a home vent with occasional breathing over the vent rate. He had increased difficulty this am with desaturation and thick secretions that could not be cleared at home, so his called an ambulance. He has thick clear secretions suctioned during the ambulance ride, with normal vital signs in the ER. Patient underwent bronchoscopy which demonstrated thick secretions of the right middle lobe that were completely aspirated. There were no foreign bodies in the mucus did not appear purulence. Patient was admitted to the ICU for ventilator management. 04/29 Patient use a hospital ventilator overnight and he is able to shake his head yes no. Patient states that he is breathing normal now. He denies any pain. I spoke to the nurse and there is a small to moderate amount of creamy secretions that are easily suctioned. The patient is afebrile. His white blood cell count of 6.5. His creatinine is 0.8. And he is on a hospital ventilator with rate of 16, tidal volume 450, 30% FiO2 and 5 of peep with saturations 99%. DATA: 04/28/2022 EXAMINATION: XR chest 1V portable INDICATION: Shortness of breath. TECHNIQUE: A single frontal view of the chest was obtained on 2 radiographs. COMPARISON: Chest single view 03/19/2022, chest CT 05/17/2021 FINDINGS: There is a small left pleural effusion. There are airspace opacities at left lung base. There is mild atelectasis in right lower lung zone. No pneumothorax. The heart size is normal. Mediastinal wires are noted. There is a left chest wall pacer with leads in the right atrium and right ventricle. There is a tracheostomy tube in expected position. There are changes of anterior fusion procedure in cervical spine. A right-sided ventriculoperitoneal shunt is noted. IMPRESSION: 1. Stable airspace opacities at left lung base, consistent with atelectasis versus pneumonia. 2. Stable small left pleural effusion. Review of Systems Review of Systems: ROS unobtainable: Yes other (tracheostomy) Exam Const: General: cooperative and comfortable HENMT: Head: normal to inspection Ears: hearing grossly normal bilaterally Eyes: General: appearance normal, both eyes and all related structures Neck: Neck: normal visual inspection Chest: Chest palpation & inspection: normal inspection of the chest Resp: Effort & Inspection: normal respiratory effort and able to speak in complete sentences Auscultation: no crackles, no rales, no rhonchi, no wheezes and lung sounds not diminished Cardio: Jugular venous distension: no JVD GI: Inspection: normal to inspection GI Palp: No
[2022-04-29 09:35] LABS: Lactic Acid 3.5 mmol/L (0.7-2.0)
[2022-04-29 11:18] LABS: Alveolar/Arterial O2 Gradient 46.8 mmHg; Base Excess ABG 0.8 mEq/l (+/-2.0); Fractional Inspired Oxygen 30 %; HCO3 ABG 23.1 mEq/l (22.0-26.0); Oxygen Content ABG 18.9 %vol (16.0-22.0); Oxygen Saturation ABG 98.9 % (95.0-100.0); Oxyhemoglobin 97.8 % THb (90.0-100.0); PCO2 ABG 30.4 mmHg (35.0-45.0); PO2 ABG 131.4 mmHg (80.0-100.0); PO2 FiO2 Ratio Arterial Blood 4.38 %; Total Hemoglobin 13.6 g/dL (12.0-18.0); pH ABG 7.498 (7.350-7.450)
[2022-04-29 11:20] LABS: Device VENTILATOR; Modified Allen's Test Pass; Site Drawn RIGHT RADIAL
[2022-04-29 11:21] LABS: Arterial Blood Gas PEEP 5 cmH2O; Arterial Blood Gas Tidal Volume 500 ml; Arterial Blood Gas Vent Mode CMV; Arterial Blood Gas Ventilator rate 16 /MIN
[2022-04-29] MEDS: BISACODYL 10 MG SUPPOSITORY RECTAL (11:56)
[2022-04-29 12:15] LABS: Glucose Point of Care 224 mg/dl (65-105)
--- NOTE | 2022-04-29 12:52 | WPDCNINT ---
Assessment and Plan Assessment and plan (1) Mucus plugging of bronchi: Code(s): T17.500A - Unspecified foreign body in bronchus causing asphyxiation, initial encounter Status: Acute Assessment and Plan: Patient developed mucous plugging of his tracheostomy Now status post bronchoscopy with suctioning of clear secretions He is afebrile, normal WBC and at this time asymptomatic Chest x-ray suggest atelectasis and not pneumonia Not on any antibiotics at this time although cultures obtained during bronchoscopy COVID PCR was negative Case discussed with Dr. Parker from Pulmonary (2) Chronic respiratory failure: Code(s): J96.10 - Chronic respiratory failure, unspecified whether with hypoxia or hypercapnia Status: Acute Assessment and Plan: Continue home vent settings which were reviewed (3) History of DVT (deep vein thrombosis): Code(s): Z86.718 - Personal history of other venous thrombosis and embolism Status: Acute Assessment and Plan: Continue Eliquis (4) Gastrostomy tube dysfunction: Code(s): K94.23 - Gastrostomy malfunction Status: Acute Assessment and Plan: His G-tube was replaced and is now functioning adequately Plan DVT prophylaxis -on Eliquis Stress ulcer prophylaxis -on Pepcid Nutrition -on home dose of Tube Feeds Code Status - Full Code Patient will be likely discharged home today with home health services. Clinical Unit Coordinator Consult Note Consult date: 04/29/22 Reason for consult: Chronic respiratory failure, mucus plugging of his tracheostomy HPI: Christian Perera is a 81 year old male who is quadriparetic and is chronically on a home ventilator.? The patient has been seen by Dr. Camargo. Patient developed mucous plugging of his tracheostomy leading to respiratory distress yesterday and hence was brought to ER. Patient has frequent admissions to hospital due to issues with his ventilator and tracheostomy is. Patient's chest x-ray appears unchanged and he had normal WBC and was afebrile. He underwent bronchoscopy which showed clear secretions which were suctioned out. His PEG was also evaluated and was found to be working adequately. Postprocedure patient was admitted to ICU for overnight management and was anticipated for discharge today.. He remained in on his home ventilator settings overnight vital signs stable. This morning he is awake and denies any complaints. He states he feels at his baseline. Limited history obtained as patient is unable to provide history and only answers questions by nodding his head. Patient denies fever, chest pain, shortness of breath, cough, nausea vomiting, abdominal pain, diarrhea, headache or constipation. 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
[2022-04-29 13:21] LABS: Lactic Acid Reflex 2.8 mmol/L (0.7-2.0)
--- NOTE | 2022-04-29 16:17 | PM.DS ---
DS: Admitting Diagnosis Discharge Date April 29, 2022 Admitting Diagnosis Respiratory distress secondary to mucus plugs DS: Discharge Diagnosis Discharge Diagnosis (1) Mucus plugging of bronchi: Code(s): T17.500A - Unspecified foreign body in bronchus causing asphyxiation, initial encounter Status: Acute Assessment and Plan: Patient developed mucous plugging of his tracheostomy Now status post bronchoscopy with suctioning of clear secretions He is afebrile, normal WBC and at this time asymptomatic Chest x-ray suggest atelectasis and not pneumonia Not on any antibiotics at this time although cultures obtained during bronchoscopy COVID PCR was negative Case discussed with Dr. Parker from Pulmonary (2) Chronic respiratory failure: Code(s): J96.10 - Chronic respiratory failure, unspecified whether with hypoxia or hypercapnia Status: Acute Assessment and Plan: Continue home vent settings which were reviewed (3) History of DVT (deep vein thrombosis): Code(s): Z86.718 - Personal history of other venous thrombosis and embolism Status: Acute Assessment and Plan: Continue Eliquis (4) Gastrostomy tube dysfunction: Code(s): K94.23 - Gastrostomy malfunction Status: Acute Assessment and Plan: His G-tube was replaced and is now functioning adequately Plan DVT prophylaxis -on Eliquis Stress ulcer prophylaxis -on Pepcid Nutrition -on home dose of Tube Feeds Code Status - Full Code Patient will be likely discharged home today with home health services. DS: Summary Hospital Course Hospital Course: 81 year old man with a chronic tracheostomy after a fall Oct 2020, incomplete quadriplegia, on a home vent with occasional breathing over the vent rate. He had increased difficulty this am with desaturation and thick secretions that could not be cleared at home, so his called an ambulance. He has thick clear secretions suctioned during the ambulance ride, with normal vital signs in the ER. Patient underwent bronchoscopy which demonstrated thick secretions of the right middle lobe that were completely aspirated. ? There were no foreign bodies in the mucus did not appear purulence.? Patient was admitted to the ICU for ventilator management. Per the nurse and there is a small to moderate amount of creamy secretions that are easily suctioned.? The patient is afebrile.? His white blood cell count of 6.5.? His creatinine is 0.8.? And he is on a hospital ventilator with rate of 16, tidal volume 450, 30% FiO2 and 5 of peep with saturations 99%. Patient developed respiratory distress at home and on his way to the hospital EMS was able to aspirate a mucus plug and his respiratory status improved.? Patient underwent a bronchoscopy yesterday that is demonstrated secretions of the right middle lobe that were easily aspirated.? Bacterial, AFB and fungal cultures are pending.?COVID RT PCR test is negative. Patient has no fever, normal white blood cell count and chest x-ray that is unchanged compared to 03/19/2022.? I do not feel he has a pneumonia or tracheobronchitis at this time. From a pulmonary perspective patient is ready for discharge? on his same home pulmonary regimen. Continue his home vent:? LTV 1150, respiratory rate 16, tidal volume 500, peep of 5, FiO2 21%. Cough assist device. Call the Pulmonary Clinic in 1 week to provide a clinical update. See above for further details regarding patient's stay. Time Spent with Patient Time attestation: Total time spent providing and/or coordinating discharge services: Exam Narrative: General: Pt is alert awake and in NAD Lungs/Chest: Tracheostomy in place Clear BS B/L, No crackles or wheezing. Cardiac: RRR. Normal S1 S2. No murmurs Circulation: Pedal pulses are intact and symmetrical. Abdomen: Normal bowel sounds.. Soft. NT. ND. Peg tube and urostomy in place Extremities: No clubbing, cyanosis, bilateral pedal edema Warm :
== END 2022-04-29 16:33 | disposition home health service (06) ==
LOC: ANHED 13:52 → ANHENDO 14:30 → ANHICU 15:36
PROVIDERS: Internal Medicine; Nurse Practitioner; Student in an Organized Health Care Education/Training Program; Admitting Provider Internal Medicine Critical Care Medicine; Emergency Provider Emergency Medicine; PCP Nurse Practitioner Family; Visit Provider Internal Medicine Critical Care Medicine
PROC: 0BJ08ZZ Inspection of Tracheobronchial Tree, Via Natural or Artificial Opening Endoscopic (ICD-10-PCS; CPT 31622; principal; 2022-04-28 15:45)
DX: T17.500A Unspecified foreign body in bronchus causing asphyxiation, initial encounter (principal); J96.10 Chronic respiratory failure, unspecified whether with hypoxia or hypercapnia; Z86.718 Personal history of other venous thrombosis and embolism; K94.23 Gastrostomy malfunction; I25.10 Atherosclerotic heart disease of native coronary artery without angina pectoris; K21.9 Gastro-esophageal reflux disease without esophagitis; Z95.5 Presence of coronary angioplasty implant and graft; Z95.1 Presence of aortocoronary bypass graft; E78.5 Hyperlipidemia, unspecified; I10 Essential (primary) hypertension; Z95.0 Presence of cardiac pacemaker; E11.9 Type 2 diabetes mellitus without complications; G82.50 Quadriplegia, unspecified; G91.9 Hydrocephalus, unspecified; Z98.2 Presence of cerebrospinal fluid drainage device; Z20.822 Contact with and (suspected) exposure to COVID-19; F41.1 Generalized anxiety disorder; Z99.11 Dependence on respirator [ventilator] status; Z85.51 Personal history of malignant neoplasm of bladder; Z79.01 Long term (current) use of anticoagulants; Z79.4 Long term (current) use of insulin; Z79.1 Long term (current) use of non-steroidal anti-inflammatories (NSAID); Z79.899 Other long term (current) drug therapy; Z82.49 Family history of ischemic heart disease and other diseases of the circulatory system; Z83.3 Family history of diabetes mellitus; Z80.3 Family history of malignant neoplasm of breast; Z80.0 Family history of malignant neoplasm of digestive organs
CPT/HCPCS: 31623; 36415; 36600; 49450; 71045; 80053; 81001; 82805; 82948; 83036; 83605; 85025; 87015; 87070; 87077; 87102; 87116; 87147; 87181; 87186; 87205; 87206; 87426; 96360; 96361; 99285; A4248; A9270; C9803; G0378; J0360; J1100; J1815; J2405; J2704; J7040; J7120

== ENCOUNTER 2022-05-02 10:00 | Emergency (ER) | payer MEDICARE, SELFPAY ==
[2022-05-02] VITALS (29 sets, daily range): BP systolic 143–195; BP diastolic 69–88; PULSE 60–67; RESP 15–32; TEMP 36.4–37.9; O2SAT 94–98
--- NOTE | ~2022-05-02 | XR_ITS ---
EXAMINATION: XR chest 1V portable DATE: 05/02/2022 10:24 INDICATION: Shortness of breath. TECHNIQUE: A single frontal view of the chest was obtained. COMPARISON: Chest single view 04/28/2022, chest CT 05/17/2021 FINDINGS: There is mild atelectasis in the lower lung zones. No pleural effusion or pneumothorax. Car diomegaly is noted. Median sternotomy wires and mediastinal surgical clips are seen, likely from prio r coronary artery bypass grafting. There is a left chest wall pacer with leads in the right atrium an d right ventricle. There is a tracheostomy tube in expected position. There are changes of anterior a nd posterior fusion procedures in cervical spine. A right-sided ventricular peritoneal shunt is noted . IMPRESSION: 1. Mild atelectasis in the lower lung zones. 2. Cardiomegaly. Reviewed, dictated and finalized at location A.
--- NOTE | 2022-05-02 10:31 | PC.NURSE ---
Respiratory at bedside suctioning pt trach. Large amount of sputum suctioned at this time
[2022-05-02 10:39] LABS: Anion Gap 11 mmol/L (8-16); Blood Urea Nitrogen 30 mg/dL (9-20); Calcium 9.9 mg/dL (8.4-10.2); Carbon Dioxide 28 mmol/L (22-30); Chloride 103 mmol/L (98-107); Estimated CRCL calculation 84 ml/min; Estimated Glomerular Filt Rate > 60; Glucose 156 mg/dL (65-110); Potassium 4.2 mmol/L (3.4-5.0); Sodium 142 mmol/L (137-145)
[2022-05-02 10:42] LABS: Basophils Absolute Auto 0.1 K/mm3 (0.0-0.1); Basophils Percent Auto 0.7 % (0.2-1.2); Eosinophils Absolute Auto 0.4 K/mm3 (0-0.3); Eosinophils Percent Auto 3.5 % (0-4.4); Hematocrit 47.7 % (42.0-52.0); Hemoglobin 14.8 g/dL (14.0-18.0); Immature Granulocyte Absolute 0.23 K/mm3 (0.00-0.031); Immature Granulocyte Percent A 2.3 % (0-0.5); Lymphocytes Absolute Auto 0.84 K/mm3 (0.9-3.2); Lymphocytes Percent Auto 8.4 % (18.3-44.2); Mean Corpuscular Hemoglobin 29.2 pg (26-34); Mean Corpuscular Volume 94.3 fl (80-100); Mean Platelet Volume 10.9 fl (7.4-10.4); Monocytes Absolute Auto 0.7 K/mm3 (0.1-0.6); Monocytes Percent Auto 6.6 % (2.6-8.5); Neutrophils Absolute Auto 7.8 K/mm3 (1.3-6.7); Neutrophils Percent Auto 78.5 % (45.5-73.1); Platelet Count Result 178 k/mm3 (150-375); Red Blood Count 5.06 M/mm3 (4.6-6.20); Red Cell Distribution Width 17.4 % (11.5-14.5)
--- NOTE | 2022-05-02 11:15 | ED.SOB ---
HPI - SOB/Dyspnea General Chief Complaint: Shortness of Breath/Dyspnea Stated Complaint: SOB History of Present Illness HPI Narrative: Patient is a 81-year-old male who presents ER with difficulty breathing. Patient has a tracheostomy and had a mucous plug that was difficult to dislodge. He developed high pressures on his home ventilator. Patient was elevated temperature but no reports of fevers or chills at home. Patient recently hospitalized for similar event where they performed a bronchoscopy. Washings show what is considered colonization of the right middle lobe with Pseudomonas, MRSA, and strep. There are no plans to treat with antibiotics at this time. Patient has been on Bactrim for a abdominal wall infection near his ostomy. Patient has no oxygen requirement. Related Data Home Medications Medication Instructions Recorded Confirmed apixaban 5 mg tablet (Eliquis) 5 mg feeding tube Q12H 05/16/21 04/28/22 chlorhexidine gluconate 0.12 % 15 ml buccal BID 05/16/21 04/28/22 mouthwash tramadol 100 mg tablet 100 mg feeding tube Q6H PRN Pain 05/16/21 04/28/22 insulin NPH isoph U-100 human 100 37 unit subcut TID 06/17/21 04/28/22 unit/mL subcutaneous cartridge venlafaxine 75 mg tablet,extended 150 mg PO DAILY 07/02/21 04/28/22 release 24 hr acetaminophen 325 mg tablet 650 mg feeding tube Q4H PRN Pain 07/15/21 04/28/22 bisacodyl 10 mg rectal suppository 10 mg RECTAL DAILY PRN Constipation 07/15/21 04/28/22 ezetimibe 10 mg tablet (Zetia) 10 mg feeding tube HS 07/15/21 04/28/22 famotidine 40 mg tablet 40 mg feeding tube DAILY 07/15/21 04/28/22 gabapentin 300 mg capsule 300 mg feeding tube TID 07/15/21 04/28/22 (Neurontin) insulin lispro 100 unit/mL See Rx Instructions .Route .COMPLEX 08/18/21 04/28/22 subcutaneous solution (Humalog U-100 Insulin) metoprolol tartrate 25 mg tablet 12.5 mg feeding tube .AM 10/07/21 04/28/22 losartan 100 mg tablet 100 mg PO DAILY 04/28/22 04/28/22 metoprolol tartrate 25 mg tablet 25 mg PO HS 04/28/22 04/28/22 nystatin 100,000 unit/gram topical 1 applic topical BID PRN Rash 04/28/22 04/28/22 cream Allergies Allergy/AdvReac Type Severity Reaction Status Date / Time [id number] Reductase Allergy Muscle Pain Verified 04/28/22 14:32 Inhibitor Review of Systems Review of Systems: ROS unobtainable: Yes unobtainable due to medical condition PMFSH Past Medical History Medical History Bladder cancer CAD (coronary artery disease) Chronic GERD Chronic respiratory failure (~10/2020) Gastrostomy tube dependent Generalized anxiety disorder History of bladder carcinoma History of DVT (deep vein thrombosis) History of gout No longer on allopurinol History of pulmonary embolism On Eliquis Hyperlipidemia Hypertension 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 Ventilator dependent Surgical History Surgical History H/O heart artery stent 5-7 History of bilateral knee arthroplasty History of urostomy Hx of cholecystectomy S/P CABG x 5 S/P percutaneous endoscopic gastrostomy (PEG) tube placement S/P POST TRONIC MACHINE OPERATOR shunt Status post cardiac pacemaker procedure Status post cervical spinal fusion C3 through C5 Family History Family History Mother Breast cancer Acute myocardial infarction Father Carcinoma of colon Sibling Breast cancer Diabetes mellitus Social History Social History Social History: Patient lives with his spouse Mikki who is the durable power commercial attorney for healthcare. The patient does have a living will and is listed as a full code. The patient has no biological children. The patient has care around the clock at home. The patient is retired from [employer]. [facility]
--- NOTE | 2022-05-02 11:35 | PC.NURSE ---
Assumed pt care from FERNANDO Cardona
[2022-05-02 13:05] LABS: SARS-CoV-2 RNA PCR Negative
[2022-05-02 13:59] LABS: Glucose Point of Care 133 mg/dl (65-105)
== END 2022-05-02 16:53 | disposition home or self-care (01) ==
PROVIDERS: Emergency Provider Emergency Medicine; PCP Nurse Practitioner Family
DX: J95.03 Malfunction of tracheostomy stoma (principal); Z20.822 Contact with and (suspected) exposure to COVID-19; I25.10 Atherosclerotic heart disease of native coronary artery without angina pectoris; J96.10 Chronic respiratory failure, unspecified whether with hypoxia or hypercapnia; E78.5 Hyperlipidemia, unspecified; I10 Essential (primary) hypertension; E11.9 Type 2 diabetes mellitus without complications; K21.9 Gastro-esophageal reflux disease without esophagitis; T14.8XXS Other injury of unspecified body region, sequela; G82.50 Quadriplegia, unspecified; Z95.5 Presence of coronary angioplasty implant and graft; Z95.0 Presence of cardiac pacemaker; Z96.653 Presence of artificial knee joint, bilateral; Z95.1 Presence of aortocoronary bypass graft; Z98.1 Arthrodesis status; Z85.51 Personal history of malignant neoplasm of bladder; Z86.718 Personal history of other venous thrombosis and embolism; Z86.711 Personal history of pulmonary embolism; Z79.4 Long term (current) use of insulin; Z79.01 Long term (current) use of anticoagulants; I51.7 Cardiomegaly
CPT/HCPCS: 36415; 71045; 80048; 82948; 85025; 99283; C9803; U0003; U0005

== ENCOUNTER 2022-05-19 15:04 | Outpatient (NON) | payer MEDICARE, SELFPAY ==
[2022-05-19 15:37] LABS: Anion Gap 9 mmol/L (8-16); Blood Urea Nitrogen 22 mg/dL (7-18); Calcium 9.3 mg/dL (8.5-10.1); Carbon Dioxide 26 mmol/L (21-32); Chloride 102 mmol/L (98-108); Estimated Glomerular Filt Rate > 60; Glucose 132 mg/dL (70-99); Osmolality Calculated 289 mOsm/kg (285-295); Potassium 3.8 mmol/L (3.5-5.1); Sodium 137 mmol/L (136-145)
== END 2022-05-19 15:05 | disposition home or self-care (01) ==
LOC: CHSLAB 15:09
PROVIDERS: Visit Provider Nurse Practitioner Family
DX: J96.21 Acute and chronic respiratory failure with hypoxia (principal); E11.42 Type 2 diabetes mellitus with diabetic polyneuropathy; E11.65 Type 2 diabetes mellitus with hyperglycemia
CPT/HCPCS: 36415; 80048

== ENCOUNTER 2023-07-04 14:26 | Inpatient (IN) | payer MEDICARE, SELFPAY ==
[2023-07-04] VITALS (32 sets, daily range): BP systolic 156–194; BP diastolic 72–131; PULSE 50–74; RESP 15–24; TEMP 36.6–37.6; O2SAT 94–100; BMI 33.9
--- NOTE | ~2023-07-04 | XR_ITS ---
EXAMINATION: XR chest 1V portable DATE: 07/08/2023 05:41 INDICATION: Respiratory failure. TECHNIQUE: A single frontal view of the chest was obtained. COMPARISON: Chest single view 07/07/2023 FINDINGS: There are airspace opacities in the lower lung zones. There is a small left pleural effusio n. No pneumothorax. Cardiomegaly is noted. Median sternotomy wires and mediastinal surgical clips are seen, likely from prior coronary artery bypass grafting. There is a tracheostomy tube in expected po sition. There is a left chest wall pacer with leads in the right atrium and right ventricle. There ar e changes of anterior fusion procedure in cervical spine. A right-sided ventriculoperitoneal shunt is noted. IMPRESSION: 1. Stable airspace opacities in the lower lung zones, consistent with atelectasis versus pneumonia. 2. Stable small left pleural effusion. 3. Cardiomegaly. Reviewed, dictated and finalized at location E. IMPRESSION: 1. Stable airspace opacities in the lower lung zones, consistent with atelectas is versus pneumonia. 2. Stable small left pleural effusion. 3. Cardiomegaly.
--- NOTE | ~2023-07-04 | XR_ITS ---
XR chest 1V portable DATE: 07/05/2023 06:11 INDICATION: Respiratory failure TECHNIQUE: Portable AP chest on 07/05/2023 at 0530 hours COMPARISON: 07/04/2023 CT chest high resolution scan 07/04/2023 portable AP chest FINDINGS: Tracheostomy tube appears in satisfactory position. Status post sternotomy. Left dual-lead pacemaker device with leads overlying right atrium and right v entricle. Right shunt catheter. Cardiomegaly. Aortic calcification. Prominent infiltrate or atelectasis in both lower lung zones. No pulmonary vascular congestion. Small left pleural effusion is suggested. Status post lower anterior cervical spine surgical fusion. Diffuse osteopenia. IMPRESSION: Bilateral lower lung infiltrate and/atelectasis, relatively stable in appearance since Reviewed, dictated and finalized at location A. IMPRESSION: Bilateral lower lung infiltrate and/atelectasis, relatively stable in appearance since 07/04/2023
--- NOTE | ~2023-07-04 | XR_ITS ---
EXAMINATION: XR chest 1V portable DATE: 07/09/2023 05:21 INDICATION: Respiratory failure. TECHNIQUE: A single frontal view of the chest was obtained. COMPARISON: Chest single view 07/08/2023 FINDINGS: There are airspace opacities in the mid and lower lung zones. There is a small left pleural effusion. No pneumothorax. Cardiomegaly is noted. Median sternotomy wires and mediastinal surgical c lips are seen, likely from prior coronary artery bypass grafting. There is a left chest wall pacer wi th leads in the right atrium and right ventricle. A tracheostomy tube is noted. There are changes of anterior fusion procedure in cervical spine. There is a right-sided ventriculoperitoneal shunt. IMPRESSION: 1. Airspace opacities in the mid and lower lung zones with worsening on the left, consistent with ate lectasis versus pneumonia. 2. Stable small left pleural effusion. 3. Cardiomegaly. Reviewed, dictated and finalized at location E. IMPRESSION: 1. Airspace opacities in the mid and lower lung zones with worsening on the lef t, consistent with atelectasis versus pneumonia. 2. Stable small left pleural effusion. 3. Cardiomegaly.
--- NOTE | ~2023-07-04 | XR_ITS ---
EXAMINATION: XR chest 1V portable DATE: 07/06/2023 06:11 INDICATION: Respiratory failure. TECHNIQUE: A single frontal view of the chest was obtained. COMPARISON: Chest single view 07/05/2023, chest CT 07/04/2023 FINDINGS: There are airspace opacities in the lower lung zones. There is a small left pleural effusio n. No pneumothorax. The heart size is normal. Median sternotomy wires are noted. There is a left ches t wall pacer with leads in the right atrium and right ventricle. There is a tracheostomy tube in expe cted position. A right-sided ventriculoperitoneal shunt is noted. There are changes of anterior and p osterior fusion procedures in cervical spine. IMPRESSION: 1. Stable airspace opacities in the lower lung zones, consistent with atelectasis or less likely pneu monia. 2. Stable small left pleural effusion. Reviewed, dictated and finalized at location E. IMPRESSION: 1. Stable airspace opacities in the lower lung zones, consistent with atelectas is or less likely pneumonia. 2. Stable small left pleural effusion.
--- NOTE | ~2023-07-04 | XR_ITS ---
EXAMINATION: XR chest 1V portable Exam Date/Time: 07/04/2023 15:25 CDT HISTORY: Dyspnea Comparison: 05/02/2022. RESULT: Lines, tubes, and devices: Partially visualized ACDF hardware. Tracheostomy tube, in good position. Left chest pacer with intact leads. Intact sternotomy wires. Lungs and pleura: Diffuse mild reticular opacities and scattered patchy airspace disease. Segmental left basilar airspace disease. Mild left costophrenic angle blunting. Cardiomediastinal silhouette: Stable. Other: No acute osseous or upper abdominal finding. IMPRESSION: Mild pulmonary edema. Left basilar atelectasis/consolidation. Small left pleural effusion. Reviewed, dictated and finalized at location K. IMPRESSION: Mild pulmonary edema. Left basilar atelectasis/consolidation. Small left pleura l effusion.
--- NOTE | ~2023-07-04 | XR_ITS ---
EXAMINATION: XR chest 1V portable DATE: 07/10/2023 05:46 INDICATION: Respiratory failure. TECHNIQUE: A single frontal view of the chest was obtained. COMPARISON: Chest single view 07/09/2023 FINDINGS: There are airspace opacities in the lower lung zones. No pleural effusion or pneumothorax. Cardiomegaly is noted. Median sternotomy wires and mediastinal surgical clips are seen, likely from p rior coronary artery bypass grafting. There is a left chest wall pacer with leads in the right atrium and right ventricle. A tracheostomy tube is noted. There are changes of anterior fusion procedure in cervical spine. A right-sided ventriculoperitoneal shunt is noted. IMPRESSION: 1. Stable airspace opacities in the lower lung zones, consistent with atelectasis/scarring versus pne umonia. 2. Cardiomegaly. Reviewed, dictated and finalized at location E. IMPRESSION: 1. Stable airspace opacities in the lower lung zones, consistent with atelectas is/scarring versus pneumonia. 2. Cardiomegaly.
--- NOTE | ~2023-07-04 | XR_ITS ---
EXAMINATION: XR chest 1V portable DATE: 07/07/2023 05:38 INDICATION: Respiratory failure. TECHNIQUE: A single frontal view of the chest was obtained. COMPARISON: Chest single view 07/06/2023 FINDINGS: There is mild elevation of right hemidiaphragm. There are mild airspace opacities in all ri ght lung zones. There are airspace opacities in left lower lung zone. There is a small left pleural e ffusion. No pneumothorax. The heart size is normal. There is a tracheostomy tube in expected position . Median sternotomy wires and mediastinal surgical clips are seen, likely from prior coronary artery bypass grafting. There is a left chest wall pacer with leads in the right atrium and right ventricle. There are changes of anterior and posterior fusion procedures in cervical spine. There is a ventricu loperitoneal shunt on the right. IMPRESSION: 1. Airspace opacities in the right lung and left lower lung zone, consistent with atelectasis or less likely pneumonia. 2. Stable small left pleural effusion. Reviewed, dictated and finalized at location E. IMPRESSION: 1. Airspace opacities in the right lung and left lower lung zone, consistent wi th atelectasis or less likely pneumonia. 2. Stable small left pleural effusion.
--- NOTE | ~2023-07-04 | CT_ITS ---
EXAMINATION: CT chest high resolution wo co DATE: 07/04/2023 18:25 INDICATION: Dyspnea TECHNIQUE: Computed tomography (CT) of the chest was performed without intravenous contrast, includin g high-resolution imaging at 1 cm intervals the lungs. Automated exposure control and iterative recon struction technique were employed. The dose-length product was 948.39 mGy-cm. COMPARISON: X-ray chest, same date. FINDINGS: CHEST: Thoracic aorta: Moderate arch calcifications. Lung parenchyma and airways: Dependent bilateral consolidation greater in the left dependent lung. Mi ld septal thickening. Clear airways. Tracheostomy tube terminating in the upper trachea. Thoracic inlet, axillae and chest wall: No thyroid or soft tissue mass. No axillary lymphadenopathy. Sternotomy wires. Mediastinum: No mass or lymphadenopathy. Heart and pericardium: No pericardial effusion. Mild cardiomegaly. Left chest pacer with intact leads . Prior CABG. Coronary artery calcifications: Heavy. Pleura: Small bilateral pleural fluid collections. Upper abdomen: No significant finding. Thoracic bones: No acute osseous finding in the chest. IMPRESSION: Mild interstitial edema. Small bilateral pleural effusions. Bibasilar dependent airspace disease may represent atelectasis, infection, and/or aspiration. Reviewed, dictated and finalized at location K. IMPRESSION: Mild interstitial edema. Small bilateral pleural effusions. Bibasilar dependent airspace disease may represent atelectasis, infection, and/ or aspiration.
--- NOTE | 2023-07-04 14:48 | ECG_ITS ---
Measurements Intervals [place] Rate: 60 P: [place]: 0 QRS: -76 QRSD: 190 T: 117 QT: 501 QTc: 501 Interpretive Statements ELECTRONIC VENTRICULAR PACEMAKER NO FURTHER INTERPRETATION POSSIBLE COMPARED TO ECG 03/19/2022 21:51:18 NO SIGNIFICANT CHANGES Electronically Signed On 07-05-2023 13:29:39 CDT by Keith Stephens M.D.
[2023-07-04 15:16] LABS: Basophils Absolute Auto 0.1 K/mm3 (0.0-0.1); Basophils Percent Auto 0.7 % (0.2-1.2); Eosinophils Absolute Auto 0.1 K/mm3 (0-0.3); Eosinophils Percent Auto 1.6 % (0-4.4); Hematocrit 47.4 % (42.0-52.0); Hemoglobin 14.9 g/dL (14.0-18.0); Immature Granulocyte Percent A 2.9 % (0-0.5); Lymphocytes Absolute Auto 0.69 K/mm3 (0.9-3.2); Lymphocytes Percent Auto 10.1 % (18.3-44.2); Mean Corpuscular HGB Conc 31.4 g/dl (32-36); Mean Corpuscular Hemoglobin 29.9 pg (26-34); Mean Platelet Volume 11.3 fl (7.4-10.4); Monocytes Absolute Auto 0.6 K/mm3 (0.1-0.6); Monocytes Percent Auto 9.3 % (2.6-8.5); Neutrophils Absolute Auto 5.1 K/mm3 (1.3-6.7); Neutrophils Percent Auto 75.4 % (45.5-73.1); Platelet Count Result 164 k/mm3 (150-375); Red Blood Count 4.99 M/mm3 (4.6-6.20); Red Cell Distribution Width 15.8 % (11.5-14.5); White Blood Count 6.8 K/mm3 (4.5-10.0)
[2023-07-04 15:27] LABS: Lactic Acid Reflex 2.3 mmol/L (0.7-2.0)
[2023-07-04 15:31] LABS: INR 1.4; Partial Thromboplastin Time 44.7 SECONDS (22.3-36.8); Prothrombin Time 18.2 Seconds (11.1-14.7)
--- NOTE | 2023-07-04 15:42 | ED.SOB ---
HPI - SOB/Dyspnea General Chief Complaint: Shortness of Breath/Dyspnea Stated Complaint: respiratory distress, vent dependent History of Present Illness HPI Narrative: This is an 82-year-old male, with history of quadriplegia, trach and vent dependent brought in by EMS for respiratory distress and increased tracheal output overnight. The patient's who is at bedside, notes that yesterday, the patient appeared tachypneic, diaphoretic with increased respiratory rate to the high 20s and increased peak inspiratory pressures in the 40s. He had increased mucus output from his trach with streaks of blood that has since resolved. He had similar symptoms this morning that improved with a breathing treatment. His contacted special police, Dr. Goldstein who recommended he be transported to the hospital for IV antibiotics and admission. The patient denies pain. Related Data Home Medications Medication Instructions Recorded Confirmed apixaban 5 mg tablet (Eliquis) 5 mg feeding tube Q12H 05/16/21 04/08/23 chlorhexidine gluconate 0.12 % 15 ml buccal BID 05/16/21 04/08/23 mouthwash tramadol 100 mg tablet 100 mg feeding tube Q6H PRN Pain 05/16/21 04/08/23 venlafaxine 75 mg tablet,extended 150 mg PO DAILY 07/02/21 04/08/23 release 24 hr acetaminophen 325 mg tablet 650 mg feeding tube Q4H PRN Pain 07/15/21 04/08/23 bisacodyl 10 mg rectal suppository 10 mg RECTAL DAILY PRN Constipation 07/15/21 04/08/23 ezetimibe 10 mg tablet (Zetia) 10 mg feeding tube HS 07/15/21 04/08/23 famotidine 40 mg tablet 40 mg feeding tube DAILY 07/15/21 04/08/23 gabapentin 300 mg capsule 300 mg feeding tube TID 07/15/21 04/08/23 (Neurontin) metoprolol tartrate 25 mg tablet 12.5 mg feeding tube .AM 10/07/21 04/08/23 metoprolol tartrate 25 mg tablet 25 mg PO HS 04/28/22 04/08/23 insulin glargine U-300 conc 300 70 unit subcut BID 12/16/22 04/08/23 unit/mL (3 mL) subcutaneous pen (Toujeo Max U-300 SoloStar) losartan 100 mg tablet 100 mg feeding tube 04/08/23 04/08/23 nitroglycerin 2 % transdermal topical 04/08/23 04/08/23 ointment (Nitro-Bid) tramadol 50 mg tablet 50 mg feeding tube 04/08/23 04/08/23 Allergies Allergy/AdvReac Type Severity Reaction Status Date / Time [id number] Reductase Allergy Muscle Pain Verified 07/04/23 15:13 Inhibitor Review of Systems Review of Systems: Review of systems limited due to patient's limited communication abilities CONSTITUTIONAL: Sweats denies fever, chills CARDIOVASCULAR: Denies chest pain RESPIRATORY: Dyspnea and increased trach output GASTROINTESTINAL: Denies abdominal pain NEUROLOGIC: Denies headache, or weakness. 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
[2023-07-04 15:52] LABS: Appearance Urine Clear (Clear); Bacteria Urine None Seen /hpf; Bilirubin Urine Negative (Negative); Blood Urine Negative (Negative); Color Urine Yellow (Yellow); Glucose Urine UA Negative (Negative); Ketones Urine Negative (Negative); Leukocyte Esterase Ur 1+ LEU/UL (Negative); Nitrate Urine Negative (Negative); Non Pathogenic Casts 0-2; Protein Urine 1+ mg/dL (Negative); RBC Urine 0-2 /hpf (0-2); Squamous Epithelial Cell Urine None seen /hpf (Few); pH Urine 7.5 (5.0-9.0)
[2023-07-04 15:54] LABS: Add Urine Microscopic? YES
[2023-07-04 16:00] LABS: Alanine Aminotransferase 22 U/L (6-50); Albumin Level 4.2 g/dL (3.5-5.1); Alkaline Phosphatase 115 U/L (38-126); Anion Gap 8 mmol/L (8-16); Aspartate Amino Transferase 22 U/L (17-59); Bilirubin,Total 1.1 mg/dL (0.2-1.3); Blood Urea Nitrogen 22 mg/dL (9-20); CRP 2.2 mg/dL (<1.0); Calcium 9.6 mg/dL (8.4-10.2); Carbon Dioxide 28 mmol/L (22-30); Chloride 103 mmol/L (98-107); Estimated CRCL calculation 89 ml/min; Estimated Glomerular Filt Rate > 60; Glucose 181 mg/dL (65-110); Sodium 139 mmol/L (137-145)
[2023-07-04] MEDS: CEFEPIME 2 GM/NS 50 ML 2 GM/50 ML BAG IVPB (16:05)
[2023-07-04] MEDS: SODIUM CHLORIDE 0.9% IV 1,000 ML 999 ML IV CONT (17:03)
[2023-07-04 17:19] LABS: Alveolar/Arterial O2 Gradient 30.1 mmHg; Base Excess ABG 0.4 mEq/l (+/-2.0); Fractional Inspired Oxygen 21 %; HCO3 ABG 22.4 mEq/l (22.0-26.0); Oxygen Content ABG 20.3 %vol (16.0-22.0); Oxygen Saturation ABG 97.1 % (95.0-100.0); Oxyhemoglobin 94.8 % THb (90.0-100.0); PCO2 ABG 29.7 mmHg (35.0-45.0); PO2 ABG 84.1 mmHg (80.0-100.0); Total Hemoglobin 15.2 g/dL (12.0-18.0); pH ABG 7.496 (7.350-7.450)
[2023-07-04 17:20] LABS: Arterial Blood Gas Ventilator rate 16 /MIN; Device VENTILATOR; Modified Allen's Test Pass; Site Drawn RIGHT RADIAL
[2023-07-04 17:21] LABS: Arterial Blood Gas PEEP 5 cmH2O; Arterial Blood Gas Pressure Support 5 cmH2O; Arterial Blood Gas Tidal Volume 500 ml; Arterial Blood Gas Vent Mode CMV
[2023-07-04] MEDS: MEROPENEM 1 GM/NS 100 ML 1 GM/100 ML BAG IVPB (17:33)
--- NOTE | 2023-07-04 17:36 | PC.NURSE ---
BS 160
[2023-07-04 17:41] LABS: Glucose Point of Care 160 mg/dl (65-105)
[2023-07-04 18:13] LABS: Reflex Lactic Acid Yes or No Add Lactic
--- NOTE | 2023-07-04 18:47 | ADMGEN ---
This patient, Christian Perera, was admitted to Intensive Care Unit-7 at 1830. Patient/family oriented to hospital policies and general routines including ID bracelet, bed and alarms, visiting hours, pain management, procedures, bathroom and other care routines, personal items, smoking policy, room service/diet, and visiting hours. Information on how to activate the Rapid Response Team has been discussed. Patient/Family are encouraged to report perceived risks to care and to ask questions if they do not understand what they are told or what they should do.
[2023-07-04] MEDS: VANCOMYCIN 1,250 MG/NS 250 ML 1,250 MG/250 ML BAG 166.67 MG IVPB ×2 (18:52)
[2023-07-04 19:12] LABS: Lactic Acid 2.5 mmol/L (0.7-2.0)
[2023-07-04 21:31] LABS: Glucose Point of Care 148 mg/dl (65-105)
--- NOTE | 2023-07-04 22:22 | PM.IMHP ---
H&P: HPI History of Present Illness Date/Time: 07/04/23 20:30 Chief Complaint: Shortness of breath and increased tracheal output. Narrative: This is an 82-year-old male with quadriplegia secondary to cervical spinal cord injury from a fall in October 2020 with chronic respiratory failure and ventilator dependence, coronary artery disease status post CABG, paroxysmal atrial fibrillation, hypertension, dyslipidemia, pulmonary embolism on anticoagulation, insulin-dependent type 2 diabetes mellitus, obstructive sleep apnea, bladder cancer status post cystectomy and urostomy, and depression who presented to the emergency department via EMS from home for evaluation of shortness of breath and increased tracheal output. The patient's provides the following history. Yesterday she noticed that the patient seemed to be breathing over his ventilator with increased peak inspiratory pressures into the 40s. He has also been diaphoretic and overnight he had increased tracheal output with some streaks of blood. She administered a nebulizer treatment this morning with perhaps some improvement. After speaking with his housekeeping aid, Dr. Camargo, they were directed to the ED for admission and IV antibiotics. He was afebrile on arrival. Blood pressures have been running in the 160s to 180s systolic. His labs were significant for a WBC count of 6.8, lactic acid 2.5, CRP 2.2. ABG showed a pH of 7.496, pCO2 29.7, PO2 84.1, bicarb 22.4. Chest CT showed mild interstitial edema, small bilateral pleural effusions, and bibasilar dependent airspace disease which may represent atelectasis, infection, and/or aspiration. He has been started on broad-spectrum antibiotics given history of Pseudomonas and MRSA and he is being admitted to the ICU for further treatment of suspected pneumonia/tracheitis. Review of Systems Review of Systems: A complete review of systems was attempted but quite limited as the patient has difficulties speaking due to injury/tracheostomy. [facility] Past Medical History Medical History (Updated 07/04/23 @ 23:53 by Alyssa Downing PA-C) Bladder cancer Bladder cancer Status post cystectomy and urostomy. Chronic anticoagulation Chronic GERD Chronic respiratory failure (~10/2020) Chronic respiratory failure requiring continuous mechanical ventilation through tracheostomy Coronary artery disease Deep venous thrombosis Generalized anxiety disorder Gout Hyperlipidemia Hypertension Insulin dependent diabetes mellitus MRSA infection Normal pressure hydrocephalus Status post [employer] shunt. Pseudomonas infection Pulmonary embolism Quadriplegia following spinal cord injury Surgical History Surgical History (Updated 07/04/23 @ 23:51 by Alyssa Downing PA-C) History of bilateral knee arthroplasty History of cholecystectomy History of coronary artery stent placement History of five vessel coronary artery bypass History of fusion of cervical spine (10/2020) C3 through C5 History of gastrostomy tube placement History of permanent cardiac pacemaker placement History of urostomy History of ventriculoperitoneal shunting Family History Family History Mother Breast cancer Acute myocardial infarction Father Carcinoma of colon Sibling Breast cancer Diabetes mellitus Social History Social History (Updated 07/04/23 @ 23:51 by Alyssa Downing PA-C) Social History: Healthcare power of defense attorney: Mikki Perera, spouse. Code status: Full code. Smoking status: Never smoker Second hand tobacco smoke exposure: No Alcohol intake: never Substance use: never Substance use type: does not use Lack of Transportation: No Lack of Food: Never True Current Housing: I Have Housing Concerned About Future Housing: No Difficulty Paying Gas/Electric Bills: No Difficulty Paying for Meds: No Currently Unemployed: No Education: Decline to Answer Difficulty w/ Childcar
[2023-07-05] VITALS (34 sets, daily range): BP systolic 122–173; BP diastolic 58–85; PULSE 49–76; RESP 16–22; TEMP 36.2–37.6; O2SAT 94–99
[2023-07-05] MEDS: FUROSEMIDE INJ 40 MG/4 ML VIAL IV PUSH ×2 (01:33→14:59)
[2023-07-05] MEDS: MEROPENEM 1 GM/NS 100 ML 1 GM/100 ML BAG IVPB ×3 (01:33→18:06)
[2023-07-05] MEDS: APIXABAN 5 MG TABLET FEED TUBE ×2 (01:33→09:16)
[2023-07-05] MEDS: traMADol HCL (*CRX) 50 MG TABLET 100 MG FEED TUBE (01:36)
[2023-07-05 01:37] LABS: Glucose Point of Care 91 mg/dl (65-105)
[2023-07-05] MEDS: IPRATROPIUM BR 0.02% INH SOLN 0.5 MG/2.5 ML VIAL INHALATION ×4 (02:20→20:16)
[2023-07-05] MEDS: ALBUTEROL SULFATE NEB 2.5 MG/3 ML INH INHALATION ×4 (02:20→20:16)
[2023-07-05 02:48] LABS: Influenza A QL RT-PCR Negative (Negative); Influenza B QL RT-PCR Negative (Negative); SARS-CoV-2 RNA PCR Negative (Negative)
[2023-07-05 03:32] LABS: MRSA (PCR) NOT DETECTED (NOT DETECTE)
[2023-07-05 04:59] LABS: Basophils Absolute Auto 0.1 K/mm3 (0.0-0.1); Basophils Percent Auto 0.8 % (0.2-1.2); Eosinophils Absolute Auto 0.1 K/mm3 (0-0.3); Eosinophils Percent Auto 1.6 % (0-4.4); Hematocrit 48.4 % (42.0-52.0); Hemoglobin 15.1 g/dL (14.0-18.0); Immature Granulocyte Absolute 0.14 K/mm3 (0.00-0.031); Immature Granulocyte Percent A 1.8 % (0-0.5); Lymphocytes Absolute Auto 0.95 K/mm3 (0.9-3.2); Lymphocytes Percent Auto 12.5 % (18.3-44.2); Mean Corpuscular HGB Conc 31.2 g/dl (32-36); Mean Corpuscular Hemoglobin 29.5 pg (26-34); Mean Corpuscular Volume 94.7 fl (80-100); Mean Platelet Volume 10.9 fl (7.4-10.4); Monocytes Absolute Auto 0.8 K/mm3 (0.1-0.6); Monocytes Percent Auto 10.6 % (2.6-8.5); Neutrophils Absolute Auto 5.5 K/mm3 (1.3-6.7); Neutrophils Percent Auto 72.7 % (45.5-73.1); Platelet Count Result 169 k/mm3 (150-375); Red Blood Count 5.11 M/mm3 (4.6-6.20); Red Cell Distribution Width 15.6 % (11.5-14.5); White Blood Count 7.6 K/mm3 (4.5-10.0)
[2023-07-05 05:12] LABS: Anion Gap 10 mmol/L (8-16); Blood Urea Nitrogen 19 mg/dL (9-20); Calcium 9.6 mg/dL (8.4-10.2); Carbon Dioxide 25 mmol/L (22-30); Chloride 107 mmol/L (98-107); Estimated CRCL calculation 79 ml/min; Estimated Glomerular Filt Rate > 60; Glucose 77 mg/dL (65-110); Potassium 3.1 mmol/L (3.4-5.0); Sodium 142 mmol/L (137-145)
[2023-07-05] MEDS: GABAPENTIN 300 MG CAPSULE FEED TUBE ×3 (05:59→21:37)
[2023-07-05 09:00] LABS: Lactic Acid Reflex 1.5 mmol/L (0.7-2.0)
[2023-07-05] MEDS: METOPROLOL TARTRATE 12.5 MG TABLET FEED TUBE (09:15)
[2023-07-05] MEDS: guaiFENesin 200 MG/10 ML UDC 400 MG FEED TUBE (09:15)
[2023-07-05] MEDS: VENLAFAXINE HCL XR 75 MG CAP.ER.24H 150 MG PO (09:16)
[2023-07-05] MEDS: FAMOTIDINE 20 MG TABLET 40 MG FEED TUBE (09:16)
[2023-07-05] MEDS: CHLORHEXIDINE GLUCONATE 0.12% ORAL RINSE 473 ML BTL (*BKC) 15 ML SWISH/SPIT ×2 (09:17→21:37)
[2023-07-05] MEDS: ARTIFICIAL TEARS OPHTH SOLN 15 ML BOTTLE 1 DROP EACH EYE (09:18)
[2023-07-05] MEDS: POTASSIUM CHLORIDE 20 MEQ PACKET (FOR LIQUID) 40 MEQ FEED TUBE ×2 (09:28→14:59)
[2023-07-05] MEDS: levoFLOXacin 750 MG/D5W 150 ML 750 MG/150 ML BAG 100 MG IVPB (09:28)
[2023-07-05 10:12] LABS: Procalcitonin 0.1 ng/mL
--- NOTE | 2023-07-05 10:42 | WPDCNINT ---
Assessment and Plan Assessment and plan (1) Chronic respiratory failure requiring continuous mechanical ventilation through tracheostomy: Code(s): J96.10 - Chronic respiratory failure, unspecified whether with hypoxia or hypercapnia; Z93.0 - Tracheostomy status; Z99.11 - Dependence on respirator [ventilator] status Status: Acute Assessment and Plan: Chronic respiratory failure secondary to cervical injury leading to tracheostomy and ventilator dependent Continue full mechanical ventilation support to prevent hypoxemia/hypercarbia and end organ damage. ABG and PCXR reviewed and will repeat in am. Tidal volume decreased to 450 Lasix given last night and will be repeated later today Treatment of pneumonia as below Low tidal volume ventilation strategy to prevent volutrauma Bronchodilators (2) Interstitial edema: Code(s): R60.9 - Edema, unspecified Status: Acute Assessment and Plan: Lasix given (3) Pneumonia: Qualifiers: Laterality: left Lung location: lower lobe of lung Pneumonia type: due to unspecified organism Qualified Code(s): J18.9 - Pneumonia, unspecified organism Code(s): J18.9 - Pneumonia, unspecified organism Status: Acute Assessment and Plan: Patient had increased tracheal secretions at home. 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 Blood and sputum cultures have been sent Continue vancomycin meropenem add Levaquin for dual pseudomonal coverage at this time (4) Insulin dependent diabetes mellitus: Status: Acute Assessment and Plan: Continue Lantus and add sliding scale Plan DVT prophylaxis -Eliquis Stress ulcer prophylaxis -Pepcid Nutrition -resume Tube Feeds Code Status - Full Code Total Critical Care Time - 35 minutes Due to a high probability of clinically significant, life threatening deterioration, the patient required my highest level of preparedness to intervene emergently and I personally spent this critical care time directly and personally managing the patient. This critical care time included obtaining a history; examining the patient; pulse oximetry; ordering and review of studies; arranging urgent treatment with development of a management plan; evaluation of patient's response to treatment; frequent reassessment; and discussions with other providers. It was exclusive of separately billable procedures and treating other patients and teaching time. Please see Assessment and Plan section and the rest of the note for further information on patient assessment and treatment [employer] Consult Note Consult date: 07/05/23 Reason for consult: Chronic respiratory failure HPI: Christian Perera is a 82 year old male with quadriplegia secondary to cervical spinal cord injury from a fall in October 2020 with chronic respiratory failure and ventilator dependence who is well known to this ICU due to multiple past admissions, coronary artery disease status post CABG, paroxysmal atrial fibrillation, hypertension, dyslipidemia, pulmonary embolism on anticoagulation, insulin-dependent type 2 diabetes mellitus, obstructive sleep apnea, bladder cancer status post cystectomy and urostomy, and depression was sent to the emergency department via EMS from home for evaluation of shortness of breath and increased tracheal secretions and high PEEP pressures on the ventilator. The patient's provided the history. Yesterday she noticed that the patient seemed to be breathing over his ventilator with increased peak inspiratory pressures into the 40s. He has also been diaphoretic and overnight he had increased tracheal output with some streaks of blood.
[2023-07-05] MEDS: BACLOFEN 5 MG TABLET FEED TUBE (11:58)
[2023-07-05] MEDS: BISACODYL 10 MG SUPPOSITORY RECTAL (11:59)
[2023-07-05 12:17] LABS: Glucose Point of Care 145 mg/dl (65-105)
--- NOTE | 2023-07-05 15:05 | PM.CNPUL ---
Assessment and Plan Assessment and plan (1) Chronic respiratory failure requiring continuous mechanical ventilation through tracheostomy: Code(s): J96.10 - Chronic respiratory failure, unspecified whether with hypoxia or hypercapnia; Z93.0 - Tracheostomy status; Z99.11 - Dependence on respirator [ventilator] status Status: Acute Assessment and Plan: Developed after cervicla injury Oct 2020 after cervical injury Oct 2020, quadriplegia, status post cervical spinal fusion C3 through C5. He oxygenates on FiO2 0.21, room air with a set rate of 16 x 500 ml and PEEP 5 on a home vent. He is admitted with worsening of his acute respiratory failure, possible pneumonia. He is chronically colonized with Pseudomonas and MRSA, has increased secretions. He may need adjustment or replacement of his tracheostomy. He has been using above own a extra long 7.0 and has significant secretions around the stoma. We will consult ENT. (2) Pneumonia: Qualifiers: Pneumonia type: due to unspecified organism Laterality: unspecified laterality Lung location: unspecified part of lung Qualified Code(s): J18.9 - Pneumonia, unspecified organism Code(s): J18.9 - Pneumonia, unspecified organism Status: Acute Assessment and Plan: Chronically colonized, Pseudomonas MRSA, has had outpatient antibiotics recently Levaquin and Bactrim failed outpatient treatment. (3) Tracheostomy dependent: Code(s): Z93.0 - Tracheostomy status Status: Acute Assessment and Plan: History of Present Illness History of Present Illness Consult date: 07/05/23 Requesting physician: Austin Ramirez MD Chief complaint: Pneumonia Narrative: NEW: Christian Perera is an 82 year old male?with quadriplegia, chronic respiratory failure due to the quadriplegia on room air setting through a ventilator at the home. He recently has had increased discolored sputum, increased peak airway pressures, increased respiratory rate, failed outpatient Levaquin and doxycycline. He presents to the hospital for further evaluation for ventilator associated pneumonia. He had a CT chest showing small bilateral pleural effusions, atelectasis especially left base as he has an elevated left hemidiaphragm. He has colonization with Pseudomonas and MRSA. His systolic blood pressures been elevated, 160s over 180s. On admission white count was normal with lactic acid of 2.5 a CRP of 2.2. He has never had hypercapnia. 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 DATA * 07/05/23 - Tracheostomy tube appears in satisfactory position. Status post sternotomy. Left dual-lead pacemaker device with leads overlying right atrium and right ventricle. Right shunt catheter. Cardiomegaly. Aortic calcification. Prominent infiltrate or atelectasis in both lower lung zones. No pulmonary vascular congestion. Small left pleural effusion is suggested. Status post lower anterior cervical spine surgical fusion. Diffuse osteopenia.? IMPRESSION: Bilateral lower lung infiltrate and/atelectasis, relatively stable in appearance since 07/04/2023 Review of Systems Review of Systems: All systems reviewed & are unremarkable except as noted in HPI and below PMFSH Past Medical History Medical History Bladder cancer Bladder cancer Status post cystectomy and urostomy. Chronic anticoagulation Chronic GERD Chronic respiratory failure (~10/2020) Chron
--- NOTE | 2023-07-05 16:08 | PM.IMPN ---
Progress Note: A&P Assessment and Plan (1) Pneumonia: Qualifiers: Laterality: left Lung location: lower lobe of lung Pneumonia type: due to unspecified organism Qualified Code(s): J18.9 - Pneumonia, unspecified organism Code(s): J18.9 - Pneumonia, unspecified organism Status: Acute (2) Interstitial edema: Code(s): R60.9 - Edema, unspecified Status: Acute (3) Chronic respiratory failure requiring continuous mechanical ventilation through tracheostomy: Code(s): J96.10 - Chronic respiratory failure, unspecified whether with hypoxia or hypercapnia; Z93.0 - Tracheostomy status; Z99.11 - Dependence on respirator [ventilator] status Status: Acute (4) Chronic anticoagulation: Code(s): 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 Status: Acute (5) Coronary artery disease: Code(s): I25.10 - Atherosclerotic heart disease of [place] coronary artery without angina pectoris Status: Acute (6) History of DVT (deep vein thrombosis): Code(s): Z86.718 - Personal history of other venous thrombosis and embolism Status: Acute Plan 82M living at home with , w/ PMH quadriplegia 2/2 cervical spinal cord injury from fall in 10/2020 with chronic respiratory failure and ventilator dependence, s/p PEG and hx of SCRAP METAL COLLECTOR 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 Admitted on 07/04 for VAP and lactic acidosis. 1) ventilator associated pneumonia in a pt with chronic respiratory failure requiring continuous mech vent via trach w/ hx of MRSA and pseudomonas infection - respiratory distress resolved. - vent mgmt per pulmonology and critical care. tidal volume as been decreased to 450, pt had respiratory alkalosis on admission - f/u blood sputum cultures, on vancomycin, meropenem and levofloxacin since 07/04, agree to continue that - hx of mucous plugging, does not appear to have that now, pneumonia on CT appears to be dependent bilateral consolidation with some interstitial edema. received 1x dose lasix. pulmonology to assess need for bronchoscopy 2) lactic acidosis - mild, resolved. no systemic symptoms otherwise 3) CAD s/p CABG, hx of DVT and PE - not on aspirin at home. to discuss with . cont eliquis and metoprolol, allergic to statins 4) IDDM - accuchecks and ISS 5) GERD - cont pepcid FEN: tube feeds, saline lock IV GI prophylaxis: pepcid DVT prophylaxis: eliquis Lines: trach, pIV Code Status: Full Code Dispo: stable and improved. Subjective Date/time seen: 07/05/23 16:08 Interval history: NAOE. the , a pleasant lady, is at bedside and she provides history. she believes he is back to baseline respiratory status. Review of Systems Review of Systems: All systems reviewed & are unremarkable except as noted in HPI and below ROS unobtainable: Yes unobtainable due to endotracheal tube Exam Const: General: comfortable and no acute distress Eyes: Pupils: Equal, round and reactive pupils present Neck: Neck: supple Other: trach intact Resp: Other: mech breath sounds, no wheezing or crackles identified Cardio: Rate: regular rate Rhythm: regular rhythm Heart sounds: no murmurs GI: Inspection: distended GI Palp: No Tenderness to palpation present (GI) Other: urostomy w/ clear yellow urine, PEG tube intact Extrem: General: no edema Objective Data Vital Signs Vital Signs: Vital Signs - 24 hr 07/04/23 16:15 07/04/23 16:32 07/04/23 16:45 Temperature Pulse Rate 73 60 64 Respiratory Rate 16 16 16 Blood Pressure Pulse Oximetry 97 97 97 Oxygen Delivery Fraction of Inspired Oxygen 07/04/23 17:03 07/04/23 17:33 07/04/23 17:15
[2023-07-05] MEDS: LOSARTAN POTASSIUM 100 MG TABLET FEED TUBE (17:58)
[2023-07-05 18:32] LABS: Glucose Point of Care 125 mg/dl (65-105)
[2023-07-05] MEDS: traZODone HCL 25 MG TABLET 75 MG FEED TUBE (21:36)
[2023-07-05] MEDS: METOPROLOL TARTRATE 25 MG TABLET PO (21:36)
[2023-07-05] MEDS: ACETAMINOPHEN 325 MG TABLET 650 MG FEED TUBE (21:36)
[2023-07-05] MEDS: EZETIMIBE 10 MG TABLET FEED TUBE (21:37)
[2023-07-05 23:08] LABS: Glucose Point of Care 145 mg/dl (65-105)
[2023-07-06] VITALS (28 sets, daily range): BP systolic 128–168; BP diastolic 60–84; PULSE 50–93; RESP 16–21; TEMP 35.9–37.2; O2SAT 95–99; BMI 33.1
[2023-07-06] MEDS: MEROPENEM 1 GM/NS 100 ML 1 GM/100 ML BAG IVPB ×3 (01:18→17:47)
[2023-07-06] MEDS: ALBUTEROL SULFATE NEB 2.5 MG/3 ML INH INHALATION ×4 (01:50→19:58)
[2023-07-06] MEDS: IPRATROPIUM BR 0.02% INH SOLN 0.5 MG/2.5 ML VIAL INHALATION ×4 (01:50→19:58)
[2023-07-06] MEDS: GABAPENTIN 300 MG CAPSULE FEED TUBE ×3 (05:47→21:23)
[2023-07-06 06:09] LABS: Glucose Point of Care 130 mg/dl (65-105)
[2023-07-06 07:23] LABS: Hematocrit 48.7 % (42.0-52.0); Hemoglobin 14.5 g/dL (14.0-18.0); Mean Corpuscular HGB Conc 29.8 g/dl (32-36); Mean Corpuscular Hemoglobin 29.6 pg (26-34); Mean Corpuscular Volume 99.4 fl (80-100); Mean Platelet Volume 10.9 fl (7.4-10.4); Platelet Count Result 157 k/mm3 (150-375); Red Cell Distribution Width 15.9 % (11.5-14.5); White Blood Count 6.4 K/mm3 (4.5-10.0)
[2023-07-06 07:38] LABS: Alanine Aminotransferase 21 U/L (6-50); Alkaline Phosphatase 96 U/L (38-126); Anion Gap 9 mmol/L (8-16); Aspartate Amino Transferase 26 U/L (17-59); Bilirubin,Total 0.9 mg/dL (0.2-1.3); Blood Urea Nitrogen 21 mg/dL (9-20); Calcium 9.4 mg/dL (8.4-10.2); Carbon Dioxide 24 mmol/L (22-30); Chloride 104 mmol/L (98-107); Estimated CRCL calculation 78 ml/min; Estimated Glomerular Filt Rate > 60; Glucose 127 mg/dL (65-110); Magnesium 2.2 mg/dL (1.6-2.3); Potassium 3.8 mmol/L (3.4-5.0); Sodium 137 mmol/L (137-145)
[2023-07-06] MEDS: levoFLOXacin 750 MG/D5W 150 ML 750 MG/150 ML BAG 100 MG IVPB (09:22)
[2023-07-06] MEDS: VENLAFAXINE HCL XR 75 MG CAP.ER.24H 150 MG PO (09:23)
[2023-07-06] MEDS: FAMOTIDINE 20 MG TABLET 40 MG FEED TUBE (09:23)
[2023-07-06] MEDS: METOPROLOL TARTRATE 12.5 MG TABLET FEED TUBE (09:23)
[2023-07-06] MEDS: guaiFENesin 200 MG/10 ML UDC 400 MG FEED TUBE (09:23)
[2023-07-06] MEDS: FUROSEMIDE INJ 40 MG/4 ML VIAL IV PUSH (09:27)
[2023-07-06] MEDS: CHLORHEXIDINE GLUCONATE 0.12% ORAL RINSE 473 ML BTL (*BKC) 15 ML SWISH/SPIT ×2 (09:27→21:23)
--- NOTE | 2023-07-06 09:37 | WPDINTPN ---
Progress Note: A&P Assessment and Plan (1) Chronic respiratory failure requiring continuous mechanical ventilation through tracheostomy: Code(s): J96.10 - Chronic respiratory failure, unspecified whether with hypoxia or hypercapnia; Z93.0 - Tracheostomy status; Z99.11 - Dependence on respirator [ventilator] status Status: Acute Assessment and Plan: Chronic respiratory failure secondary to cervical injury leading to tracheostomy and ventilator dependent Continue full mechanical ventilation support to prevent hypoxemia/hypercarbia and end organ damage. ABG and PCXR reviewed and will repeat in am. Tidal volume decreased to 450 Lasix given yesterday and will be continued today Treatment of pneumonia as below Low tidal volume ventilation strategy to prevent volutrauma Bronchodilators (2) Interstitial edema: Code(s): R60.9 - Edema, unspecified Status: Acute Assessment and Plan: Lasix given (3) Pneumonia: Qualifiers: Laterality: left Lung location: lower lobe of lung Pneumonia type: due to unspecified organism Qualified Code(s): J18.9 - Pneumonia, unspecified organism Code(s): J18.9 - Pneumonia, unspecified organism Status: Acute Assessment and Plan: Patient had increased tracheal secretions at home. 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 Blood and sputum cultures have been sent and are pending Continue vancomycin meropenem add Levaquin for dual pseudomonal coverage at this time (4) Insulin dependent diabetes mellitus: Status: Acute Assessment and Plan: Continue Lantus and add sliding scale Plan DVT prophylaxis -Eliquis Stress ulcer prophylaxis -Pepcid Nutrition -resume Tube Feeds Code Status - Full Code Total Critical Care Time - 30 minutes Due to a high probability of clinically significant, life threatening deterioration, the patient required my highest level of preparedness to intervene emergently and I personally spent this critical care time directly and personally managing the patient. This critical care time included obtaining a history; examining the patient; pulse oximetry; ordering and review of studies; arranging urgent treatment with development of a management plan; evaluation of patient's response to treatment; frequent reassessment; and discussions with other providers. It was exclusive of separately billable procedures and treating other patients and teaching time. Please see Assessment and Plan section and the rest of the note for further information on patient assessment and treatment Subjective Date/time seen: 07/06/23 Overnight events reviewed. Afebrile overnight Continues to be on mechanical ventilation 450 tidal volume 5 of PEEP 21% FiO2 Tolerating tube feeds, good urine output Vitals acceptable He answers by nodding his head and mild thing words and denies any pain or shortness of breath at this time. He nodes his head no to cough. Review of system is not obtainable since patient is trached and on ventilator Review of Systems Review of Systems: ROS unobtainable: Yes unobtainable due to endotracheal tube and unobtainable due to medical condition Exam Narrative: General: Pt is trached and on mechanical ventilation size 8 Bivona Lungs/Chest: Trachea central Coarse BS B/L, No crackles or wheezing. Cardiac: RRR. Normal S1 S2. No murmurs Circulation: Pedal pulses are intact and symmetrical. Abdomen: Urostomy in the right lower flank. Obese. Soft. NT. ND. Extremities: No clubbing, cyanosis or edema. Warm : Bhagat in place Neurologic: He is awake and quadriplegia, he has some movement in his arms at the shoulder,
--- NOTE | 2023-07-06 10:23 | PM.PNPUL ---
Progress Note: A&P Assessment and Plan (1) Chronic respiratory failure requiring continuous mechanical ventilation through tracheostomy: Code(s): J96.10 - Chronic respiratory failure, unspecified whether with hypoxia or hypercapnia; Z93.0 - Tracheostomy status; Z99.11 - Dependence on respirator [ventilator] status Status: Acute Assessment and Plan: He developed chronic respiratory failure after cervical injury Oct 2020, quadriplegia, status post cervical spinal fusion C3 through C5. He oxygenates on FiO2 0.21, room air with a set rate of 16 x 500 ml and PEEP 5 on a home vent. He was in [facility] May 08-2021. Patient had a blood gas of 7.50/ on 07/04 on a tidal volume of 500 and his tidal volume was decreased to 450. 07/06: Patient is currently on the hospital ventilator with the CMV rate of 16, breathing 19, tidal volume 450, minute ventilation 6.9, peep of 5, room air with saturation 96%. Plan: Continue hospital ventilation with the above settings and room air. Discussed with Dr. Ramirez, will follow with you (2) Pneumonia: Qualifiers: Laterality: left Lung location: lower lobe of lung Pneumonia type: due to unspecified organism Qualified Code(s): J18.9 - Pneumonia, unspecified organism Code(s): J18.9 - Pneumonia, unspecified organism Status: Acute Assessment and Plan: Patient has a history of MRSA sensitive to vancomycin, gentamicin and Bactrim and Pseudomonas sensitive to ceftaz, cefepime, Gent, meropenem, Zosyn and tobramycin on 04/28/2022. 07/06: Patient is nodding his head yes and no and he denies any pain. States that his breathing feels back to normal. Denies heavy secretions. Patient has been afebrile since 07/05 at 4:00 a.m.. White blood cell count 6.4, creatinine 0.8. Chest x-ray today with stable bibasilar interstitial infiltrates most consistent with atelectasis and no changed from 07/04. Plan: Sputum from 07/05/2023 shows greater than 25 squamous cells and I have repeated a culture. Patient is afebrile since 07/05 at 4:00 a.m. on vancomycin, meropenem and levofloxacin. He has minimal secretions, his white blood cell count is 6.4 and his chest x-ray is stable. Would continue current antibiotics while awaiting new sputum culture. His CT scan has bibasilar atelectasis versus infiltrate with air bronchograms. There is no need for bronchoscopy at this time. Subjective Date/time seen: 07/06/23 10:23 Interval history: 07/05/23: New pulmonary consult for home ventilation with pneumonia From hospitalist H&P This is an 82-year-old male with quadriplegia secondary to cervical spinal cord injury from a fall in October 2020 with chronic respiratory failure and ventilator dependence, coronary artery disease status post CABG, paroxysmal atrial fibrillation, hypertension, dyslipidemia, pulmonary embolism on anticoagulation, insulin-dependent type 2 diabetes mellitus, obstructive sleep apnea, bladder cancer status post cystectomy and urostomy, and depression who presented to the emergency department via EMS from home for evaluation of shortness of breath and increased tracheal output. The patient's provides the following history. Yesterday she noticed that the patient seemed to be breathing over his ventilator with increased peak inspiratory pressures into the 40s. He has also been diaphoretic and overnight he had increased tracheal output with some streaks of blood. She administered a nebulizer treatment this morning with perhaps some improvement. After speaking with his emt b, Dr. Camargo, they were directed to the ED for admission and IV antibiotics. He was afebrile on arrival. Blood pressures have been running in the 160s to 180s systolic. His labs were significant for a WBC count of 6.8, lactic acid 2.5, CRP 2.2. ABG showed a pH of 7.496, pCO2 29.7, PO2 84.1, bicarb 22.4. Chest CT showed mild interstitial edema, small bilateral pleural effusions, and bibasilar depend
[2023-07-06 12:04] LABS: Glucose Point of Care 179 mg/dl (65-105)
[2023-07-06] MEDS: BACLOFEN 5 MG TABLET FEED TUBE (12:46)
[2023-07-06] MEDS: LOSARTAN POTASSIUM 100 MG TABLET FEED TUBE (17:47)
[2023-07-06 17:58] LABS: Glucose Point of Care 210 mg/dl (65-105)
[2023-07-06] MEDS: INSULIN ASPART (*BKC) 100 UNITS/ML SUB-Q ×2 (18:16→23:56)
[2023-07-06] MEDS: ACETAMINOPHEN 325 MG TABLET 650 MG FEED TUBE (21:22)
[2023-07-06] MEDS: EZETIMIBE 10 MG TABLET FEED TUBE (21:22)
[2023-07-06] MEDS: traZODone HCL 25 MG TABLET 75 MG FEED TUBE (21:23)
[2023-07-06] MEDS: METOPROLOL TARTRATE 25 MG TABLET PO (21:23)
[2023-07-07] VITALS (29 sets, daily range): BP systolic 101–164; BP diastolic 52–75; PULSE 50–74; RESP 16–33; TEMP 36.4–37.2; O2SAT 96–100
[2023-07-07 00:24] LABS: Glucose Point of Care 244 mg/dl (65-105)
[2023-07-07] MEDS: IPRATROPIUM BR 0.02% INH SOLN 0.5 MG/2.5 ML VIAL INHALATION ×4 (01:39→19:14)
[2023-07-07] MEDS: ALBUTEROL SULFATE NEB 2.5 MG/3 ML INH INHALATION ×4 (01:39→19:14)
[2023-07-07] MEDS: MEROPENEM 1 GM/NS 100 ML 1 GM/100 ML BAG IVPB ×3 (02:40→17:34)
[2023-07-07 04:15] LABS: Hematocrit 46.4 % (42.0-52.0); Hemoglobin 14.3 g/dL (14.0-18.0); Mean Corpuscular HGB Conc 30.8 g/dl (32-36); Mean Corpuscular Hemoglobin 29.4 pg (26-34); Mean Corpuscular Volume 95.5 fl (80-100); Mean Platelet Volume 10.5 fl (7.4-10.4); Platelet Count Result 160 k/mm3 (150-375); Red Blood Count 4.86 M/mm3 (4.6-6.20); Red Cell Distribution Width 15.7 % (11.5-14.5); White Blood Count 5.5 K/mm3 (4.5-10.0)
[2023-07-07 04:34] LABS: Alanine Aminotransferase 20 U/L (6-50); Alkaline Phosphatase 107 U/L (38-126); Anion Gap 11 mmol/L (8-16); Aspartate Amino Transferase 18 U/L (17-59); Bilirubin,Total 0.8 mg/dL (0.2-1.3); Blood Urea Nitrogen 24 mg/dL (9-20); Calcium 9.6 mg/dL (8.4-10.2); Carbon Dioxide 24 mmol/L (22-30); Chloride 102 mmol/L (98-107); Estimated CRCL calculation 63 ml/min; Estimated Glomerular Filt Rate > 60; Glucose 201 mg/dL (65-110); Magnesium 2.2 mg/dL (1.6-2.3); Potassium 3.8 mmol/L (3.4-5.0); Sodium 137 mmol/L (137-145)
[2023-07-07] MEDS: GABAPENTIN 300 MG CAPSULE FEED TUBE ×3 (06:42→22:52)
[2023-07-07 06:48] LABS: Glucose Point of Care 199 mg/dl (65-105)
[2023-07-07] MEDS: PHARMACIST COMMUNICATION ORDER 1 EACH XX (07:44)
[2023-07-07] MEDS: levoFLOXacin 750 MG/D5W 150 ML 750 MG/150 ML BAG 100 MG IVPB (08:13)
[2023-07-07] MEDS: polyethylene glycoL 3350 17 GM POWD.PACK PO (08:16)
[2023-07-07] MEDS: guaiFENesin 200 MG/10 ML UDC 400 MG FEED TUBE (08:16)
[2023-07-07] MEDS: METOPROLOL TARTRATE 12.5 MG TABLET FEED TUBE (08:17)
[2023-07-07] MEDS: FAMOTIDINE 20 MG TABLET 40 MG FEED TUBE (08:17)
[2023-07-07] MEDS: CHLORHEXIDINE GLUCONATE 0.12% ORAL RINSE 473 ML BTL (*BKC) 15 ML SWISH/SPIT ×2 (08:18→20:14)
[2023-07-07] MEDS: VENLAFAXINE HCL XR 75 MG CAP.ER.24H 150 MG PO (08:18)
[2023-07-07] MEDS: BISACODYL 10 MG SUPPOSITORY RECTAL (08:18)
--- NOTE | 2023-07-07 10:04 | PHAR ---
HOME MED: Carmela Melvin U-300 Solostar] 300 unit/mL, 74 UNITS SQ Q12H. Seen in pharmacy, returned to ICU.
--- NOTE | 2023-07-07 10:26 | PM.PNPUL ---
Progress Note: A&P Assessment and Plan (1) Chronic respiratory failure requiring continuous mechanical ventilation through tracheostomy: Code(s): J96.10 - Chronic respiratory failure, unspecified whether with hypoxia or hypercapnia; Z93.0 - Tracheostomy status; Z99.11 - Dependence on respirator [ventilator] status Status: Acute Assessment and Plan: He developed chronic respiratory failure after cervical injury Oct 2020, quadriplegia, status post cervical spinal fusion C3 through C5. He oxygenates on FiO2 0.21, room air with a set rate of 16 x 500 ml and PEEP 5 on a home vent. He was in [facility] May 08-2021. Patient had a blood gas of 7.50// on 07/04 on a tidal volume of 500 and his tidal volume was decreased to 450. 07/06: Patient is currently on the hospital ventilator with the CMV rate of 16, breathing 19, tidal volume 450, minute ventilation 6.9, peep of 5, room air with saturation 96%. Plan: Continue hospital ventilation with the above settings and room air. Discussed with Dr. Ramirez, will follow with you 07/07: Patient remains on the hospital ventilator the CMV rate of 16, tidal volume 450, peep of 5 and 21% FiO2 with saturations 98%. 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 He tried this for 1 week at home and he tolerated this clinically well but the low-pressure alarm was activated and according to the he was unable to tolerate this because of the low pressure alarm. I spoken with Dr. Leon her and Dr. Mckee ENT at our hospital placed this current tracheostomy on which is an extra long Bivona. The states that he leaks and has secretions around this current tracheostomy. Dr. Mckee was consulted. The family has brought in a backup ventilator from home and they still us that these are his current settings and prior to discharge he will be able to wear this. (2) Pneumonia: Qualifiers: Laterality: left Lung location: lower lobe of lung Pneumonia type: due to unspecified organism Qualified Code(s): J18.9 - Pneumonia, unspecified organism Code(s): J18.9 - Pneumonia, unspecified organism Status: Acute Assessment and Plan: Patient has a history of MRSA sensitive to vancomycin, gentamicin and Bactrim and Pseudomonas sensitive to ceftaz, cefepime, Gent, meropenem, Zosyn and tobramycin on 04/28/2022. 07/06: Patient is nodding his head yes and no and he denies any pain. States that his breathing feels back to normal. Denies heavy secretions. Patient has been afebrile since 07/05 at 4:00 a.m.. White blood cell count 6.4, creatinine 0.8. Chest x-ray today with stable bibasilar interstitial infiltrates most consistent with atelectasis and no changed from 07/04. Plan: Sputum from 07/05/2023 shows greater than 25 squamous cells and I have repeated a culture. Patient is afebrile since 07/05 at 4:00 a.m. on vancomycin, meropenem and levofloxacin. He has minimal secretions, his white blood cell count is 6.4 and his chest x-ray is stable. Would continue current antibiotics while awaiting new sputum culture. His CT scan has bibasilar atelectasis versus infiltrate with air bronchograms. There is no need for bronchoscopy at this time. 07/07: White blood cell count 5.5, creatinine 1.0. He is afebrile. He is able to shake his head and denies any respiratory complaints. Chest x-ray shows chronically elevated right hemidiaphragm, bibasilar interstitial infiltrates and no change from 07/06/2023. Plan: Await for repeat sputum culture. Continue vancomycin, meropenem and levofloxacin all started on 07/04/2023, day 4. Discussed with Dr. Moore, will follow with you Subjective Date/time seen: 07/07/23 10:26 Interval history: 07/05/23: New pulmonary consult for home ventilation with pneumonia From hospitalist H&P This is an 82-year-old male with quadriplegia secondary to c
--- NOTE | 2023-07-07 11:26 | PCNFU ---
Nutrition Follow-Up Complete: Inadequate energy intake related to permanent trach/PEG tube, as evidenced by need for full tube feeding Goal: Tolerate tube feeding at goal rate Patient is meeting current goal. No new goal. Pt current nutrition is Glucerna 1.2 at 65 ml/hr. Last recorded weight is 104.4 kg, stable. Bowel Motility:+BM reported 07/03 Labs Reviewed:Glu 201, BUN 24 Meds Noted:Vancomycin, Levaquin. Skin: WNL Additional Notes: Patient has Trach. PEG feedings of Glucerna 1.2 at 65 ml/hr and tolerating per nursing. Tube feedings providing 1716 kcals/86 gms protein/1151 ml water. Flush 50 ml q 4 hours. Agree with diet orders. Monitor tolerance, labs, weights, plan of care Daily in ICU rounds Follow up every Thursday and Thursday per policy.
[2023-07-07] MEDS: INSULIN ASPART (*BKC) 100 UNITS/ML SUB-Q ×3 (12:00→23:49)
--- NOTE | 2023-07-07 12:00 | PC.NURSE ---
Dr. Moore aware of increased respirations post turn. No changes to lung sounds, O2 saturation-99%. Patient denies pain. Does not answer when asked if he feels short of breath.
[2023-07-07 12:04] LABS: Glucose Point of Care 272 mg/dl (65-105)
[2023-07-07] MEDS: BACLOFEN 5 MG TABLET FEED TUBE (12:31)
--- NOTE | 2023-07-07 12:55 | WPDINTPN ---
Progress Note: A&P Assessment and Plan (1) Chronic respiratory failure requiring continuous mechanical ventilation through tracheostomy: Code(s): J96.10 - Chronic respiratory failure, unspecified whether with hypoxia or hypercapnia; Z93.0 - Tracheostomy status; Z99.11 - Dependence on respirator [ventilator] status Status: Acute Assessment and Plan: Chronic respiratory failure secondary to cervical injury leading to tracheostomy and ventilator dependent -Continue full mechanical ventilation support to prevent hypoxemia/hypercarbia and end organ damage. ABG and PCXR reviewed and will repeat in am. -tidal volume 450 mL, peep of 5 and 21% FiO2 -received Lasix 1 dose in 07/06 -Treatment of pneumonia as below -Low tidal volume ventilation strategy to prevent volutrauma -Bronchodilators (2) Pneumonia: Qualifiers: Laterality: left Lung location: lower lobe of lung Pneumonia type: due to unspecified organism Qualified Code(s): J18.9 - Pneumonia, unspecified organism Code(s): J18.9 - Pneumonia, unspecified organism Status: Acute Assessment and Plan: Patient had increased tracheal secretions at home. 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 -07/04: Blood culture negative x2 -07/04: urine culture- mixed genital joseph isolated -07/06: Sputum culture pending -Continue vancomycin, meropenem add Levaquin for dual pseudomonal coverage at this time (07/05) (3) Interstitial edema: Code(s): R60.9 - Edema, unspecified Status: Acute Assessment and Plan: Patient received Lasix on 07/06/2023 with good urine output (4) Insulin dependent diabetes mellitus: Status: Acute Assessment and Plan: Continue Lantus -continue Accu-Cheks and sliding scale insulin Plan DVT prophylaxis -Eliquis Stress ulcer prophylaxis -Pepcid Nutrition -resume Tube Feeds Code Status - Full Code Total Critical Care Time - 34 minutes Discussed with patient's spouse and updated with patient's condition and plan of care. I updated with the Radiology, lab results. I answered all questions Due to a high probability of clinically significant, life threatening deterioration, the patient required my highest level of preparedness to intervene emergently and I personally spent this critical care time directly and personally managing the patient. This critical care time included obtaining a history; examining the patient; pulse oximetry; ordering and review of studies; arranging urgent treatment with development of a management plan; evaluation of patient's response to treatment; frequent reassessment; and discussions with other providers. It was exclusive of separately billable procedures and treating other patients and teaching time. Please see Assessment and Plan section and the rest of the note for further information on patient assessment and treatment Subjective Date/time seen: 07/07/23 12:55 Interval history: Reason for consult: Ventilator dependent Chronic respiratory failure, pneumonia, interstitial edema 07/07/2023: Patient seen and examined the ICU, a chronic tracheostomy and is normally on home ventilator. Currently here on the hospital ventilator CMV mode of ventilation, peep of 5 and 21% FiO2. Patient is not on any sedation, afebrile, hemodynamically stable, adequate urine output, normal WBC count 5.5. Patient is quadriplegic, is able to nod his head denies any shortness of breath or pain. Review of Systems Review of Systems: ROS unobtainable: Yes unobtainable due to endotracheal tube and unobtainable due to medical condition Exam Narrative: General: Pt is
[2023-07-07 16:39] LABS: Glucose Point of Care 227 mg/dl (65-105)
[2023-07-07 16:48] LABS: Pneumococcal Antigen Urine Not Detected (Not Detected)
[2023-07-07] MEDS: LOSARTAN POTASSIUM 100 MG TABLET FEED TUBE (17:36)
--- NOTE | 2023-07-07 17:39 | WPDCN ---
Assessment and Plan Assessment and plan (1) Tracheostomy dependent: Code(s): Z93.0 - Tracheostomy status Status: Acute Assessment and Plan: Patient is trach dependent. Happy to upsize, we have a Shiley that has a 7.5 inner diameter and only a slightly larger outer diameter. Please inform me of pulmonology and ICU as well as family desire to have upsized or not upsized. HPI Data of Consult Date/Time: 07/07/23 17:39 Requesting Physician: Melida Richey MD Primary Care Provider: PHYSICIAN NOT ON STAFF Consult Narrative Narrative: Christian Perera is a 82 year old male who is trach dependent. ENT consult for trach change. Reported difficulty bronchi in through current trach current trach as an inner diameter 7.0 mm. Review of Systems Review of Systems: All systems reviewed & are unremarkable except as noted in HPI and below PMFSH Past Medical History Medical History Bladder cancer Bladder cancer Status post cystectomy and urostomy. 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 Pseudomonas infection Pulmonary embolism Quadriplegia following spinal cord injury Surgical History Surgical History History of bilateral knee arthroplasty History of cholecystectomy History of coronary artery stent placement History of five vessel coronary artery bypass History of fusion of cervical spine (10/2020) C3 through C5 History of gastrostomy tube placement History of permanent cardiac pacemaker placement History of urostomy History of ventriculoperitoneal shunting Family History Family History Mother Breast cancer Acute myocardial infarction Father Carcinoma of colon Sibling Breast cancer Diabetes mellitus Social History Social History Social History: Healthcare power of attorney at law: Mikki Perera, spouse. Code status: Full code. Smoking status: Never smoker Second hand tobacco smoke exposure: No Alcohol intake: never Substance use: never Substance use type: does not use Lack of Transportation: No Lack of Food: Never True Current Housing: I Have Housing Concerned About Future Housing: No Difficulty Paying Gas/Electric Bills: No Difficulty Paying for Meds: No Currently Unemployed: No Education: Decline to Answer Difficulty w/ Childcare or Family Care: No Living arrangements: with family Additional living arrangements comments: Lives with spouse in [place]. They have 24 hour care at home. Occupation/Education: retired Additional occupation/education comments: [employer] care concerns: No Meds Home Medications and Allergies Home Medications Medication Instructions Recorded Confirmed Type apixaban 5 mg tablet (Eliquis) 5 mg feeding tube Q12H 05/16/21 07/04/23 History chlorhexidine gluconate 0.12 % 15 ml buccal BID 05/16/21 07/04/23 History mouthwash tramadol 100 mg tablet 100 mg feeding tube Q6H PRN Pain 05/16/21 07/04/23 History venlafaxine 75 mg tablet,extended 150 mg PO DAILY 07/02/21 07/04/23 History release 24 hr acetaminophen 325 mg tablet 650 mg feeding tube Q4H PRN Pain 07/15/21 07/04/23 History bisacodyl 10 mg rectal suppository 10 mg RECTAL DAILY PRN Constipation 07/15/21 07/04/23 History ezetimibe 10 mg tablet (Zetia) 10 mg feeding tube HS 07/15/21 07/04/23 History famotidine 40 mg tablet 40 mg feeding tube DAILY 07/15/21 07/04/23 History gabapentin 300 mg capsule 30
--- NOTE | 2023-07-07 17:40 | PC.NURSE ---
Dr. Mckee to bedside. Spoke to patient's spouse via telephone.
[2023-07-07] MEDS: traZODone HCL 25 MG TABLET 75 MG FEED TUBE (20:09)
[2023-07-07] MEDS: ACETAMINOPHEN 325 MG TABLET 650 MG FEED TUBE (20:09)
[2023-07-07] MEDS: METOPROLOL TARTRATE 25 MG TABLET PO (20:10)
[2023-07-07] MEDS: EZETIMIBE 10 MG TABLET FEED TUBE (20:10)
--- NOTE | 2023-07-07 20:26 | PC.NURSE ---
Insulin administration for home insulin verified by Vipul KING.
[2023-07-07 20:29] LABS: Glucose Point of Care 217 mg/dl (65-105)
[2023-07-07 23:47] LABS: Glucose Point of Care 239 mg/dl (65-105)
[2023-07-08] VITALS (27 sets, daily range): BP systolic 121–161; BP diastolic 55–82; PULSE 50–86; RESP 16–24; TEMP 36.8–37.1; O2SAT 94–100
[2023-07-08] MEDS: ALBUTEROL SULFATE NEB 2.5 MG/3 ML INH INHALATION ×4 (01:03→20:54)
[2023-07-08] MEDS: IPRATROPIUM BR 0.02% INH SOLN 0.5 MG/2.5 ML VIAL INHALATION ×4 (01:03→20:54)
[2023-07-08] MEDS: MEROPENEM 1 GM/NS 100 ML 1 GM/100 ML BAG IVPB ×3 (02:04→17:42)
[2023-07-08 04:20] LABS: Basophils Absolute Auto 0.1 K/mm3 (0.0-0.1); Basophils Percent Auto 0.8 % (0.2-1.2); Eosinophils Absolute Auto 0.1 K/mm3 (0-0.3); Hematocrit 48.1 % (42.0-52.0); Hemoglobin 14.8 g/dL (14.0-18.0); Immature Granulocyte Absolute 0.16 K/mm3 (0.00-0.031); Immature Granulocyte Percent A 2.5 % (0-0.5); Lymphocytes Absolute Auto 0.88 K/mm3 (0.9-3.2); Lymphocytes Percent Auto 13.7 % (18.3-44.2); Mean Corpuscular HGB Conc 30.8 g/dl (32-36); Mean Corpuscular Hemoglobin 29.7 pg (26-34); Mean Corpuscular Volume 96.6 fl (80-100); Mean Platelet Volume 10.7 fl (7.4-10.4); Monocytes Absolute Auto 0.8 K/mm3 (0.1-0.6); Neutrophils Absolute Auto 4.4 K/mm3 (1.3-6.7); Platelet Count Result 151 k/mm3 (150-375); Red Blood Count 4.98 M/mm3 (4.6-6.20); Red Cell Distribution Width 15.8 % (11.5-14.5); White Blood Count 6.4 K/mm3 (4.5-10.0)
[2023-07-08 04:32] LABS: Alanine Aminotransferase 20 U/L (6-50); Albumin Level 4.2 g/dL (3.5-5.1); Alkaline Phosphatase 121 U/L (38-126); Anion Gap 8 mmol/L (8-16); Aspartate Amino Transferase 19 U/L (17-59); Bilirubin,Total 0.8 mg/dL (0.2-1.3); Blood Urea Nitrogen 26 mg/dL (9-20); Calcium 9.8 mg/dL (8.4-10.2); Carbon Dioxide 27 mmol/L (22-30); Chloride 100 mmol/L (98-107); Estimated CRCL calculation 70 ml/min; Estimated Glomerular Filt Rate > 60; Glucose 240 mg/dL (65-110); Magnesium 2.2 mg/dL (1.6-2.3); Potassium 3.9 mmol/L (3.4-5.0); Sodium 135 mmol/L (137-145)
[2023-07-08] MEDS: GABAPENTIN 300 MG CAPSULE FEED TUBE ×3 (06:09→22:35)
[2023-07-08] MEDS: INSULIN ASPART (*BKC) 100 UNITS/ML SUB-Q ×3 (06:13→17:36)
[2023-07-08 06:17] LABS: Glucose Point of Care 252 mg/dl (65-105)
[2023-07-08] MEDS: levoFLOXacin 750 MG/D5W 150 ML 750 MG/150 ML BAG 100 MG IVPB (08:40)
[2023-07-08] MEDS: METOPROLOL TARTRATE 12.5 MG TABLET FEED TUBE (08:40)
[2023-07-08] MEDS: guaiFENesin 200 MG/10 ML UDC 400 MG FEED TUBE (08:40)
[2023-07-08] MEDS: FAMOTIDINE 20 MG TABLET 40 MG FEED TUBE (08:41)
[2023-07-08] MEDS: VENLAFAXINE HCL XR 75 MG CAP.ER.24H 150 MG PO (08:41)
[2023-07-08] MEDS: CHLORHEXIDINE GLUCONATE 0.12% ORAL RINSE 473 ML BTL (*BKC) 15 ML SWISH/SPIT ×2 (09:06→20:13)
--- NOTE | 2023-07-08 10:32 | PM.PNPUL ---
Progress Note: A&P Assessment and Plan (1) Chronic respiratory failure requiring continuous mechanical ventilation through tracheostomy: Code(s): J96.10 - Chronic respiratory failure, unspecified whether with hypoxia or hypercapnia; Z93.0 - Tracheostomy status; Z99.11 - Dependence on respirator [ventilator] status Status: Acute Assessment and Plan: He developed chronic respiratory failure after cervical injury Oct 2020, quadriplegia, status post cervical spinal fusion C3 through C5. He oxygenates on FiO2 0.21, room air with a set rate of 16 x 500 ml and PEEP 5 on a home vent. He was in [facility] May 08-2021. Patient had a blood gas of 7.50/ on 07/04 on a tidal volume of 500 and his tidal volume was decreased to 450. 07/06: Patient is currently on the hospital ventilator with the CMV rate of 16, breathing 19, tidal volume 450, minute ventilation 6.9, peep of 5, room air with saturation 96%. Plan: Continue hospital ventilation with the above settings and room air. Discussed with Dr. Ramirez, will follow with you 07/07: Patient remains on the hospital ventilator the CMV rate of 16, tidal volume 450, peep of 5 and 21% FiO2 with saturations 98%. 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 He tried this for 1 week at home and he tolerated this clinically well but the low-pressure alarm was activated and according to the he was unable to tolerate this because of the low pressure alarm. I spoken with Dr. Leon her and Dr. Mckee ENT at our hospital placed this current tracheostomy on which is an extra long Bivona. The states that he leaks and has secretions around this current tracheostomy. Dr. Mckee was consulted. The family has brought in a backup ventilator from home and they still us that these are his current settings and prior to discharge he will be able to wear this. 07/08/23: Patient remains on the hospital ventilator CMV rate of 16, tidal volume 450, peep of 5 and 21% FiO2 with saturations 94%. His peak pressure is 19, mean pressure is 8.3, minute ventilation is 6.9. I spoke with the nursing staff and respiratory therapy and occasionally he will have low tidal volume alarms and most of the time no interventions will be done and this will last about 5 seconds and then spontaneously resolve. RT is had to is add a little bit of water to the Brovana to help prevent this as well. Plan: My partner Dr. Camargo, his spoken to ENT, Dr. Mckee about this complicated patient requiring home ventilation with tracheal malacia and air leakage between his scan and the outside of his tracheostomy. The plan will be to upsize his inner and outer diameter tracheostomy. Dr. Leon her will speak to the . Ultimately will place patient back on his home ventilator prior to discharge. (2) Pneumonia: Qualifiers: Laterality: left Lung location: lower lobe of lung Pneumonia type: due to unspecified organism Qualified Code(s): J18.9 - Pneumonia, unspecified organism Code(s): J18.9 - Pneumonia, unspecified organism Status: Acute Assessment and Plan: Patient has a history of MRSA sensitive to vancomycin, gentamicin and Bactrim and Pseudomonas sensitive to ceftaz, cefepime, Gent, meropenem, Zosyn and tobramycin on 04/28/2022. 07/06: Patient is nodding his head yes and no and he denies any pain. States that his breathing feels back to normal. Denies heavy secretions. Patient has been afebrile since 07/05 at 4:00 a.m.. White blood cell count 6.4, creatinine 0.8. Chest x-ray today with stable bibasilar interstitial infiltrates most consistent with atelectasis and no changed from 07/04. Plan: Sputum from 07/05/2023 shows greater than 25 squamous cells and I have repeated a culture. Patient is afebrile since 07/05 at 4:00 a.m. on vancomycin, meropenem and levofloxacin. He has minimal secretions, his whi
--- NOTE | 2023-07-08 11:59 | PCFNICU ---
ICU Rounding Note: Pt current nutrition is Glucerna 1.2 at 65 ml/hr. Last recorded weight is 105.5 kg, up from 104.7 kg on admit. Bowel Motility: +BM reported 07/07 Labs Reviewed: Glu 240, BUN 26,Na 135 Meds Noted: Vancomycin, Levaquin, Meropenem. Skin: WNL Additional Notes: Trach patient with G tube feedings of Glucerna 1.2 at 65 ml/hr. tube feedings are tolerating. Flush 50 ml q 4 hours. ENT consult for trach change. Agree with diet orders. Following daily in ICU rounds. Monitor tolerance, labs, weights, plan of care every Thursday and Thursday.
--- NOTE | 2023-07-08 12:07 | WPDINTPN ---
Progress Note: A&P Assessment and Plan (1) Chronic respiratory failure requiring continuous mechanical ventilation through tracheostomy: Code(s): J96.10 - Chronic respiratory failure, unspecified whether with hypoxia or hypercapnia; Z93.0 - Tracheostomy status; Z99.11 - Dependence on respirator [ventilator] status Status: Acute Assessment and Plan: Chronic respiratory failure secondary to cervical injury leading to tracheostomy and ventilator dependent -Continue full mechanical ventilation support to prevent hypoxemia/hypercarbia and end organ damage. ABG and PCXR reviewed and will repeat in am. -tidal volume 450 mL, peep of 5 and 21% FiO2 -received Lasix 1 dose in 07/06 -Treatment of pneumonia as below -Low tidal volume ventilation strategy to prevent volutrauma -Bronchodilators -Dr. Camargo (pulmonology) has discussed with the ENT regarding tracheal malacia and air leak that sometimes occurs at home. The plan is to up size is and an outer diameter tracheostomy. Dr. Camargo, has updated patient's . (2) Pneumonia: Qualifiers: Laterality: left Lung location: lower lobe of lung Pneumonia type: due to unspecified organism Qualified Code(s): J18.9 - Pneumonia, unspecified organism Code(s): J18.9 - Pneumonia, unspecified organism Status: Acute Assessment and Plan: Patient had increased tracheal secretions at home. 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 -07/04: Blood culture negative x2 -07/04: urine culture- mixed genital joseph isolated -07/06: Sputum culture growing stenotrophomonas maltophilia, awaiting sensitivities -Continue vancomycin, meropenem and Levaquin for dual pseudomonal coverage at this time (07/05) (3) Interstitial edema: Code(s): R60.9 - Edema, unspecified Status: Acute Assessment and Plan: Patient received Lasix on 07/06/2023 with good urine output (4) Insulin dependent diabetes mellitus: Status: Acute Assessment and Plan: Continue Lantus -continue Accu-Cheks and sliding scale insulin Plan DVT prophylaxis -Eliquis Stress ulcer prophylaxis -Pepcid Nutrition -resume Tube Feeds Code Status - Full Code Total Critical Care Time - 34 minutes Discussed with patient's spouse and updated with patient's condition and plan of care. I answered all questions Due to a high probability of clinically significant, life threatening deterioration, the patient required my highest level of preparedness to intervene emergently and I personally spent this critical care time directly and personally managing the patient. This critical care time included obtaining a history; examining the patient; pulse oximetry; ordering and review of studies; arranging urgent treatment with development of a management plan; evaluation of patient's response to treatment; frequent reassessment; and discussions with other providers. It was exclusive of separately billable procedures and treating other patients and teaching time. Please see Assessment and Plan section and the rest of the note for further information on patient assessment and treatment Subjective Date/time seen: 07/08/23 12:07 Interval history: Reason for consult: Ventilator dependent Chronic respiratory failure, pneumonia, interstitial edema 07/08/2023: Patient seen and examined the ICU, patient has a chronic trach, currently on hospital ventilator, CMV mode, peep of 5, 21% FiO2. Patient had some air leak, tracheostomy balloon was filled with additional fluid with improvement in his air leak and improved his tidal volume alarms. Patient is afebrile, hemodynamically stable, adequate
[2023-07-08] MEDS: BACLOFEN 5 MG TABLET FEED TUBE (12:52)
[2023-07-08 13:21] LABS: Glucose Point of Care 297 mg/dl (65-105)
[2023-07-08 14:23] LABS: Mycoplasma IgM Antibody Titer 106 U/mL (<770)
[2023-07-08] MEDS: LOSARTAN POTASSIUM 100 MG TABLET FEED TUBE (17:38)
[2023-07-08 17:41] LABS: Glucose Point of Care 249 mg/dl (65-105)
--- NOTE | 2023-07-08 18:15 | PC.NURSE ---
Tracheostomy exchange by Dr. aMrin Mckee. RT, RN x2 and spouse at bedside. patient tolerated fairly well. No sign of desaturation noted.
--- NOTE | 2023-07-08 18:18 | P.PCNBED_ITS ---
Procedures Other Procedures Procedure 1: Other Procedure: Trach change. Verbal consent obtained. The patient positioned correctly. All trach removed copious amounts of thick secretions were suctioned out. Eight Shiley placed easily. Cuff inflated trach ties placed very tightly. Patient t olerated the procedure well. Ventilation confirmed.
--- NOTE | 2023-07-08 19:05 | PC.NURSE ---
Bedside report with FERNANDO Kraft, patient resting comfortably, no sign or symptom of respiratory distress.
[2023-07-08] MEDS: METOPROLOL TARTRATE 25 MG TABLET PO (20:14)
[2023-07-08] MEDS: ACETAMINOPHEN 325 MG TABLET 650 MG FEED TUBE (20:14)
[2023-07-08] MEDS: traZODone HCL 25 MG TABLET 75 MG FEED TUBE (20:14)
[2023-07-08] MEDS: EZETIMIBE 10 MG TABLET FEED TUBE (20:14)
--- NOTE | 2023-07-08 20:16 | PC.NURSE ---
Insulin administration verified by Jeni Mathur RN.
[2023-07-08 21:08] LABS: Glucose Point of Care 171 mg/dl (65-105)
[2023-07-09] VITALS (29 sets, daily range): BP systolic 120–172; BP diastolic 58–99; PULSE 49–77; RESP 16–19; TEMP 36.7–37.1; O2SAT 96–99
[2023-07-09 00:16] LABS: Glucose Point of Care 166 mg/dl (65-105)
[2023-07-09] MEDS: ALBUTEROL SULFATE NEB 2.5 MG/3 ML INH INHALATION ×4 (02:19→20:51)
[2023-07-09] MEDS: IPRATROPIUM BR 0.02% INH SOLN 0.5 MG/2.5 ML VIAL INHALATION ×4 (02:19→20:51)
[2023-07-09] MEDS: MEROPENEM 1 GM/NS 100 ML 1 GM/100 ML BAG IVPB (03:24)
[2023-07-09 05:38] LABS: Hematocrit 46.9 % (42.0-52.0); Hemoglobin 14.5 g/dL (14.0-18.0); Mean Corpuscular HGB Conc 30.9 g/dl (32-36); Mean Corpuscular Hemoglobin 29.4 pg (26-34); Mean Corpuscular Volume 95.1 fl (80-100); Mean Platelet Volume 11.2 fl (7.4-10.4); Platelet Count Result 144 k/mm3 (150-375); Red Blood Count 4.93 M/mm3 (4.6-6.20); Red Cell Distribution Width 15.3 % (11.5-14.5); White Blood Count 6.9 K/mm3 (4.5-10.0)
[2023-07-09 05:48] LABS: Alanine Aminotransferase 18 U/L (6-50); Alkaline Phosphatase 114 U/L (38-126); Anion Gap 10 mmol/L (8-16); Aspartate Amino Transferase 25 U/L (17-59); Bilirubin,Total 0.8 mg/dL (0.2-1.3); Blood Urea Nitrogen 26 mg/dL (9-20); Calcium 9.7 mg/dL (8.4-10.2); Carbon Dioxide 26 mmol/L (22-30); Chloride 103 mmol/L (98-107); Estimated CRCL calculation 78 ml/min; Estimated Glomerular Filt Rate > 60; Glucose 186 mg/dL (65-110); Magnesium 2.4 mg/dL (1.6-2.3); Potassium 4.1 mmol/L (3.4-5.0); Sodium 139 mmol/L (137-145)
[2023-07-09 06:02] LABS: Legionella pneumophila Ag Ur Not Detected (Not Detected)
[2023-07-09] MEDS: GABAPENTIN 300 MG CAPSULE FEED TUBE ×3 (06:12→21:22)
[2023-07-09] MEDS: levoFLOXacin 750 MG/D5W 150 ML 750 MG/150 ML BAG 100 MG IVPB (08:26)
[2023-07-09] MEDS: VENLAFAXINE HCL XR 75 MG CAP.ER.24H 150 MG PO (08:27)
[2023-07-09] MEDS: METOPROLOL TARTRATE 12.5 MG TABLET FEED TUBE (08:27)
[2023-07-09] MEDS: guaiFENesin 200 MG/10 ML UDC 400 MG FEED TUBE (08:28)
[2023-07-09] MEDS: polyethylene glycoL 3350 17 GM POWD.PACK PO (08:28)
[2023-07-09] MEDS: FAMOTIDINE 20 MG TABLET 40 MG FEED TUBE (08:28)
--- NOTE | 2023-07-09 08:28 | PC.NURSE ---
home dose of lantus given at 0828; verified by Smita Talavera RN
[2023-07-09] MEDS: CHLORHEXIDINE GLUCONATE 0.12% ORAL RINSE 473 ML BTL (*BKC) 15 ML SWISH/SPIT ×2 (08:29→22:58)
--- NOTE | 2023-07-09 11:38 | PCFNICU ---
ICU Rounding Note: Pt current nutrition is Glucerna 1.2 at 65 ml/hr. Last recorded weight is 104.9 kg, stable Bowel Motility: +BM reported 07/07 Labs Reviewed:Glu 186, BUN 26, Mg 2.4 Meds Noted:Vancomycin, Eliquis, Bactrim Skin: WNL Additional Notes: Trach patient. PEG tube feedings of Glucerna 1.2 at 65 ml/hr. Flush 30 ml q 4 hours. Tube feedings are being tolerated. Agree with diet orders. Following daily in ICU rounds. Monitor tolerance, labs, weights, plan of care Daily in ICU rounds
[2023-07-09] MEDS: SULFAMETHOXAZOLE/TRIMETHOPRIM 800/160 MG DS TABLET 2 TAB PO ×2 (12:09→21:23)
[2023-07-09 12:12] LABS: Glucose Point of Care 231 mg/dl (65-105)
[2023-07-09] MEDS: INSULIN ASPART (*BKC) 100 UNITS/ML SUB-Q ×2 (12:14→17:33)
[2023-07-09] MEDS: BACLOFEN 5 MG TABLET FEED TUBE (12:15)
--- NOTE | 2023-07-09 12:30 | PM.PNPUL ---
Progress Note: A&P Assessment and Plan (1) Chronic respiratory failure requiring continuous mechanical ventilation through tracheostomy: Code(s): J96.10 - Chronic respiratory failure, unspecified whether with hypoxia or hypercapnia; Z93.0 - Tracheostomy status; Z99.11 - Dependence on respirator [ventilator] status Status: Acute Assessment and Plan: He developed chronic respiratory failure after cervical injury Oct 2020, quadriplegia, status post cervical spinal fusion C3 through C5. He oxygenates on FiO2 0.21, room air with a set rate of 16 x 500 ml and PEEP 5 on a home vent. He was in [facility] May 08-2021. Patient had a blood gas of 7.50/ on 07/04 on a tidal volume of 500 and his tidal volume was decreased to 450. 07/06: Patient is currently on the hospital ventilator with the CMV rate of 16, breathing 19, tidal volume 450, minute ventilation 6.9, peep of 5, room air with saturation 96%. Plan: Continue hospital ventilation with the above settings and room air. Discussed with Dr. Ramirez, will follow with you 07/07: Patient remains on the hospital ventilator the CMV rate of 16, tidal volume 450, peep of 5 and 21% FiO2 with saturations 98%. 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 He tried this for 1 week at home and he tolerated this clinically well but the low-pressure alarm was activated and according to the he was unable to tolerate this because of the low pressure alarm. I spoken with Dr. Leon her and Dr. Mckee ENT at our hospital placed this current tracheostomy on which is an extra long Bivona. The states that he leaks and has secretions around this current tracheostomy. Dr. Mckee was consulted. The family has brought in a backup ventilator from home and they still us that these are his current settings and prior to discharge he will be able to wear this. 07/08/23: Patient remains on the hospital ventilator CMV rate of 16, tidal volume 450, peep of 5 and 21% FiO2 with saturations 94%. His peak pressure is 19, mean pressure is 8.3, minute ventilation is 6.9. I spoke with the nursing staff and respiratory therapy and occasionally he will have low tidal volume alarms and most of the time no interventions will be done and this will last about 5 seconds and then spontaneously resolve. RT is had to is add a little bit of water to the Brovana to help prevent this as well. Plan: My partner Dr. Camargo, his spoken to ENT, Dr. Mckee about this complicated patient requiring home ventilation with tracheal malacia and air leakage between his scan and the outside of his tracheostomy. The plan will be to upsize his inner and outer diameter tracheostomy. Dr. Leon her will speak to the . Ultimately will place patient back on his home ventilator prior to discharge. later in day, ENT exchanged trach for Shiley #8 with ID 8.5 and outer diameter 12.2. 07/09/23: Patient is tolerating his new Shiley trach. There is a small position all air leak around the trach cuff. There has been no leak between the skin and the outer tracheostomy. He has minimal secretions. Plan: The patient is exhaling adequate tidal volumes on the hospital noninvasive ventilator. The patient does have a small positional air leak between his balloon and trachea but his tidal volumes are adequate. I do not feel he needs to be upsized at this time. Patient has responded to antibiotics and at this time would place him back on his home ventilator. Would check a blood gas in the morning to assess his oxygenation and ventilation. (2) Pneumonia: Qualifiers: Laterality: left Lung location: lower lobe of lung Pneumonia type: due to unspecified organism Qualified Code(s): J18.9 - Pneumonia, unspecified organism Code(s): J18.9 - Pneumonia, unspecified organism Status: Acute Assessment and Plan: Patient has a hi
--- NOTE | 2023-07-09 12:38 | WPDINTPN ---
Progress Note: A&P Assessment and Plan (1) Chronic respiratory failure requiring continuous mechanical ventilation through tracheostomy: Code(s): J96.10 - Chronic respiratory failure, unspecified whether with hypoxia or hypercapnia; Z93.0 - Tracheostomy status; Z99.11 - Dependence on respirator [ventilator] status Status: Acute Assessment and Plan: Chronic respiratory failure secondary to cervical injury leading to tracheostomy and ventilator dependent -Continue full mechanical ventilation support to prevent hypoxemia/hypercarbia and end organ damage. ABG and PCXR reviewed and will repeat in am. -tidal volume 450 mL, peep of 5 and 21% FiO2 -received Lasix 1 dose in 07/06 -Treatment of pneumonia as below -Low tidal volume ventilation strategy to prevent volutrauma -Bronchodilators -07/08:Dr. Camargo (pulmonology) has discussed with the ENT regarding tracheal malacia and air leak that sometimes occurs at home. The plan is to up size is and an outer diameter tracheostomy. Dr. Camargo, has updated patient's . -07/08: ENT exchanged the tracheostomy to a size 8 Shiley -patient getting adequate tidal volumes, there was some positional air leak, I have asked the respiratory therapist to put related been more air in the cuff (2) Pneumonia: Qualifiers: Laterality: left Lung location: lower lobe of lung Pneumonia type: due to unspecified organism Qualified Code(s): J18.9 - Pneumonia, unspecified organism Code(s): J18.9 - Pneumonia, unspecified organism Status: Acute Assessment and Plan: Patient had increased tracheal secretions at home. 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 Bactrim (3) Interstitial edema: Code(s): R60.9 - Edema, unspecified Status: Acute Assessment and Plan: Patient received Lasix on 07/06/2023 with good urine output (4) Insulin dependent diabetes mellitus: Status: Acute Assessment and Plan: Continue Lantus -continue Accu-Cheks and sliding scale insulin Plan DVT prophylaxis -Eliquis Stress ulcer prophylaxis -Pepcid Nutrition -resume Tube Feeds Code Status - Full Code Total Critical Care Time - 32 minutes Discussed with patient's spouse and updated with patient's condition and plan of care. I answered all questions Due to a high probability of clinically significant, life threatening deterioration, the patient required my highest level of preparedness to intervene emergently and I personally spent this critical care time directly and personally managing the patient. This critical care time included obtaining a history; examining the patient; pulse oximetry; ordering and review of studies; arranging urgent treatment with development of a management plan; evaluation of patient's response to treatment; frequent reassessment; and discussions with other providers. It was exclusive of separately billable procedures and treating other patients and teaching time. Please see Assessment and Plan section and the rest of the note for further information on patient assessment and treatment Subjective Date/time seen: 07/09/23 12:38 Interval history: Reason for consult: Ventilator dependent Chronic respiratory failure, pneumonia, interstitial edema 07/08: Tracheostomy tube exchanged for a size 8 Shiley by ENT 07/09/2023: Patient seen and examined the ICU, r
[2023-07-09] MEDS: BISACODYL 10 MG SUPPOSITORY RECTAL (17:21)
[2023-07-09] MEDS: LOSARTAN POTASSIUM 100 MG TABLET FEED TUBE (17:21)
[2023-07-09 17:33] LABS: Glucose Point of Care 218 mg/dl (65-105)
--- NOTE | 2023-07-09 17:45 | PM.IMPN ---
Progress Note: A&P Assessment and Plan (1) Pneumonia: Qualifiers: Laterality: left Lung location: lower lobe of lung Pneumonia type: due to unspecified organism Qualified Code(s): J18.9 - Pneumonia, unspecified organism Code(s): J18.9 - Pneumonia, unspecified organism Status: Acute (2) Interstitial edema: Code(s): R60.9 - Edema, unspecified Status: Acute (3) Chronic respiratory failure requiring continuous mechanical ventilation through tracheostomy: Code(s): J96.10 - Chronic respiratory failure, unspecified whether with hypoxia or hypercapnia; Z93.0 - Tracheostomy status; Z99.11 - Dependence on respirator [ventilator] status Status: Acute (4) Chronic anticoagulation: Code(s): Z79.01 - intermediate card tender (current) use of anticoagulants Status: Acute (5) Coronary artery disease: Code(s): I25.10 - Atherosclerotic heart disease of [place] coronary artery without angina pectoris Status: Acute (6) History of DVT (deep vein thrombosis): Code(s): Z86.718 - Personal history of other venous thrombosis and embolism Status: Acute Plan 82M living at home with , w/ PMH quadriplegia 2/2 cervical spinal cord injury from fall in 10/2020 with chronic respiratory failure and ventilator dependence, s/p PEG and hx of 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 Admitted on 07/04 for VAP and lactic acidosis. 1) ventilator associated pneumonia in a pt with chronic respiratory failure requiring continuous mech vent via trach w/ hx of MRSA and pseudomonas infection - respiratory distress resolved. - vent mgmt per pulmonology and critical care. tidal volume as been decreased to 450, pt had respiratory alkalosis on admission - f/u blood sputum cultures, on vancomycin, meropenem and levofloxacin since 07/04, agree to continue that - hx of mucous plugging, does not appear to have that now, pneumonia on CT appears to be dependent bilateral consolidation with some interstitial edema. received 1x dose lasix. pulmonology to assess need for bronchoscopy - pt doing much better now since tracheostomy has been changed out yesterday by ENT MD - pt is on iv Levaquin can transition to oral Levaquin on DC 2) lactic acidosis - resolved 3) CAD s/p CABG, hx of DVT and PE - not on aspirin at home. to discuss with . cont eliquis and metoprolol, allergic to statins 4) IDDM - accuchecks and ISS 5) GERD - cont pepcid Subjective Date/time seen: 07/09/23 17:45 Interval history: long discussion with , a pleasant lady, is at bedside and she provides history. she believes he is back to baseline respiratory status. pt had tracheostomy tube changed out yesterday pt may go home tomorrow pt has ventilator at home Review of Systems Review of Systems: difficulties speaking due to injury/tracheostomy. Exam Narrative: General: Chronically ill, nontoxic appearing male HEENT: TOBACCO ROLLER shunt on the right side of the head. Neck: New tacheostomy in place. Respiratory: Patient is comfortable on the ventilator. good breath sounds Cardiovascular: Regular rate and rhythm with S1-S2. Gastrointestinal: Abdomen is soft and nontender with positive bowel sounds. Urostomy bag in the right mid quadrant with a large hernia surrounding. Extremities: No cyanosis or clubbing. Trace pretibial edema bilaterally. Radial pulses palpable. Pedal pulses difficult to palpate. Neurological: Alert. Cranial nerves 2-12 are grossly intact. Patient is quadriplegic. Objective Data Vital Signs Vital Signs: Vital Signs - 24 hr 07/08/23 18:00 07/08/23 18:33 07/08/23 18:00 Temperature Pulse Rate 60 72 60 Respiratory
[2023-07-09] MEDS: EZETIMIBE 10 MG TABLET FEED TUBE (21:22)
[2023-07-09] MEDS: APIXABAN 5 MG TABLET PO (21:22)
[2023-07-09] MEDS: traZODone HCL 25 MG TABLET 75 MG FEED TUBE (21:22)
[2023-07-09] MEDS: METOPROLOL TARTRATE 25 MG TABLET PO (21:22)
[2023-07-09] MEDS: ACETAMINOPHEN 325 MG TABLET 650 MG FEED TUBE (21:22)
[2023-07-09 21:28] LABS: Glucose Point of Care 200 mg/dl (65-105)
[2023-07-10] VITALS (21 sets, daily range): BP systolic 108–158; BP diastolic 54–111; PULSE 49–90; RESP 16–24; TEMP 36.6–37.1; O2SAT 96–99
[2023-07-10 01:16] LABS: Glucose Point of Care 167 mg/dl (65-105)
[2023-07-10] MEDS: ALBUTEROL SULFATE NEB 2.5 MG/3 ML INH INHALATION ×2 (02:04→08:52)
[2023-07-10] MEDS: IPRATROPIUM BR 0.02% INH SOLN 0.5 MG/2.5 ML VIAL INHALATION ×2 (02:04→08:53)
[2023-07-10 05:27] LABS: Basophils Absolute Auto 0.1 K/mm3 (0.0-0.1); Eosinophils Absolute Auto 0.1 K/mm3 (0-0.3); Eosinophils Percent Auto 2.2 % (0-4.4); Hemoglobin 14.5 g/dL (14.0-18.0); Immature Granulocyte Absolute 0.12 K/mm3 (0.00-0.031); Lymphocytes Absolute Auto 0.96 K/mm3 (0.9-3.2); Mean Corpuscular HGB Conc 30.9 g/dl (32-36); Mean Corpuscular Hemoglobin 29.5 pg (26-34); Mean Corpuscular Volume 95.5 fl (80-100); Mean Platelet Volume 11.2 fl (7.4-10.4); Monocytes Absolute Auto 0.6 K/mm3 (0.1-0.6); Monocytes Percent Auto 10.7 % (2.6-8.5); Neutrophils Absolute Auto 4.1 K/mm3 (1.3-6.7); Neutrophils Percent Auto 68.1 % (45.5-73.1); Platelet Count Result 152 k/mm3 (150-375); Red Blood Count 4.92 M/mm3 (4.6-6.20); Red Cell Distribution Width 15.2 % (11.5-14.5)
[2023-07-10 05:28] LABS: Alveolar/Arterial O2 Gradient 80.6 mmHg; Carboxyhemoglobin 0.5 % THb (0-2.0); Fractional Inspired Oxygen 21 %; HCO3 ABG 28.3 mEq/l (22.0-26.0); Methemoglobin ABG 0.5 %THb (0-1.5); Oxygen Saturation ABG 96.3 % (95.0-100.0); Oxyhemoglobin 94.6 % THb (90.0-100.0); PCO2 ABG 41.4 mmHg (35.0-45.0); PO2 ABG 79.8 mmHg (80.0-100.0); Reduced Hemoglobin 4.4 %THb (0-5.0); pH ABG 7.453 (7.350-7.450)
[2023-07-10 05:41] LABS: Alanine Aminotransferase 19 U/L (6-50); Albumin Level 3.9 g/dL (3.5-5.1); Alkaline Phosphatase 118 U/L (38-126); Anion Gap 10 mmol/L (8-16); Aspartate Amino Transferase 18 U/L (17-59); Bilirubin,Total 0.6 mg/dL (0.2-1.3); Blood Urea Nitrogen 25 mg/dL (9-20); Calcium 9.6 mg/dL (8.4-10.2); Carbon Dioxide 26 mmol/L (22-30); Chloride 103 mmol/L (98-107); Estimated CRCL calculation 70 ml/min; Estimated Glomerular Filt Rate > 60; Glucose 164 mg/dL (65-110); Magnesium 2.3 mg/dL (1.6-2.3); Potassium 3.7 mmol/L (3.4-5.0); Sodium 139 mmol/L (137-145)
[2023-07-10 05:53] LABS: Glucose Point of Care 179 mg/dl (65-105)
[2023-07-10] MEDS: SULFAMETHOXAZOLE/TRIMETHOPRIM 800/160 MG DS TABLET 2 TAB PO (05:57)
[2023-07-10] MEDS: GABAPENTIN 300 MG CAPSULE FEED TUBE ×2 (05:57→14:02)
--- NOTE | 2023-07-10 09:29 | WPDINTPN ---
Progress Note: A&P Assessment and Plan (1) Chronic respiratory failure requiring continuous mechanical ventilation through tracheostomy: Code(s): J96.10 - Chronic respiratory failure, unspecified whether with hypoxia or hypercapnia; Z93.0 - Tracheostomy status; Z99.11 - Dependence on respirator [ventilator] status Status: Acute Assessment and Plan: Chronic respiratory failure secondary to cervical injury leading to tracheostomy and ventilator dependent -Continue full mechanical ventilation support to prevent hypoxemia/hypercarbia and end organ damage. ABG and PCXR reviewed and will repeat in am. -tidal volume 450 mL, peep of 5 and 21% FiO2 -received Lasix 1 dose in 07/06 -Treatment of pneumonia as below -Low tidal volume ventilation strategy to prevent volutrauma -Bronchodilators -07/08:Dr. Camargo (pulmonology) has discussed with the ENT regarding tracheal malacia and air leak that sometimes occurs at home. The plan is to up size is and an outer diameter tracheostomy. Dr. Camargo, has updated patient's . -07/08: ENT exchanged the tracheostomy to a size 8 Shiley -patient getting adequate tidal volumes, there was some positional air leak, -07/10: Have placed patient on his home ventilator, will get an ABG. (2) Pneumonia: Qualifiers: Laterality: left Lung location: lower lobe of lung Pneumonia type: due to unspecified organism Qualified Code(s): J18.9 - Pneumonia, unspecified organism Code(s): J18.9 - Pneumonia, unspecified organism Status: Acute Assessment and Plan: Patient had increased tracheal secretions at home. 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 Bactrim (3) Interstitial edema: Code(s): R60.9 - Edema, unspecified Status: Acute Assessment and Plan: Patient received Lasix on 07/06/2023 with good urine output (4) Insulin dependent diabetes mellitus: Status: Acute Assessment and Plan: Continue Lantus -continue Accu-Cheks and sliding scale insulin Plan DVT prophylaxis -Eliquis Stress ulcer prophylaxis -Pepcid Nutrition -resume Tube Feeds Code Status - Full Code Total Critical Care Time - 32 minutes Discussed with patient's spouse and updated with patient's condition and plan of care. I answered all questions Due to a high probability of clinically significant, life threatening deterioration, the patient required my highest level of preparedness to intervene emergently and I personally spent this critical care time directly and personally managing the patient. This critical care time included obtaining a history; examining the patient; pulse oximetry; ordering and review of studies; arranging urgent treatment with development of a management plan; evaluation of patient's response to treatment; frequent reassessment; and discussions with other providers. It was exclusive of separately billable procedures and treating other patients and teaching time. Please see Assessment and Plan section and the rest of the note for further information on patient assessment and treatment Subjective Date/time seen: 07/10/23 09:29 Interval history: Reason for consult: Ventilator dependent Chronic respiratory failure, pneumonia, interstitial edema 07/08: Tracheostomy tube exchanged for a size 8 Shiley by ENT 07/10/2023: Patient seen and examined the ICU, remains o
[2023-07-10] MEDS: VENLAFAXINE HCL XR 75 MG CAP.ER.24H 150 MG PO (09:38)
[2023-07-10] MEDS: guaiFENesin 200 MG/10 ML UDC 400 MG FEED TUBE (09:38)
[2023-07-10] MEDS: METOPROLOL TARTRATE 12.5 MG TABLET FEED TUBE (09:38)
[2023-07-10] MEDS: FAMOTIDINE 20 MG TABLET 40 MG FEED TUBE (09:38)
[2023-07-10] MEDS: polyethylene glycoL 3350 17 GM POWD.PACK PO (09:38)
[2023-07-10] MEDS: APIXABAN 5 MG TABLET PO (09:38)
[2023-07-10] MEDS: levoFLOXacin 750 MG/D5W 150 ML 750 MG/150 ML BAG 100 MG IVPB (09:39)
--- NOTE | 2023-07-10 09:39 | PC.NURSE ---
home dose lantus given; verified by Vipul Colvin RN
--- NOTE | 2023-07-10 09:51 | PM.DS ---
DS: Discharge Diagnosis Discharge Diagnosis (1) Pneumonia: Qualifiers: Laterality: left Lung location: lower lobe of lung Pneumonia type: due to unspecified organism Qualified Code(s): J18.9 - Pneumonia, unspecified organism Code(s): J18.9 - Pneumonia, unspecified organism Status: Acute (2) Interstitial edema: Code(s): R60.9 - Edema, unspecified Status: Acute (3) Chronic respiratory failure requiring continuous mechanical ventilation through tracheostomy: Code(s): J96.10 - Chronic respiratory failure, unspecified whether with hypoxia or hypercapnia; Z93.0 - Tracheostomy status; Z99.11 - Dependence on respirator [ventilator] status Status: Acute (4) Chronic anticoagulation: Code(s): Z79.01 - shelter (current) use of anticoagulants Status: Acute (5) Coronary artery disease: Code(s): I25.10 - Atherosclerotic heart disease of [place] coronary artery without angina pectoris Status: Acute (6) History of DVT (deep vein thrombosis): Code(s): Z86.718 - Personal history of other venous thrombosis and embolism Status: Acute Plan 82M living at home with , w/ PMH quadriplegia 2/2 cervical spinal cord injury from fall in 10/2020 with chronic respiratory failure and ventilator dependence, s/p PEG and 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 Admitted on 07/04 for VAP and lactic acidosis. 1) ventilator associated pneumonia in a pt with chronic respiratory failure requiring continuous mech vent via trach w/ hx of MRSA and pseudomonas infection - respiratory distress resolved. - vent mgmt per pulmonology and critical care. tidal volume as been decreased to 450, pt had respiratory alkalosis on admission - f/u blood sputum cultures, on vancomycin, meropenem and levofloxacin since 07/04, agree to continue that - hx of mucous plugging, does not appear to have that now, pneumonia on CT appears to be dependent bilateral consolidation with some interstitial edema. received 1x dose lasix. pulmonology to assess need for bronchoscopy - pt doing much better now since tracheostomy has been changed out yesterday by ENT MD - pt is on iv Levaquin can transition to oral Levaquin on DC 2) lactic acidosis - resolved 3) CAD s/p CABG, hx of DVT and PE - not on aspirin at home. to discuss with . cont eliquis and metoprolol, allergic to statins 4) IDDM - accuchecks and ISS 5) GERD - cont pepcid DS: Summary Time Spent with Patient Time attestation: Total time spent providing and/or coordinating discharge services: Exam Narrative: General: Pt is trached and on mechanical ventilation size #8 Shiley Lungs/Chest: Trachea central Coarse BS B/L, No crackles or wheezing. Adequate air entry Cardiac: RRR. Normal S1 S2. No murmurs Circulation: Pedal pulses are intact and symmetrical. Abdomen: Urostomy in the right lower flank. Obese. Soft. NT. ND. Extremities: No clubbing, cyanosis or edema. Warm : Bhagat in place Neurologic: He is awake and quadriplegia, he has some movement in his arms at the shoulder, PERRL, nods to question DS: Data Data Completed and Pending Labs on day of discharge: Labs from last 24 hours 07/10/23 07/10/23 07/10/23 05:49 05:20 04:28 WBC 6.0 RBC 4.92 Hgb 14.5 Hct 47.0 MCV 95.5 MCH 29.5 MCHC 30.9 L RDW 15.2 H Plt Count 152 MPV 11.2 H Immature Gran % (Auto) 2.0 H Neut % (Auto) 68.1 Lymph % (Auto) 16.0 L [place] % (Auto) 10.7 H Eos % (Auto) 2.2 Baso % (Auto) 1.0 Lymph # (Auto) 0.96 [place] # (Auto) 0.6 Eos # (Auto) 0.1 Baso # (Auto) 0.1 Abs Immat Gran (auto) 0.12 H Absolute Neut
--- NOTE | 2023-07-10 11:49 | PCNFU ---
Nutrition Follow-Up Complete: Inadequate energy intake related to permanent trach/PEG tube, as evidenced by need for full tube feeding goal: Tolerate tube feeding at goal rate Patient is meeting current goal. No new goal. Pt current nutrition is Glucerna 1.2 at 65 ml/hr. Last recorded weight is 102.2 kg, down from 104.7 kg on admit. Bowel Motility:+BM reported 07/10 Labs Reviewed:Glu 164, BUN 25 Meds Noted: Eliquis, Bactrim, Vancomycin, Miralax Skin: WNL Additional Notes: Trach patient with PEG tube feedings of Glucerna 1.2 at 65 ml/hr and tolerating per nursing. Tube feedings providing 1716 kcals/86 gms protein/1151 ml water. Flush 30 ml a 4 hours. Tube feeding meeting 100% caloric needs at 16 kcals/kg and 100% protein needs at 0.8-1.0 kcal/kg. Agree with diet orders. Monitor tolerance, labs, weights, plan of care Daily in ICU rounds Follow up every Thursday and Thursday per policy.
[2023-07-10 11:56] LABS: Alveolar/Arterial O2 Gradient 41.6 mmHg; Base Excess ABG 4.5 mEq/l (+/-2.0); Fractional Inspired Oxygen 21 %; HCO3 ABG 28.5 mEq/l (22.0-26.0); Oxygen Content ABG 20.2 %vol (16.0-22.0); Oxygen Saturation ABG 92.5 % (95.0-100.0); Oxyhemoglobin 93.4 % THb (90.0-100.0); PCO2 ABG 40.1 mmHg (35.0-45.0); PO2 ABG 60.1 mmHg (80.0-100.0); PO2 FiO2 Ratio Arterial Blood 2.86 %; Total Hemoglobin 15.4 g/dL (12.0-18.0); pH ABG 7.469 (7.350-7.450)
[2023-07-10 12:01] LABS: Device VENTILATOR; Modified Allen's Test Pass; Site Drawn RIGHT BRACHIAL
[2023-07-10 12:02] LABS: Arterial Blood Gas Vent Mode ASSIST CONTROL; Arterial Blood Gas Ventilator rate 16 /MIN
[2023-07-10 12:11] LABS: Glucose Point of Care 201 mg/dl (65-105)
[2023-07-10] MEDS: BACLOFEN 5 MG TABLET FEED TUBE (12:44)
[2023-07-10] MEDS: INSULIN ASPART (*BKC) 100 UNITS/ML SUB-Q (12:45)
--- NOTE | 2023-07-10 12:47 | PM.IMPN ---
Progress Note: A&P Assessment and Plan (1) Pneumonia: Qualifiers: Laterality: left Lung location: lower lobe of lung Pneumonia type: due to unspecified organism Qualified Code(s): J18.9 - Pneumonia, unspecified organism Code(s): J18.9 - Pneumonia, unspecified organism Status: Acute (2) Interstitial edema: Code(s): R60.9 - Edema, unspecified Status: Acute (3) Chronic respiratory failure requiring continuous mechanical ventilation through tracheostomy: Code(s): J96.10 - Chronic respiratory failure, unspecified whether with hypoxia or hypercapnia; Z93.0 - Tracheostomy status; Z99.11 - Dependence on respirator [ventilator] status Status: Acute (4) Chronic anticoagulation: Code(s): Z79.01 - termite treater (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) use of anticoagulants Status: Acute (5) Coronary artery disease: Code(s): I25.10 - Atherosclerotic heart disease of [place] coronary artery without angina pectoris Status: Acute (6) History of DVT (deep vein thrombosis): Code(s): Z86.718 - Personal history of other venous thrombosis and embolism Status: Acute Plan Plan 82M living at home with , w/ PMH quadriplegia 2/2 cervical spinal cord injury from fall in 10/2020 with chronic respiratory failure and ventilator dependence, s/p PEG and 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 Admitted on 07/04 for VAP and lactic acidosis. 1) ventilator associated pneumonia in a pt with chronic respiratory failure requiring continuous mech vent via trach w/ hx of MRSA and pseudomonas infection - respiratory distress resolved. - vent mgmt per pulmonology and critical care. tidal volume as been decreased to 450, pt had respiratory alkalosis on admission - f/u blood sputum cultures, on vancomycin, meropenem and levofloxacin since 07/04, agree to continue that - hx of mucous plugging, does not appear to have that now, pneumonia on CT appears to be dependent bilateral consolidation with some interstitial edema. received 1x dose lasix - pt doing much better now since tracheostomy has been changed out yesterday by ENT MD - tracheostomy with some positional air leak ? - pt is on iv Levaquin can transition to oral Levaquin on DC - awaiting ABG today DC held for now 2) lactic acidosis - resolved 3) CAD s/p CABG, hx of DVT and PE - not on aspirin at home. to discuss with . cont eliquis and metoprolol, allergic to statins 4) IDDM - accuchecks and ISS 5) GERD - cont pepcid Subjective Date/time seen: 07/10/23 12:47 Interval history: Long discussion with , a pleasant lady, is at bedside and she provides history. She believes he is back to baseline respiratory status. Pt had tracheostomy tube changed out yesterday Pt has ventilator at home, specialists discussing about new tracheostomy tube and questionable air leak Review of Systems Review of Systems: improving Exam Const: General: comfortable and no acute distress Eyes: Pupils: Equal, round and reactive pupils present Neck: Neck: supple Other: trach intact Resp: Other: mech breath sounds, no wheezing or crackles identified Cardio: Rate: regular rate Rhythm: regular rhythm Heart sounds: no murmurs GI: Inspection: distended Other: urostomy w/ clear yellow urine, PEG tube intact Neuro: Cranial nerves: Yes Equal, round and reactive pupils present Extrem: General: no edema Objective Data Vital Signs Vital Signs: Vital Signs - 24 hr 07/09/23 13:51 07/09/23 13:52 07/09/23 14:01 Temperature Pulse Rate 74 74 61 Respiratory Rate 19 17 Blood Pressure Pulse Oximetry 98 Oxygen Delivery Mechanical
--- NOTE | 2023-07-10 13:56 | WPDPROCEDUR ---
Procedures Other Procedures Procedure 1: Other Procedure: SOB 2 procedures trach change and bronchoscopy. Patient positioned correctly discussed with all the verbal consents obtained. We initially tried placing a 9 Bivona, tidal volumes were low. Bronchoscopy was performed with a flexible bedside scope the trach was noted to almost be mainstem in the patient. The decision made to switch from a 9 Bivona to an 8 Bivona. The 8 Bivona was in good position several cm above the madan. We checked in both a supine and sitting position. Patient tolerated the procedure well.
[2023-07-10] MEDS: traMADol HCL (*CRX) 50 MG TABLET 100 MG FEED TUBE (14:02)
--- NOTE | 2023-07-10 14:04 | PCRCNOTE ---
Dr. Mckee at bedside to switch out trach per Dr. Camargo and pt. request. Pt. now has a Bivona #[address] 12cc of sterile water instilled in cuff to maintain normal tidal volume on home vent. Discussed proper care and emergency trach placement with . Sent an extra #8 Bivona XL and #7 Bivona XL home with pt. in case of emergency.
--- NOTE | 2023-07-10 14:24 | PM.PNPUL ---
Progress Note: A&P Assessment and Plan (1) Chronic respiratory failure requiring continuous mechanical ventilation through tracheostomy: Code(s): J96.10 - Chronic respiratory failure, unspecified whether with hypoxia or hypercapnia; Z93.0 - Tracheostomy status; Z99.11 - Dependence on respirator [ventilator] status Status: Acute Assessment and Plan: He developed chronic respiratory failure after cervical injury Oct 2020, quadriplegia, status post cervical spinal fusion C3 through C5. He oxygenates on FiO2 0.21, room air with a set rate of 16 x 500 ml and PEEP 5 on a home vent. He was in [facility] May 08-2021. Patient had a blood gas of 7.50/ on 07/04 on a tidal volume of 500 and his tidal volume was decreased to 450. 07/06: Patient is currently on the hospital ventilator with the CMV rate of 16, breathing 19, tidal volume 450, minute ventilation 6.9, peep of 5, room air with saturation 96%. Plan: Continue hospital ventilation with the above settings and room air. Discussed with Dr. Ramirez, will follow with you 07/07: Patient remains on the hospital ventilator the CMV rate of 16, tidal volume 450, peep of 5 and 21% FiO2 with saturations 98%. 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 He tried this for 1 week at home and he tolerated this clinically well but the low-pressure alarm was activated and according to the he was unable to tolerate this because of the low pressure alarm. I spoken with Dr. Leon her and Dr. Mckee ENT at our hospital placed this current tracheostomy on which is an extra long [place]. The states that he leaks and has secretions around this current tracheostomy. Dr. Mckee was consulted. The family has brought in a backup ventilator from home and they still us that these are his current settings and prior to discharge he will be able to wear this. 07/08/23: Patient remains on the hospital ventilator CMV rate of 16, tidal volume 450, peep of 5 and 21% FiO2 with saturations 94%. His peak pressure is 19, mean pressure is 8.3, minute ventilation is 6.9. I spoke with the nursing staff and respiratory therapy and occasionally he will have low tidal volume alarms and most of the time no interventions will be done and this will last about 5 seconds and then spontaneously resolve. RT is had to is add a little bit of water to the [place] to help prevent this as well. Plan: My partner Dr. Camargo, his spoken to ENT, Dr. Mckee about this complicated patient requiring home ventilation with tracheal malacia and air leakage between his scan and the outside of his tracheostomy. The plan will be to upsize his inner and outer diameter tracheostomy. Dr. Leon her will speak to the . Ultimately will place patient back on his home ventilator prior to discharge. later in day, ENT exchanged trach for Shiley #8 with ID 8.5 and outer diameter 12.2. 07/09/23: Patient is tolerating his new Shiley trach. There is a small position all air leak around the trach cuff. There has been no leak between the skin and the outer tracheostomy. He has minimal secretions. Plan: The patient is exhaling adequate tidal volumes on the hospital noninvasive ventilator. The patient does have a small positional air leak between his balloon and trachea but his tidal volumes are adequate. I do not feel he needs to be upsized at this time. Patient has responded to antibiotics and at this time would place him back on his home ventilator. Would check a blood gas in the morning to assess his oxygenation and ventilation. 07/10/23: Patient wore the hospital noninvasive ventilator with a Shiley [address] overnight with a tidal volume of 500 and had a blood gas this morning is 7.45/41/80 on room air. Intermittently the patient has air leaks and intermittently required the balloon to be reinflated to provide adequate tidal volumes. The balloon h
--- NOTE | 2023-07-10 14:36 | PM.DS ---
DS: Admitting Diagnosis Discharge Date 07/10/2023 Admitting Diagnosis Shortness of breath and increased tracheal output. DS: Discharge Diagnosis Discharge Diagnosis (1) Pneumonia: Qualifiers: Laterality: left Lung location: lower lobe of lung Pneumonia type: due to unspecified organism Qualified Code(s): J18.9 - Pneumonia, unspecified organism Code(s): J18.9 - Pneumonia, unspecified organism Status: Acute (2) Interstitial edema: Code(s): R60.9 - Edema, unspecified Status: Acute (3) Chronic respiratory failure requiring continuous mechanical ventilation through tracheostomy: Code(s): J96.10 - Chronic respiratory failure, unspecified whether with hypoxia or hypercapnia; Z93.0 - Tracheostomy status; Z99.11 - Dependence on respirator [ventilator] status Status: Acute (4) Chronic anticoagulation: Code(s): 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 - vent mgmt per pulmonology and critical care. tidal volume as been decreased to 450, pt had respiratory alkalosis on admission - f/u blood sputum cultures, on vancomycin, meropenem and levofloxacin since 07/04, agree to continue that - hx of mucous plugging, does not appear to have that now, pneumonia on CT appears to be dependent bilateral consolidation with some interstitial edema. received 1x dose lasix - pt doing much better now since tracheostomy has been changed out yesterday by ENT MD - tracheostomy with some positional air leak ? - pt is on iv Levaquin - trache changed out again before DC home 2) lactic acidosis - resolved 3) CAD s/p CABG, hx of DVT and PE - not on aspirin at home. to discuss with . 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 Admitted on 07/04 for VAP and lactic acidosis. Pt was treated in icu for respiratory support, treated with iv levaquin. For full ICU course see ICU notes Trache changed out by ENT. Patient placed on his home ventilator, will get an ABG.? Pt ok to Dc Time Spent with Patient Time attestation: Total time spent providing and/or coordinating discharge services:40 minutes on day of Dc Exam Const: General: comfortable and no acute distress Eyes: Pupils: Equal, round and reactive pupils present Neck: Neck: supple Other: trach intact Resp: Other: mech breath sounds, no wheezing or crackles identified Cardio: Rate: regular rate Rhythm: regular rhythm Heart sounds: no murmurs GI: Inspection: distended : Other: Urostomy in the right lower flank Back/Spine/Pelvis: Other: pt is quadraplegic Neuro: Cranial nerves: Yes Equal, round and reactive pupils present Extrem: General: no edema DS: Data Data Completed and Pending Labs on day of discharge: Labs from last 24 hours 07/10/23 07/10/23 07/10/23 12:05 10
--- NOTE | 2023-07-10 15:01 | PCRCNOTE ---
Window of time for administration has passed. See next scheduled administration.
[2023-07-14 11:47] LABS: Device VENTILATOR
[2023-07-14 11:48] LABS: Arterial Blood Gas PEEP 5 cmH2O; Arterial Blood Gas Tidal Volume 450 ml; Arterial Blood Gas Vent Mode CMV; Arterial Blood Gas Ventilator rate 16 /MIN
[2023-07-14 11:57] LABS: Arterial Blood Gas PEEP 5 cmH2O; Arterial Blood Gas Tidal Volume 500 ml
== END 2023-07-10 18:00 | disposition home or self-care (01) | DRG 207 ==
LOC: ANHED 17:16 → ANHICU 17:40
PROVIDERS: Internal Medicine; Internal Medicine Pulmonary Disease; Physician Assistant; Admitting Provider General Practice; Emergency Provider Preventive Medicine Aerospace Medicine; Visit Provider Family Medicine
DX: J95.851 Ventilator associated pneumonia (principal); G82.50 Quadriplegia, unspecified; Z99.11 Dependence on respirator [ventilator] status; J96.10 Chronic respiratory failure, unspecified whether with hypoxia or hypercapnia; G91.2 (Idiopathic) normal pressure hydrocephalus; I10 Essential (primary) hypertension; I25.10 Atherosclerotic heart disease of native coronary artery without angina pectoris; J39.8 Other specified diseases of upper respiratory tract; E78.5 Hyperlipidemia, unspecified; E11.9 Type 2 diabetes mellitus without complications; K21.9 Gastro-esophageal reflux disease without esophagitis; B96.89 Other specified bacterial agents as the cause of diseases classified elsewhere; G47.33 Obstructive sleep apnea (adult) (pediatric); W19.XXXS Unspecified fall, sequela; F41.1 Generalized anxiety disorder; Z20.822 Contact with and (suspected) exposure to COVID-19; Z96.653 Presence of artificial knee joint, bilateral; S14.109S Unspecified injury at unspecified level of cervical spinal cord, sequela; Z93.0 Tracheostomy status; Z93.1 Gastrostomy status; Z98.2 Presence of cerebrospinal fluid drainage device; Z95.0 Presence of cardiac pacemaker; Z79.4 Long term (current) use of insulin; Z79.01 Long term (current) use of anticoagulants; Z86.718 Personal history of other venous thrombosis and embolism; Z86.711 Personal history of pulmonary embolism; Z85.51 Personal history of malignant neoplasm of bladder; Z95.5 Presence of coronary angioplasty implant and graft; Z95.1 Presence of aortocoronary bypass graft; Z98.1 Arthrodesis status
CPT/HCPCS: 36415; 36600; 71045; 71250; 80048; 80053; 80202; 81001; 82375; 82805; 82948; 83050; 83605; 83735; 84100; 84145; 85025; 85027; 85610; 85730; 86140; 86738; 87040; 87070; 87077; 87081; 87086; 87088; 87186; 87205; 87449; 87636; 87641; 87899; 93005; 94002; 94003; 94640; 96361; 96365; 96366; 96367; 96375; 99285; A4248; A9270; G0378; J0692; J1815; J1940; J1956; J2185; J3370; J7030

== ENCOUNTER 2023-11-21 13:36 | Emergency (ER) | payer MEDICARE, SELFPAY ==
--- NOTE | ~2023-11-21 | XR_ITS ---
EXAM: XR ankle RT min 3V, XR foot RT min 3V DATE: 11/21/2023 14:19 HISTORY: swelling. QUADRAPALIGIC . COMPARISON: None available. FINDINGS: Severe osteopenia. No fracture or dislocation. No lytic or blastic lesion. Joint spaces ar e maintained. No erosion or periosteal change. Diffuse vascular calcifications. IMPRESSION: No acute osseous finding in the right ankle or foot. Reviewed, dictated and finalized at location K. IMPRESSION: No acute osseous finding in the right ankle or foot.
--- NOTE | ~2023-11-21 | US_ITS ---
EXAMINATION: US venous doppler LE RT DATE: 11/21/2023 15:39 INDICATION: r/o dvt . TECHNIQUE: Grayscale images without and with compression and Doppler images of the right lower extrem ity veins were obtained. COMPARISON: None FINDINGS: The right common femoral vein, profunda (deep) femoral vein, femoral vein, popliteal vein, peroneal v ein, posterior tibial veins, and greater saphenous vein are patent. IMPRESSION: Patent right lower extremity veins. No evidence of deep venous thrombosis. Reviewed, dictated and finalized at location K.
[2023-11-21 13:38] VITALS: BP 154/79; PULSE 60; RESP 20; TEMP 36.4; O2SAT 99
--- NOTE | 2023-11-21 13:38 | ED.EXTPRO ---
HPI - Extremity Problem General Chief complaint: Extremity Problem,Nontraumatic Stated complaint: DVT- RLE Time Seen by Provider: 11/21/23 13:38 History of Present Illness HPI Narrative: Patient is an 82-year-old female, chronic respiratory failure, trach and vent dependent after a spinal cord injury here with right ankle swelling and redness. notes that about a week ago he started having a rash over the lower left leg. They have been applying topical hydrocortisone cream which seems to have significantly improved the rash. Today they noticed swelling to the medial aspect of the right ankle and warmth and redness. No fever chills. He has been having normal vent settings and otherwise has been completely his normal self. He does have a history of prior DVT, is on Eliquis, has not missed any doses. contacted primary care doctor today who advised patient come to the emergency department for an ultrasound to rule out acute DVT. No known injuries. Patient denies any pain. History assisted by . Related Data Home Medications Medication Instructions Recorded Confirmed apixaban 5 mg tablet (Eliquis) 5 mg feeding tube Q12H 05/16/21 07/21/23 chlorhexidine gluconate 0.12 % 15 ml buccal BID 05/16/21 07/21/23 mouthwash tramadol 100 mg tablet 100 mg feeding tube Q6H PRN Pain 05/16/21 07/21/23 venlafaxine 75 mg tablet,extended 150 mg PO DAILY 07/02/21 07/21/23 release 24 hr acetaminophen 325 mg tablet 650 mg feeding tube Q4H PRN Pain 07/15/21 07/21/23 bisacodyl 10 mg rectal suppository 10 mg RECTAL DAILY PRN Constipation 07/15/21 07/21/23 ezetimibe 10 mg tablet (Zetia) 10 mg feeding tube HS 07/15/21 07/21/23 famotidine 40 mg tablet 40 mg feeding tube DAILY 07/15/21 07/21/23 gabapentin 300 mg capsule 300 mg feeding tube TID 07/15/21 07/21/23 (Neurontin) metoprolol tartrate 25 mg tablet 12.5 mg feeding tube QAM 10/07/21 07/21/23 metoprolol tartrate 25 mg tablet 25 mg PO HS 04/28/22 07/21/23 insulin glargine U-300 conc 300 74 unit subcut Q12H 12/16/22 07/21/23 unit/mL (3 mL) subcutaneous pen (Toujeo Max U-300 SoloStar) losartan 100 mg tablet 100 mg feeding tube QPM 04/08/23 07/21/23 acetaminophen 650 mg tablet 650 mg PO QHS 07/04/23 07/21/23 baclofen 5 mg tablet 5 mg feeding tube QNOON 07/04/23 07/21/23 guaifenesin 400 mg tablet 400 mg PO DAILY 07/04/23 07/21/23 peg 400-propylene glycol 0.4 %-0.3 1 drp EACH EYE TID PRN Dry Eyes 07/04/23 07/21/23 % eye drops (Systane (propylene glycol)) trazodone 50 mg tablet 75 mg PO HS 07/04/23 07/21/23 omega 8-gyp-vxk-fish oil 60 mg-90 1 cap PO DAILY 10/21/23 mg-500 mg capsule (Fish Oil) Allergies Allergy/AdvReac Type Severity Reaction Status Date / Time [id number] Reductase Allergy Muscle Pain Verified 11/21/23 13:49 Inhibitor Review of Systems Review of Systems: ROS unobtainable: Yes unobtainable due to endotracheal tube (trach) [facility] Past Medical History Medical History Bladder cancer Bladder cancer Status post cystectomy and urostomy. 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 Pseudomonas infection Pulmonary embolism Quadriplegia following spinal cord injury Surgical History Surgical History History of bilateral knee arthroplasty History of cholecystectomy History of coronary artery stent placement History of five vessel coronary artery bypass History of fusion of cervical spine (10/2020) C3 through C5 History of gastrostomy tube placement History of permanent cardiac pacemaker placement History of uro
--- NOTE | 2023-11-21 14:38 | PC.NURSE ---
This RN was made aware that pt refused to have blood drawn. This RN went to pt room and attempted to educate pt on importance of blood work. Pt still refusing blood work at this time, states I can't make him do it . EDP made aware
[2023-11-21 14:39] VITALS: BP 147/68; PULSE 50; RESP 19; O2SAT 100
[2023-11-21 15:33] VITALS: BP 135/79; PULSE 50; RESP 17; O2SAT 100
[2023-11-21 16:09] VITALS: BP 153/76; PULSE 60; RESP 17; O2SAT 100
[2023-11-21] MEDS: CEPHALEXIN SUSPENSION 500 MG/10 ML UDBTL FEED TUBE (17:26)
[2023-11-21 17:38] VITALS: BP 142/92; PULSE 60; RESP 18; TEMP 36.4; O2SAT 99
== END 2023-11-21 18:00 | disposition home or self-care (01) ==
PROVIDERS: Emergency Provider Student in an Organized Health Care Education/Training Program; PCP Family Medicine
DX: L03.115 Cellulitis of right lower limb (principal); G82.50 Quadriplegia, unspecified; S14.109S Unspecified injury at unspecified level of cervical spinal cord, sequela; J96.10 Chronic respiratory failure, unspecified whether with hypoxia or hypercapnia; Z99.11 Dependence on respirator [ventilator] status; I25.10 Atherosclerotic heart disease of native coronary artery without angina pectoris; E11.9 Type 2 diabetes mellitus without complications; E78.5 Hyperlipidemia, unspecified; I10 Essential (primary) hypertension; M10.9 Gout, unspecified; K21.9 Gastro-esophageal reflux disease without esophagitis; F41.1 Generalized anxiety disorder; Z93.1 Gastrostomy status; Z93.0 Tracheostomy status; Z93.6 Other artificial openings of urinary tract status; Z96.653 Presence of artificial knee joint, bilateral; Z95.5 Presence of coronary angioplasty implant and graft; Z95.1 Presence of aortocoronary bypass graft; Z95.0 Presence of cardiac pacemaker; Z98.2 Presence of cerebrospinal fluid drainage device; Z86.718 Personal history of other venous thrombosis and embolism; Z86.14 Personal history of Methicillin resistant Staphylococcus aureus infection; Z86.711 Personal history of pulmonary embolism; Z85.51 Personal history of malignant neoplasm of bladder; Z98.1 Arthrodesis status; Z90.6 Acquired absence of other parts of urinary tract; Z90.49 Acquired absence of other specified parts of digestive tract; Z79.01 Long term (current) use of anticoagulants; Z79.4 Long term (current) use of insulin; X58.XXXS Exposure to other specified factors, sequela
CPT/HCPCS: 73610; 73630; 93971; 99284; A9270